=== PATIENT | male | born 1935 | race Caucasian/White ===

== ENCOUNTER 2017-11-09 15:20 | Emergency (ER) | payer MEDICARE, OTHER, SELFPAY ==
[2017-11-09 15:22] VITALS: BP 160/77; PULSE 69; RESP 14; TEMP 36.6; O2SAT 99; BMI 23.5
--- NOTE | 2017-11-09 15:49 | ED.DCSUM_ITS ---
- ER Visit Summary Date of Service: 11/09/17 Chief Complaint: Nose laceration and nosebleed History of Present Illness: The patient is a 82 M with Plavix and aspirin for coronary disease. He was fixing the floor of a trailer today when he slipped on the driveway struck his nose on part of the trailer causing a nasal laceration and nasal bleed. He denies any other head injury he denies any LOC or headache. He denies any neck pain. Physical Examination: Appearing older male accompanied by his in a hallway bed. Vital signs are stable afebrile. H EENT exam he is an L-shaped laceration on the bridge of his nose. And involves the skin and subcu tissue and will need to be repaired. Dry reactive light. There is no other signs of facial or scalp trauma. Dentition is unremarkable. C-spine nontender normal range of motion. Lungs clear to auscultation bilaterally. Heart regular rate and rhythm. Chest wall nontender. Abdomen soft nontender. Normal bowel sounds no peritoneal signs. Pelvic girdle intact. He is moving all 4 extremities. There is no deformity. Are nontender. They have normal range of motion. Back exam is nontender. Spine is nontender. Neurologically is awake and alert without any focal motor or sensory deficits. NIH is 0. GCS of 15. Test Results: None Emergency Department Course and Treatment: Patient is going to need his nasal bridge laceration repaired. Let will be applied. Then will be locally anesthetized with plain lidocaine. Then will determine also if he is a nasal passageway bleed also. He has a 5 cm L-shaped laceration on the bridge of his nose. Involves the skin and subcu tissue. Let was applied to the wound. Was locally anesthetized with plain lidocaine. Cleaned with Shur-Clens and washed and explored and irrigated. Closed using 5 simple interrupted 4-0 Ethilon sutures. Proper hemostasis wound closure obtained patient tolerated procedure well. Nurses will apply dressing. Afrin-soaked cotton balls were placed in both sides of his nose he had bilateral anterior nosebleeds from the trauma. After the first set a cotton balls the right side was completely stopped the left and small amount of blood remaining. There is no blood in the posterior pharynx. He will bilateral nasal tampons placed prior to discharge. Treatment Plan: Sutures removed in 7 days. Ice to his face. Nasal packs in for 2 days. Amoxicillin while the packs are in. Disposition: Discharge Impression: Acute fall with nasal bridge laceration Nasal bridge laceration with ER repair of 5 cm Nasal fracture Bilateral anterior nosebleeds with bilateral anterior nasal tampons placed Anticoagulated on Plavix and aspirin This note was generated with [employer] dictation software. It may contain incorrect words, spelling, and punctuation that were not noted in review of the chart prior to signing ED Disposition - Plan for ED Patient: Chief Complaint: Nosebleed Referrals: David Molina DO [Primary Care Provider] -
[2017-11-09] MEDS: Oxymetazoline 0.05% 1 SPRAY SPRAY.BTL 2 SPRAY NASAL (16:13)
[2017-11-09] MEDS: Lidocaine/Epi/Tetracaine 50 ML 1 APPLIC TOPICAL (16:14)
--- NOTE | 2017-11-09 16:48 | ED.DEP ---
ED Disposition - Plan for ED Patient: Disposition: Home or Assisted Living Chief Complaint: Nosebleed Instructions: Nosebleed, ED Laceration Facial Sutr Tape Prescriptions: Amoxicillin 250 mg PO TID #9 cap Referrals: David Molina DO [Primary Care Provider] - Additional Instructions: See her nose today and tomorrow. Hold your Plavix and aspirin tonight. Stitches out in 5 days. Clean wound daily with soap and water or peroxide and water and apply a small amount antibiotic ointment. Remove both nasal packs in 2 days. Take the amoxicillin 1 pill 3 times a day for the next 3 days. This will prevent you from getting a sinus infection from the nasal packs. Return if you develop a severe headache, vomiting or bleeding that will not stop.
[2017-11-09] MEDS: Diphth,Pertuss(Acell),Tet Vac 0.5 ML Vial IM (17:15)
[2017-11-09 17:16] VITALS: BP 153/75; PULSE 59; RESP 14; O2SAT 97
== END 2017-11-09 17:20 | disposition home or self-care (01) ==
PROVIDERS: Emergency Provider Emergency Medicine; Family Provider Family Medicine; PCP Family Medicine
DX: S02.2XXA Fracture of nasal bones, initial encounter for closed fracture (principal); S01.21XA Laceration without foreign body of nose, initial encounter; W01.0XXA Fall on same level from slipping, tripping and stumbling without subsequent striking against object, initial encounter; Y93.89 Activity, other specified; Y92.008 Other place in unspecified non-institutional (private) residence as the place of occurrence of the external cause; R04.0 Epistaxis; I25.10 Atherosclerotic heart disease of native coronary artery without angina pectoris; I25.2 Old myocardial infarction; E78.00 Pure hypercholesterolemia, unspecified; Z79.01 Long term (current) use of anticoagulants; Z79.82 Long term (current) use of aspirin; Z79.899 Other long term (current) drug therapy
CPT/HCPCS: 12013; 30903; 90471; 90715; 99283

== ENCOUNTER 2018-05-04 10:53 | Observation (INO) | payer MEDICARE, OTHER, SELFPAY ==
[2018-05-04] VITALS (12 sets, daily range): BP systolic 98–117; BP diastolic 57–64; PULSE 54–68; RESP 16–18; TEMP 36.6–36.7; O2SAT 93–99; BMI 22.6; BMI 21.9
[2018-05-04 11:09] LABS: Absolute Lymphocyte Count 1.15 X10^3/ul (0.83-4.51); Absolute Neutrophil Count 2.6 X10^3/uL (2.0-7.7); Eosinophil# 0.03 X10^3/uL; Eosinophils% 0.7 % (0-5); Hematocrit 35.3 % (40-54); Hemoglobin 11.8 g/dl (13.0-16.5); Lymphocyte # 1.15 X10^3/ul (4.0); Lymphocyte % 27.2 % (19-41); Mean Corp Hgb Conc 33.4 g/gl (32-36); Mean Corpuscular Hgb 33.3 pg (27.0-32.0); Mean Corpuscular Volume 99.7 fL (80-94); Mean Platelet Vol. 11.1 fl (6.2-12.0); Monocyte# 0.43 X10^3/uL; Monocyte% 10.2 % (0-10); Neutrophil # 2.62 X10^3/uL (2.7-7.7); Neutrophil % 61.9 % (47-70); POSITIVE COUNT NO; POSITIVE DIFFERENTIAL NO; POSITIVE MORPHOLOGY NO; Platelet Count 124 K/mm3 (150-450); RBC Distribution Width CV 13.9 % (11.6-14.6); RBC Distribution Width SD 50.2 fl (35.1-43.9); Red Blood Count 3.54 M/mm3 (4.6-6.2); White Blood Count 4.2 K/mm3 (4.4-11.0)
--- NOTE | 2018-05-04 11:11 | ED.DCSUM_ITS ---
- ER Visit Summary Date of Service: 05/04/18 Chief Complaint: Midsternal chest pain History of Present Illness: The patient is a 82 M history of CAD with approximately 3 prior cardiac stents. He had a quadruple bypass done in 2005. He has had stent since that time wasting some most recent one is 2011. He is currently on Plavix and aspirin. This morning around 7 AM he has had sternal chest pain which was more severe and currently is a 3 out of 10. No radiation of the pain to his back, neck, extremities or jaw. Associated mild dyspnea. No nausea or diaphoresis. He denies any hemoptysis. No history of DVT or PE. No leg pain or swelling. No recent admissions. She did take 3 sublingual nitro at home he thinks her old and gave him no relief. Physical Examination: Older male no acute distress. Vital signs are stable and afebrile. H EENT exam is unremarkable. Neck is nontender. Lungs clear to auscultation bilaterally. Heart regular rate and rhythm. No murmur. Rate is about 60. Chest wall is nontender. Abdomen soft and nontender. He is moving all 4 extremities. Calves are nontender without edema or cords. 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 Dorsi and plantar flexion intact. Neurologically he is awake and alert without focal motor deficits. Test Results: CBC unremarkable chronic anemia. BMP unremarkable. Troponin normal. Chest x-ray showed no acute abnormality read both by myself the radiologist will film. EKG was a sinus rhythm without signs of ischemia. Emergency Department Course and Treatment: Older male with known coronary disease prior CABG and stents. With aching midsternal chest pain. He will undergo a cardiac workup. Treatment Plan: Patient was improved and pain-free after the topical nitro. I spoke to the patient and his went over all test results. I spoke to the hospitalist about admission and further evaluation. Disposition: Admission Impression: Acute midsternal chest pain History of CAD with prior cardiac stents and prior quadruple bypass Anticoagulated on Plavix and aspirin This note was generated with [employer] dictation software. It may contain incorrect words, spelling, and punctuation that were not noted in review of the chart prior to signing ED Disposition - Plan for ED Patient: Chief Complaint: Chest Pain Referrals: David Molina DO [COURTESY STAFF PHYSICIAN] -
[2018-05-04] MEDS: Aspirin 81 MG TAB.CHEW 324 MG PO (11:14)
[2018-05-04] MEDS: Nitroglycerin Oint 1 INCH PACKET TRANSDERM. (11:20)
[2018-05-04 11:25] LABS: Anion Gap 10 (5-15); BUN 18 mg/dL (7-18); BUN/Creat Ratio 15.7 RATIO (10-20); Calcium,Total 8.5 mg/dL (8.5-10.1); Chloride 100 mmol/L (98-107); Creatinine, Serum 1.15 mg/dL (0.70-1.30); EST Glomerular Filtration Rate 65 mL/min (>60); Est Glom Filt Rate - Afr Amer 78 mL/min (>60); Estimated Creatinine Clearance 48.82 ml/min; Glucose 104 mg/dL (74-106); Potassium 4.2 mmol/L (3.5-5.1); Sodium Level 132 mmol/L (136-145)
--- NOTE | 2018-05-04 11:35 | NURSING ---
CALLED [facility] ABOUT ADMIT. LEFT A MESSAGE ON BED COORDINATOR PHONE.
--- NOTE | 2018-05-04 11:44 | PCM.HP.STD ---
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 11/2005 (3) S/P CABG x 3 Status: Chronic Comment: LARSON to LAD, reverse SVG to 1 diagonal, obtuse marginal, and PDA. 11/2005 (4) Atherosclerotic heart disease of [place] coronary artery without angina pectoris Status: Chronic Qualifiers: [place] vs. transplanted heart: [place] heart Qualified Code(s): I25.10 - Atherosclerotic heart disease of [place] coronary artery without angina pectoris (5) Paroxysmal atrial fibrillation Status: Chronic History of Present Illness Date of Admission: 05/04/18 Chief Complaint: Chest pain Patient is 82-year-old male with significant past medical history including CAD with previous CABG presenting with chest pain patient symptoms started on the morning of his presentation was out gardening. The discomfort was described as pressure located in the retrosternal region. He also did report increasing exertional with minimal activity. Patient presented to the emergency department initial set of cardiac enzymes came back negative in view of his significant risk factors decision was made to admit patient for subsequent workup in the hospital. On further questioning patient denied any nausea no vomiting did complain of occasional lightheadedness but no passing out episodes. Past Medical History Past Medical History (Chronic Problems): Chronic Problems (Last Reviewed 05/04/18 @ 12:48 by Nghia Fernando MD) S/P CABG (coronary artery bypass graft) (Chronic ~11/2005) LARSON to LAD, reverse SVG to 1 diagonal, obtuse marginal, and PDA. 11/2005 S/P CABG x 3 (Chronic) LARSON to LAD, reverse SVG to 1 diagonal, obtuse marginal, and PDA. 11/2005 Atherosclerotic heart disease of [place] coronary artery without angina pectoris (Chronic) Paroxysmal atrial fibrillation (Chronic) Medical History: Medical History (Last Reviewed 05/04/18 @ 12:48 by Nghia Fernando MD) Atherosclerotic heart disease of [place] coronary artery without angina pectoris (Chronic) I25.10 Paroxysmal atrial fibrillation (Chronic) I48.0 Colitis K52.9 Diverticulitis K57.92 Excision of the left atrial appendage 11/2005 Hiatal hernia K44.9 Kidney stones Upper gastrointestinal bleed K92.2 Allergies ciprofloxacin [From Cipro] Allergy (Unknown, Verified 11/09/17 15:22) unknown EZEQUIEL Inhibitors Allergy (Verified 11/09/17 15:22) cough orgaferin Allergy (Unknown, Uncoded 11/09/17 15:22) unknown Home Medications: Ambulatory Orders Medication Instructions Recorded clopidogrel 75 mg tablet 75 mg PO QDAY 08/10/17 nitroglycerin 0.4 mg sublingual 0.4 mg SUBLINGUAL Q5-15M PRN 08/10/17 tablet ranolazine ER 500 mg 500 mg PO Q12H 08/10/17 tablet,extended release,12 hr aspirin 325 mg tablet 325 mg PO QDAY 08/12/17 isosorbide mononitrate ER 60 mg 60 mg PO QDAY #90 tab 03/29/18 tablet,extended release 24 hr metoprolol tartrate 25 mg tablet 12.5 mg PO BID #90 tab 04/06/18 simvastatin 20 mg tablet 20 mg PO QPM #90 tab 04/06/18 Tamsulosin HCl [Flomax] 0.8 mg PO QHS 05/04/18 Surgical History: Surgical History (Last Reviewed 05/04/18 @ 12:48 by Nghia Fernando MD) S/P CABG (coronary artery bypass graft) (Chronic) Onset Date: ~11/2005 Z95.1 LARSON to LAD, reverse SVG to 1 diagonal, obtuse marginal, and PDA. 11/2005 H/O maze procedure Z98.890 History of hernia repair Z98.890, Z87.19 Hx of appendectomy Z90.49 Smoking Status: Never smoker - *Family History Maternal Family History: Family History (Last Updated 08/10/17 @ 15:38 by Tobias Sheth NP-C) Father Prostate cancer Mother CVA (cerebral vascular accident) Brother Cancer History Items: No pertinent history Review of Systems Constitutional: Denies: Anorexia, Chills, Fever, Night Sweats, Weight Change HEENT: Denies: Head Aches, Sinus Congestion, Sinus Drainage Cardiovascular: Reports: Chest Pain, Light Headedness. Denies: Orthopnea, Palpitations, Paroxysmal Noc. Dyspnea Respiratory: Reports: Shortness of breath upon exertion. Denies: Cough, Shortness of breath at rest, Sputum production Gastrointestinal: Denies: Abdominal Pain, Hematemesis, Hematochezia, Nausea, Melena, Vomiting Genitourinary: Denies: Dysuria, Frequency, Hematuria, Urgency Musculoskeletal: Denies: Joint Pain, Joint Tenderness Skin: Denies: Rash Neurological: Denies: Focal weakness, Numbness, Tingling Psychiatric: Denies: Homicidal Ideations, Suicidal Ideations Hematologic/ Lymphatic: Denies: Easy Bruising, Easy Bleeding VTE Information - Inpt Only VTE Present on Admission: No VTE Mechan Device Prophylaxis: Knee High GREGORIO Hose VTE Pharm Prophylaxis ordered?: Yes Patient Problems: Active and Suspected Problems (Last Reviewed 05/04/18 @ 12:48 by Nghia Fernando MD) Acute chest pain (Acute) Objective: GENERAL: cooperative and in no apparent distress. HEENT: Clear conjunctiva, moist oral mucosa NECK; supple, normal thyroid, no distended JVD. CHEST: Clear to auscultation bilaterally, HEART: Regular S1 S2, no audible murmurs ABDOMEN: soft, non-tender, normoactive bowel sounds, RECTAL: deferred EXTREMITIES: No edema, no clubbing, no cyanosis. CAT SWAMPER: Awake; no lateralizing signs. SKIN: No Rash - Physical Exam Vital Signs Temp Pulse Resp BP Pulse Ox 97.8 F 60 17 105/62 99 05/04/18 10:54 05/04/18 11:20 05/04/18 10:54 05/04/18 11:20 05/04/18 10:54 Oxygen Flow Rate (L/min) 2 Oxygen Delivery Method Nasal Cannula Weight: 69.7 kg Body Mass Index (BMI) 22.6 Laboratory Tests Past 24 Hrs 05/04/18 05/04/18 10:59 10:59 WBC 4.2 L RBC 3.54 L Hgb 11.8 L Hct 35.3 L MCV 99.7 H MCH 33.3 H MCHC 33.4 RDW 13.9 RDW Differential 50.2 H Plt Count 124 L MPV 11.1 Immature Gran % (Auto) 0.000 Neut % (Auto) 61.9 Lymph % (Auto) 27.2 [place] % (Auto) 10.2 H Eos % (Auto) 0.7 Baso % (Auto) 0.0 Absolute Neuts (auto) 2.6 Absolute Lymphs (auto) 1.15 Total Counted Not Reportable Sodium 132 L Potassium 4.2 Chloride 100 Carbon Dioxide 22.0 Anion Gap 10 BUN 18 Creatinine 1.15 Estim Creat Clear Calc 48.82 Est GFR (MDRD) Af Amer 78 Est GFR (MDRD) Non-Af 65 BUN/Creatinine Ratio 15.7 Glucose 104 Calcium 8.5 Troponin I < 0.015 Assessment/Plan All Active Problems (Last Reviewed 05/04/18 @ 12:48 by Nghia Fernando MD) Acute chest pain (Acute) Patient is 82-year-old male with significant past medical history including CAD with previous CABG presenting with chest pain 1. Chest Pain: Placed on a monitored bed; plan is to out for Myocardial infarction with serial cardiac enzymes and EKGs. If negative, rule out Myocardial Ischemia with nuclear medicine stress test. 2. Coronary artery disease status post bypass surgery with LARSON to LAD, SVG to the first diagonal, obtuse and PDA, stenting to his first diagonal and PDA in 2009 and stenting to SVG to the diagonal in 2011. 3. History of atrial fibrillation status post modified maze procedure 4. Dyslipidemia-patient is on statin therapy, continued at home dose 5. BPH patient is on Flomax 6. DVT prophylaxis SC Lovenox Active Medications Aspirin (Aspirin) 325 mg PO DAILYCM CHRIS Atorvastatin Calcium (Lipitor) 10 mg PO QHS CHRIS Bisacodyl (Dulcolax) 5 mg PO DAILY PRN PRN PRN Reason: Constipation Clopidogrel Bisulfate (Plavix) 75 mg PO DAILY CHRIS Enoxaparin Sodium (Lovenox) 40 mg SC DAILY@1000 CHRIS Isosorbide Mononitrate (Imdur) 60 mg PO DAILY CHRIS Magnesium Hydroxide (Milk Of Magnesia) 30 ml PO DAILY PRN PRN Reason: Constipation Metoprolol Tartrate (Lopressor (Beta Mynor)) 12.5 mg PO BID CHRIS Nitroglycerin (Nitrostat) 0.4 mg SUBLINGUAL Q5M PRN PRN Reason: CHEST PAIN Ranolazine (Ranexa) 500 mg PO Q12H CHRIS Tamsulosin HCl (Flomax) 0.4 mg PO QHS CHRIS Clinical Impression(s) from Imaging Studies Chest X-Ray 05/04/18 10:59 IMPRESSION: No acute abnormality is seen. Electronically Signed: Gómez Gaytan MD at 11:27 EDT Tel [phone], Service support , Code Visit OBSV E&M: 07003 Initial observation care L3
--- NOTE | 2018-05-04 11:46 | NURSING ---
DR SABRINA LILLY
--- NOTE | 2018-05-04 11:57 | NURSING ---
116 OBS CP, SABRINA
--- NOTE | 2018-05-04 16:23 | NURSING ---
[facility] CALLED AND ASKED IF PATIENT WAS ADMITTED. THEY WILL FOLLOW UP
[2018-05-04] MEDS: HYDROcodone Bitartrate/Apap 5/325 Tablet PO (20:42)
[2018-05-04] MEDS: Tamsulosin HCl 0.4 MG Capsule 0.8 MG PO (21:14)
[2018-05-04] MEDS: Atorvastatin Calcium 10 MG Tablet PO (21:14)
[2018-05-04] MEDS: Ranolazine 500 MG Tablet PO (21:14)
[2018-05-04] MEDS: Metoprolol Tartrate 25 MG Tablet 12.5 MG PO (21:15)
[2018-05-05 00:05] VITALS: BP 102/57; PULSE 63; RESP 18; TEMP 36.5; O2SAT 98
[2018-05-05 03:00] VITALS: PULSE 60
[2018-05-05 03:41] LABS: Hematocrit 32.8 % (40-54); Hemoglobin 11.3 g/dl (13.0-16.5); Mean Corp Hgb Conc 34.5 g/gl (32-36); Mean Corpuscular Hgb 34.2 pg (27.0-32.0); Mean Corpuscular Volume 99.4 fL (80-94); Platelet Count 149 K/mm3 (150-450); RBC Distribution Width SD 50.5 fl (35.1-43.9); White Blood Count 3.2 K/mm3 (4.4-11.0)
[2018-05-05 03:42] LABS: Scan Indicated on CBC? Y/N NO
[2018-05-05 03:47] LABS: International Normalized Ratio 1.1; Prothrombin Time (Protime)PT. 14.4 SECONDS (11.7-14.9)
[2018-05-05 03:59] LABS: Anion Gap 10 (5-15); BUN 18 mg/dL (7-18); BUN/Creat Ratio 19.4 RATIO (10-20); Calcium,Total 8.2 mg/dL (8.5-10.1); Chloride 102 mmol/L (98-107); Creatinine, Serum 0.93 mg/dL (0.70-1.30); EST Glomerular Filtration Rate 83 mL/min (>60); Est Glom Filt Rate - Afr Amer 100 mL/min (>60); Estimated Creatinine Clearance 58.29 ml/min; Glucose 91 mg/dL (74-106); Potassium 4.2 mmol/L (3.5-5.1); Sodium Level 135 mmol/L (136-145)
[2018-05-05 05:38] VITALS: BP 97/57; PULSE 66; RESP 18; TEMP 36.4; O2SAT 99
[2018-05-05] MEDS: Aspirin 325 MG Tablet PO (05:40)
[2018-05-05] MEDS: Clopidogrel Bisulfate 75 MG Tablet PO (05:40)
[2018-05-05 06:30] VITALS: PULSE 58
[2018-05-05 09:10] VITALS: BP 117/54; PULSE 60; RESP 16; TEMP 36.5; O2SAT 97
[2018-05-05 09:12] VITALS: BP 117/54; PULSE 60
[2018-05-05] MEDS: Isosorbide Mononitrate 60 MG Tablet PO (09:12)
[2018-05-05] MEDS: Metoprolol Tartrate 25 MG Tablet 12.5 MG PO (09:12)
[2018-05-05] MEDS: Ranolazine 500 MG Tablet PO (09:12)
--- NOTE | 2018-05-05 09:21 | STRESSREP ---
Stress Test Report Exercise myocardial perfusion stress test. 82-year-old male with a history of coronary artery disease and chest pain. Medications: Aspirin, Lipitor, Plavix, isosorbide, metoprolol, Ranexa. Stress protocol: Resting EKG demonstrates sinus bradycardia cardia with a rate of 57 bpm normal intervals and noted resting blood pressures 138/58 mmHg. The patient exercised according to the regular Waldo protocol for a total duration of 8 minutes. Patient completed 2 minutes into stage III of the Waldo protocol the maximum heart rate attained was 127 bpm which was 92% of maximum predicted heart rate the maximum workload was 10.1 metabolic equivalents. At rest were no ST or T-wave changes noted suggest ischemia peak exercise upsloping ST changes only were noted with no meet the criteria for ischemia. No clinical angina was noted the test was terminated due to leg fatigue. Resting blood pressure 738/58 final blood pressure was 112/68. Myocardial perfusion protocol. 11.5 mCi of technetium 99m sestamibi was injected at rest. The patient exercised a consult regular Waldo protocol for total duration of 8 minutes attaining 92% of maximum predicted heart rate. At peak exercise 33.2 mCi of technetium 99m sestamibi was injected stress images were obtained stress and rest images were reconstructed and compared in the short axis vertical long and horizontal long axis. Gated images were also obtained next Perfusion SPECT analysis: Review of the stress images demonstrate normal uptake of tracer noted in the septum anterior wall, apex and inferior apical wall. The basal inferolateral wall has a small to medium-sized defect which is present on the stress and resting images. The above is suggestive of an area of previous infarct in this region. No obvious reversibility is noted suggest ischemia. Gated SPECT analysis: The gated ejection fraction is 45%. Conclusion: Exercise myocardial perfusion stress test with no evidence of ischemia at a high workload. Previous basal inferolateral infarct noted. Low normal ejection fraction.
--- NOTE | 2018-05-05 09:39 | PCM.DC ---
- Discharge Diagnoses Current Active Problems: Current Active and Chronic Problems (Last Reviewed 05/04/18 @ 12:48 by Nghia Fernando MD) Acute chest pain (Acute) You will use the following diet at home:: Cardiac Instructions: ED Chest Pain NonCardiac Allergies/Adverse Reactions: Allergies ciprofloxacin [From Cipro] Allergy (Unknown, Verified 11/09/17 15:22) unknown EZEQUIEL Inhibitors Allergy (Verified 11/09/17 15:22) cough orgaferin Allergy (Unknown, Uncoded 11/09/17 15:22) unknown Medications to take at Discharge clopidogrel 75 mg tablet 75 mg PO QDAY 08/10/17 nitroglycerin 0.4 mg sublingual tablet 0.4 mg SUBLINGUAL Q5-15M PRN 08/10/17 ranolazine ER 500 mg tablet,extended release,12 hr 500 mg PO Q12H 08/10/17 aspirin 325 mg tablet 325 mg PO QDAY 08/12/17 isosorbide mononitrate ER 60 mg tablet,extended release 24 hr 60 mg PO QDAY #90 tab 03/29/18 metoprolol tartrate 25 mg tablet 12.5 mg PO BID #90 tab 04/06/18 simvastatin 20 mg tablet 20 mg PO QPM #90 tab 04/06/18 Tamsulosin HCl [Flomax] 0.8 mg PO QHS 05/04/18 Primary Care Physician: David Molina DO [COURTESY STAFF PHYSICIAN] - Please follow up with your Primary Care Physician in: in 5-7 days Test Results: Test results from this visit will be discussed in further detail at your follow-up appointment, if applicable. Please Follow Up With: Vinicius Mckeon MD When: on 05/12/2018 Proposed Discharge Date: 05/05/18
--- NOTE | 2018-05-05 09:42 | PCM.DC.SUM ---
Discharge Date and Diagnosis - Problem List Patient Problems: Active and Suspected Problems (Last Reviewed 05/04/18 @ 12:48 by Nghia Fernando MD) Acute chest pain (Acute) Date of Admission: 05/04/18 Date of Discharge: 05/05/18 - Primary Discharge Diagnosis Active and Suspected Problems (Last Reviewed 05/04/18 @ 12:48 by Nghia Fernando MD) Acute chest pain (Acute) - Secondary Discharge Diagnosis Chronic Problems (Last Reviewed 05/04/18 @ 12:48 by Nghia Fernando MD) S/P CABG (coronary artery bypass graft) (Chronic ~11/2005) LARSON to LAD, reverse SVG to 1 diagonal, obtuse marginal, and PDA. 11/2005 S/P CABG x 3 (Chronic) LARSON to LAD, reverse SVG to 1 diagonal, obtuse marginal, and PDA. 11/2005 Atherosclerotic heart disease of [place] coronary artery without angina pectoris (Chronic) Paroxysmal atrial fibrillation (Chronic) Hospital Course and Treatment Imaging Results: 05/05/18 05:55 Nuclear Stress Test - Treadmil [NM] AM (NON MEDS) Summary of Care Provided: Patient is 82-year-old male with significant past medical history including CAD with previous CABG presenting with chest pain 1. Chest Pain: Placed on a monitored bed; did rule to out for Myocardial infarction with serial cardiac enzymes and EKGs. Patient subsequently underwent a nuclear stress test which is negative for stress-induced ischemia discharge home instructed to follow-up with his primary care physician within 5-7 days. Of note patient has an appointment with Dr. 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 Coronary artery disease status post bypass surgery with LARSON to LAD, SVG to the first diagonal, obtuse and PDA, stenting to his first diagonal and PDA in 2009 and stenting to SVG to the diagonal in 2011. 3. History of atrial fibrillation status post modified maze procedure 4. Dyslipidemia-patient is on statin therapy, continued at home dose 5. BPH patient is on Flomax 6. DVT prophylaxis SC Lovenox Discharge Diet: Low fat/ Low Cholesterol Home Medications: Medications to take at Discharge clopidogrel 75 mg tablet 75 mg PO QDAY 08/10/17 nitroglycerin 0.4 mg sublingual tablet 0.4 mg SUBLINGUAL Q5-15M PRN 08/10/17 ranolazine ER 500 mg tablet,extended release,12 hr 500 mg PO Q12H 08/10/17 aspirin 325 mg tablet 325 mg PO QDAY 08/12/17 isosorbide mononitrate ER 60 mg tablet,extended release 24 hr 60 mg PO QDAY #90 tab 03/29/18 metoprolol tartrate 25 mg tablet 12.5 mg PO BID #90 tab 04/06/18 simvastatin 20 mg tablet 20 mg PO QPM #90 tab 04/06/18 Tamsulosin HCl [Flomax] 0.8 mg PO QHS 05/04/18 Primary Care Physician: David Molina DO [COURTESY STAFF PHYSICIAN] - Please follow up with your Primary Care Physician in: in 5-7 days Please Follow Up With: Vinicius Mckeon MD When: on 05/12/2018 Patient Instructions: ED Chest Pain NonCardiac Disposition: Home Minutes spent on discharge:: 35 Patient Condition:: Stable Medical Necessity - Tobacco Use Smoking Status: Never smoker Meaningful Use Info Meaningful Use Diagnoses (Choose all that apply): None applicable Code Visit OBSV E&M: 57630 Observation care discharge
== END 2018-05-05 09:39 | disposition home or self-care (01) ==
LOC: ED 11:33 → PCU 12:02
PROVIDERS: Admitting Provider Internal Medicine; Emergency Provider Emergency Medicine; Visit Provider Internal Medicine
DX: R07.89 Other chest pain (principal); I25.10 Atherosclerotic heart disease of native coronary artery without angina pectoris; I48.0 Paroxysmal atrial fibrillation; E78.5 Hyperlipidemia, unspecified; R06.00 Dyspnea, unspecified; D64.9 Anemia, unspecified; N40.0 Benign prostatic hyperplasia without lower urinary tract symptoms; Z95.1 Presence of aortocoronary bypass graft; Z79.899 Other long term (current) drug therapy; Z79.02 Long term (current) use of antithrombotics/antiplatelets; Z79.82 Long term (current) use of aspirin
CPT/HCPCS: 36415; 71045; 78452; 80048; 84484; 85025; 85027; 85610; 85730; 93005; 93017; 93306; 99218; 99285; A9500; A4216; G0378

== ENCOUNTER 2018-11-15 06:53 | Day surgery (SDC) | payer MEDICARE, OTHER, SELFPAY ==
--- NOTE | 2018-11-09 08:39 | EKG12_ITS ---
Test Reason : PRE OP Blood Pressure : / mmHG Vent. Rate : 063 BPM Atrial Rate : 063 BPM P-R Int : 152 ms QRS Dur : 112 ms QT Int : 416 ms P-R-T Axes : 066 012 069 degrees QTc Int : 425 ms Normal sinus rhythm Incomplete right bundle branch block Borderline ECG Confirmed by DONALD THOMPSON ([id number]), greeting card editor OSBALDO KO ([id number]) on 11/12/2018 1:32:35 PM Referred By: Maximus Way Confirmed By:DONALD THOMPSON
[2018-11-09 08:54] LABS: Hematocrit 36.1 % (40-54); Hemoglobin 11.8 g/dl (13.0-16.5); Mean Corp Hgb Conc 32.7 g/gl (32-36); Mean Corpuscular Hgb 33.4 pg (27.0-32.0); Mean Corpuscular Volume 102.3 fL (80-94); Mean Platelet Vol. 10.1 fl (6.2-12.0); Platelet Count 153 K/mm3 (150-450); RBC Distribution Width CV 14.6 % (11.6-14.6); RBC Distribution Width SD 53.9 fl (35.1-43.9); Red Blood Count 3.53 M/mm3 (4.6-6.2); White Blood Count 2.9 K/mm3 (4.4-11.0)
[2018-11-09 08:57] LABS: Scan Indicated on CBC? Y/N NO
[2018-11-09 09:02] LABS: International Normalized Ratio 1.2
[2018-11-09 09:03] LABS: Partial Thromboplast Time 36.5 Seconds (24.1-36.2)
[2018-11-09 09:22] LABS: Anion Gap 9 (5-15); BUN 15 mg/dL (7-18); BUN/Creat Ratio 13.9 RATIO (10-20); Calcium,Total 8.3 mg/dL (8.5-10.1); Chloride 101 mmol/L (98-107); Creatinine, Serum 1.08 mg/dL (0.70-1.30); EST Glomerular Filtration Rate 69 mL/min (>60); Est Glom Filt Rate - Afr Amer 84 mL/min (>60); Glucose 125 mg/dL (74-106); Potassium 3.6 mmol/L (3.5-5.1); Sodium Level 138 mmol/L (136-145)
--- NOTE | 2018-11-12 14:30 | PCM.HP.BLA ---
History and Physical Date of Admission: 11/15/18 HISTORY AND PHYSICAL ? Ted Bhardwaj 1935 ? ? REFERRING PHYSICIAN: ??Self ? CHIEF COMPLAINT: ??Consult (Consullt inguinal hernia ) ? HPI: Ted is a 83 year old male with a complaint of?a bulge ?and discomfort ?in his right inguinal region.??He has noticed this hernia for approximately 10 years.??The patient notes discomfort in this area with lifting and coughing. ?The symptoms have increased, over the past?1?years. ? The patient notes no symptoms of bowel obstruction and denies nausea or vomiting. The patient was seen by?his?primary care physician ?who felt the patient has a hernia. ?Ted was referred for evaluation and treatment. ? PAST?MEDICAL?HISTORY No past medical history on file. ? ? PAST?SURGICAL?HISTORY PAST SURGICAL HISTORY Procedure Laterality Date ? APPENDECTOMY HX ? 1961 ? CABG (4) VEIN GRAFTS & ARTERIAL GRAFT(S) ? 2005 ? HEART CATHETERIZATION ? 2011 ? with stents x2 ? INGUINAL HERNIA REPAIR HX Left 1989 ? PAST SURGICAL HISTORY OF ? 1981 ? zygomatic arch repiar ? REMOVAL OF KIDNEY STONE Right 1988 ? ? CURRENT?MEDICATIONS ? Current Outpatient Prescriptions: Lkhdwmbtmtcb-YEZ-Nmfwjtx 200-325-16 mg tab Take by mouth. isosorbide mononitrate ER (IMDUR) 60 mg 24 hr tablet Take 60 mg by mouth once daily. metoprolol tartrate, short acting, (LOPRESSOR) 25 mg tablet Take 12.5 mg by mouth twice daily. clopidogrel (PLAVIX) 75 mg tablet Take 75 mg by mouth once daily. ranolazine ER (RANEXA) 500 mg 12 hr tablet Take 500 mg by mouth twice daily. simvastatin (ZOCOR ORAL) Take by mouth. Cholecalciferol, Vitamin D3, (VITAMIN D) 1,000 unit cap Take 1,000 Units by mouth once daily. Cyanocobalamin (VITAMIN B-12) 2,500 mcg subl Dissolve under the tongue. tamsulosin ER (FLOMAX) 0.4 mg cap Take 0.4 mg by mouth. ? No current facility-administered medications for this visit.? ? ALLERGIES:?Ciprofloxacin ? PERSONAL HISTORY:? SOCIAL?HISTORY Social History ??Marital status: ?Spouse name: ?Years of education: ?Number of children: ? Social History Main Topics ??Drug use: Unknown ? FAMILY HISTORY:? FAMILY?HISTORY No family history on file. ? REVIEW OF SYMPTOMS: ??The review of systems data was entered by the nurse and reviewed by me ? Nursing Notes: Iker Schilling LPN ?10/22/2018 ?2:29 PM ?Signed REVIEW OF SYSTEMS: ?General:???The patient denies fatigue, denies weight loss, denies weight gain, denies feeling hot, and denies feelings of cold. ?Eyes: ?The patient denies glaucoma, denies eye injury/surgery, wears glasses or contacts. ?Ear/Nose/Throat: ?The patient denies allergies, denies hayfever, denies ear infections, and denies bloody noses. ?Cardiovascular: ?The patient NOTES chest pain, NOTES heart disease, denies high blood pressure,notes cardiac stent, denies prior heart attack, NOTES irregular heart beat, denies high cholesterol, ?denies poor circulation, denies heart failure, other cardiac issues, denies claudication, denies cold feet, denies peripheral arterial stent. ?Respiratory: ?The patient denies tuberculosis, denies pneumonia, denies frequent cough, denies pulmonary embolism, denies shortness of breath, and denies coughing up blood. ?Gastrointestinal: ?The patient denies difficulty swallowing, denies acid reflux, denies ulcers, denies vomiting, denies jaundice/hepatitis, denies gallbladder problems, denies black or tarry stools, denies hemorrhoids, denies bleeding from rectum, denies diverticulitis, denies constipation, NOTES diarrhea, denies loss of stool control, and NOTES hernias. ?Kidney/Bladder: ?The patient NOTES kidney stones, denies urine infections, and denies bloody urine. ?Skin: ?The patient denies a history of skin cancer, denies bleeding/changing moles, and denies a history of skin rash. ?Neurologic: ?The patient denies a history of epilepsy/convulsions, denies headaches, denies head/spinal injuries, and denies stroke/TIA. ?Psychiatric: ?The patient denies psychiatric medications, denies depression, and denies voices, denies substance abuse. ?Endocrine: ?The patient denies thyroid disorders, denies diabetes, and denies hormonal problems. ?Hematologic: ?The patient denies a history of bruising, denies bleeding, and denies anemia, denies blood clots. ?Infections: ?The patient NOTES a history of measles and mumps, denies rheumatic fever, and denies sexually transmitted diseases. ?Musculoskeletal: ?The patient NOTES back pain/injury, denies back problems, denies sciatica, denies knee/foot trouble, denies arthritis, or denies gout. ? ? When was patient's last Mammogram screening? N/A ? ?Last Colonoscopy: ?unknown ? Iker Schilling LPN ? PHYSICAL EXAMINATION: ? General: ?The patient is 83 year old male, well nourished, well hydrated in no acute distress. ?The patient is oriented to time, place, and person. ? VITALS:?Blood pressure 138/68, pulse 66, temperature 36.3 ?C (97.4 ?F), temperature source Temporal Artery, height 175.3 cm (5' 9), weight 70.3 kg (155 lb), SpO2 100 %.?Body mass index is 22.89 kg/m?.? ? HEENT: ?Normal cephalic, ataumatic, pupils are equally round, sclera are anicteric, mucous membranes are moist, oropharynx is clear. ?Neck has no masses, asymmetry or lymphadenopathy. ?Thyroid is unremarkable. ? Respiratory: ?Clear to auscultation and percussion. ?Normal respiratory excursion and pattern. ? Cardiac: ?Examination is regular rate and rhythm. ? Abdominal exam: ?Soft, nontender, ?with no palpable masses. ?No hepatosplenomegaly. ?A?small, reducible right inguinal hernia, no left inguinal or umbilical hernias are noted ? Rectal exam:??exam deferred ? Extremities: ?no clubbing, cyanosis or edema. ?No adenopathy. ? Other: ? ? LABORATORY VALUES: As Noted ? RADIOLOGIC STUDIES: ?As Noted ? Assessment ? IMPRESSION:?right inguinal hernia ? PLAN: ??My plan is to perform a open right inguinal hernia repair with mesh. ?The planned surgical procedure was discussed extensively with the patient. ?The risks, benefits, anticipated outcomes and possible complications were mentioned. ?Versil undersands that all hernia repair surgery has a chance of recurrence and/or chronic post operative pain. ?My staff has also explained the procedure in understandable terms and the patient was given the option to take printed material concerning the planned procedure. ?The patient had the opportunity to ask questions concerning the planned procedure. ?The patient freely consents to the planned procedure. ? ? We will contact Dr. Jacobs by the office to assure that he is an acceptable candidate for surgical intervention and that we can hold his Plavix for 5 days while continuing his aspirin. ? ? Diagnoses:?(K40.90) Right inguinal hernia ?(primary encounter diagnosis) ? Anticipated CPT Code:?open right inguinal hernia repair with mesh - [id number] ? Anticipated Anesthetic:?MAC with local ? Patient weight:??Blood pressure 138/68, pulse 66, temperature 36.3 ?C (97.4 ?F), temperature source Temporal Artery, height 175.3 cm (5' 9), weight 70.3 kg (155 lb), SpO2 100 %.?BMI: ?Body mass index is 22.89 kg/m?. ? Planned antibiotic:?Ancef 2gm IVPB environmental quality analyst to OR ? SCDs needed -?Yes ? Return to Clinic: The patient is instructed to follow-up with me?1 week post operatively. ? Maximus Way MD
[2018-11-15 07:18] VITALS: BP 124/62; PULSE 55; RESP 16; TEMP 36.6; O2SAT 99; BMI 22.8
[2018-11-15] MEDS: Cefazolin 2 GM in 0.9% Normal Saline 100 ML IV (09:02)
[2018-11-15] MEDS: Bupivacaine Mpf 0.5% 30 ML VIAL (10:06)
--- NOTE | 2018-11-15 10:11 | OP.PCM_ITS ---
Report of Operation Date of Procedure: 11/15/18 Pre-Operative Diagnosis: Right inguinal hernia Post-Operative Diagnosis: Right direct inguinal hernia Surgery/Procedure Performed:: Right inguinal hernia repair with onlay Mesh - no plug - Type of Anesthesia:: Local MAC Anesthesiologist: Usman Hooks - ASA3 Estimated Blood Loss (mL): 5 Fluids Replaced: 600 Description of Procedure: The patient was brought to the operating suite. Sign in was performed verifying patient, site, procedure, position, and DVT prophylaxis with SCDs. Patient r eceived 2 g Ancef antibiotic prophylaxis. Following induction of IV sedation, the patient?s right inguinal region was prepped and draped in the usual fashion. Timeout was performed verifying patient, site, position. Local anesthetic was injected at the site of the anterior superior iliac spine for a regional block. The 50-50 mixture of lidocaine and Marcaine was then injected along the planned course of the skin incision. A linear incision was made and dissection carried down to the external oblique aponeurosis. Traversing veins ligated with 3-0 Vicryl ties and divided. Local anesthetic was then injected into the inguinal canal. A clean scalpel blade was used to open the lower canal in the direction of the fibers and a Metzenbaum scissor was used to further dissect and open the canal. Care was taken to avoid injury to the ilioinguinal nerve. Following this, the spermatic cord was surrounded at the level of the pubic tubercle and brought up in the operative field with a Annabelle drain. Dissection was continued up to the internal ring clearing the cremasteric fibers. The patient was noted to have a direct inguinal hernia. Dissection of the cord was undertaken which demonstrated no additional indirect inguinal hernia. Onlay mesh was secured using a Bard keyhole shaped mesh secured at the level of the pubic tubercle and run from Tremayne?s ligament transitioning to the ilioinguinal ligament inferiorly using an 0 Prolene suture. Next an 0 Prolene suture was used to secure the mesh to the transversus arch. The tails of the mesh were placed around the spermatic cord to create a new internal ring and the tails closed with a running 0 Prolene suture. The spermatic cord and the ilioinguinal nerve returned to its anatomic position. The external oblique was closed with a running 3-0 Vicryl suture. Subcutaneous fat was closed with interrupted 3-0 Vicryl suture. Skin was closed with a running 4-0 Monocryl subcuticular sutures. Steri-Strips and bandages were applied. The patient was brought to recovery room in stable condition. Grafts/Implants Used: Bard perfix - Ref [id number], Lot [id number] Exp 08/04/2022
--- NOTE | 2018-11-15 10:12 | PCM.DC.HER ---
Discharge Diet: Light diet - advance as tolerated Discharge Activity: Return to Normal Activity, May Drive - when you are no longer taking narcotic pain medications., May Shower - with the bandage in place 1-2 days after surgery. Lifting Restrictions: 20 pounds for 8 weeks. Additional Activity Instructions:: Climbing stairs is fine, walking is encouraged. Sitting in bed may be uncomfortable. Sitting up using your lateral muscles (sitting up sideways) is usually more comfortable. Do not drive, work heavy equipment of sign legal documents for 24 hours. If your hernia repair was an ingunial repair, you may have scrotal swelling, an ice pack and/or athletic support can provide more comfort. Pain medications may cause nausea, you should typically eat light foods as you take your pain medications. Pain medications may also cause constipation. If you have difficulty with this, discuss with your doctor. Call your doctor if your incision/area has: Continuous Slow Oozing, Sudden Increased Bleeding, Increased Pain/ Swelling, Increased Redness, Foul Smelling Discharge Call your doctor if you observe: Fever of 101 or Higher Suture Line Care: Avoid Pulling/Pushing, Avoid Pinching/Bending Additional Dressing/Incision Instructions:: Leave the operative bandage on for 2-3 days. When you remove the bandage, leave the steri-strips on place until your follow up appointment or they fall off. Allergies/Adverse Reactions: Allergies ciprofloxacin [From Cipro] Allergy (Unknown, Verified 11/08/18 14:05) Rash EZEQUIEL Inhibitors Allergy (Verified 11/08/18 14:07) cough ipodate [From Oragrafin] Allergy (Verified 11/08/18 14:07) Rash Medications to take at Discharge clopidogrel 75 mg tablet 75 mg PO QDAY 08/10/17 ranolazine ER 500 mg tablet,extended release,12 hr 500 mg PO Q12H 08/10/17 aspirin 325 mg tablet 325 mg PO QDAY 08/12/17 simvastatin 20 mg tablet 20 mg PO QPM #90 tab 04/06/18 RX: Tamsulosin HCl [Flomax] 0.8 mg PO QHS 05/04/18 nitroglycerin 0.4 mg sublingual tablet 0.4 mg SUBLINGUAL Q5-15M PRN #90 tab 05/12/18 RX: Isosorbide Mononitrate [Isosorbide Mononitrate ER] 60 mg PO QDAY 11/08/18 RX: Metoprolol Tartrate 12.5 mg PO BID 11/08/18 Orders to be completed after discharge: 12 Lead EKG [[facility]] Time Frame: 11/08/18, Facility: [facility], Location: Cardiovascular Services Partial Thromboplast Time Time Frame: 11/08/18, Location: Laboratory Basic Metabolic Profile (BMP) Time Frame: 11/08/18, Location: Laboratory CBC-Complete Blood Cnt No Diff Time Frame: 11/08/18, Location: Laboratory Prothrombin Time w/INR Time Frame: 11/08/18, Location: Laboratory Primary Care Physician: [facility],[place] [Primary Care Provider] - Test Results: Test results from this visit will be discussed in further detail at your follow-up appointment, if applicable. Please Follow Up With: Maximus Way MD - [phone] When: Plan to have a follow up appointment in 7 days. Call to schedule.
[2018-11-15 10:15] VITALS: BP 124/62; BP 95/60; PULSE 49; RESP 16; TEMP 36.6; O2SAT 94
[2018-11-15 10:20] VITALS: BP 124/62; BP 90/54; PULSE 49; RESP 16; O2SAT 96
[2018-11-15 10:25] VITALS: BP 124/62; BP 92/54; PULSE 48; RESP 16; O2SAT 95
[2018-11-15 10:30] VITALS: BP 124/62; BP 93/50; PULSE 49; RESP 16; TEMP 36.3; O2SAT 94
[2018-11-15 11:05] VITALS: BP 124/62
== END 2018-11-15 11:17 | disposition home or self-care (01) ==
LOC: SDC 06:53 → AC 06:54
PROVIDERS: Referring Provider Surgery; Visit Provider Surgery
PROC: (CPT 49505; principal; 2018-11-15 08:30)
DX: K40.90 Unilateral inguinal hernia, without obstruction or gangrene, not specified as recurrent (principal); E78.00 Pure hypercholesterolemia, unspecified; I48.0 Paroxysmal atrial fibrillation; I25.10 Atherosclerotic heart disease of native coronary artery without angina pectoris; I25.2 Old myocardial infarction; Z95.1 Presence of aortocoronary bypass graft; Z95.5 Presence of coronary angioplasty implant and graft; Z79.82 Long term (current) use of aspirin; Z79.899 Other long term (current) drug therapy
CPT/HCPCS: 49505; 36415; 80048; 85027; 85610; 85730; 93005; J7120; C1781; J2405

== ENCOUNTER 2019-05-24 16:32 | Inpatient (IN) | payer MEDICARE, OTHER, SELFPAY ==
[2018-12-10 09:17] VITALS: BMI 22.8
[2019-05-24] VITALS (7 sets, daily range): BP systolic 102–131; BP diastolic 51–68; PULSE 64–88; RESP 16–18; TEMP 36.1–36.6; O2SAT 98–100; BMI 21.5; BMI 21.3
--- NOTE | 2019-05-24 16:41 | RAD_ITS ---
STUDY: X-RAY CHEST REASON FOR EXAM: Male, 84 years old. Dizziness. Short of breath. TECHNIQUE: Single AP portable view of the chest. COMPARISON: 05/04/2018. FINDINGS: The lungs are clear and expanded. There is no demonstrated pleural abnormality. Normal size heart. Previous median sternotomy. Normal mediastinum and izabel. Normal visualized pulmonary arteries. Normal visualized aortic arch and descending thoracic aorta. Normal visualized thoracic spine. Normal visualized ribs, clavicles, and shoulders. There is no demonstrated abnormality of the visualized soft tissue structures of the upper abdomen. RAD/Chest 1 View (Portable) IMPRESSION: No acute chest disease. Electronically Signed: Rufino Tya MD at 17:02 EDT , Service support ,
--- NOTE | 2019-05-24 16:43 | ED.VIS.GEN ---
History of Present Illness Chief Complaint: Dizziness Informant: Patient Onset: Days Context: Gradual Onset Timing: Intermittent Current Severity: Moderate Maximum Severity: Moderate Narrative: The patient presents to the emergency department with lightheadedness. He states that the most when he changes positions. He states for the past 3 days, if he stands up quickly, he will get lightheaded and feel near syncopal. He denies any chest pain or shortness of breath. The patient does have history of prior coronary artery bypass grafting in 2005. He is on Plavix and full aspirin. He denies any dyspnea, orthopnea, or weight gain. He states that he has had some darker stools over the past few days. He denies any history of GI bleed in the past. He is otherwise been in his normal state of health. Prior similar symptoms: No Recent Illness/Hospitalization: No Past Medical History - Allergies and Home Meds Allergies/Adverse Reactions: Allergies ciprofloxacin [From Cipro] Allergy (Unknown, Verified 12/10/18 09:11) Rash EZEQUIEL Inhibitors Allergy (Verified 12/10/18 09:11) cough ipodate [From Oragrafin] Allergy (Verified 12/10/18 09:11) Rash Primary Care Physician: [place] [Primary Care Provider] - Prior records reviewed: Yes Past Medical History: - Surgical History: coronary bypass surgery Smoking Status: Never smoker - Family History Maternal Family History: Family History (Last Reviewed 12/10/18 @ 09:12 by Yamilet Traore) Father Prostate cancer Mother CVA (cerebral vascular accident) Brother Cancer Family History: Reports: No pertinent history Review of Systems General: Denies: Chills, Fever, Sweats Eyes: Denies: Visual changes - bilaterally, Diplopia ENT: Denies: Rhinorrhea, Sore throat Cardiovascular: Denies: Chest pain, Palpitations Respiratory: Denies: Dyspnea, Cough, Dyspnea on exertion Gastrointestinal: Denies: Abdominal pain, Nausea, Vomiting, Diarrhea, Melena, Hematochezia Genitourinary: Denies: Dysuria, Hematuria, Frequency Musculoskeletal: Denies: Back pain, Extremity Pain Skin: Denies: Rash, Wounds Neurological: Denies: Headache, Weakness, Numbness Physical Exam Vital Signs/Narrative: Vital Signs Temp Pulse Resp BP Pulse Ox 05/24/19 16:33 97 F L 88 16 102/53 L 98 Inital Vital Signs reviewed: Yes General: Well nourished, Well developed, No Acute Distress Head: Normocephalic, Atraumatic Eyes: Perrl, EOMI ENT: Moist mucous membranes, No rhinorrhea Neck: Supple, Nontender Cardiovascular: Regular rate, Regular rhythm, No murmurs Respiratory: No distress, CTA bilaterally, Chest nontender Abdomen: Soft, Nontender, Nondistended, Normal bowel sounds Back: Nontender, Normal Inspection Extremities: Nontender, No edema Skin: Normal color, No rash Neurological: Alert, Oriented x3, Cranial nerves II-XII grossly intact, Normal Strength, Normal Sensation Psychological: Normal affect, Normal Mood Diagnostic/Tx/Re-eval Chest X-Ray - ED: 1 View, Read by ED Physician, Read by Radiologist, Normal, Heart, Lungs, Mediastinum Clinical Impression(s) from Imaging Studies Chest X-Ray 05/24/19 16:41 IMPRESSION: No acute chest disease. Electronically Signed: Rufino Tay MD at 17:02 EDT , Service support , Abnormal Lab Results 05/24/19 05/24/19 05/24/19 17:05 17:05 17:05 WBC 3.5 L RBC 2.56 L Hgb 8.7 L Hct 26.7 L MCV 104.3 H MCH 34.0 H MCHC 32.6 RDW Std Deviation 57.1 H RDW Coeff of Zachariah 15.1 H Plt Count 156 MPV 10.7 Immature Gran % (Auto) 0.300 Neut % (Auto) 60.9 Lymph % (Auto) 27.6 [place] % (Auto) 10.3 H Eos % (Auto) 0.6 Baso % (Auto) 0.3 Absolute Neuts (auto) 2.1 Absolute Lymphs (auto) 0.96 Nucleated RBC % 0 Sodium 135 L Potassium 4.1 Chloride 104 Carbon Dioxide 26.0 Anion Gap 5 BUN 31 H Creatinine 1.02 Estim Creat Clear Calc 50.40 Est GFR (MDRD) Af Amer 90 Est GFR (MDRD) Non-Af 74 BUN/Creatinine Ratio 30.4 H Glucose 98 Calcium 8.4 L Total Bilirubin 0.40 AST 10 L ALT 17 Alkaline Phosphatase 65 Troponin I < 0.015 Total Protein 6.7 Albumin 3.7 Globulin 3.0 Albumin/Globulin Ratio 1.2 Urine Color Urine Clarity Urine pH Ur Specific [place] Urine Protein Urine Glucose (UA) Urine Ketones Urine Occult Blood Urine Nitrite Urine Bilirubin Urine Urobilinogen Ur Leukocyte Esterase Urine RBC Urine WBC Ur Squamous Epith Cells Urine Bacteria Urine Mucus Blood Type O NEGATIVE Antibody Screen NEGATIVE 05/24/19 17:19 WBC RBC Hgb Hct MCV MCH MCHC RDW Std Deviation RDW Coeff of Zachariah Plt Count MPV Immature Gran % (Auto) Neut % (Auto) Lymph % (Auto) [place] % (Auto) Eos % (Auto) Baso % (Auto) Absolute Neuts (auto) Absolute Lymphs (auto) Nucleated RBC % Sodium Potassium Chloride Carbon Dioxide Anion Gap BUN Creatinine Estim Creat Clear Calc Est GFR (MDRD) Af Amer Est GFR (MDRD) Non-Af BUN/Creatinine Ratio Glucose Calcium Total Bilirubin AST ALT Alkaline Phosphatase Troponin I Total Protein Albumin Globulin Albumin/Globulin Ratio Urine Color Yellow Urine Clarity Clear Urine pH 7.0 Ur Specific [place] 1.010 Urine Protein Negative Urine Glucose (UA) Normal Urine Ketones Negative Urine Occult Blood Negative Urine Nitrite Negative Urine Bilirubin Negative Urine Urobilinogen 1 H Ur Leukocyte Esterase 25 H Urine RBC 0 SEEN Urine WBC 0-5 SEEN Ur Squamous Epith Cells 0-5 SEEN Urine Bacteria 0 SEEN Urine Mucus 0 SEEN Blood Type Antibody Screen - Medical Decision Making Clinically, the patient symptoms are concerning for GI bleed. He is on Plavix and aspirin. Rectal exam showed no gross blood. Fecal occult was negative. However, the patient has had a 3 g drop in his hemoglobin and his BUN is also elevated. As he is on anticoagulants, I do feel that observation to monitor his blood counts and endoscopy would be appropriate. The patient was discussed with Dr. Lima who is agreeable. The patient was discussed with the hospitalist and will be admitted. Impression 1. Upper GI bleed ED Disposition - Plan for ED Patient: [facility]errals: [facility] [Primary Care Provider] -
[2019-05-24] MEDS: 0.9% Normal Saline 1,000 ML 1000 ML IV (17:09)
[2019-05-24 17:18] LABS: Absolute Lymphocyte Count 0.96 X10^3/uL (0.83-4.51); Absolute Neutrophil Count 2.1 X10^3/uL (2.0-7.7); Basophil# 0.01 X10^3/uL; Basophil% 0.3 % (0-1); Eosinophil# 0.02 X10^3/uL; Eosinophils% 0.6 % (0-5); Hematocrit 26.7 % (40-54); Hemoglobin 8.7 g/dL (13.0-16.5); Lymphocyte # 0.96 X10^3/ul (4.0); Lymphocyte % 27.6 % (19-41); Mean Corp Hgb Conc 32.6 g/dL (32-36); Mean Corpuscular Volume 104.3 fL (80-94); Mean Platelet Vol. 10.7 fl (6.2-12.0); Monocyte# 0.36 X10^3/uL; Monocyte% 10.3 % (0-10); NRBC Flagged by Analyzer 0 % (0-5); Neutrophil # 2.12 X10^3/uL (2.7-7.7); Neutrophil % 60.9 % (47-70); Platelet Count 156 K/mm3 (150-450); RBC Distribution Width CV 15.1 % (11.6-14.6); RBC Distribution Width SD 57.1 fl (35.1-43.9); Red Blood Count 2.56 M/mm3 (4.6-6.2); White Blood Count 3.5 K/mm3 (4.4-11.0)
[2019-05-24 17:34] LABS: Bacteria 0 SEEN /hpf (None Seen); Mucous, Urine 0 SEEN /hpf (<or=2+); Red Blood Cells-Urine 0 SEEN /hpf (0-5)
[2019-05-24 17:41] LABS: ALB/GLOB Ratio 1.2 RATIO (0.9-2.4); AST(SGOT) 10 U/L (15-37); Alanine Aminotransfer ALT/SGPT 17 U/L (16-61); Albumin, Serum 3.7 g/dL (3.2-5.0); Alkaline Phosphatase 65 U/L (45-117); Anion Gap 5 (5-15); BUN 31 mg/dL (7-18); BUN/Creat Ratio 30.4 RATIO (10-20); Calcium,Total 8.4 mg/dL (8.5-10.1); Chloride 104 mmol/L (98-107); Creatinine, Serum 1.02 mg/dL (0.70-1.30); EST Glomerular Filtration Rate 74 mL/min (>60); Est Glom Filt Rate - Afr Amer 90 mL/min (>60); Glucose 98 mg/dL (74-106); Potassium 4.1 mmol/L (3.5-5.1); Protein, Total 6.7 g/dL (6.4-8.2); Sodium Level 135 mmol/L (136-145)
[2019-05-24 17:41] LABS: Color, Urine Yellow (Yellow); Glucose, Dipstick Normal (Normal); Ketone-Dipstick Negative (Negative); Leukocyte Esterase-Dipstick 25 /ul (Negative); Nitrite-Dipstick Negative (Negative); Occult Blood-Urine Negative /ul (Negative); Protein-Dipstick Negative (Negative); Urine Bilirubin Dipstick Negative (Negative); Urine Clarity Clear (Clear); Urine Urobilinogen 1 mg/dl (Normal)
[2019-05-24 18:10] LABS: Squamous Epithelial Cells - UA 0-5 SEEN /hpf (0-5)
[2019-05-24 18:11] LABS: White Blood Cells 0-5 SEEN /hpf (0-5)
--- NOTE | 2019-05-24 18:19 | NURSING ---
CALLED [facility], TALKED TO LAKISHA. GAVE HER ALL THE INFO. TOMORROW SOMEONE WILL FOLLOWUP. WE CAN ADMIT THE PATIENT.
--- NOTE | 2019-05-24 18:26 | NURSING ---
DR RIDER FOR DR KEY
--- NOTE | 2019-05-24 18:40 | PCM.HP.STD ---
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 11/2005 (6) Atherosclerotic heart disease of [place] coronary artery without angina pectoris Status: Chronic Qualifiers: [place] vs. transplanted heart: [place] heart Qualified Code(s): I25.10 - Atherosclerotic heart disease of [place] coronary artery without angina pectoris (7) Paroxysmal atrial fibrillation Status: Chronic History of Present Illness Date of Admission: 05/24/19 Chief Complaint: Lightheadedness, presyncope. The patient is a 84 year old M who presents the emergency room due to lightheadedness and episodes of presyncope. Patient reports for the past 3 days he has had intermittent episodes of lightheadedness, worse upon standing. at bedside reports patient has had episodes where he lost his color and appeared as if he was going to pass out. Patient reports stools that are darker in color than normal although he does not feel his stool is black and tarry. Denies nausea, vomiting, abdominal pain. Denies chest pain, shortness of breath. He reports a history of duodenal ulcer in the late 60s. He is on aspirin and Plavix for history of CABG/PCI with most recent intervention in 2005. He has a past medical history of CAD status post CABG and PCI, hypertension, hyperlipidemia, paroxysmal atrial fibrillation, BPH. 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 11/2005 Atherosclerotic heart disease of [place] coronary artery without angina pectoris (Chronic) Paroxysmal atrial fibrillation (Chronic) Medical History: Medical History (Last Reviewed 12/10/18 @ 09:12 by Yamilet Traoer) Old myocardial infarction (Acute) I25.2 Premature ventricular contraction (Acute) I49.3 Sinus bradycardia (Acute) R00.1 Hyperlipidemia (Chronic) E78.5 Atherosclerotic heart disease of [place] coronary artery without angina pectoris (Chronic) I25.10 Paroxysmal atrial fibrillation (Chronic) I48.0 Colitis K52.9 Diverticulitis K57.92 Excision of the left atrial appendage 11/2005 Hiatal hernia K44.9 Kidney stones Upper gastrointestinal bleed K92.2 Allergies ciprofloxacin [From Cipro] Allergy (Unknown, Verified 12/10/18 09:11) Rash EZEQUIEL Inhibitors Allergy (Verified 12/10/18 09:11) cough ipodate [From Oragrafin] Allergy (Verified 12/10/18 09:11) Rash Home Medications: Ambulatory Orders Medication Instructions Recorded ranolazine ER 500 mg 500 mg PO Q12H 08/10/17 tablet,extended release,12 hr aspirin 325 mg tablet 325 mg PO DAILY 08/12/17 Tamsulosin HCl [Flomax] 0.8 mg PO QHS 05/04/18 nitroglycerin 0.4 mg sublingual 0.4 mg SUBLINGUAL Q5-15M PRN #90 05/12/18 tablet tab metoprolol tartrate 25 mg tablet 12.5 mg PO BID #90 tab 05/06/19 Acetaminophen [Tylenol Extra 500 mg PO DAILY PRN PRN 05/24/19 Strength] Clopidogrel Bisulfate [Clopidogrel] 75 mg PO DAILY 05/24/19 Isosorbide Mononitrate [Isosorbide 60 mg PO DAILY 05/24/19 Mononitrate ER] Simvastatin 20 mg PO DAILY 05/24/19 Surgical History: Surgical History (Last Reviewed 05/24/19 @ 18:44 by EMERALD Kirby) Presence of stent in coronary artery (Chronic) Onset Date: ~11/14/11 Z95.5 PTCA/Stent to Diag 1 and PDA, unsuccessful angioplasty to CFX 12/29/09; PTCA/Stent of SVG to Diag artery 11/14/11 S/P CABG (coronary artery bypass graft) (Chronic) Onset Date: ~11/2005 Z95.1 LARSON to LAD, reverse SVG to 1 diagonal, obtuse marginal, and PDA. 11/2005 H/O maze procedure Z98.890 History of hernia repair Z98.890, Z87.19 Hx of appendectomy Z90.49 Postsurgical percutaneous transluminal coronary angioplasty (PTCA) status Z98.61 PTCA/Stent to Diag 1 and PDA, unsuccessful angioplasty to CFX 12/29/09; PTCA/Stent of SVG to Diag artery 11/14/11 S/P right inguinal hernia repair Z98.890, Z87.19 Surgical History: coronary bypass surgery Psychiatric History: No pertinent psych hx Lives: Spouse/ Significant Other Smoking Status: Never smoker Alcohol: None Drugs: None - *Family History Maternal Family History: Family History (Last Reviewed 05/24/19 @ 18:45 by EMERALD Kirby) Father Prostate cancer Mother CVA (cerebral vascular accident) Brother Cancer Paternal Family History: Family History (Last Reviewed 05/24/19 @ 18:45 by EMERALD Kirby) Father Prostate cancer Mother CVA (cerebral vascular accident) Brother Cancer Review of Systems Constitutional: Denies: Chills, Fever, Weight Change HEENT: Denies: Head Aches, Sinus Congestion, Sinus Drainage Cardiovascular: Reports: Light Headedness, - - Presyncope. Denies: Chest Pain, Edema, Palpitations Respiratory: Denies: Cough, Shortness of breath at rest, Sputum production Gastrointestinal: Denies: Abdominal Pain, Nausea, Vomiting Genitourinary: Denies: Dysuria Musculoskeletal: Denies: Joint Pain, Joint Tenderness Skin: Denies: Rash, Wounds Neurological: Denies: Numbness, Tingling, Focal weakness Psychiatric: Denies: Anxiety, Depression, Homicidal Ideations, Suicidal Ideations Hematologic/ Lymphatic: Denies: Easy Bruising, Easy Bleeding VTE Information - Inpt Only VTE Present on Admission: No VTE Mechan Device Prophylaxis: SCD's VTE Pharm Prophylaxis ordered?: No Reason prophylaxis not ordered:: Medical Contraindication - Physical Exam General: Alert, Oriented x3, Cooperative HEENT: Atraumatic, PERRLA, EOMI, Normocephalic Neck: Supple, No JVD, Negative Carotid Bruits Lungs: Clear to auscultation, Normal air movement Cardiovascular: Regular rate, Regular Rhythm, Normal S1, Normal S2, No murmurs Abdomen: Bowel Sounds Present, Soft, Non Tender, Non-Distended Extremities: No clubbing, No cyanosis, No edema, Capillary Refill Less than 3 Seconds Skin: No rashes, No breakdown Musculoskeletal: No Tenderness to Palpation of Joints or Extremities Neurological: Cranial nerves II-XII grossly intact, Neuro grossly intact Psych/Mental Status: Normal Affect, Appropriate Vital Signs Temp Pulse Resp BP Pulse Ox 97 F L 71 16 127/62 H 98 05/24/19 16:33 05/24/19 17:22 05/24/19 16:33 05/24/19 17:22 05/24/19 16:33 Weight: 145 lb 11.609 oz Body Mass Index (BMI) 21.5 Intake and Output for Last 24 Hours 05/22/19 05/23/19 05/24/19 23:59 23:59 23:59 Intake Total 1000 / 1000 Balance 1000 / 1000 Microbiology Past 72 Hours 05/24/19 17:00 Stool Occult Blood (MING) - Final Stool Laboratory Tests Past 24 Hrs 05/24/19 05/24/19 05/24/19 17:05 17:05 17:05 WBC 3.5 L RBC 2.56 L Hgb 8.7 L Hct 26.7 L MCV 104.3 H MCH 34.0 H MCHC 32.6 RDW Std Deviation 57.1 H RDW Coeff of Zachariah 15.1 H Plt Count 156 MPV 10.7 Immature Gran % (Auto) 0.300 Neut % (Auto) 60.9 Lymph % (Auto) 27.6 [place] % (Auto) 10.3 H Eos % (Auto) 0.6 Baso % (Auto) 0.3 Absolute Neuts (auto) 2.1 Absolute Lymphs (auto) 0.96 Nucleated RBC % 0 Sodium 135 L Potassium 4.1 Chloride 104 Carbon Dioxide 26.0 Anion Gap 5 BUN 31 H Creatinine 1.02 Estim Creat Clear Calc 50.40 Est GFR (MDRD) Af Amer 90 Est GFR (MDRD) Non-Af 74 BUN/Creatinine Ratio 30.4 H Glucose 98 Calcium 8.4 L Total Bilirubin 0.40 AST 10 L ALT 17 Alkaline Phosphatase 65 Troponin I < 0.015 Total Protein 6.7 Albumin 3.7 Globulin 3.0 Albumin/Globulin Ratio 1.2 Urine Color Urine Clarity Urine pH Ur Specific Candor Urine Protein Urine Glucose (UA) Urine Ketones Urine Occult Blood Urine Nitrite Urine Bilirubin Urine Urobilinogen Ur Leukocyte Esterase Urine RBC Urine WBC Ur Squamous Epith Cells Urine Bacteria Urine Mucus Blood Type O NEGATIVE Antibody Screen NEGATIVE 05/24/19 17:19 WBC RBC Hgb Hct MCV MCH MCHC RDW Std Deviation RDW Coeff of Zachariah Plt Count MPV Immature Gran % (Auto) Neut % (Auto) Lymph % (Auto) [place] % (Auto) Eos % (Auto) Baso % (Auto) Absolute Neuts (auto) Absolute Lymphs (auto) Nucleated RBC % Sodium Potassium Chloride Carbon Dioxide Anion Gap BUN Creatinine Estim Creat Clear Calc Est GFR (MDRD) Af Amer Est GFR (MDRD) Non-Af BUN/Creatinine Ratio Glucose Calcium Total Bilirubin AST ALT Alkaline Phosphatase Troponin I Total Protein Albumin Globulin Albumin/Globulin Ratio Urine Color Yellow Urine Clarity Clear Urine pH 7.0 Ur Specific Candor 1.010 Urine Protein Negative Urine Glucose (UA) Normal Urine Ketones Negative Urine Occult Blood Negative Urine Nitrite Negative Urine Bilirubin Negative Urine Urobilinogen 1 H Ur Leukocyte Esterase 25 H Urine RBC 0 SEEN Urine WBC 0-5 SEEN Ur Squamous Epith Cells 0-5 SEEN Urine Bacteria 0 SEEN Urine Mucus 0 SEEN Blood Type Antibody Screen Assessment/Plan 1. Acute blood loss anemia secondary to suspected upper GI bleed-hold aspirin, Plavix. Trend H&H. IV PPI. Dr. Way on consult with plans for upper endoscopy tomorrow. Clear liquid diet, n.p.o. after midnight. IV fluids. 2. CAD status post CABG and PCI-hold aspirin, Plavix secondary to #1. On metoprolol, isosorbide, Ranexa, statin. 3. Hypertension-hold BP regimen secondary to #1, BP mildly low on admission. 4. Hyperlipidemia-continue statin regimen. 5. Paroxysmal atrial fibrillation-not on anticoagulation. 6. BPH-continue Flomax regimen. DVT prophylaxis-SCDs This patient was seen by EMERALD Kirby under the supervision of Dr. Lovell. <Ernesto Lovell - Last Filed: 05/24/19 18:57> History of Present Illness The patient is a 84 year old M [] Past Medical History Medical History: Medical History (Last Reviewed 12/10/18 @ 09:12 by Yamilet Traore) Old myocardial infarction (Acute) I25.2 Premature ventricular contraction (Acute) I49.3 Sinus bradycardia (Acute) R00.1 Hyperlipidemia (Chronic) E78.5 Atherosclerotic heart disease of [place] coronary artery without angina pectoris (Chronic) I25.10 Paroxysmal atrial fibrillation (Chronic) I48.0 Colitis K52.9 Diverticulitis K57.92 Excision of the left atrial appendage 11/2005 Hiatal hernia K44.9 Kidney stones Upper gastrointestinal bleed K92.2 Allergies ciprofloxacin [From Cipro] Allergy (Unknown, Verified 12/10/18 09:11) Rash EZEQUIEL Inhibitors Allergy (Verified 12/10/18 09:11) cough ipodate [From Oragrafin] Allergy (Verified 12/10/18 09:11) Rash Surgical History: Surgical History (Last Reviewed 05/24/19 @ 18:44 by EMERALD Kirby) Presence of stent in coronary artery (Chronic) Onset Date: ~11/14/11 Z95.5 PTCA/Stent to Diag 1 and PDA, unsuccessful angioplasty to CFX 12/29/09; PTCA/Stent of SVG to Diag artery 11/14/11 S/P CABG (coronary artery bypass graft) (Chronic) Onset Date: ~11/2005 Z95.1 LARSON to LAD, reverse SVG to 1 diagonal, obtuse marginal, and PDA. 11/2005 H/O maze procedure Z98.890 History of hernia repair Z98.890, Z87.19 Hx of appendectomy Z90.49 Postsurgical percutaneous transluminal coronary angioplasty (PTCA) status Z98.61 PTCA/Stent to Diag 1 and PDA, unsuccessful angioplasty to CFX 12/29/09; PTCA/Stent of SVG to Diag artery 11/14/11 S/P right inguinal hernia repair Z98.890, Z87.19 - *Family History Maternal Family History: Family History (Last Reviewed 05/24/19 @ 18:45 by EMERALD Kirby) Father Prostate cancer Mother CVA (cerebral vascular accident) Brother Cancer Paternal Family History: Family History (Last Reviewed 05/24/19 @ 18:45 by EMERALD Kirby) Father Prostate cancer Mother CVA (cerebral vascular accident) Brother Cancer - Physical Exam Vital Signs Temp Pulse Resp BP Pulse Ox 97 F L 69 17 121/61 H 100 05/24/19 16:33 05/24/19 18:45 05/24/19 18:45 05/24/19 18:45 05/24/19 18:45 Weight: 145 lb 11.609 oz Body Mass Index (BMI) 21.5 Intake and Output for Last 24 Hours 05/22/19 05/23/19 05/24/19 23:59 23:59 23:59 Intake Total 1110 / 1110 Balance 1110 / 1110 Microbiology Past 72 Hours 05/24/19 17:00 Stool Occult Blood (MING) - Final Stool Laboratory Tests Past 24 Hrs 05/24/19 05/24/19 05/24/19 17:05 17:05 17:05 WBC 3.5 L RBC 2.56 L Hgb 8.7 L Hct 26.7 L MCV 104.3 H MCH 34.0 H MCHC 32.6 RDW Std Deviation 57.1 H RDW Coeff of Zachariah 15.1 H Plt Count 156 MPV 10.7 Immature Gran % (Auto) 0.300 Neut % (Auto) 60.9 Lymph % (Auto) 27.6 [place] % (Auto) 10.3 H Eos % (Auto) 0.6 Baso % (Auto) 0.3 Absolute Neuts (auto) 2.1 Absolute Lymphs (auto) 0.96 Nucleated RBC % 0 Sodium 135 L Potassium 4.1 Chloride 104 Carbon Dioxide 26.0 Anion Gap 5 BUN 31 H Creatinine 1.02 Estim Creat Clear Calc 50.40 Est GFR (MDRD) Af Amer 90 Est GFR (MDRD) Non-Af 74 BUN/Creatinine Ratio 30.4 H Glucose 98 Calcium 8.4 L Total Bilirubin 0.40 AST 10 L ALT 17 Alkaline Phosphatase 65 Troponin I < 0.015 Total Protein 6.7 Albumin 3.7 Globulin 3.0 Albumin/Globulin Ratio 1.2 Urine Color Urine Clarity Urine pH Ur Specific Candor Urine Protein Urine Glucose (UA) Urine Ketones Urine Occult Blood Urine Nitrite Urine Bilirubin Urine Urobilinogen Ur Leukocyte Esterase Urine RBC Urine WBC Ur Squamous Epith Cells Urine Bacteria Urine Mucus Blood Type O NEGATIVE Antibody Screen NEGATIVE 05/24/19 17:19 WBC RBC Hgb Hct MCV MCH MCHC RDW Std Deviation RDW Coeff of Zachariah Plt Count MPV Immature Gran % (Auto) Neut % (Auto) Lymph % (Auto) [place] % (Auto) Eos % (Auto) Baso % (Auto) Absolute Neuts (auto) Absolute Lymphs (auto) Nucleated RBC % Sodium Potassium Chloride Carbon Dioxide Anion Gap BUN Creatinine Estim Creat Clear Calc Est GFR (MDRD) Af Amer Est GFR (MDRD) Non-Af BUN/Creatinine Ratio Glucose Calcium Total Bilirubin AST ALT Alkaline Phosphatase Troponin I Total Protein Albumin Globulin Albumin/Globulin Ratio Urine Color Yellow Urine Clarity Clear Urine pH 7.0 Ur Specific Candor 1.010 Urine Protein Negative Urine Glucose (UA) Normal Urine Ketones Negative Urine Occult Blood Negative Urine Nitrite Negative Urine Bilirubin Negative Urine Urobilinogen 1 H Ur Leukocyte Esterase 25 H Urine RBC 0 SEEN Urine WBC 0-5 SEEN Ur Squamous Epith Cells 0-5 SEEN Urine Bacteria 0 SEEN Urine Mucus 0 SEEN Blood Type Antibody Screen Code Visit Addendum: Dr. Lovell I personally examined the patient and reviewed the chart. I agree with the above. 84-year-old male with his last GI bleed in the 1960s from a duodenal ulcer, presents with lightheadedness and dizziness for the last several days. He states that he is also had dark stools though he thinks that this could be secondary to a blackberry cobbler that he ate a few days ago. In the ER he was found to have a hemoglobin of 8.7 which is significant given that his last hemoglobin in November was 11.7. We will repeat hemoglobin tonight at midnight and then CBC in the morning. Of note he has a history of stents with his last cardiac stenting placed in 2011, and he is on both aspirin and Plavix. These will be held and he will be started on IV Protonix twice daily. He is also started on clears. He will be seen by Dr. Way in the morning for an EGD. Inpatient E&M: 70729 Init Hosp L3
[2019-05-24] MEDS: 0.9% Normal Saline 1,000 ML 100 ML IV (19:29)
[2019-05-24] MEDS: Tamsulosin HCl 0.4 MG Capsule 0.8 MG PO (22:43)
[2019-05-24] MEDS: Ranolazine 500 MG Tablet PO (22:43)
[2019-05-24] MEDS: Atorvastatin Calcium 10 MG Tablet PO (22:43)
[2019-05-25] VITALS (19 sets, daily range): BP systolic 104–144; BP diastolic 56–73; PULSE 62–76; RESP 16–18; TEMP 36.4–37.3; O2SAT 97–100; BMI 21.3
--- NOTE | 2019-05-25 | IMM_PTH ---
PATIENT: BRI BOSS LOC: MS3 U#:[id number] AGE/SX: 84/M ROOM: [facility] – [place] RE05/24/[address]: Dr. Concepcion Elizondo MD : [id number] BED: 1 DIS: 05/26/2019 SPEC #: [id number] RECD: 05/26/19 11:46 STATUS: SOUJonna REQ #: [id number] GOMEZ: 05/25/19 00:[address]: [address]imus [address] DEPT: IMMUNOHISTOCHEMISTRY RECD BY: Amber Alvarez ENTERED: 05/26/19 11:46 SP TYPE: IMMUNO OTHR DR: MD Dr. Ernesto Jackson MD [facility] Tissues: A - Stomach, NOS Procedures: H Pylori (initial) PHYSICIAN & INSTITUTION [place] [address] SPECIMEN INFORMATION: Tissue Source: A - Antral biopsy Clinical Info: History of previous duodenal ulcer Specimen Number: [id number] CPT code: 45373 METHODOLOGY: Deparaffinized sections of prefer/formalin-fixed tissue or PAP/DQ stained slides are incubated with monoclonal/polyclonal antibodies/oligonucleotide probes. Localization is made via biotin free immunoperoxidase method. Appropriate controls are performed and reacted as expected. Results on target cell population are indicated in the following table: RESULTS: ANTIBODY / CLONE RESULT Block A H Pylori (polyclonal) negative These tests were developed and their performance characteristics determined by [facility]. They may not have been cleared or approved by the U.[place]. Food and Drug Administration. The FDA has determined that such clearance or approval is not necessary. INTERPRETATION: A. Antral biopsy: Negative for Helicobacter pylori organisms. SJ:landry 05/27/19
[2019-05-25 00:40] LABS: Hematocrit 22.7 % (40-54); Hemoglobin 7.3 g/dL (13.0-16.5); POSITIVE COUNT YES
[2019-05-25] MEDS: 0.9% Normal Saline 1,000 ML 100 ML IV ×2 (04:30→13:33)
[2019-05-25 06:17] LABS: Absolute Lymphocyte Count 0.77 X10^3/uL (0.83-4.51); Absolute Neutrophil Count 2.1 X10^3/uL (2.0-7.7); Basophil# 0.01 X10^3/uL; Basophil% 0.3 % (0-1); Eosinophil# 0.02 X10^3/uL; Eosinophils% 0.6 % (0-5); Hematocrit 23.3 % (40-54); Hemoglobin 7.5 g/dL (13.0-16.5); Lymphocyte # 0.77 X10^3/ul (4.0); Lymphocyte % 23.6 % (19-41); Mean Corp Hgb Conc 32.2 g/dL (32-36); Mean Corpuscular Hgb 33.3 pg (27.0-32.0); Mean Corpuscular Volume 103.6 fL (80-94); Mean Platelet Vol. 10.5 fl (6.2-12.0); Monocyte# 0.31 X10^3/uL; Monocyte% 9.5 % (0-10); NRBC Flagged by Analyzer 0 % (0-5); Neutrophil # 2.14 X10^3/uL (2.7-7.7); Neutrophil % 65.7 % (47-70); Platelet Count 131 K/mm3 (150-450); RBC Distribution Width CV 15.1 % (11.6-14.6); Red Blood Count 2.25 M/mm3 (4.6-6.2); White Blood Count 3.3 K/mm3 (4.4-11.0)
[2019-05-25 06:37] LABS: BUN 21 mg/dL (7-18); Creatinine, Serum 0.79 mg/dL (0.70-1.30); EST Glomerular Filtration Rate 99 mL/min (>60); Estimated Creatinine Clearance 50.94 ml/min; Glucose 90 mg/dL (74-106)
[2019-05-25 06:38] LABS: Anion Gap 6 (5-15); BUN/Creat Ratio 26.4 RATIO (10-20); Calcium,Total 7.7 mg/dL (8.5-10.1); Chloride 109 mmol/L (98-107); Est Glom Filt Rate - Afr Amer 120 mL/min (>60); Potassium 3.9 mmol/L (3.5-5.1); Sodium Level 139 mmol/L (136-145)
--- NOTE | 2019-05-25 07:01 | CON.PCM_ITS ---
Reason for Consult Date of Consultation: 05/25/19 Reason for Consultation: fatigue near-syncope History of Present Illness: The patient is a 84 year old M who presents to emergency room with complaint of lightheadedness overall fatigue and presyncopal feelings. He is noted the symptoms for the past 3 days. His notes that he seems to have lost his collar. He denies actual syncope. He denies abdominal pain. He notes no obvious change in his bowel habits. He denies blood in his stools. He denies melena. He notes no nausea or vomiting. He denies shortness of breath or chest pain. There is a noted history of a duodenal ulcer when he was 60.. Has history of coronary artery disease status post coronary bypass grafting and percutaneous coronary angioplasty and stent placement. He takes aspirin and Plavix. He denies any other bleeding episodes. the patient states he had a colonoscopy in the far distant past. At presentation was [address] [place] [address], he was noted to have overall pancytopenia with a 30 cc count of 3.3. Hemoglobin is 7.5. Hematocrit of 23.3. His indices are macrocytic with an MCV of 103 and MCH of 33. His platelet count is 131. his stool is Hemoccult negative. 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 11/2005 Atherosclerotic heart disease of [place] coronary artery without angina pectoris (Chronic) Paroxysmal atrial fibrillation (Chronic) Medical History: Medical History (Last Reviewed 12/10/18 @ 09:12 by Yamilet Traore) Old myocardial infarction (Chronic) I25.2 Premature ventricular contraction (Chronic) I49.3 Hyperlipidemia (Chronic) E78.5 Atherosclerotic heart disease of [place] coronary artery without angina pectoris (Chronic) I25.10 Paroxysmal atrial fibrillation (Chronic) I48.0 Colitis K52.9 Diverticulitis K57.92 Excision of the left atrial appendage 11/2005 Hiatal hernia K44.9 Kidney stones Upper gastrointestinal bleed K92.2 Allergies ciprofloxacin [From Cipro] Allergy (Unknown, Verified 12/10/18 09:11) Rash EZEQUIEL Inhibitors Allergy (Verified 12/10/18 09:11) cough ipodate [From Oragrafin] Allergy (Verified 12/10/18 09:11) Rash Home Medications: Ambulatory Orders Medication Instructions Recorded ranolazine ER 500 mg 500 mg PO Q12H 08/10/17 tablet,extended release,12 hr aspirin 325 mg tablet 325 mg PO DAILY 08/12/17 Tamsulosin HCl [Flomax] 0.8 mg PO QHS 05/04/18 nitroglycerin 0.4 mg sublingual 0.4 mg SUBLINGUAL Q5-15M PRN #90 05/12/18 tablet tab metoprolol tartrate 25 mg tablet 12.5 mg PO BID #90 tab 05/06/19 Acetaminophen [Tylenol Extra 500 mg PO DAILY PRN PRN 05/24/19 Strength] Clopidogrel Bisulfate [Clopidogrel] 75 mg PO DAILY 05/24/19 Isosorbide Mononitrate [Isosorbide 60 mg PO DAILY 05/24/19 Mononitrate ER] Simvastatin 20 mg PO DAILY 05/24/19 Surgical History: Surgical History (Last Reviewed 05/24/19 @ 18:44 by Maya Mcguire NP-[facility]) Presence of stent in coronary artery (Chronic) Onset Date: ~11/14/11 Z95.5 PTCA/Stent to Diag 1 and PDA, unsuccessful angioplasty to CFX 12/29/09; PTCA/Stent of SVG to Diag artery 11/14/11 S/P CABG (coronary artery bypass graft) (Chronic) Onset Date: ~11/2005 Z95.1 LARSON to LAD, reverse SVG to 1 diagonal, obtuse marginal, and PDA. 11/2005 H/O maze procedure Z98.890 History of hernia repair Z98.890, Z87.19 Hx of appendectomy Z90.49 Postsurgical percutaneous transluminal coronary angioplasty (PTCA) status Z98.61 PTCA/Stent to Diag 1 and PDA, unsuccessful angioplasty to CFX 12/29/09; PTCA/Stent of SVG to Diag artery 11/14/11 S/P right inguinal hernia repair Z98.890, Z87.19 Surgical History: coronary bypass surgery Psychiatric History: No pertinent psych hx Lives: Spouse/ Significant Other Smoking Status: Never smoker Alcohol: None Drugs: None - *Family History Maternal Family History: Family History (Last Reviewed 05/24/19 @ 18:45 by EMERALD Kirby) Father Prostate cancer Mother CVA (cerebral vascular accident) Brother Cancer History Items: No pertinent history Paternal Family History: Family History (Last Reviewed 05/24/19 @ 18:45 by EMERALD Kirby) Father Prostate cancer Mother CVA (cerebral vascular accident) Brother Cancer Review of Systems Constitutional: Reports: Malaise, Weakness, Fatigue. Denies: Chills, Fever, Weight Change HEENT: Denies: Head Aches, Sinus Congestion, Sinus Drainage Cardiovascular: Denies: Chest Pain, Palpitations Respiratory: Denies: Cough, Shortness of breath at rest, Sputum production Gastrointestinal: Denies: Abdominal Pain, Nausea, Vomiting Genitourinary: Denies: Dysuria Musculoskeletal: Denies: Joint Pain, Joint Tenderness Skin: Denies: Rash, Wounds Neurological: Denies: Numbness, Tingling, Focal weakness Psychiatric: Denies: Anxiety, Depression, Homicidal Ideations, Suicidal Ideations Hematologic/ Lymphatic: Denies: Easy Bruising, Easy Bleeding - Physical Exam General: Alert, Oriented x3, Cooperative Lungs: Clear to auscultation, Normal air movement Cardiovascular: Regular rate, No murmurs Abdomen: Bowel Sounds Present, Soft, Non Tender Vital Signs Temp Pulse Resp BP Pulse Ox 98.3 F 76 18 125/56 H 98 05/25/19 04:27 05/25/19 04:27 05/25/19 04:27 05/25/19 04:27 05/25/19 04:27 Oxygen Delivery Method Room Air Weight: 65.5 kg Body Mass Index (BMI) 21.3 Intake and Output for Last 24 Hours 05/23/19 05/24/19 05/25/19 23:59 23:59 23:59 Intake Total 1110 / 1360 1151.67 / 1151.67 Output Total 1105 / 1105 Balance 1110 / 865 46.67 / 46.67 Microbiology Past 72 Hours 09/17/19 17:00 Stool Occult Blood ([facility]) - Final Stool Laboratory Tests Past 24 Hrs 05/24/19 05/24/19 05/24/19 17:05 17:05 17:05 WBC 3.5 L RBC 2.56 L Hgb 8.7 L Hct 26.7 L MCV 104.3 H MCH 34.0 H MCHC 32.6 RDW Std Deviation 57.1 H RDW Coeff of Zachariah 15.1 H Plt Count 156 MPV 10.7 Immature Gran % (Auto) 0.300 Neut % (Auto) 60.9 Lymph % (Auto) 27.6 [place] % (Auto) 10.3 H Eos % (Auto) 0.6 Baso % (Auto) 0.3 Absolute Neuts (auto) 2.1 Absolute Lymphs (auto) 0.96 Nucleated RBC % 0 Sodium 135 L Potassium 4.1 Chloride 104 Carbon Dioxide 26.0 Anion Gap 5 BUN 31 H Creatinine 1.02 Estim Creat Clear Calc 50.40 Est GFR (MDRD) Af Amer 90 Est GFR (MDRD) Non-Af 74 BUN/Creatinine Ratio 30.4 H Glucose 98 Calcium 8.4 L Total Bilirubin 0.40 AST 10 L ALT 17 Alkaline Phosphatase 65 Troponin I < 0.015 Total Protein 6.7 Albumin 3.7 Globulin 3.0 Albumin/Globulin Ratio 1.2 Urine Color Urine Clarity Urine pH Ur Specific [place] Urine Protein Urine Glucose (UA) Urine Ketones Urine Occult Blood Urine Nitrite Urine Bilirubin Urine Urobilinogen Ur Leukocyte Esterase Urine RBC Urine WBC Ur Squamous Epith Cells Urine Bacteria Urine Mucus Blood Type O NEGATIVE Antibody Screen NEGATIVE 05/24/19 05/25/19 05/25/19 17:19 00:25 06:06 WBC 3.3 L RBC 2.25 L Hgb 7.3 L 7.5 L Hct 22.7 L 23.3 L MCV 103.6 H MCH 33.3 H MCHC 32.2 RDW Std Deviation 56.0 H RDW Coeff of Zacharia[place] 15.1 H Plt Count 131 L MPV 10.5 Immature Gran % (Auto) 0.300 Neut % (Auto) 65.7 Lymph % (Auto) 23.6 [place] % (Auto) 9.5 Eos % (Auto) 0.6 Baso % (Auto) 0.3 Absolute Neuts (auto) 2.1 Absolute Lymphs (auto) 0.77 L Nucleated RBC % 0 Sodium Potassium Chloride Carbon Dioxide Anion Gap BUN Creatinine Estim Creat Clear Calc Est GFR (MDRD) Af Amer Est GFR (MDRD) Non-Af BUN/Creatinine Ratio Glucose Calcium Total Bilirubin AST ALT Alkaline Phosphatase Troponin I Total Protein Albumin Globulin Albumin/Globulin Ratio Urine Color Yellow Urine Clarity Clear Urine pH 7.0 Ur Specific [place] 1.010 Urine Protein Negative Urine Glucose (UA) Normal Urine Ketones Negative Urine Occult Blood Negative Urine Nitrite Negative Urine Bilirubin Negative Urine Urobilinogen 1 H Ur Leukocyte Esterase 25 H Urine RBC 0 SEEN Urine WBC 0-5 SEEN Ur Squamous Epith Cells 0-5 SEEN Urine Bacteria 0 SEEN Urine Mucus 0 SEEN Blood Type Antibody Screen 05/25/19 06:06 WBC RBC Hgb Hct MCV MCH MCHC RDW Std Deviation RDW Coeff of Zacharia[place] Plt Count MPV Immature Gran % (Auto) Neut % (Auto) Lymph % (Auto) [place] % (Auto) Eos % (Auto) Baso % (Auto) Absolute Neuts (auto) Absolute Lymphs (auto) Nucleated RBC % Sodium 139 Potassium 3.9 Chloride 109 H Carbon Dioxide 24.0 Anion Gap 6 BUN 21 H Creatinine 0.79 Estim Creat Clear Calc 50.94 Est GFR (MDRD) Af Amer 120 Est GFR (MDRD) Non-Af 99 BUN/Creatinine Ratio 26.4 H Glucose 90 Calcium 7.7 L Total Bilirubin AST ALT Alkaline Phosphatase Troponin I Total Protein Albumin Globulin Albumin/Globulin Ratio Urine Color Urine Clarity Urine pH Ur Specific [place] Urine Protein Urine Glucose (UA) Urine Ketones Urine Occult Blood Urine Nitrite Urine Bilirubin Urine Urobilinogen Ur Leukocyte Esterase Urine RBC Urine WBC Ur Squamous Epith Cells Urine Bacteria Urine Mucus Blood Type Antibody Screen Assessment/Plan fatigue and near syncope-pancytopenia, macrocytic indices, history of previous duodenal ulcer given the patient's history of peptic ulcer I will plan for upper endoscopy. I discussed with the patient the risks, benefits, complications and possible alternatives and patient agrees to upper endoscopy. I would also send additional occult blood today to assure that is always Hemoccult negative and then obtain an outpatient Hemoccult in one to two weeks. assuming this will be unremarkable, I would plan for elective outpatient colonoscopy in the near future. Also his upper endoscopy is unremarkable I w ould resume his anticoagulation. Given his macrocytic indices and Hemoccult-negative stools, I ordered folate and vitamin B-12 levels.
--- NOTE | 2019-05-25 07:28 | PN_ITS ---
Vitals/I&O's: Vital Signs Temp Pulse Resp BP Pulse Ox 98.3 F 76 18 125/56 H 98 05/25/19 04:27 05/25/19 04:27 05/25/19 04:27 05/25/19 04:27 05/25/19 04:27 Oxygen Delivery Method Room Air Weight: 65.5 kg Body Mass Index (BMI) 21.3 Intake and Output for Last 24 Hours 05/23/19 05/24/19 05/25/19 23:59 23:59 23:59 Intake Total 1110 / 1360 1151.67 / 1151.67 Output Total 1105 / 1105 Balance 1110 / 865 46.67 / 46.67 Microbiology Past 72 Hours 05/24/19 17:00 Stool Stool Occult Blood ([facility]) - Final Laboratory Results 05/24/19 17:05: WBC 3.5 L, RBC 2.56 L, Hgb 8.7 L, Hct 26.7 L, MCV 104.3 H, MCH 34.0 H, MCHC 32.6, RDW Std Deviation 57.1 H, RDW Coeff of Zacharia[place] 15.1 H, Plt Count 156, MPV 10.7, Immature Gran % (Auto) 0.300, Neut % (Auto) 60.9, Lymph % (Auto) 27.6, [place] % (Auto) 10.3 H, Eos % (Auto) 0.6, Baso % (Auto) 0.3, Absolute Neuts (auto) 2.1, Absolute Lymphs (auto) 0.96, Nucleated RBC % 0 05/24/19 17:05: Sodium 135 L, Potassium 4.1, Chloride 104, Carbon Dioxide 26.0, Anion Gap 5, BUN 31 H, Creatinine 1.02, Estim Creat Clear Calc 50.40, Est GFR (MDRD) Af Amer 90, Est GFR (MDRD) Non-Af 74, BUN/Creatinine Ratio 30.4 H, Glucose 98, Calcium 8.4 L, Total Bilirubin 0.40, AST 10 L, ALT 17, Alkaline Phosphatase 65, Troponin I < 0.015, Total Protein 6.7, Albumin 3.7, Globulin 3.0, Albumin/Globulin Ratio 1.2 05/24/19 17:05: Blood Type O NEGATIVE, Antibody Screen NEGATIVE 05/24/19 17:19: Urine Color Yellow, Urine Clarity Clear, Urine pH 7.0, Ur Specific [place] 1.010, Urine Protein Negative, Urine Glucose (UA) Normal, Urine Ketones Negative, Urine Occult Blood Negative, Urine Nitrite Negative, Urine Bilirubin Negative, Urine Urobilinogen 1 H, Ur Leukocyte Esterase 25 H, Urine RBC 0 SEEN, Urine WBC 0-5 SEEN, Ur Squamous Epith Cells 0-5 SEEN, Urine Bacteria 0 SEEN, Urine Mucus 0 SEEN 05/25/19 00:25: Hgb 7.3 L, Hct 22.7 L 05/25/19 06:06: WBC 3.3 L, RBC 2.25 L, Hgb 7.5 L, Hct 23.3 L, MCV 103.6 H, MCH 33.3 H, MCHC 32.2, RDW Std Deviation 56.0 H, RDW Coeff of Zachariah 15.1 H, Plt Count 131 L, MPV 10.5, Immature Gran % (Auto) 0.300, Neut % (Auto) 65.7, Lymph % (Auto) 23.6, [place] % (Auto) 9.5, Eos % (Auto) 0.6, Baso % (Auto) 0.3, Absolute Neuts (auto) 2.1, Absolute Lymphs (auto) 0.77 L, Nucleated RBC % 0 05/25/19 06:06: Sodium 139, Potassium 3.9, Chloride 109 H, Carbon Dioxide 24.0, Anion Gap 6, BUN 21 H, Creatinine 0.79, Estim Creat Clear Calc 50.94, Est GFR (MDRD) Af Amer 120, Est GFR (MDRD) Non-Af 99, BUN/Creatinine Ratio 26.4 H, Glucose 90, Calcium 7.7 L 05/25/19 06:06: Vitamin B12 Pending 05/25/19 06:06: Folate Pending Current Medications Acetaminophen (Tylenol) 500 mg PO DAILY PRN PRN PRN Reason: BACK PAIN Atorvastatin Calcium (Lipitor) 10 mg PO QHS [facility] Last Admin: 05/24/19 22:43 Dose: 10 mg Documented by: Sodium Chloride () 1,000 mls @ 100 mls/hr IV .Q10H [facility] Last Admin: 05/25/19 04:30 Dose: 100 mls/hr Documented by: Pantoprazole Sodium 40 mg/ (Sodium Chloride) 110 mls @ 330 mls/hr IV Q12 [facility] Ondansetron HCl (Zofran) 4 mg IV Q8H PRN PRN PRN Reason: NAUSEA/VOMITING Ranolazine (Ranexa) 500 mg PO Q12H [facility] Last Admin: 05/24/19 22:43 Dose: 500 mg Documented by: Sodium Chloride () 10 - 40 ml IV UD PRN PRN Reason: SALINE FLUSH Tamsulosin HCl (Flomax) 0.8 mg PO QHS [facility] Last Admin: 05/24/19 22:43 Dose: 0.8 mg Documented by: Medical Necessity - Tobacco Use Smoking Status: Never smoker
[2019-05-25] MEDS: Ranolazine 500 MG Tablet PO ×2 (09:29→22:10)
[2019-05-25 09:31] LABS: Vitamin B12 216 pg/mL (211-911)
--- NOTE | 2019-05-25 09:55 | CASEMGMT ---
LW/POA document(it's both documents in one) completed at the [place] scanned into the summary tab of the echart. Pt's Guerda Bhardwaj is listed as patient's POA. [place] Jeong
--- NOTE | 2019-05-25 12:01 | PCM.PROGNOTE ---
<Maya Mcguire - Last Filed: 05/25/19 12:05> Subjective: Patient seen and examined. Denies further dizziness, lightheadedness. No further stool during admission. Denies nausea, vomiting. To undergo upper scope this afternoon. - Physical Exam General: Alert, Oriented x3, Cooperative HEENT: Atraumatic, PERRLA, EOMI, Normocephalic Neck: Supple, No JVD, Negative Carotid Bruits Lungs: Clear to auscultation, Normal air movement Cardiovascular: Regular rate, Regular Rhythm, Normal S1, Normal S2, No murmurs Abdomen: Bowel Sounds Present, Soft, Non Tender, Non-Distended Extremities: No clubbing, No cyanosis, No edema, Capillary Refill Less than 3 Seconds Skin: No rashes, No breakdown Musculoskeletal: No Tenderness to Palpation of Joints or Extremities Neurological: Cranial nerves II-XII grossly intact, Neuro grossly intact Psych/Mental Status: Normal Affect, Appropriate Vital Signs Temp Pulse Resp BP Pulse Ox 99.2 F H 68 16 122/62 H 98 05/25/19 09:23 05/25/19 09:23 05/25/19 09:23 05/25/19 09:23 05/25/19 09:23 Oxygen Delivery Method Room Air Weight: 144 lb 6.444 oz Body Mass Index (BMI) 21.3 Intake and Output for Last 24 Hours 05/23/19 05/24/19 05/25/19 23:59 23:59 23:59 Intake Total 1110 / 1360 1795.00 / 1795.00 Output Total 5 / 2054 Balance 1110 / 865 -260.00 / -260.00 Microbiology Past 72 Hours 05/24/19 17:00 Stool Occult Blood (MING) - Final Stool Laboratory Tests Past 24 Hrs 05/24/19 05/24/19 05/24/19 17:05 17:05 17:05 WBC 3.5 L RBC 2.56 L Hgb 8.7 L Hct 26.7 L MCV 104.3 H MCH 34.0 H MCHC 32.6 RDW Std Deviation 57.1 H RDW Coeff of Zachariah 15.1 H Plt Count 156 MPV 10.7 Immature Gran % (Auto) 0.300 Neut % (Auto) 60.9 Lymph % (Auto) 27.6 [place] % (Auto) 10.3 H Eos % (Auto) 0.6 Baso % (Auto) 0.3 Absolute Neuts (auto) 2.1 Absolute Lymphs (auto) 0.96 Nucleated RBC % 0 Sodium 135 L Potassium 4.1 Chloride 104 Carbon Dioxide 26.0 Anion Gap 5 BUN 31 H Creatinine 1.02 Estim Creat Clear Calc 50.40 Est GFR (MDRD) Af Amer 90 Est GFR (MDRD) Non-Af 74 BUN/Creatinine Ratio 30.4 H Glucose 98 Calcium 8.4 L Total Bilirubin 0.40 AST 10 L ALT 17 Alkaline Phosphatase 65 Troponin I < 0.015 Total Protein 6.7 Albumin 3.7 Globulin 3.0 Albumin/Globulin Ratio 1.2 Vitamin B12 Folate Urine Color Urine Clarity Urine pH Ur Specific [place] Urine Protein Urine Glucose (UA) Urine Ketones Urine Occult Blood Urine Nitrite Urine Bilirubin Urine Urobilinogen Ur Leukocyte Esterase Urine RBC Urine WBC Ur Squamous Epith Cells Urine Bacteria Urine Mucus Blood Type O NEGATIVE Antibody Screen NEGATIVE 05/24/19 05/25/19 05/25/19 17:19 00:25 06:06 WBC 3.3 L RBC 2.25 L Hgb 7.3 L 7.5 L Hct 22.7 L 23.3 L MCV 103.6 H MCH 33.3 H MCHC 32.2 RDW Std Deviation 56.0 H RDW Coeff of Zachariah 15.1 H Plt Count 131 L MPV 10.5 Immature Gran % (Auto) 0.300 Neut % (Auto) 65.7 Lymph % (Auto) 23.6 [place] % (Auto) 9.5 Eos % (Auto) 0.6 Baso % (Auto) 0.3 Absolute Neuts (auto) 2.1 Absolute Lymphs (auto) 0.77 L Nucleated RBC % 0 Sodium Potassium Chloride Carbon Dioxide Anion Gap BUN Creatinine Estim Creat Clear Calc Est GFR (MDRD) Af Amer Est GFR (MDRD) Non-Af BUN/Creatinine Ratio Glucose Calcium Total Bilirubin AST ALT Alkaline Phosphatase Troponin I Total Protein Albumin Globulin Albumin/Globulin Ratio Vitamin B12 Folate Urine Color Yellow Urine Clarity Clear Urine pH 7.0 Ur Specific [place] 1.010 Urine Protein Negative Urine Glucose (UA) Normal Urine Ketones Negative Urine Occult Blood Negative Urine Nitrite Negative Urine Bilirubin Negative Urine Urobilinogen 1 H Ur Leukocyte Esterase 25 H Urine RBC 0 SEEN Urine WBC 0-5 SEEN Ur Squamous Epith Cells 0-5 SEEN Urine Bacteria 0 SEEN Urine Mucus 0 SEEN Blood Type Antibody Screen 05/25/19 05/25/19 05/25/19 06:06 06:06 06:06 WBC RBC Hgb Hct MCV MCH MCHC RDW Std Deviation RDW Coeff of Zachariah Plt Count MPV Immature Gran % (Auto) Neut % (Auto) Lymph % (Auto) [place] % (Auto) Eos % (Auto) Baso % (Auto) Absolute Neuts (auto) Absolute Lymphs (auto) Nucleated RBC % Sodium 139 Potassium 3.9 Chloride 109 H Carbon Dioxide 24.0 Anion Gap 6 BUN 21 H Creatinine 0.79 Estim Creat Clear Calc 50.94 Est GFR (MDRD) Af Amer 120 Est GFR (MDRD) Non-Af 99 BUN/Creatinine Ratio 26.4 H Glucose 90 Calcium 7.7 L Total Bilirubin AST ALT Alkaline Phosphatase Troponin I Total Protein Albumin Globulin Albumin/Globulin Ratio Vitamin B12 216 Folate 5.50 Urine Color Urine Clarity Urine pH Ur Specific [place] Urine Protein Urine Glucose (UA) Urine Ketones Urine Occult Blood Urine Nitrite Urine Bilirubin Urine Urobilinogen Ur Leukocyte Esterase Urine RBC Urine WBC Ur Squamous Epith Cells Urine Bacteria Urine Mucus Blood Type Antibody Screen Medical Necessity - Tobacco Use Smoking Status: Never smoker Assessment/Plan 1. Acute blood loss anemia secondary to suspected upper GI bleed-hold aspirin, Plavix. Trend H&H. IV PPI. Dr. Way on consult, upper endoscopy this afternoon. Further disposition pending EGD results. 2. CAD status post CABG and PCI-hold aspirin, Plavix secondary to #1. On metoprolol, isosorbide, Ranexa, statin. 3. Hypertension-stable, continue current medications. 4. Hyperlipidemia-continue statin regimen. 5. Paroxysmal atrial fibrillation-not on anticoagulation. 6. BPH-continue Flomax regimen. DVT prophylaxis-SCDs This patient was seen by EMERALD Kirby under the supervision of Dr. Elizondo. <Concepcion Elizondo - Last Filed: 05/25/19 15:46> - Physical Exam Vital Signs Temp Pulse Resp BP Pulse Ox 97.6 F L 63 16 134/57 H 99 05/25/19 14:26 05/25/19 14:26 05/25/19 14:26 05/25/19 14:26 05/25/19 14:26 Oxygen Delivery Method Room Air Weight: 65.5 kg Body Mass Index (BMI) 21.3 Intake and Output for Last 24 Hours 05/23/19 05/24/19 05/25/19 23:59 23:59 23:59 Intake Total 1110 / 1360 2291.67 / 2291.67 Output Total 2054 / 2054 Balance 1110 / 865 236.67 / 236.67 Microbiology Past 72 Hours 05/24/19 17:00 Stool Occult Blood (MING) - Final Stool Laboratory Tests Past 24 Hrs 05/24/19 05/24/19 05/24/19 17:05 17:05 17:05 WBC 3.5 L RBC 2.56 L Hgb 8.7 L Hct 26.7 L MCV 104.3 H MCH 34.0 H MCHC 32.6 RDW Std Deviation 57.1 H RDW Coeff of Zachariah 15.1 H Plt Count 156 MPV 10.7 Immature Gran % (Auto) 0.300 Neut % (Auto) 60.9 Lymph % (Auto) 27.6 [place] % (Auto) 10.3 H Eos % (Auto) 0.6 Baso % (Auto) 0.3 Absolute Neuts (auto) 2.1 Absolute Lymphs (auto) 0.96 Nucleated RBC % 0 Sodium 135 L Potassium 4.1 Chloride 104 Carbon Dioxide 26.0 Anion Gap 5 BUN 31 H Creatinine 1.02 Estim Creat Clear Calc 50.40 Est GFR (MDRD) Af Amer 90 Est GFR (MDRD) Non-Af 74 BUN/Creatinine Ratio 30.4 H Glucose 98 Calcium 8.4 L Iron TIBC Iron Saturation Ferritin Total Bilirubin 0.40 AST 10 L ALT 17 Alkaline Phosphatase 65 Troponin I < 0.015 Total Protein 6.7 Albumin 3.7 Globulin 3.0 Albumin/Globulin Ratio 1.2 Vitamin B12 Folate Urine Color Urine Clarity Urine pH Ur Specific [place] Urine Protein Urine Glucose (UA) Urine Ketones Urine Occult Blood Urine Nitrite Urine Bilirubin Urine Urobilinogen Ur Leukocyte Esterase Urine RBC Urine WBC Ur Squamous Epith Cells Urine Bacteria Urine Mucus Blood Type O NEGATIVE Antibody Screen NEGATIVE Crossmatch 05/24/19 05/24/19 05/25/19 17:05 17:19 00:25 WBC RBC Hgb 7.3 L Hct 22.7 L MCV MCH MCHC RDW Std Deviation RDW Coeff of Zachariah Plt Count MPV Immature Gran % (Auto) Neut % (Auto) Lymph % (Auto) [place] % (Auto) Eos % (Auto) Baso % (Auto) Absolute Neuts (auto) Absolute Lymphs (auto) Nucleated RBC % Sodium Potassium Chloride Carbon Dioxide Anion Gap BUN Creatinine Estim Creat Clear Calc Est GFR (MDRD) Af Amer Est GFR (MDRD) Non-Af BUN/Creatinine Ratio Glucose Calcium Iron TIBC Iron Saturation Ferritin Total Bilirubin AST ALT Alkaline Phosphatase Troponin I Total Protein Albumin Globulin Albumin/Globulin Ratio Vitamin B12 Folate Urine Color Yellow Urine Clarity Clear Urine pH 7.0 Ur Specific [place] 1.010 Urine Protein Negative Urine Glucose (UA) Normal Urine Ketones Negative Urine Occult Blood Negative Urine Nitrite Negative Urine Bilirubin Negative Urine Urobilinogen 1 H Ur Leukocyte Esterase 25 H Urine RBC 0 SEEN Urine WBC 0-5 SEEN Ur Squamous Epith Cells 0-5 SEEN Urine Bacteria 0 SEEN Urine Mucus 0 SEEN Blood Type Antibody Screen Crossmatch See Detail 05/25/19 05/25/19 05/25/19 06:06 06:06 06:06 WBC 3.3 L RBC 2.25 L Hgb 7.5 L Hct 23.3 L MCV 103.6 H MCH 33.3 H MCHC 32.2 RDW Std Deviation 56.0 H RDW Coeff of Zachariah 15.1 H Plt Count 131 L MPV 10.5 Immature Gran % (Auto) 0.300 Neut % (Auto) 65.7 Lymph % (Auto) 23.6 [place] % (Auto) 9.5 Eos % (Auto) 0.6 Baso % (Auto) 0.3 Absolute Neuts (auto) 2.1 Absolute Lymphs (auto) 0.77 L Nucleated RBC % 0 Sodium 139 Potassium 3.9 Chloride 109 H Carbon Dioxide 24.0 Anion Gap 6 BUN 21 H Creatinine 0.79 Estim Creat Clear Calc 50.94 Est GFR (MDRD) Af Amer 120 Est GFR (MDRD) Non-Af 99 BUN/Creatinine Ratio 26.4 H Glucose 90 Calcium 7.7 L Iron TIBC Iron Saturation Ferritin Total Bilirubin AST ALT Alkaline Phosphatase Troponin I Total Protein Albumin Globulin Albumin/Globulin Ratio Vitamin B12 216 Folate Urine Color Urine Clarity Urine pH Ur Specific [place] Urine Protein Urine Glucose (UA) Urine Ketones Urine Occult Blood Urine Nitrite Urine Bilirubin Urine Urobilinogen Ur Leukocyte Esterase Urine RBC Urine WBC Ur Squamous Epith Cells Urine Bacteria Urine Mucus Blood Type Antibody Screen Crossmatch 05/25/19 05/25/19 05/25/19 06:06 06:06 14:10 WBC RBC Hgb 7.3 L Hct 22.7 L MCV MCH MCHC RDW Std Deviation RDW Coeff of Zachariah Plt Count MPV Immature Gran % (Auto) Neut % (Auto) Lymph % (Auto) [place] % (Auto) Eos % (Auto) Baso % (Auto) Absolute Neuts (auto) Absolute Lymphs (auto) Nucleated RBC % Sodium Potassium Chloride Carbon Dioxide Anion Gap BUN Creatinine Estim Creat Clear Calc Est GFR (MDRD) Af Amer Est GFR (MDRD) Non-Af BUN/Creatinine Ratio Glucose Calcium Iron 87 TIBC 252 Iron Saturation 34.5 Ferritin 77 Total Bilirubin AST ALT Alkaline Phosphatase Troponin I Total Protein Albumin Globulin Albumin/Globulin Ratio Vitamin B12 Folate 5.50 Urine Color Urine Clarity Urine pH Ur Specific [place] Urine Protein Urine Glucose (UA) Urine Ketones Urine Occult Blood Urine Nitrite Urine Bilirubin Urine Urobilinogen Ur Leukocyte Esterase Urine RBC Urine WBC Ur Squamous Epith Cells Urine Bacteria Urine Mucus Blood Type Antibody Screen Crossmatch Assessment/Plan This patient was seen in conjunction with Maya Mcguire NP. I have independently interviewed and examined the patient and reviewed pertinent historical, laboratory, and other data. Please refer to her note for patient's presentation, findings, and recommendations. Patient was seen and examined. He denies any new complaints. He underwent EGD today that showed multiple ulcers. Vitals were reviewed -stable Physical Exam: Gen: Comfortable, not pale, not jaundiced, alert oriented x3 CVS:HS I +II, regular, no murmurs RESP: CTA GI: BS present and normal, nontender, no palpable organs EXT:No edema ASSESSMENT: 1. Acute blood loss anemia 2. Acute GI bleed secondary to peptic ulcer disease 3. CAD status post CABG 4. Hyperlipidemia 5. Hypertension 6. Paroxysmal atrial fibrillation 7. BPH Meds reviewed Plan: Continue with serial H&H Continue with IV PPI Transfuse 2 units pRBC Lasix 40mg IV usp between transfusions Code Visit Inpatient E&M: 84351 Subs Hosp L2
--- NOTE | 2019-05-25 12:55 | CASEMGMT ---
RN CM NOTE: Updated clinical information faxed to [facility] at this time. Ludwig NAYAK RN CM
--- NOTE | 2019-05-25 13:07 | CHAPLAIN ---
Type of Pastoral Visit _x__ Initial Visit ___ Follow-up Visit ___ On-call Visit ___ General Patient Visit ___ Spiritual Assessment ___ Family Conference ___ Bereavement ___ Rapid Response ___ Code Blue ___ Other (describe below) Pastoral Care Referral From _x__ Patient ___ Family ___ Nurse ___ Physician ___ Kiln Stacker ___ Silica Filter Operator ___ Other (describe below) Sacrament/Intervention _x__ Active listening ___ Anointing ___ Adventist ___ Bereavement ___ Communion ___ Staci exploration ___ _x__ Life review _x__ Prayer ___ Reconciliation ___ Sacrament of Sick _x__ Supportive presence ___ Wedding ___ Other (describe below) Pastoral Comments
--- NOTE | 2019-05-25 13:15 | EGD_PTH ---
PATIENT: BRI BOSS LOC: MS3 U#:[id number] AGE/SX: 84/M ROOM: UT324 RE05/24/[address]: Dr. Concepcion Elizondo MD : [id number] BED: 1 DIS: 05/26/2019 SPEC #: [id number] RECD: 05/25/19 13:40 STATUS: JUSTYNA REQ #: [id number] GOMEZ: 05/25/19 13:[address]: Maximus Way DEPT: SURGICAL PATHOLOGY RECD BY: Arslan Rosas ENTERED: 05/25/19 14:26 SP TYPE: EGD BIOPSY OTHR DR: MD Dr. Ernesto Jackson MD Dr. Richard Guttman, MD [facility] Tissues: A - Gastric mucous membrane B - Gastric mucous membrane Procedures: Special Stain Group II Surgery Specimen Level IV Alcian Blue/PAS (control) Comments: @ Ordering doctor for SUIV edited from to @ rob MIDDLETON at 05/25/19 1422 @ Submitting doctor edited from to @ rob MIDDLETON at 05/25/19 1427 HEADER OPERATION: EGD ([facility] [place]) PRE-OP DIAGNOSIS: History of previous duodenal ulcer, fatigue, near-syncope pancytopenia TISSUE SUBMITTED: A. Antral biopsy, B. Biopsy GE junction MICROSCOPIC DIAGNOSIS A. Antral biopsy: Mild gastritis. See microscopic description and comment. B. 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 Mild chronic inflammation. See comment. SJ:rg 05/26/19 COMMENT A. The results of immunohistochemistry for Helicobacter pylori will be reported separately ([id number]). B. Alcian blue/PAS stain with matched control is used in the evaluation of the specimen. Case has been reviewed in consultation with Dr. Francis who concurs with the above diagnosis. IDC:AM MICROSCOPIC DESCRIPTION Slides are reviewed. A. The specimen shows fragments of gastric mucosa with chronic inflammatory cell infiltrates in the lamina propria consisting of lymphocytes and plasma cells, consistent with mild chronic gastritis. GROSS DESCRIPTION A - Received in fixative is one container labeled with the patient's name and designated antral biopsy. The specimen consists of one irregular fragment of light lopez soft tissue that measures 0.5 x 0.3 x 0.1 cm. The specimen is totally submitted in one cassette. B - Received in fixative is one container labeled with the patient's name and designated GE junction biopsy. The specimen consists of one irregular fragment of light lopez soft tissue that measures 0.3 x 0.3 x 0.1 cm. The specimen is totally submitted in one cassette. / AM:landry 05/25/19 TC:3 CPT: 59038 x2, 24542
--- NOTE | 2019-05-25 13:31 | OP.ENDO_ITS ---
05/25/2019 [facility] Re : Upper GI endoscopy procedure for [facility] This procedure was performed on Saturday, May 25, 2019. My impressions and recommendations are as follows: Impressions : - Normal examined jejunum. - Normal. - Non-bleeding gastric ulcers with no stigmata of bleeding. Biopsied. - Normal esophagus. Recommendations : - Resume previous diet. - Continue present medications. - Await pathology results. - Return to my office in 1 week. My findings are described in the full procedure note, which is enclosed. If I can be of further assistance, please feel free to contact me at Doctor phone number(s): , Work: . Sincerely, Maximus Way MD 05/25/2019 1:31:10 PM This report has been signed electronically.
[2019-05-25 13:51] LABS: Ferritin 77 ng/mL (26-388); Iron 87 ug/dL (65-175); Iron Binding Capacity,Total 252 ug/dL (250-450); PERCENT IRON SATURATION 34.5 % (15.0-55.0)
[2019-05-25 14:21] LABS: Hematocrit 22.7 % (40-54); Hemoglobin 7.3 g/dL (13.0-16.5)
--- NOTE | 2019-05-25 15:10 | CASEMGMT ---
RN JOY RUBBER STAMP DIES INSPECTOR CM to room to meet with patient for initial transition planning/care coordination assessment. MARI HAMILTON introduced self and role at [facility]. Pt voices understanding and consents to assessment at this time. Pt resting in bed in no distress at this time. Pt is A/O at this time and answers all questions appropriately. Care providers, pharmacy, and demographics verified/updated at this time. PCP: [facility] OFFICIAL GREETER Nani Fountain. Has next appt with her June 22. RN is Vasyl Liu. Specialists: Real Estate Agency Principal and bushwalking guide @ [facility] Preferred Pharmacy: [facility]. [facility] pharmacy for 3 long-term meds: Ranexa, Plavix, and one other medication he cannot remember name of. Insurance: [employer] Prescription Benefit: Yes Living Will/HPOA: Has both LW and HCPOA, who is his , Guerda ERAZOOK: . 3 adult children: 2 sons and a daughter Living Arrangements: Lives in one-story home w/3 or 4 steps to enter. Denies difficulty. States is very independent. does most meals and household tasks. Pt does yardwork, works in the garden and in the elian. states he was painting elian this past week. Transportation: Pt states drives self and states no transportation concerns at this time. also drives. DME: Denies using any DME and denies needs. HHC/SNF: No history of either, denies needs and no needs identified. Pt wishes to return home and states has no concerns with going home at time of discharge. CM to follow for any discharge planning/needs. Pt voices no further concerns/needs at this time. Advised pt to ask for CM if any further questions/concerns/needs arise. Voices understanding. Call placed to [facility] and message left on VM for MARI Liu informing him of pt's admission to [facility]. MARI HAMILTON to fax discharge instructions to [facility] @ discharge: [phone]. Reviewed [facility] Transfer Declination Form. Pt does not wish to be transferred. Form signed by pt, copy made and placed on chart and original given to pt. Form faxed to [facility]. PLAN: Home with spousal support and discharge plans in place. Ludwig NAYAK RN, CM
[2019-05-25] MEDS: Furosemide 40 MG/4 ML Vial IV (19:02)
[2019-05-25] MEDS: 0.9% NaCl Peripheral Flush Adult/Peds IV (19:02)
[2019-05-25] MEDS: Tamsulosin HCl 0.4 MG Capsule 0.8 MG PO (22:10)
[2019-05-25] MEDS: Atorvastatin Calcium 10 MG Tablet PO (22:10)
[2019-05-25] MEDS: Sucralfate 1 GM Tablet PO (22:10)
[2019-05-26 05:00] VITALS: BP 123/65; PULSE 63; RESP 16; TEMP 37
[2019-05-26 06:17] LABS: Hematocrit 30.4 % (40-54); Mean Corp Hgb Conc 32.9 g/dL (32-36); Mean Corpuscular Hgb 31.8 pg (27.0-32.0); Mean Corpuscular Volume 96.8 fL (80-94); Mean Platelet Vol. 10.4 fl (6.2-12.0); POSITIVE MORPHOLOGY YES; Platelet Count 143 K/mm3 (150-450); RBC Distribution Width CV 18.8 % (11.6-14.6); RBC Distribution Width SD 66.5 fl (35.1-43.9); Red Blood Count 3.14 M/mm3 (4.6-6.2); White Blood Count 4.7 K/mm3 (4.4-11.0)
[2019-05-26] MEDS: Sucralfate 1 GM Tablet PO ×2 (06:25→11:02)
[2019-05-26 06:35] LABS: Anion Gap 7 (5-15); BUN 16 mg/dL (7-18); BUN/Creat Ratio 17.5 RATIO (10-20); Calcium,Total 8.1 mg/dL (8.5-10.1); Chloride 106 mmol/L (98-107); Creatinine, Serum 0.91 mg/dL (0.70-1.30); EST Glomerular Filtration Rate 84 mL/min (>60); Est Glom Filt Rate - Afr Amer 102 mL/min (>60); Estimated Creatinine Clearance 55.98 ml/min; Glucose 86 mg/dL (74-106); Potassium 3.5 mmol/L (3.5-5.1); Sodium Level 139 mmol/L (136-145)
[2019-05-26 07:05] LABS: Scan Indicated on CBC? Y/N YES- FLAGS NOTED
[2019-05-26 07:06] LABS: Differential Comment SCANNED
[2019-05-26 08:12] VITALS: BP 108/69; PULSE 66; RESP 16; TEMP 36.8; O2SAT 100
[2019-05-26 08:40] VITALS: PULSE 64
[2019-05-26] MEDS: 0.9% NaCl Peripheral Flush Adult/Peds IV (09:40)
[2019-05-26] MEDS: Ranolazine 500 MG Tablet PO (09:40)
--- NOTE | 2019-05-26 11:22 | DCINST_ITS ---
- Discharge Diagnoses Reason(s) for Visit for Discharge Instructions: Lightheadness, presyncope You will use the following diet at home:: Cardiac Your food should be the consistency of: Regular Your liquids should be the consistency of: Regular/Thin Discharge Activity: Return to Normal Activity Additional Instructions: Continue to take all your medicines as prescribed. You will be discharged only on aspirin but not Plavix. We will up with your primary care doctor within 1 to 2 weeks for repeat blood work. Follow-up with Dr. Way within a week. Follow-up with Dr. Mckeon within 1 to 2 weeks. Continue to remain active. Monitor your stools color. Take note of changes to your medications Allergies/Adverse Reactions: Allergies ciprofloxacin [From Cipro] Allergy (Unknown, Verified 12/10/18 09:11) Rash EZEQUIEL Inhibitors Allergy (Verified 12/10/18 09:11) cough ipodate [From Oragrafin] Allergy (Verified 12/10/18 09:11) Rash Medications to take at Discharge ranolazine ER 500 mg tablet,extended release,12 hr 500 mg PO Q12H 08/10/17 Tamsulosin HCl [Flomax] 0.8 mg PO QHS 05/04/18 nitroglycerin 0.4 mg sublingual tablet 0.4 mg SUBLINGUAL Q5-15M PRN #90 tab 05/12/18 metoprolol tartrate 25 mg tablet 12.5 mg PO BID #90 tab 05/06/19 Acetaminophen [Tylenol Extra Strength] 500 mg PO DAILY PRN PRN 05/24/19 Isosorbide Mononitrate [Isosorbide Mononitrate ER] 60 mg PO DAILY 05/24/19 Simvastatin 20 mg PO DAILY 05/24/19 Aspirin [Aspir 81] 81 mg PO DAILY 30 Days #30 tablet. 05/26/19 Pantoprazole Sodium 40 mg PO BID 30 Days #60 tablet. 05/26/19 The following prescriptions were given: Aspirin [Aspir 81] 81 mg PO DAILY 30 Days #30 tablet. Pantoprazole Sodium 40 mg PO BID 30 Days #60 tablet. Transmission Status: Pending to [id number] Primary Care Physician: [facility] [Primary Care Provider] - Please follow up with your Primary Care Physician in: within 1-2 weeks Test Results: Test results from this visit will be discussed in further detail at your follow- up appointment, if applicable. Please Follow Up With: Vinicius Mckeon MD When: within 2 weeks Please Follow Up With: Maximus Way MD When: in 1 week as scheduled Proposed Discharge Date: 05/26/19
--- NOTE | 2019-05-26 11:29 | PCM.DC.SUM ---
Discharge Date and Diagnosis Date of Admission: 05/24/19 Date of Discharge: 05/26/19 - Secondary Discharge Diagnosis Chronic Problems (Last Reviewed 12/10/18 @ 09:12 by Yamilet Traore) Old myocardial infarction (Chronic) Premature ventricular contraction (Chronic) Presence of stent in coronary artery (Chronic ~11/14/11) PTCA/Stent to Diag 1 and PDA, unsuccessful angioplasty to CFX 12/29/09; PTCA/Stent of SVG to Diag artery 11/14/11 Hyperlipidemia (Chronic) S/P CABG (coronary artery bypass graft) (Chronic ~11/2005) LARSON to LAD, reverse SVG to 1 diagonal, obtuse marginal, and PDA. 11/2005 Atherosclerotic heart disease of [place] coronary artery without angina pectoris (Chronic) Paroxysmal atrial fibrillation (Chronic) Hospital Course and Treatment Imaging Results: Clinical Impression(s) from Imaging Studies Chest X-Ray 05/24/19 16:41 IMPRESSION: No acute chest disease. Electronically Signed: Rufino Tay MD at 17:02 EDT , Service support , General surgery - Dr. 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 Patient comes in with a 3-day history of intermittent lightheadedness with upon standing. His reports that patient had episodes where he loses color and appears like is going to pass out. Patient also reports that his stools were darker. He felt that his stools were dark because he ate a blackberry cobbler pie. Patient had a drop in his hemoglobin. FOBT was negative. General surgery was consulted, patient underwent EGD. Findings included nonbleeding gastric ulcer with no stigmata of bleeding which were biopsied. She had received 2 units of packed RBCs and his hemoglobin dropped to 7.3. Hemoglobin 6 months earlier was 11.8. His discharge hemoglobin was 10.0 Patient was started on aspirin in consultation with general surgery and cardiology. Will see cardiology in the outpatient within 2 weeks. He was see general surgery in 1 week for planned colonoscopy. He was discharged on PPI twice daily Subjective: On the day of discharge, patient was seen and examined. Denied any new complaints. No stools. No abdominal pain or nausea or vomiting. Objective: Physical Exam: Gen: Comfortable, not pale, not jaundiced, alert oriented x3 CVS:HS I +II, regular, no murmurs RESP: CTA GI: BS present and normal, nontender, no palpable organs EXT:No edema - Physical Exam Vital Signs Temp Pulse Resp BP Pulse Ox 98.3 F 64 16 108/69 100 05/26/19 08:12 05/26/19 08:40 05/26/19 08:12 05/26/19 08:12 05/26/19 08:12 Oxygen Delivery Method Room Air Weight: 65.5 kg Body Mass Index (BMI) 21.3 Intake and Output for Last 24 Hours 05/24/19 05/25/19 05/26/19 23:59 23:59 23:59 Intake Total 1110 / 1360 4371.67 / 4481.67 520 / 520 Output Total 5460 / 5460 400 / 400 Balance 1110 / 865 -1088.33 / -978.33 120 / 120 Microbiology Past 72 Hours 05/24/19 17:00 Stool Occult Blood (MING) - Final Stool Laboratory Tests Past 24 Hrs 05/24/19 05/25/19 05/25/19 17:05 06:06 14:10 WBC RBC Hgb 7.3 L Hct 22.7 L MCV MCH MCHC RDW Std Deviation RDW Coeff of Zachariah Plt Count MPV Differential Comment Sodium Potassium Chloride Carbon Dioxide Anion Gap BUN Creatinine Estim Creat Clear Calc Est GFR (MDRD) Af Amer Est GFR (MDRD) Non-Af BUN/Creatinine Ratio Glucose Calcium Iron 87 TIBC 252 Iron Saturation 34.5 Ferritin 77 Crossmatch See Detail 05/26/19 05/26/19 06:00 06:00 WBC 4.7 RBC 3.14 L Hgb 10.0 L Hct 30.4 L MCV 96.8 H D MCH 31.8 MCHC 32.9 RDW Std Deviation 66.5 H RDW Coeff of Zachariah 18.8 H Plt Count 143 L MPV 10.4 Differential Comment SCANNED Sodium 139 Potassium 3.5 Chloride 106 Carbon Dioxide 26.0 Anion Gap 7 BUN 16 Creatinine 0.91 Estim Creat Clear Calc 55.98 Est GFR (MDRD) Af Amer 102 Est GFR (MDRD) Non-Af 84 BUN/Creatinine Ratio 17.5 Glucose 86 Calcium 8.1 L Iron TIBC Iron Saturation Ferritin Crossmatch Discharge Diet: Low fat/ Low Cholesterol, 2000 mg Sodium Diet Discharge Activity: Return to Normal Activity Home Medications: Medications to take at Discharge ranolazine ER 500 mg tablet,extended release,12 hr 500 mg PO Q12H 08/10/17 Tamsulosin HCl [Flomax] 0.8 mg PO QHS 05/04/18 nitroglycerin 0.4 mg sublingual tablet 0.4 mg SUBLINGUAL Q5-15M PRN #90 tab 05/12/18 metoprolol tartrate 25 mg tablet 12.5 mg PO BID #90 tab 05/06/19 Acetaminophen [Tylenol Extra Strength] 500 mg PO DAILY PRN PRN 05/24/19 Isosorbide Mononitrate [Isosorbide Mononitrate ER] 60 mg PO DAILY 05/24/19 Simvastatin 20 mg PO DAILY 05/24/19 Aspirin [Aspir 81] 81 mg PO DAILY 30 Days #30 tablet. 05/26/19 Pantoprazole Sodium 40 mg PO BID 30 Days #60 tablet. 05/26/19 Following Prescrptions Were Given to Patient: Aspirin [Aspir 81] 81 mg PO DAILY 30 Days #30 tablet. Pantoprazole Sodium 40 mg PO BID 30 Days #60 tablet. Transmission Status: Received by [id number] Primary Care Physician: [facility] [Primary Care Provider] - Please follow up with your Primary Care Physician in: within 1-2 weeks Please Follow Up With: Vinicius Mckeon MD When: within 2 weeks Please Follow Up With: Maximus Way MD When: in 1 week as scheduled Disposition: Home Minutes spent on discharge:: 50 Patient Condition:: Stable Medical Necessity - Tobacco Use Smoking Status: Never smoker Tobacco Use: Non-smoker Meaningful Use Info Meaningful Use Diagnoses (Choose all that apply): None applicable Code Visit Inpatient E&M: 23674 Disch Hosp
[2019-05-26 12:43] VITALS: BP 107/49; PULSE 68; RESP 16; TEMP 37.1; O2SAT 99
--- NOTE | 2019-05-26 13:07 | PCM.PN.SRG ---
Subjective: feeling much stronger after the transfusion - Physical Exam General: Alert, Oriented x3, Cooperative Lungs: Clear to auscultation, Normal air movement Cardiovascular: Regular rate, No murmurs Vital Signs Temp Pulse Resp BP Pulse Ox 98.7 F 68 16 107/49 L 99 05/26/19 12:43 05/26/19 12:43 05/26/19 12:43 05/26/19 12:43 05/26/19 12:43 Oxygen Delivery Method Room Air Weight: 65.5 kg Body Mass Index (BMI) 21.3 Intake and Output for Last 24 Hours 05/24/19 05/25/19 05/26/19 23:59 23:59 23:59 Intake Total 1110 / 1360 4371.67 / 4481.67 520 / 520 Output Total 5460 / 5460 400 / 400 Balance 1110 / 865 -1088.33 / -978.33 120 / 120 Microbiology Past 72 Hours 05/24/19 17:00 Stool Occult Blood (MING) - Final Stool Laboratory Tests Past 24 Hrs 05/24/19 05/25/19 05/25/19 17:05 06:06 14:10 WBC RBC Hgb 7.3 L Hct 22.7 L MCV MCH MCHC RDW Std Deviation RDW Coeff of Zachariah Plt Count MPV Differential Comment Sodium Potassium Chloride Carbon Dioxide Anion Gap BUN Creatinine Estim Creat Clear Calc Est GFR (MDRD) Af Amer Est GFR (MDRD) Non-Af BUN/Creatinine Ratio Glucose Calcium Iron 87 TIBC 252 Iron Saturation 34.5 Ferritin 77 Crossmatch See Detail 05/26/19 05/26/19 06:00 06:00 WBC 4.7 RBC 3.14 L Hgb 10.0 L Hct 30.4 L MCV 96.8 H D MCH 31.8 MCHC 32.9 RDW Std Deviation 66.5 H RDW Coeff of Zachariah 18.8 H Plt Count 143 L MPV 10.4 Differential Comment SCANNED Sodium 139 Potassium 3.5 Chloride 106 Carbon Dioxide 26.0 Anion Gap 7 BUN 16 Creatinine 0.91 Estim Creat Clear Calc 55.98 Est GFR (MDRD) Af Amer 102 Est GFR (MDRD) Non-Af 84 BUN/Creatinine Ratio 17.5 Glucose 86 Calcium 8.1 L Iron TIBC Iron Saturation Ferritin Crossmatch Medical Necessity - Tobacco Use Smoking Status: Never smoker Assessment/Plan fatigue and near syncope-pancytopenia, macrocytic indices, history of previous duodenal ulcer upper endoscopy did demonstrate small ulcerations but there were no signs of bleeding. I would plan to have multiple my office in one week for results of the pathology and to consider colonoscopy as an outpatient. macrocytic indices and Hemoccult-negative stools,folate and vitamin B-12 levels within normal limits. We will consider hematology consultation for possible myelodysplastic syndrome.
--- NOTE | 2019-06-01 09:32 | CASEMGMT ---
RN CM NOTE: Discharge summary and instructions faxed to [facility] and to [facility]. Ludwig GIMENEZN RN CM
== END 2019-05-26 13:05 | disposition home or self-care (01) | DRG 378 ==
LOC: ED 16:51 → MS3 18:39
PROVIDERS: Nurse Practitioner Family; Surgery; Admitting Provider Family Medicine; Emergency Provider Emergency Medicine; Referring Provider Family Medicine; Visit Provider Internal Medicine
PROC: 0DJ08ZZ Inspection of Upper Intestinal Tract, Via Natural or Artificial Opening Endoscopic (ICD-10-PCS; CPT 43235; principal; 2019-05-25 13:10)
DX: K27.4 Chronic or unspecified peptic ulcer, site unspecified, with hemorrhage (principal); D62 Acute posthemorrhagic anemia; D61.818 Other pancytopenia; I25.2 Old myocardial infarction; I49.3 Ventricular premature depolarization; E78.5 Hyperlipidemia, unspecified; I25.10 Atherosclerotic heart disease of native coronary artery without angina pectoris; I48.0 Paroxysmal atrial fibrillation; D51.0 Vitamin B12 deficiency anemia due to intrinsic factor deficiency; I10 Essential (primary) hypertension; N40.0 Benign prostatic hyperplasia without lower urinary tract symptoms; Z95.1 Presence of aortocoronary bypass graft; Z95.5 Presence of coronary angioplasty implant and graft; Z79.82 Long term (current) use of aspirin; Z79.02 Long term (current) use of antithrombotics/antiplatelets; Z79.899 Other long term (current) drug therapy
CPT/HCPCS: 36415; 71045; 80048; 80053; 81001; 82274; 82607; 82728; 82746; 83540; 83550; 84484; 85014; 85018; 85025; 85027; 86850; 86900; 86901; 86920; 88305; 88313; 88342; 99285; J7030; J7040; J7050; P9016; A4216; J1940

== ENCOUNTER → 2019-09-19 10:47 | Outpatient (CLI) | payer MEDICARE, SELFPAY ==
[2019-09-19 08:46] VITALS: BMI 23.1
[2019-09-19 11:15] LABS: Hematocrit 33.5 % (40-54); Hemoglobin 11.1 g/dL (13.0-16.5)
== END ==
PROVIDERS: Referring Provider Physician Assistant Medical; Visit Provider Physician Assistant Medical
DX: D64.9 Anemia, unspecified (principal)
CPT/HCPCS: 36415; 85014; 85018

== ENCOUNTER 2020-07-16 12:30 | Emergency (ER) | payer MEDICARE, SELFPAY ==
[2020-05-02 12:38] VITALS: BMI 23.1
[2020-07-16 12:31] VITALS: BP 112/56; PULSE 63; RESP 20; TEMP 36.4; O2SAT 99; BMI 23.1
--- NOTE | 2020-07-16 13:19 | RAD_ITS ---
STUDY: X-RAY - UNILATERAL RIBS ( LEFT ) WITH CHEST REASON FOR EXAM: Male, 85 years old. Fall, landing on left lateral ribs. Pain. TECHNIQUE - RIBS: 4 view(s) of the ribs. TECHNIQUE - CHEST: Single frontal view of the chest. COMPARISON: Chest x-ray dated 05/24/2019. FINDINGS - RIBS: Generalized osteopenia of the osseous structures. No rib fracture identified. FINDINGS - CHEST: Stable mild hyperexpansion with diffuse interstitial pattern. There is no demonstrated pleural abnormality. Borderline cardiomegaly with sternotomy wires unchanged. Normal mediastinum and izabel. Normal visualized pulmonary arteries. Normal visualized aortic arch and descending thoracic aorta. Normal visualized thoracic spine. Normal visualized ribs, clavicles, and shoulders. There is no demonstrated abnormality of the visualized soft tissue structures of the upper abdomen. RAD/Ribs Uni Min 3V w/PA Chest IMPRESSION: RIBS: Osteopenia with no rib fracture. CHEST: Stable cardiomegaly and mild hyperexpansion with diffuse interstitial pattern. No acute finding. Electronically Signed: Louis Glass MD at 14:01 EST , Service support ,
--- NOTE | 2020-07-16 14:09 | ED.VIS.FALL ---
History of Present Illness Chief Complaint: Fall Informant: Patient, Significant Other Occurred: Today Fall from Height (ft): 1-2, on stepstool Location: left lower lateral ribcage Quality of Pain: Aching Current Severity: Mild Maximum Severity: Moderate Worsened by: deep inspiration, movement Relieved by: remaining still, tylenol Associated Symptoms: Negative for: Parasthesias, Weakness, Loss of function, Inability to ambulate, Loss of consciousness Narrative: 85-year-old male was on a stepstool at his house over top of his washer and dryer trying to put a new shelf in, but the stepstool slid backward causing him to fall against the washing machine, versus his left lower rib cage where he has pain. No other injuries. He is on aspirin/Plavix, no anticoagulants. - Past Medical History (1) Atherosclerotic heart disease of [place] coronary artery without angina pectoris Status: Chronic (2) Hyperlipidemia Status: Chronic (3) Paroxysmal atrial fibrillation Status: Chronic (4) Premature ventricular contraction Status: Chronic (5) Presence of stent in coronary artery Status: Chronic Comment: PTCA/Stent to Diag 1 and PDA, unsuccessful angioplasty to CFX 12/29/09; PTCA/Stent of SVG to Diag artery 11/14/11 Past Medical History - Allergies and Home Meds Allergies/Adverse Reactions: Allergies ciprofloxacin [From Cipro] Allergy (Unknown, Verified 09/19/19 10:07) Rash EZEQUIEL Inhibitors Allergy (Verified 09/19/19 10:07) cough ipodate [From Oragrafin] Allergy (Verified 09/19/19 10:07) Rash Primary Care Physician: [facility],[place] [Primary Care Provider] - Surgical History: coronary bypass surgery Smoking Status: Never smoker - Family History Maternal Family History: Family History (Last Reviewed 06/24/19 @ 15:42 by Yamilet ROA, [place]) Father Prostate cancer Mother CVA (cerebral vascular accident) Brother Cancer Family History: Reports: No pertinent history Review of Systems General: Denies: Chills, Fever, Sweats Cardiovascular: Reports: - - left lower lateral rib pain. Denies: Chest pain Gastrointestinal: Denies: Abdominal pain, Nausea, Vomiting, Diarrhea, Melena, Hematochezia Musculoskeletal: Denies: Neck pain, Back pain, Extremity Pain Physical Exam Vital Signs/Narrative: Vital Signs Temp Pulse Resp BP Pulse Ox 07/16/20 12:31 97.5 F L 63 20 H 112/56 L 99 Inital Vital Signs reviewed: Yes General: Well nourished, Well developed, - - Well-appearing no distress GCS 15 Head: Normocephalic, Atraumatic Eyes: Perrl, EOMI ENT: TM's clear, No hemotympanum or drainage, No trauma Neck: Nontender, Full ROM Cardiovascular: Regular rate, Regular rhythm, No murmurs Respiratory: No distress, CTA bilaterally, - - Chest nontender, but patient is tender in left lateral lower rib cage, along the 11th and 10th ribs, may be a little on the ninth anterolaterally along the anterior axillary line. No subcostal abdominal tenderness. No crepitance or subcutaneous emphysema. Minor contusions present. Abdomen: Soft, Nontender, Nondistended, Normal bowel sounds Back: Nontender Extremeties: Atraumatic full range of motion throughout all 4 Skin: Normal color, No rash Neurological: Alert, Oriented x3, Cranial nerves II-XII grossly intact, Normal Strength, Normal Sensation, Normal Gait Psychological: Normal affect, Normal Mood Diagnostic/Tx/Re-eval Clinical Impression(s) from Imaging Studies Ribs w/Chest X-Ray 07/16/20 13:19 IMPRESSION: RIBS: Osteopenia with no rib fracture. CHEST: Stable cardiomegaly and mild hyperexpansion with diffuse interstitial pattern. No acute finding. Electronically Signed: Louis Glass MD at 14:01 EST , Service support , - Medical Decision Making Patient declined ice pack or any other analgesics. X-rays show no acute fractures. I do not have concern for any acute organ injury at this time. We discussed reasons to return and supportive care. ED Disposition - Plan for ED Patient: Disposition: Home or Assisted Living Diagnosis: Contusion of rib on left side Instructions: ED Contusion Vs Minor Fx Rib Referrals: [facility] [Primary Care Provider] - As Needed
== END 2020-07-16 14:20 | disposition home or self-care (01) ==
PROVIDERS: Emergency Provider Emergency Medicine
DX: S20.212A Contusion of left front wall of thorax, initial encounter (principal); I25.10 Atherosclerotic heart disease of native coronary artery without angina pectoris; Z79.82 Long term (current) use of aspirin; Z79.02 Long term (current) use of antithrombotics/antiplatelets; Z95.5 Presence of coronary angioplasty implant and graft; W17.89XA Other fall from one level to another, initial encounter
CPT/HCPCS: 71101; 99282

== ENCOUNTER 2021-10-07 09:19 | Emergency (ER) | payer OTHER, SELFPAY ==
[2021-10-07 09:19] VITALS: BP 123/73; PULSE 89; RESP 16; TEMP 36.7; O2SAT 100; BMI 21.2
--- NOTE | 2021-10-07 09:34 | EDS_ITS ---
HPI History of Present Illness Chief Complaint: Back Informant: patient and spouse/S.O. Onset/Context/Timing Onset: Days (4) Context: Sudden Onset Injury: fall Timing: Continuous Quality: Aching Location: Lumbar Current Severity: Mild Maximum Severity: Moderate Worsened by: improves with Movement and Ambulation Relieved by: Remaining Still Associated Symptoms Associated Symptoms: Negative for Numbness, Tingling, Radiation to Right Leg, Radiation to Left Leg, Abdominal Pain, Unable to Ambulate, Unable to Transfer, Urinary Retention, Urinary Incontinence and Fecal Incontinence Narrative Narrative: Patient states he chronically is unsteady on his feet, he was getting up out of a recliner in his legs got tangled he thinks, and he fell to his buttocks inside his home 4 days ago. He has been having lower back pain ever since then, and he presents to have it evaluated. He denies any neurologic s ymptoms or radiation to the lower extremities, no bowel or bladder dysfunction or saddle anesthesia. He has been using a cane to get around due to the pain, he does not usually use 1 but he is able to walk with that now. He and his say he has arthritis in his back, but this pain is above and beyond, but it is manageable. Also, states he has had URI symptoms for a month. He went to urgent care at [facility] and was given an antibiotic for this respiratory infection on September 08, for the next week he seemed to be improved, and then he started to get the symptoms back again. Basically, congestion, runny nose, minor nonproductive cough. No dyspnea, fevers, significant malaise, or GI symptoms. He has had Covid vaccination and boosting. was also ill, this was around [place] or just after and she did a rapid Covid test that was negative, although this was during omicron surge where rapid antigen testing is commonly falsely negative. [facility] Medical History (Updated 10/07/21 @ 11:[address] Juan Payne MD) Atherosclerotic heart disease of [place] coronary artery without angina pectoris Colitis Diverticulitis Excision of the left atrial appendage Hiatal hernia Hyperlipidemia Kidney stones Old myocardial infarction Paroxysmal atrial fibrillation Premature ventricular contraction Upper gastrointestinal bleed Home Medications ranolazine 500 mg tablet,extended release,12 hr 500 mg PO Q12H 08/10/17 [History Last Taken 05/24/19] tamsulosin 0.8 mg PO QHS 05/04/18 [History Last Taken 05/23/19] nitroglycerin 0.4 mg sublingual tablet 0.4 mg SUBLINGUAL Q5-15M PRN #90 tab 05/12/18 [Rx Last Taken Unknown] acetaminophen 500 mg PO DAILY PRN PRN 05/24/19 [History Last Taken 05/23/19] aspirin 81 mg tablet,delayed release 81 mg PO DAILY 09/19/19 [History Last Taken Unknown] clopidogrel 75 mg tablet 75 mg PO DAILY #90 tab 11/06/20 [Rx Last Taken Unknown] metoprolol tartrate 25 mg tablet 12.5 mg PO BID #90 tab 04/17/21 [Rx Last Taken Unknown] simvastatin 20 mg tablet 20 mg PO DAILY #90 tab 05/06/21 [Rx Last Taken Unknown] benzonatate 100 mg capsule 100 mg PO TID 10 Days #30 cap 10/02/21 [Rx Last Taken Unknown] cyanocobalamin (vitamin B-12) 1,000 mcg tablet 1,000 mcg PO DAILY PRN 10/02/21 [History Last Taken Unknown] isosorbide mononitrate 30 mg tablet,extended release 24 hr 30 mg PO DAILY #90 tab 10/02/21 [Rx Last Taken Unknown] pantoprazole 40 mg tablet,delayed release 40 mg PO BID tab 10/02/21 [History Last Taken Unknown] tramadol 50 mg PO Q4H PRN PRN 2 Days #12 tab 10/07/21 [Rx Last Taken Unknown] Allergy/AdvReac Type Severity Reaction Status Date / Time ciprofloxacin [From Cipro] Allergy Unknown Rash Verified 10/07/21 09:21 EZEQUIEL Inhibitors Allergy cough Verified 10/07/21 09:21 ipodate [From Oragrafin] Allergy Rash Verified 10/07/21 09:21 Family History Father Prostate cancer Mother CVA (cerebral vascular accident) Brother Cancer Surgical History H/O maze procedure History of hernia repair Hx of appendectomy Postsurgical percutaneous transluminal coronary angioplasty (PTCA) status Presence of stent in coronary artery (~11/14/11) S/P CABG (coronary artery bypass graft) (~11/2005) S/P right inguinal hernia repair Social History Smoking Status: Never smoker alcohol intake: never substance use type: does not use caffeine: Yes Type: coffee Number of servings: 2 ROS ROS ED Constitutional Constitutional ED: Denies chills or fever(s) ENT ENT ED: Reports nasal congestion and rhinorrhea; Denies headache(s) or sinus pain Cardiovascular Cardiovascular: Denies chest pain or dyspnea Respiratory/Chest Respiratory/Chest: Reports dry cough; Denies dyspnea or hemoptysis Gastrointestinal Gastrointestinal: Denies abdominal pain, constipation, fecal incontinence, nausea or vomiting Genitourinary Genitourinary ED: Reports other Details: no urinary retention ; Denies abdominal discomfort or urinary incontinence Musculoskeletal Musculoskeletal: Reports as per HPI and back pain; Denies neck pain Integumentary Denies rash or wounds Neurologic Neurologic: Denies headache(s), paresthesias or weakness EXAM Physical Exam Const Vital Signs: 10/07/21 09:19 Temperature 98.1 F Temperature Source Temporal Pulse Rate 89 Respiratory Rate 16 Blood Pressure 123/73 H Blood Pressure Mean 89 Pulse Ox 100 Oxygen Delivery Method Room Air Positive well nourished and well developed General Appearance ED: well developed and NAD HEENT Negative for trauma or tenderness Eyes PERRL and EOMs intact bilaterally Neck full ROM and supple Resp normal respiratory effort and clear to auscultation bilaterally Cardio regular rate and regular rhythm GI normal to inspection, nondistended, normoactive bowel sounds, soft to palpation and non-tender Back/Spine normal to inspection Lumbar Spine / Lower Back: normal to inspection, pain with ROM, lumbar spinal tenderness L1 and straight leg raise negative bilaterally Extremity normal to inspection, full ROM and no pedal edema Neuro oriented x3 and no sensory deficits noted Sensorium / Orientation: alert Motor Exam: strength 5/5 throughout and clonus absent Deep Tendon Reflexes: Rt Patellar (L4): 2+, Lt Patellar (L4): 2+, Rt Ankle (S1): 2+ and Lt Ankle (S1): 2+ Deep Tendon Reflexes Back: Rt Patellar (L4): 2+, Lt Patellar (L4): 2+, Rt Ankle (S1): 2+ and Lt Ankle (S1): 2+ Plantar Reflex: Downgoing: bilateral Psych mental status grossly normal and thought process normal Skin no rashes or lesions noted and no wounds MDM MDM MDM Narrative Medical decision making narrative: X-rays show mild compression fracture at superior endplate of L1 which is right where the patient is hurting. He is neurologically intact. Unlikely to be operative, unknown if kyphoplasty would be helpful here, will refer him to spine as an outpatient and he is wanting something other than [id number] medications for pain. We will place him on a short course of tramadol since he is on anticoagulation. They understand this can cause confusion and constipation and to lay off of it if it does start to do that. With regards to his respiratory illness, I do not think there is any utility in running a rapid Covid, I sent a PCR and gave him appropriate instructions regarding that it will come back in several days. Radiography Diagnostic Testing: Clinical Impression(s) from Imaging Studies Lumbar Spine X-Ray 10/07/21 09:50 IMPRESSION: Degenerative changes of the spine, as detailed above. 20% loss of height of the superior endplate of the L1 vertebrae. Minimal anterior listhesis of L4 on L5 most likely secondary to facet joint osteoarthritis. Electronically Signed: Gómez Gaytan MD at 10:07 EST , Discharge Plan Triage Chief Complaint: Back ED Provider: Juan Payne Dx/Rx/DC Orders Clinical Impression: Compression fracture of L1 vertebra, Fall from other slipping, tripping, or stumbling, Viral URI with cough Instructions: ED Fracture, Vertebral Compression Prescriptions: New tramadol 50 MG tablet 50 mg PO Q4H PRN PRN (Reason: Pain) 2 Days Qty: 12 RF: 0 No Action ranolazine [Ranexa] 500 mg tablet extended release 12 hr 500 mg PO Q12H RF: 0 nitroglycerin 0.4 mg tablet, sublingual 0.4 mg SUBLINGUAL Q5-15M PRN (Reason: CHEST PAIN) Qty: 90 RF: 6 aspirin [Adult Low Dose Aspirin] 81 mg tablet,delayed release (DR/EC) 81 mg PO DAILY RF: 0 pantoprazole 40 mg tablet,delayed release (DR/EC) 40 mg PO BID RF: 0 cyanocobalamin (vitamin B-12) 1,000 mcg tablet 1,000 mcg PO DAILY PRNRF: 0 isosorbide mononitrate 30 mg tablet extended release 24 hr 30 mg PO DAILY Qty: 90 RF: 3 benzonatate 100 mg capsule 100 mg PO TID 10 Days Qty: 30 RF: 0 tamsulosin 0.4 MG capsule 0.8 mg PO QHS RF: 0 acetaminophen 500 MG tablet 500 mg PO DAILY PRN PRN (Reason: BACK PAIN) RF: 0 clopidogrel [Plavix] 75 mg tablet 75 mg PO DAILY Qty: 90 RF: 3 metoprolol tartrate 25 mg tablet 12.5 mg PO BID Qty: 90 RF: 3 simvastatin 20 mg tablet 20 mg PO DAILY Qty: 90 RF: 3 [facility] Care Provider: [facility] Referrals: Gil Osborne DO [STAFF PHYSICIAN] - (call for appt for evaluation of back fracture) [facility] [Primary Care Provider] - Disposition Disposition: Home, Self Care
--- NOTE | 2021-10-07 09:50 | RAD_ITS ---
STUDY: X-RAY - LUMBAR SPINE REASON FOR EXAM: Male, 86 years old. Injury pain TECHNIQUE: 3 view(s) of the lumbar spine were obtained. COMPARISON: None FINDINGS: Normal lumbar lordosis. There is a dextroscoliosis of the lumbar spine. Minimal anterior listhesis of L4 on L5 most likely secondary to the facet joint osteoarthritis. 20% loss of height of the superior endplate of the L1 vertebrae. There is multilevel endplate spondylosis of the lumbar vertebrae. There is multi-level degenerative disc disease with multi-level disc space narrowing. There is atherosclerotic calcification of the abdominal aorta without a demonstrated aneurysm. RAD/Lumbar Spine 2 or 3 Views IMPRESSION: Degenerative changes of the spine, as detailed above. 20% loss of height of the superior endplate of the L1 vertebrae. Minimal anterior listhesis of L4 on L5 most likely secondary to facet joint osteoarthritis. Electronically Signed: Gómez Gaytan MD at 10:07 EST ,
[2021-10-07] MEDS: traMADol 50 MG Tablet PO (11:34)
== END 2021-10-07 11:47 | disposition home or self-care (01) ==
PROVIDERS: Emergency Provider Emergency Medicine; Visit Provider Emergency Medicine
DX: S32.010A Wedge compression fracture of first lumbar vertebra, initial encounter for closed fracture (principal); J06.9 Acute upper respiratory infection, unspecified; I25.10 Atherosclerotic heart disease of native coronary artery without angina pectoris; I25.2 Old myocardial infarction; Z95.5 Presence of coronary angioplasty implant and graft; W19.XXXA Unspecified fall, initial encounter
CPT/HCPCS: 72100; 87635; 99283; U0003; U0005

== ENCOUNTER 2021-11-04 06:50 | Outpatient (CLI) | payer MEDICARE, SELFPAY ==
--- NOTE | 2021-11-04 06:52 | MRI_ITS ---
STUDY: MRI LUMBAR SPINE WITHOUT CONTRAST REASON FOR EXAM: Male, 86 years old. injury TECHNIQUE: Standardized fat and water weighted pulse sequences were obtained in the sagittal and axial planes. COMPARISON: X-ray 10/23/2021 FINDINGS: T12-L1: Normal endplates. Normal disc height, hydration and morphology. Normal bilateral facet joints. Normal central canal and bilateral lateral recesses. Normal bilateral intervertebral neural foramina. Normal lumbar lordosis. Mild dextroscoliosis centered at L3/L4. Normal conus medullaris that terminates at the L1/L2. Acute moderate compression fracture of the L1 vertebral body with 2 mm of retropulsion of the superior endplate into the spinal canal producing mild spinal stenosis. L1-2: Disc desiccation but no disc protrusion, spinal stenosis, or neural foraminal stenosis. L2-3: Mild bilateral facet hypertrophy and ligament flavum hypertrophy. Disc desiccation but no disc protrusion, spinal stenosis, or neural foraminal stenosis. L3-4: Moderate bilateral facet hypertrophy and ligament flavum hypertrophy. Moderate bilobed disc protrusion produces moderate spinal stenosis with mild bilateral lateral recess stenosis and moderate bilateral neural foraminal stenosis. L4-5: Moderate amount of facet hypertrophy and ligament flavum hypertrophy. Moderate broad disc protrusion asymmetric to the right produces moderate spinal stenosis with severe right lateral recess stenosis with effacement of the right L5 nerve root, moderate left lateral recess stenosis with abutment of the left L5 nerve root, mild right neural foraminal stenosis and severe left neural foraminal stenosis with effacement of the left L4 nerve root laterally. L5-S1: Mild bilateral facet hypertrophy and moderate ligament flavum hypertrophy. Mild broad disc protrusion produces mild spinal stenosis, severe right neural foraminal stenosis with effacement of the right L5 nerve root and mild left neural foraminal stenosis. Rudimentary disc at S1/S2. Normal visualized paraspinous soft tissue structures. MRI/Spine Lumbar (Routine) IMPRESSION: 1. Acute moderate compression fracture of L1 with 2 mm retropulsion in the spinal canal producing mild spinal stenosis. 2. Mild dextroscoliosis with diffuse degenerative disc disease as described above. Electronically Signed: Maximus Franklin MD at 10:31 EST ,
== END 2021-11-04 23:59 | disposition home or self-care (01) ==
PROVIDERS: Referring Provider Orthopaedic Surgery; Visit Provider Orthopaedic Surgery
DX: S32.010A Wedge compression fracture of first lumbar vertebra, initial encounter for closed fracture (principal)
CPT/HCPCS: 72148

== ENCOUNTER 2023-05-29 09:45 | Inpatient (IN) | payer MEDICARE, OTHER, SELFPAY ==
[2023-05-29] VITALS (7 sets, daily range): BP systolic 106–152; BP diastolic 60–74; PULSE 61–72; RESP 14–18; TEMP 36.2–36.4; O2SAT 94–100; BMI 20.3; BMI 20.1
--- NOTE | 2023-05-29 10:04 | EKG12_ITS ---
Test Reason : Blood Pressure : / mmHG Vent. Rate : 060 BPM Atrial Rate : 060 BPM P-R Int : 196 ms QRS Dur : 120 ms QT Int : 438 ms P-R-T Axes : 083 -35 076 degrees QTc Int : 438 ms Normal sinus rhythm Left axis deviation Pulmonary disease pattern Non-specific intra-ventricular conduction delay Abnormal ECG Confirmed by VALERIE JUDD, DRAKE ([id number]), field map editor HEATHER BURDEN ([id number]) on 06/02/2023 10:25:04 AM Referred By: Confirmed By:BRIAN PADILLA MD
--- NOTE | 2023-05-29 10:04 | EX.ED.DYSGE1 ---
HPI History of Present Illness Chief Complaint: Abn Labs Informant: patient Onset/Context/Timing Onset: Month(s) Context: Gradual Onset Timing: Intermittent Current Severity: Mild Maximum Severity: Moderate Narrative Narrative: Male with a past medical history of CAD, OR, A-fib, prior CABG. He is on Plavix and aspirin. Had labs drawn at the [facility] yesterday. Was called today's that his hemoglobin was low at 8.6 and he wanted him evaluated. Patient states has had shortness of breath for 2 months primarily with exertion. Denies chest pain. Denies any melena. Has needed transfusions in the past. Prior similar symptoms: Yes Recent Illness/Hospitalization: No PFSH [facility] Medical History Atherosclerotic heart disease of [place] coronary artery without angina pectoris Colitis COVID-19 Diverticulitis Excision of the left atrial appendage Hiatal hernia Hyperlipidemia Kidney stones Old myocardial infarction Paroxysmal atrial fibrillation Premature ventricular contraction Upper gastrointestinal bleed Home Medications acetaminophen 500 mg tablet 500 mg PO DAILY PRN PRN BACK PAIN 05/24/19 [History Last Taken 05/23/19] aspirin 81 mg tablet,delayed release (Adult Low Dose Aspirin) 81 mg PO DAILY 09/19/19 [History Last Taken Unknown] cyanocobalamin (vitamin B-12) 1,000 mcg tablet 1,000 mcg PO DAILY 10/02/21 [History Last Taken Unknown] cholecalciferol (vitamin D3) 25 mcg (1,000 unit) tablet 25 mcg PO DAILY 02/26/22 [History Last Taken Unknown] ferrous sulfate 325 mg (65 mg iron) tablet (FeroSul) 325 mg PO DAILY 02/26/22 [History Last Taken Unknown] Handicap Placard #1 ea 08/22/22 [Rx Last Taken Unknown] isosorbide mononitrate 30 mg tablet,extended release 24 hr 30 mg PO DAILY HEART #90 tabs 09/09/22 [Rx Last Taken Unknown] clopidogrel 75 mg tablet (Plavix) 75 mg PO DAILY #90 tabs 10/20/22 [Rx Last Taken Unknown] nitroglycerin 0.4 mg sublingual tablet 0.4 mg sublingual Q5-15M PRN CHEST PAIN #25 tabs 11/12/22 [Rx Last Taken Unknown] metoprolol tartrate 25 mg tablet 12.5 mg (1/2 x 25 mg) PO BID BP #90 tabs 02/16/23 [Rx Last Taken Unknown] lisinopril 2.5 mg tablet (Zestril) 2.5 mg PO DAILY 05/29/23 [History Last Taken Unknown] simvastatin 20 mg tablet 40 mg PO DAILY CHOLESTEROL 05/29/23 [History Last Taken Unknown] Allergy/AdvReac Type Severity Reaction Status Date / Time ciprofloxacin [From Cipro] Allergy Unknown Rash Verified 05/29/23 09:47 EZEQUIEL Inhibitors Allergy cough Verified 05/29/23 09:47 benzonatate Allergy rash Verified 05/29/23 09:47 [From Tessalon Perles] ipodate [From Oragrafin] Allergy Rash Verified 05/29/23 09:47 Family History Father Prostate cancer Mother CVA (cerebral vascular accident) Brother Cancer Surgical History H/O maze procedure History of bilateral cataract extraction History of hernia repair Hx of appendectomy Postsurgical percutaneous transluminal coronary angioplasty (PTCA) status Presence of stent in coronary artery (~11/14/11) S/P CABG (coronary artery bypass graft) (~11/2005) S/P right inguinal hernia repair Social History Smoking Status: Never smoker alcohol intake: never substance use type: does not use caffeine: Yes Type: coffee Number of servings: 2 ROS ROS ED ROS Narrative Denies recent illness. Exertional dyspnea. Review of Systems ROS Unobtainable: Denies due to encephalopathy Constitutional Constitutional ED: Denies chills or fever(s) Eyes Eyes: Denies blurry vision ENT ENT ED: Denies ear pain Cardiovascular Cardiovascular: Denies chest pain Respiratory/Chest Respiratory/Chest: Denies cough Gastrointestinal Gastrointestinal: Denies abdominal pain Genitourinary Genitourinary ED: Denies dysuria or hematuria Musculoskeletal Musculoskeletal: Denies arthralgias Integumentary Denies abscess Neurologic Neurologic: Denies headache(s) Psychiatric Psychiatric: Denies anxiety Endocrine Endocrinology: Denies cold intolerance Hematologic/Lymphatic Hematologic/Lymphatic: Reports none Allergic/Immunologic Allergic/Immunologic ED: Denies mouth swelling, tongue swelling or urticaria EXAM Physical Exam Narrative Exam Narrative: 88-year-old male no acute distress vital signs stable afebrile. Pulse ox 100% on room air no hypoxia. HEENT exam unremarkable. Neck nontender. Lungs clear equal symmetrical bilaterally. Heart regular rhythm rate about 65 no murmur. Chest wall nontender. Abdomen soft nontender. Moving all 4 extremities. Calves are nontender without edema or cords. Neurologically is awake and alert with no focal motor deficits. Very benign exam. Const Vital Signs: 05/29/23 09:46 05/29/23 10:17 Temperature 97.3 F L Temperature Source Temporal Pulse Rate 66 Respiratory Rate 14 Respiratory Effort Normal Respiratory Pattern Normal Blood Pressure 115/60 Blood Pressure Mean 78 Pulse Ox 100 Oxygen Delivery Method Room Air Positive well nourished and well developed; Negative for obese, cachectic, contractures or unkempt General Appearance ED: well developed, NAD and pallor; Negative for unkempt, cachectic, contractures, cyanotic or diaphoretic Nutritional Appearance: Negative for cachectic or obese HEENT Reports moist mucous membranes; Denies TM's clear Negative for trauma or tenderness Tympanic Membrane ED: Negative for TM's clear Eyes PERRL and EOMs intact bilaterally General Eye ED: Negative for pale conjunctiva or scleral icterus Neck no lymphadenopathy, supple and no JVD General: Negative for tenderness Lymph Lymphatic: Negative for other Chest Wall inspection of chest normal and palpation of chest normal Chest: Negative for other Resp normal respiratory effort and clear to auscultation bilaterally Effort and Inspection: Negative for retractions Auscultation: Negative for rales, rhonchi or wheezes Cardio regular rhythm, S1 normal heart sound, S2 normal heart sound and no murmurs GI normal to inspection, nondistended, normoactive bowel sounds, non-tender, non-distended and no masses Inspection: Negative for abdominal distention Auscultation: normoactive bowel sounds Palpation: soft; Negative for tender or guarding Bladder / Kidney Exam: No other Back/Spine no CVA tenderness General Back: Negative for CVA tenderness Cervical Spine: Negative for cervical spine tenderness Thoracic Spine / Upper Back: Negative for thoracic spinal tenderness Lumbar Spine / Lower Back: Negative for lumbar spinal tenderness Extremity normal to inspection General Extremety ED: Negative for edema or tenderness General Extremity: Negative for edema Neuro oriented x3 and CN's II-XII intact bilaterally Sensorium / Orientation: alert Motor Exam: strength 5/5 throughout Psych mental status grossly normal Appearance: Negative for unkempt Attitude: No agitated Mood & Affect: Negative for depressed, anxious or tearful Skin no rashes or lesions noted, no wounds and skin turgor normal General Skin Exam: elasticity normal and pallor; Negative for jaundice Lesions: No lesion noted Rashes: No rashes noted Trauma: Negative for abrasion Wounds: Negative for wounds noted MDM MDM MDM Narrative Medical decision making narrative: 88-year-old patient sent in due to abnormal labs drawn at the [facility] yesterday hemoglobin 8.6 with 2-month history of exertional dyspnea. Exam benign. Repeat labs to be obtained. The decision will need to be made if he needs transfused or not. Versus other etiologies. Patient's labs showed acute on chronic anemia with hemoglobin 8.2. We do not have any recent labs on the patient. I am attempting get a hold of the [facility] to compare our labs of theirs. I have spoken to our hospitalist. He will be admitted for anemia and possible GI bleed. He did not want me to transfuse the patient at this time due to him being stable and his hemoglobin being 8.2. I did type and cross him for a unit to have on hold. Discussed this with the patient and his they are comfortable with the plan. History & Record Review Discussion w/independent historian: Patient and Family Additional record(s) reviewed:: Prior inpatient record, Prior outpatient record, Prior ED visit and Prior labs Lab Data Attestation: I reviewed the patient's lab results. Lab results narrative: CBC shows a white count of 2. H&H of 8.2 and 25.7. Platelets 180. Lites show a sodium 128. Gap of 6. BUN of 20 creatinine 0.8. Glucose 118. Blood type O-. Labs: Laboratory Results - last 24 hr 05/29/23 10:10 WBC 2.0 L RBC 2.49 L Hgb 8.2 L Hct 25.7 L MCV 103.2 H MCH 32.9 H MCHC 31.9 L RDW Std Deviation 67.1 H RDW Coeff of Zachariah 17.9 H Plt Count 180 MPV 11.5 Immature Gran % (Auto) 0.500 Neut % (Auto) 23.1 L Lymph % (Auto) 39.4 Wagoner % (Auto) 36.5 H Eos % (Auto) 0.5 Baso % (Auto) 0.0 Absolute Neuts (auto) 0.5 L Absolute Lymphs (auto) 0.80 L Nucleated RBC % 0 Differential Comment SCANNED Polychromasia RARE Anisocytosis 2+ Macrocytosis 1+ Ovalocytes RARE Sodium 128 L Potassium 3.7 Chloride 98 Carbon Dioxide 24.0 Anion Gap 6 BUN 20 H Creatinine 0.82 Estim Creat Clear Calc 53.53 Est GFR (MDRD) Af Amer 114 Est GFR (MDRD) Non-Af 94 BUN/Creatinine Ratio 24.4 H Glucose 118 H Calcium 8.4 L Blood Type O NEGATIVE Antibody Screen NEGATIVE Rhythm Strip Rhythm Strip: Sinus Rhythm Rate: 60 Ectopy: None EKG Initial EKG: Attestation: I personally reviewed and interpreted this EKG as follows: Interpretation: Sinus Rhythm and No Acute Injury Pattern Comments: Normal sinus rhythm rate of 60 no acute signs of OR or ischemia. Discharge Plan Triage Chief Complaint: Abn Labs ED Provider: Charlie Medel Dx/Rx/DC Orders Clinical Impression: Acute on chronic anemia, History of atrial fibrillation, History of coronary artery disease, Acute GI bleeding Prescriptions: No Action aspirin [Adult Low Dose Aspirin] 81 mg tablet,delayed release (DR/EC) 81 mg PO DAILY cyanocobalamin (vitamin B-12) 1,000 mcg tablet 1,000 mcg PO DAILY cholecalciferol (vitamin D3) 25 mcg (1,000 unit) tablet 25 mcg PO DAILY ferrous sulfate [FeroSul] 325 mg (65 mg iron) tablet 325 mg PO DAILY (DME) Handicap Placard See Rx Instructions .Route .MEDSUPPLY Qty: 1 0RF Rx Instructions: Good from 08/22/2022-08/22/2027 acetaminophen 500 MG tablet 500 mg PO DAILY PRN PRN (Reason: BACK PAIN) lisinopril [Zestril] 2.5 mg tablet 2.5 mg PO DAILY simvastatin 20 mg tablet 40 mg PO DAILY isosorbide mononitrate 30 mg tablet extended release 24 hr 30 mg PO DAILY Qty: 90 3RF Rx Instructions: TAKE 1 TABLET BY MOUTH ONCE DAILY clopidogrel [Plavix] 75 mg tablet 75 mg PO DAILY Qty: 90 3RF nitroglycerin 0.4 mg tablet, sublingual 0.4 mg SUBLINGUAL Q5-15M PRN (Reason: CHEST PAIN) Qty: 25 6RF metoprolol tartrate 25 mg tablet 12.5 mg PO BID Qty: 90 3RF [facility] [Primary Care Provider] - Disposition Disposition: Acute Care Hospital [facility]
[2023-05-29 10:26] LABS: Absolute Neutrophil Count 0.5 X10^3/uL (2.0-7.7); Eosinophil# 0.01 X10^3/uL; Eosinophils% 0.5 % (0-5); Hematocrit 25.7 % (40-54); Hemoglobin 8.2 g/dL (13.0-16.5); Lymphocyte % 39.4 % (19-41); Mean Corp Hgb Conc 31.9 g/dL (32-36); Mean Corpuscular Hgb 32.9 pg (27.0-32.0); Mean Corpuscular Volume 103.2 fL (80-94); Mean Platelet Vol. 11.5 fl (6.2-12.0); Monocyte# 0.74 X10^3/uL; Monocyte% 36.5 % (0-10); NRBC Flagged by Analyzer 0 % (0-5); Neutrophil # 0.47 X10^3/uL (2.7-7.7); Neutrophil % 23.1 % (47-70); POSITIVE DIFFERENTIAL YES; POSITIVE MORPHOLOGY YES; Platelet Count 180 K/mm3 (150-450); RBC Distribution Width CV 17.9 % (11.6-14.6); RBC Distribution Width SD 67.1 fl (35.1-43.9); Red Blood Count 2.49 M/mm3 (4.6-6.2)
[2023-05-29 10:30] LABS: Differential Indicated SCAN CRITERIA MET
[2023-05-29 10:46] LABS: Anisocytosis 2+; Differential Comment SCANNED; Macrocytosis 1+; Ovalocyte RARE; Polychromasia RARE
[2023-05-29 10:49] LABS: Anion Gap 6 (5-15); BUN 20 mg/dL (7-18); BUN/Creat Ratio 24.4 RATIO (10-20); Calcium,Total 8.4 mg/dL (8.5-10.1); Chloride 98 mmol/L (98-107); Creatinine, Serum 0.82 mg/dL (0.70-1.30); EST Glomerular Filtration Rate 94 mL/min (>60); Est Glom Filt Rate - Afr Amer 114 mL/min (>60); Estimated Creatinine Clearance 53.53 ml/min; Glucose 118 mg/dL (74-106); Potassium 3.7 mmol/L (3.5-5.1); Sodium Level 128 mmol/L (136-145)
--- NOTE | 2023-05-29 12:09 | HP.PCM.HOS_ITS ---
HPI - General General Date of Admission: 05/29/23 Date of Service: 05/29/23 Chief Complaint: Dyspnea on mild exertion for about 2 month, fatigue. Severe anemia HPI Narrative BRI BOSS, is a 88 M With multiple cardiac conditions on aspirin and Plavix, prior CABG was sent to ED for abnormal lab. His labs were drawn at [facility] and found to have low hemoglobin 8.6. He further said he gets easily short of breath on walking from 1 to another room or going to bathroom within the home. Dyspnea on climbing to 3 steps with support. he denies chest pain pressure or tightness. He denies abdominal pain nausea vomiting, hematemesis melena or hematochezia or blood in his stool. Patient has history of coronary artery status post CABG in 2005, PTCA/stenting last in 2011, paroxysmal A-fib status post maze procedure. He follows in our cardiology clinic with Tobias to last visit in February 2023. He used to see Dr. Mckeon before. Labs done in the ED reviewed. Twelve-lead EKG shows sinus rhythm with LAD, nonspecific intraventricular delay, QRS 120 ms, QTc 438 ms. [facility] Medical History Atherosclerotic heart disease of [place] coronary artery without angina pectoris Colitis COVID-19 Diverticulitis Excision of the left atrial appendage Hiatal hernia Hyperlipidemia Kidney stones Old myocardial infarction Paroxysmal atrial fibrillation Premature ventricular contraction Upper gastrointestinal bleed Home Medications acetaminophen 500 mg tablet 500 mg PO DAILY PRN PRN BACK PAIN 05/24/19 [History Last Taken 05/23/19] aspirin 81 mg tablet,delayed release (Adult Low Dose Aspirin) 81 mg PO DAILY 09/19/19 [History Last Taken Unknown] cyanocobalamin (vitamin B-12) 1,000 mcg tablet 1,000 mcg PO DAILY 10/02/21 [History Last Taken Unknown] cholecalciferol (vitamin D3) 25 mcg (1,000 unit) tablet 25 mcg PO DAILY 02/26/22 [History Last Taken Unknown] ferrous sulfate 325 mg (65 mg iron) tablet (FeroSul) 325 mg PO DAILY 02/26/22 [History Last Taken Unknown] Handicap Placard #1 ea 08/22/22 [Rx Last Taken Unknown] isosorbide mononitrate 30 mg tablet,extended release 24 hr 30 mg PO DAILY HEART #90 tabs 09/09/22 [Rx Last Taken Unknown] clopidogrel 75 mg tablet (Plavix) 75 mg PO DAILY #90 tabs 10/20/22 [Rx Last Taken Unknown] nitroglycerin 0.4 mg sublingual tablet 0.4 mg sublingual Q5-15M PRN CHEST PAIN #25 tabs 11/12/22 [Rx Last Taken Unknown] metoprolol tartrate 25 mg tablet 12.5 mg (1/2 x 25 mg) PO BID BP #90 tabs 02/16/23 [Rx Last Taken Unknown] lisinopril 2.5 mg tablet (Zestril) 2.5 mg PO DAILY 05/29/23 [History Last Taken Unknown] simvastatin 20 mg tablet 40 mg PO DAILY CHOLESTEROL 05/29/23 [History Last Taken Unknown] Allergy/AdvReac Type Severity Reaction Status Date / Time ciprofloxacin [From Cipro] Allergy Unknown Rash Verified 05/29/23 09:47 EZEUQIEL Inhibitors Allergy cough Verified 05/29/23 09:47 benzonatate Allergy rash Verified 05/29/23 09:47 [From Tessalon Perles] ipodate [From Oragrafin] Allergy Rash Verified 05/29/23 09:47 Family History Father Prostate cancer Mother CVA (cerebral vascular accident) Brother Cancer Surgical History H/O maze procedure History of bilateral cataract extraction History of hernia repair Hx of appendectomy Postsurgical percutaneous transluminal coronary angioplasty (PTCA) status Presence of stent in coronary artery (~11/14/11) S/P CABG (coronary artery bypass graft) (~11/2005) S/P right inguinal hernia repair Social History Smoking Status: Never smoker alcohol intake: never substance use type: does not use caffeine: Yes Type: coffee Number of servings: 2 ROS ROS Narrative Constitutional: Reports fatigue and weakness. No fever. HEENT: Reports systems reviewed and no addt'l complaints, except as documented Respiratory/Chest: Dyspnea on exertion as described in HPI. CVS: No chest pain or pressure. Gastrointestinal: Denies coffee ground emesis, hematemesis or vomiting Genitourinary: Denies burning urination or new urinary tract symptoms Musculoskeletal: Denies acute joint pain or limited range of motion. No acute injury Back: Wears a lumbar support belt. History of compression fracture and lumbar vertebra Neurologic: Denies seizure-like symptoms. No acute strokelike symptoms skin: No ulcer. No rash Endocrinology: Reports systems reviewed and no addt'l complaints, except as documented Hematologic/Lymphatic: Reports systems reviewed and no addt'l complaints, except as documented Rest 14 ROS are negative except as mentioned in HPI Vital Signs Vital Signs Vital Signs: 05/29/23 09:46 05/29/23 10:17 Temperature 97.3 F L Temperature Source Temporal Pulse Rate 66 Respiratory Rate 14 Respiratory Effort Normal Respiratory Pattern Normal Blood Pressure 115/60 Blood Pressure Mean 78 Pulse Ox 100 Oxygen Delivery Method Room Air Weight Weight: 134 lb Body Mass Index (BMI) 20.3 Physical Exam Narrative General: Alert, Oriented x3, Cooperative HEENT: Bilateral hearing impairment, uses hearing aid. Atraumatic, PERRLA, EOMI, Normocephalic Oral: No Gingival or Mucosal Lesions/ Ulcerations Neck: Supple, No JVD, Negative Carotid Bruits Lungs: Air entry diminished in bilateral lung bases. No crepitation/rhonchi Cardiovascular: Regular rate, Regular Rhythm, Normal S1, Normal S2, No murmurs Abdomen: Bowel Sounds Present, Soft, Non Tender, Non-Distended : No renal angle tenderness. No suprapubic tenderness. Extremities: No edema, Capillary Refill Less than 3 Seconds Skin: No rashes, No breakdown Musculoskeletal: No Tenderness to Palpation of Joints or Extremities Neurological: Cranial nerves II-XII grossly intact, DTR 2+/4. No acute focal neurological deficit. Psych/Mental Status: Normal Affect, Appropriate. Results Lab / Micro Data 05/29/23 10:10 05/29/23 10:10 Labs: Laboratory Results - last 24 hr 05/29/23 10:10: WBC 2.0 L, RBC 2.49 L, Hgb 8.2 L, Hct 25.7 L, MCV 103.2 H, MCH 32.9 H, MCHC 31.9 L, RDW Std Deviation 67.1 H, RDW Coeff of Zachariah 17.9 H, Plt Count 180, MPV 11.5, Immature Gran % (Auto) 0.500, Neut % (Auto) 23.1 L, Lymph % (Auto) 39.4, Jasper % (Auto) 36.5 H, Eos % (Auto) 0.5, Baso % (Auto) 0.0, Absolute Neuts (auto) 0.5 L, Absolute Lymphs (auto) 0.80 L, Nucleated RBC % 0, Diff erential Comment SCANNED, Polychromasia RARE, Anisocytosis 2+, Macrocytosis 1+, Ovalocytes RARE, Sodium 128 L, Potassium 3.7, Chloride 98, Carbon Dioxide 24.0, Anion Gap 6, BUN 20 H, Creatinine 0.82, Estim Creat Clear Calc 53.53, Est GFR (MDRD) Af Amer 114, Est GFR (MDRD) Non-Af 94, BUN/Creatinine Ratio 24.4 H, Glucose 118 H, Calcium 8.4 L, Blood Type O NEGATIVE, Antibody Screen NEGATIVE Assessment & Plan Assessment/Plan (1) Acute GI bleeding: (2) History of atrial fibrillation: PLAN: Plan 88-year-old gentleman being admitted for severe anemia on aspirin and Plavix. 1. Acute severe on chronic macrocytic anemia suspected from upper GI bleed: H&H 8.2/25.7, MCV MCH elevated. Anemia work-up ordered including iron work-up, LDH, reticulocyte panel, B12 and folic acid. Hold aspirin and Plavix. GI consult. Pantoprazole 40 mg IV every 12 hourly. Stool for occult blood. Blood not meet criteria for PRBC transfusion but type and crossmatch. The patient was last admitted for acute blood loss anemia in 2018 and had EGD which showed nonbleeding gastric ulcer with no stigmata of bleeding with normal esophagus and jejunum. It was negative for H. pylori but antral biopsy showed mild gastritis. 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 CAD status post CABG and PCI-hold aspirin, Plavix. Continue metoprolol, isosorbide, statin. Last echo in April 2018 reported EF 60%, LA mildly enlarged 1-2+ MR mild TR RVSP 29 mmHg 3. Hypertension-BP normal range continue current medications. 4. Hyperlipidemia-continue statin regimen. 5. Paroxysmal atrial fibrillation, had modified maze procedure with excision of left atrial appendage in November 2005. Not on anticoagulation. 6. BPH: Currently patient not on Flomax but was on Flomax during previous ho spitalization. Denies any acute symptoms of urinary obstruction or retention DVT prophylaxis-SCDs. Pharmacological prophylaxis contraindicated. Living will/advanced directive/end of life care: Patient does not have living will or advanced directive. 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 After discussion of benefits/risks procedures involved with full code, DNR CC arrest and DNR CC, the patient and his opted for DNRCC arrest with no intubation Patient and his do not want artificial life support including intubation, tube feed, ventilator and/chest compression, central venous catheter, vasopressor and DC shock if needed Total time spent in [id number] encounter in discussion of advanced directive 17 minutes. Laboratory Results 05/29/23 10:10: WBC 2.0 L, RBC 2.49 L, Hgb 8.2 L, Hct 25.7 L , MCV 103.2 H, MCH 32.9 H, MCHC 31.9 L, RDW Std Deviation 67.1 H, RDW Coeff of Zachariah 17.9 H, Plt Count 180, MPV 11.5, Immature Gran % (Auto) 0.500, Neut % (Auto) 23.1 L, Lymph % (Auto) 39.4, [place]asper % (Auto) 36.5 H, Eos % (Auto) 0.5, Baso % (Auto) 0.0, Absolute Neuts (auto) 0.5 L, Absolute Lymphs (auto) 0.80 L, Nucleated RBC % 0, Differential Comment SCANNED, Polychromasia RARE, Anisocytosis 2+, Macrocytosis 1+, Ovalocytes RARE, Sodium 128 L, Potassium 3.7, Chloride 98, Carbon Dioxide 24.0, Anion Gap 6, BUN 20 H, Creatinine 0.82, Estim Creat Clear Calc 53.53, Est GFR (MDRD) Af Amer 114, Est GFR (MDRD) Non-Af 94, BUN/Creatinine Ratio 24.4 H, Glucose 118 H, Calcium 8.4 L, Blood Type O NEGATIVE, Antibody Screen NEGATIVE EGD 05/25/2019 Impressions : - Normal examined jejunum. - Normal. - Non-bleeding gastric ulcers with no stigmata of bleeding. Biopsied. - Normal esophagus. Charges/Coding Visit Charges Inpatient E&M: 53431 Init Hosp L3 Procedures Hospitalists Procedures: 88741 Advncd Care Plan 30 Min
[2023-05-29 12:48] LABS: Platelet Count 178 K/mm3 (150-450); RET-HE 33.6 pg (30-35); Reticulocyte Count 5.92 % (0.5-1.5)
[2023-05-29 13:20] LABS: Ferritin 286 ng/mL (26-388); Iron 162 ug/dL (65-175); Iron Binding Capacity,Total 284 ug/dL (250-450); LDH 162 U/L (87-241)
[2023-05-29] MEDS: Lactated Ringers 1,000 ML 75 ML IV (13:46)
[2023-05-29 13:58] LABS: Magnesium 2.1 mg/dL (1.6-2.6)
[2023-05-29 14:21] LABS: Hematocrit 24.5 % (40-54); Hemoglobin 7.9 g/dL (13.0-16.5)
[2023-05-29 14:32] LABS: Vitamin B12 > 2000 pg/mL (211-911)
[2023-05-29 14:37] LABS: International Normalized Ratio 1.2; Prothrombin Time (Protime)PT. 15.2 SECONDS (11.7-14.9)
[2023-05-29] MEDS: Pantoprazole Sodium 40 MG in 0.9% Normal Saline (100mL MB+) 100 ML 330 MG IV ×2 (14:59→21:24)
--- NOTE | 2023-05-29 17:55 | CON.PCM.GI_ITS ---
HPI Consult Data Date of Consult: 05/29/23 HPI Narrative Reason for Consultation: Anemia HPI Narrative: BRI BOSS, is a 88 M who presents from home after being told that he was anemic and he needed to come into the hospital. He has a a past medical history of CAD, MS, A-fib, prior CABG. He is on Plavix and aspirin. He had labs drawn at the [facility] yesterday. He was called today's that his hemoglobin was low at 8.6 and he wanted him evaluated. Patient states has had shortness of breath for 2 months primarily with exertion. Denies chest pain. Denies any melena. Has needed transfusions in the past. His current hemoglobin is 8.4. He had a similar presentation back in 2019 and was seen by Dr. Maximus Way and he underwent an upper endoscopy but it was normal. Patient said he followed up with Dr. Way and he had a colonoscopy and that was also normal. After reviewing the endoscopy report it did mention 2 small superficial gastric ulcers that was H. pylori negative. I cannot find a colonoscopy report. [facility] Medical History Atherosclerotic heart disease of [place] coronary artery without angina pectoris Colitis COVID-19 Diverticulitis Excision of the left atrial appendage Hiatal hernia Hyperlipidemia Kidney stones Old myocardial infarction Paroxysmal atrial fibrillation Premature ventricular contraction Upper gastrointestinal bleed Home Medications acetaminophen 500 mg tablet 500 mg PO DAILY PRN PRN BACK PAIN 05/24/19 [History Last Taken 05/23/19] aspirin 81 mg tablet,delayed release (Adult Low Dose Aspirin) 81 mg PO DAILY 09/19/19 [History Last Taken Unknown] cyanocobalamin (vitamin B-12) 1,000 mcg tablet 1,000 mcg PO DAILY 10/02/21 [History Last Taken Unknown] cholecalciferol (vitamin D3) 25 mcg (1,000 unit) tablet 25 mcg PO DAILY 02/26/22 [History Last Taken Unknown] ferrous sulfate 325 mg (65 mg iron) tablet (FeroSul) 325 mg PO DAILY 02/26/22 [History Last Taken Unknown] Handicap Placard #1 ea 08/22/22 [Rx Last Taken Unknown] isosorbide mononitrate 30 mg tablet,extended release 24 hr 30 mg PO DAILY HEART #90 tabs 01/03/23 [Rx Last Taken Unknown] clopidogrel 75 mg tablet (Plavix) 75 mg PO DAILY #90 tabs 10/20/22 [Rx Last Taken Unknown] nitroglycerin 0.4 mg sublingual tablet 0.4 mg sublingual Q5-15M PRN CHEST PAIN #25 tabs 11/12/22 [Rx Last Taken Unknown] metoprolol tartrate 25 mg tablet 12.5 mg (1/2 x 25 mg) PO BID BP #90 tabs 02/16/23 [Rx Last Taken Unknown] lisinopril 2.5 mg tablet (Zestril) 2.5 mg PO DAILY 05/29/23 [History Last Taken Unknown] simvastatin 20 mg tablet 40 mg PO DAILY CHOLESTEROL 05/29/23 [History Last Taken Unknown] Allergy/AdvReac Type Severity Reaction Status Date / Time ciprofloxacin [From Cipro] Allergy Unknown Rash Verified 05/29/23 09:47 EZEQUIEL Inhibitors Allergy cough Verified 05/29/23 09:47 benzonatate Allergy rash Verified 05/29/23 09:47 [From Tessalon Perles] ipodate [From Oragrafin] Allergy Rash Verified 05/29/23 09:47 Family History Father Prostate cancer Mother CVA (cerebral vascular accident) Brother Cancer Surgical History H/O maze procedure History of bilateral cataract extraction History of hernia repair Hx of appendectomy Postsurgical percutaneous transluminal coronary angioplasty (PTCA) status Presence of stent in coronary artery (~11/14/11) S/P CABG (coronary artery bypass graft) (~11/2005) S/P right inguinal hernia repair Social History Smoking Status: Never smoker alcohol intake: never substance use type: does not use caffeine: Yes Type: coffee Number of servings: 2 ROS ROS Narrative Constitutional: Reports fatigue and weakness. No fever. HEENT: Reports systems reviewed and no addt'l complaints, except as documented Respiratory/Chest: Dyspnea on exertion as described in HPI. CVS: No chest pain or pressure. Gastrointestinal: Denies coffee ground emesis, hematemesis or vomiting Genitourinary: Denies burning urination or new urinary tract symptoms Musculoskeletal: Denies acute joint pain or limited range of motion. No acute injury Back: Wears a lumbar support belt. History of compression fracture and lumbar vertebra Neurologic: Denies seizure-like symptoms. No acute strokelike symptoms skin: No ulcer. No rash Endocrinology: Reports systems reviewed and no addt'l complaints, except as documented Hematologic/Lymphatic: Reports systems reviewed and no addt'l complaints, except as documented Rest 14 ROS are negative except as mentioned in HPI Physical Exam Narrative General: Alert, Oriented x3, Cooperative HEENT: Bilateral hearing impairment, uses hearing aid. Atraumatic, PERRLA, EOMI, Normocephalic Oral: No Gingival or Mucosal Lesions/ Ulcerations Neck: Supple, No JVD, Negative Carotid Bruits Lungs: Air entry diminished in bilateral lung bases. No crepitation/rhonchi Cardiovascular: Regular rate, Regular Rhythm, Normal S1, Normal S2, No murmurs Abdomen: Bowel Sounds Present, Soft, Non Tender, Non-Distended : No renal angle tenderness. No suprapubic tenderness. Extremities: No edema, Capillary Refill Less than 3 Seconds Skin: No rashes, No breakdown Musculoskeletal: No Tenderness to Palpation of Joints or Extremities Neurological: Cranial nerves II-XII grossly intact, DTR 2+/4. No acute focal neurological deficit. Psych/Mental Status: Normal Affect, Appropriate. Lab / Micro Data 05/29/23 14:05 05/29/23 10:10 Labs: Laboratory Results - last 24 hr 05/29/23 10:10: WBC 2.0 L, RBC 2.49 L, Hgb 8.2 L, Hct 25.7 L, MCV 103.2 H, MCH 32.9 H, MCHC 31.9 L, RDW Std Deviation 67.1 H, RDW Coeff of Zachariah 17.9 H, Plt Count 180, MPV 11.5, Immature Gran % (Auto) 0.500, Neut % (Auto) 23.1 L, Lymph % (Auto) 39.4, [place] % (Auto) 36.5 H, Eos % (Auto) 0.5, Baso % (Auto) 0.0, Absolute Neuts (auto) 0.5 L, Absolute Lymphs (auto) 0.80 L, Nucleated RBC % 0, Differential Comment SCANNED, Polychromasia RARE, Anisocytosis 2+, Macrocytosis 1+, Ovalocytes RARE, Retic Count 5.92 H, Immature Retic Fraction 24.20 H, Retic Hgb Equivalent 33.6, Sodium 128 L, Potassium 3.7, Chloride 98, Carbon Dioxide 24.0, Anion Gap 6, BUN 20 H, Creatinine 0.82, Estim Creat Clear Calc 53.53, Est GFR (MDRD) Af Amer 114, Est GFR (MDRD) Non-Af 94, BUN/Creatinine Ratio 24.4 H, Glucose 118 H, Calcium 8.4 L, Magnesium 2.1, Iron 162, TIBC 284, Iron Saturation 57.0 H, Ferritin 286, Lactate Dehydrogenase 162, Folate 8.60, Blood Type O NEGATIVE, Antibody Screen NEGATIVE, Crossmatch See Detail 05/29/23 14:05: Hgb 7.9 L, Hct 24.5 L, PT 15.2 H, INR 1.2, Vitamin B12 > 2000 H Rhythm Strip Rhythm Strip: Sinus Rhythm Rate: 60 Ectopy: None Assessment & Plan Assessment/Plan (1) Acute GI bleeding: (2) History of atrial fibrillation: PLAN: Plan 88-year-old with past med history of CAD status post CABG on aspirin and Plavix, atrial fibrillation, chronic anemia who presents with shortness of breath and fatigue and determined to have hemoglobin 8.4. Acute severe on chronic macrocytic anemia suspected from upper GI bleed: I offered patient an upper endoscopy or an upper endoscopy and colonoscopy plus minus capsule endoscopy. Patient says that he does not want to undergo any procedures at this time. He can get a capsule endoscopy as an outpatient if he wishes. Recommend work-up for macrocytic anemia in the setting of acute GI blood loss. I would transfuse for hemoglobin greater than 7. Charges/Coding Visit Charges Inpatient E&M: 07332 Init Hosp L2
--- NOTE | 2023-05-29 18:26 | NURSING ---
report called to Ayla in PCU pt going to room 108.
[2023-05-29] MEDS: Metoprolol Tartrate 25 MG Tablet 12.5 MG PO (21:21)
[2023-05-29] MEDS: Atorvastatin Calcium 20 MG Tablet PO (21:22)
[2023-05-30] VITALS (7 sets, daily range): BP systolic 109–139; BP diastolic 53–90; PULSE 59–72; RESP 16–18; TEMP 36.3–36.7; O2SAT 94–100; BMI 20.2
[2023-05-30 00:45] LABS: Hematocrit 24.9 % (40-54)
[2023-05-30] MEDS: Acetaminophen 325 MG Tablet 650 MG PO ×2 (03:23→20:00)
[2023-05-30] MEDS: 0.9% Saline Lock 10 ML Syringe IV ×2 (03:27→12:12)
[2023-05-30 05:00] LABS: Absolute Lymphocyte Count 0.89 X10^3/uL (0.83-4.51); Hematocrit 25.6 % (40-54); Hemoglobin 8.2 g/dL (13.0-16.5); Lymphocyte # 0.89 X10^3/ul (0.83-4.51); Lymphocyte % 29.3 % (19-41); Mean Corpuscular Hgb 32.4 pg (27.0-32.0); Mean Corpuscular Volume 101.2 fL (80-94); Mean Platelet Vol. 11.1 fl (6.2-12.0); Monocyte# 1.14 X10^3/uL; Monocyte% 37.5 % (0-10); NRBC Flagged by Analyzer 0.7 % (0-5); Neutrophil # 0.99 X10^3/uL (2.7-7.7); Neutrophil % 32.5 % (47-70); POSITIVE DIFFERENTIAL YES; POSITIVE MORPHOLOGY YES; Platelet Count 177 K/mm3 (150-450); RBC Distribution Width CV 17.8 % (11.6-14.6); RBC Distribution Width SD 65.4 fl (35.1-43.9); Red Blood Count 2.53 M/mm3 (4.6-6.2)
[2023-05-30 05:10] LABS: Differential Indicated SCAN CRITERIA MET
[2023-05-30 05:33] LABS: Anion Gap 5 (5-15); BUN 11 mg/dL (7-18); BUN/Creat Ratio 16.7 RATIO (10-20); Calcium,Total 8.2 mg/dL (8.5-10.1); Chloride 98 mmol/L (98-107); Creatinine, Serum 0.66 mg/dL (0.70-1.30); EST Glomerular Filtration Rate 122 mL/min (>60); Est Glom Filt Rate - Afr Amer 147 mL/min (>60); Estimated Creatinine Clearance 43.69 ml/min; Glucose 86 mg/dL (74-106); Sodium Level 129 mmol/L (136-145)
[2023-05-30 06:38] LABS: Differential Comment SCANNED; Hypochromasia 1+
[2023-05-30 06:39] LABS: Ovalocyte 2+
--- NOTE | 2023-05-30 09:20 | CASEMGMT ---
RN JOY Face to Face with patient for initial transition planning/care coordination assessment. RN CM introduced self and role at [facility]. Patient sitting at edge of bed, alert and oriented, at bedside. Patient willing to participate in assessment and is able to answer all questions appropriately. Care providers, pharmacy, and demographics verified. Patient wishes to discharge home, denies need for home health at this time. Patient states he has no further needs or concerns at this time. CM to follow for discharge planning needs that may arise. PCP: Dr Vinicius Calles [place] Specialists: [facility] Preferred Pharmacy:[facility] Insurance: [employer] Prescription Benefit: yes Living Will/HPOA: yes, Guerda Bhardwaj LNOK: Living Arrangements: Patient lives with in a single story home with 1-4 steps to enter. Patient was independent at home. Transportation: self, DME/HHC: Patient has raised toilet, cane, walker, and wheelchair at home. No previous HHC or SNF Disposition Plan: Patient to discharge home with family support and follow up plans in place. Eliana NAYAK, RN, CM
[2023-05-30] MEDS: Pantoprazole Sodium 40 MG in 0.9% Normal Saline (100mL MB+) 100 ML 330 MG IV ×2 (10:18→22:26)
[2023-05-30] MEDS: Cholecalciferol (VIT D3) 25 MCG TABLET (1,000 UNITS) PO (10:24)
[2023-05-30] MEDS: Metoprolol Tartrate 25 MG Tablet 12.5 MG PO ×2 (10:24→22:26)
[2023-05-30] MEDS: Cyanocobalamin 500 MCG Tablet 1000 MCG PO (10:24)
[2023-05-30] MEDS: Isosorbide Mononitrate 30 MG Tablet PO (10:24)
--- NOTE | 2023-05-30 13:25 | PN.HOSP_ITS ---
Reason for Visit Reason for Visit: Diagnoses Gastrointestinal hemorrhage, unspecified (05/29/23) Personal history of other diseases of the circulatory system (05/29/23) Objective Data Objective Data Vital Signs: Vital Signs Temp Pulse Resp BP Pulse Ox O2 Del Method 97.6 F L 72 17 114/90 H 99 Room Air 05/30/23 10:17 05/30/23 10:24 05/30/23 10:17 05/30/23 10:17 05/30/23 10:17 05/30/23 10:17 Oxygen Delivery Method Room Air Weight: 133 lb 6.075 oz Body Mass Index (BMI) 20.2 Intake & Output: Intake and Output for Last 24 Hours 05/28/23 05/29/23 05/30/23 23:59 23:59 23:59 Intake Total 1372.5 / 1372.5 537.5 / 537.5 Output Total 900 / 900 900 / 900 Balance 472.5 / 472.5 -362.5 / -362.5 Lab / Micro Data 05/30/23 04:45 05/30/23 04:45 Labs: Laboratory Results - last 24 hr 05/29/23 10:10: Magnesium 2.1, Folate 8.60 05/29/23 14:05: Hgb 7.9 L, Hct 24.5 L, PT 15.2 H, INR 1.2, Vitamin B12 > 2000 H 05/29/23 23:55: Hgb 8.0 L, Hct 24.9 L 05/30/23 04:45: WBC 3.0 L, RBC 2.53 L, Hgb 8.2 L, Hct 25.6 L, MCV 101.2 H, MCH 32.4 H, MCHC 32.0, RDW Std Deviation 65.4 H, RDW Coeff of Zachariah 17.8 H, Plt Count 177, MPV 11.1, Immature Gran % (Auto) 0.700, Neut % (Auto) 32.5 L, Lymph % (Auto) 29.3, [place] % (Auto) 37.5 H, Eos % (Auto) 0.0, Baso % (Auto) 0.0, Absolute Neuts (auto) 1.0 L, Absolute Lymphs (auto) 0.89, Nucleated RBC % 0.7, Differential Comment SCANNED, Hypochromasia 1+, Ovalocytes 2+, Sodium 129 L, Potassium 4.0, Chloride 98, Carbon Dioxide 26.0, Anion Gap 5, BUN 11, Creatinine 0.66 L, Estim Creat Clear Calc 43.69, Est GFR (MDRD) Af Amer 147, Est GFR (MDRD) Non-Af 122, BUN/Creatinine Ratio 16.7, Glucose 86, Calcium 8.2 L Micro: Microbiology 05/30/23 05:10 Stool Stool Occult Blood (MING) - Final Rhythm Strip Rhythm Strip: Sinus Rhythm Rate: 60 Ectopy: None Physical Exam Narrative Seen and examined. Patient is in he wants EGD but not colonoscopy. General: Alert, Oriented x3, Cooperative HEENT: Bilateral hearing impairment, uses hearing aid. Atraumatic, PERRLA, EOMI, Normocephalic Oral: No Gingival or Mucosal Lesions/ Ulcerations Neck: Supple, No JVD, Negative Carotid Bruits Lungs: Air entry diminished in bilateral lung bases. No crepitation/rhonchi Cardiovascular: Regular rate, Regular Rhythm, Normal S1, Normal S2, No murmurs Abdomen: Bowel Sounds Present, Soft, Non Tender, Non-Distended : No renal angle tenderness. No suprapubic tenderness. Extremities: No edema, Capillary Refill Less than 3 Seconds Skin: No rashes, No breakdown Musculoskeletal: No Tenderness to Palpation of Joints or Extremities. Wears lumbar belt for old L1 compression fracture Neurological: Cranial nerves II-XII grossly intact, DTR 2+/4. No acute focal neurological deficit. Psych/Mental Status: Normal Affect, Appropriate. Assessment & Plan Assessment/Plan (1) Acute GI bleeding: (2) History of atrial fibrillation: PLAN: Plan 88-year-old gentleman being admitted for severe anemia on aspirin and Plavix. 1. Acute severe on chronic macrocytic anemia suspected from upper GI bleed: H&H 8.2/25.7, MCV MCH elevated. Anemia work-up ordered including iron work-up, LDH, reticulocyte panel, B12 and folic acid. Hold aspirin and Plavix. GI consult. Pantoprazole 40 mg IV every 12 hourly. Stool for occult blood. Blood not meet criteria for PRBC transfusion but type and crossmatch. The patient was last admitted for acute blood loss anemia in 2019 and had EGD which showed nonbleeding gastric ulcer with no stigmata of bleeding with normal esophagus and jejunum. It was negative for H. pylori but antral biopsy showed mild gastritis. 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 It is unclear whether patient misunderstood OR changed his mind and he wants a EGD. Earlier as per GI he did not want any procedures including EGD. Work-up for macrocytic anemia shows B12 more than 2000 and folic acid normal. Reticulocyte count elevated with immature reticulocyte fraction of 24.2%. Peripheral blood smear shows ovalocytes 2+ macrocytosis 1+, anisocytosis and hypochromasia with neutropenia. Serum iron, TIBC normal. Iron saturation high 57% with ferritin normal. Stool for occult blood negative. TSH ordered as hypothyroidism is another cause for macrocytic anemia 2. CAD status post CABG and PCI-hold aspirin, Plavix. Continue metoprolol, isosorbide, statin. Last echo in April 2018 reported EF 60%, LA mildly enlarged 1-2+ MR mild TR RVSP 29 mmHg 3. Hypertension-BP normal range continue current medications. 4. Hyperlipidemia-continue statin regimen. 5. Paroxysmal atrial fibrillation, had modified maze procedure with excision of left atrial appendage in November 2005. Not on anticoagulation. 6. BPH: Currently patient not on Flomax but was on Flomax during previous hospitalization. Denies any acute symptoms of urinary obstruction or retention DVT prophylaxis-SCDs. Pharmacological prophylaxis contraindicated. Living will/advanced directive/end of life care: Patient does not have living will or advanced directive. Patient's is power of commercial litigation attorney for health. After discussion of benefits/risks procedures involved with full code, DNR CC arrest and DNR CC, the patient and his opted for DNRCC arrest with no intubation Patient and his do not want artificial life support including intubation, tube feed, ventilator and/chest compression, central venous catheter, vasopressor and DC shock if needed Total time spent in [id number] encounter in discussion of advanced directiv e 17 minutes. EGD 05/25/2019 Impressions : - Normal examined jejunum. - Normal. - Non-bleeding gastric ulcers with no stigmata of bleeding. Biopsied. - Normal esophagus. Charges/Coding Visit Charges Inpatient E&M: 48213 Subs Hosp L2
[2023-05-30] MEDS: Sodium Ferric Gluconat/Sucrose 250 MG in 0.9% Normal Saline (250mL Bag) 250 ML 135 MG IV (18:34)
[2023-05-30] MEDS: Atorvastatin Calcium 20 MG Tablet PO (22:26)
[2023-05-31] VITALS (8 sets, daily range): BP systolic 114–140; BP diastolic 57–66; PULSE 62–65; RESP 16–18; TEMP 36.4–36.6; O2SAT 93–100; BMI 20.1
[2023-05-31 04:35] LABS: Absolute Lymphocyte Count 0.78 X10^3/uL (0.83-4.51); Absolute Neutrophil Count 0.6 X10^3/uL (2.0-7.7); Eosinophil# 0.01 X10^3/uL; Eosinophils% 0.4 % (0-5); Hematocrit 24.2 % (40-54); Lymphocyte # 0.78 X10^3/ul (0.83-4.51); Lymphocyte % 33.5 % (19-41); Mean Corp Hgb Conc 33.1 g/dL (32-36); Mean Corpuscular Hgb 33.6 pg (27.0-32.0); Mean Corpuscular Volume 101.7 fL (80-94); Mean Platelet Vol. 11.1 fl (6.2-12.0); Monocyte# 0.91 X10^3/uL; Monocyte% 39.1 % (0-10); NRBC Flagged by Analyzer 0 % (0-5); Neutrophil # 0.62 X10^3/uL (2.7-7.7); Neutrophil % 26.6 % (47-70); POSITIVE DIFFERENTIAL YES; POSITIVE MORPHOLOGY YES; Platelet Count 164 K/mm3 (150-450); RBC Distribution Width SD 66.4 fl (35.1-43.9); Red Blood Count 2.38 M/mm3 (4.6-6.2); White Blood Count 2.3 K/mm3 (4.4-11.0)
[2023-05-31 04:54] LABS: Differential Indicated SCAN CRITERIA MET
[2023-05-31 06:02] LABS: Anion Gap 6 (5-15); BUN 10 mg/dL (7-18); BUN/Creat Ratio 15.2 RATIO (10-20); Calcium,Total 8.2 mg/dL (8.5-10.1); Chloride 97 mmol/L (98-107); Creatinine, Serum 0.66 mg/dL (0.70-1.30); EST Glomerular Filtration Rate 121 mL/min (>60); Est Glom Filt Rate - Afr Amer 147 mL/min (>60); Estimated Creatinine Clearance 43.41 ml/min; Glucose 94 mg/dL (74-106); Potassium 3.7 mmol/L (3.5-5.1); Sodium Level 127 mmol/L (136-145); Thyroid Stim Hormone (TSH) 1.16 uIU/mL (0.358-3.74)
[2023-05-31 07:09] LABS: Anisocytosis 1+; Differential Comment SCANNED; Macrocytosis 1+
[2023-05-31] MEDS: Cyanocobalamin 500 MCG Tablet 1000 MCG PO (09:49)
[2023-05-31] MEDS: Cholecalciferol (VIT D3) 25 MCG TABLET (1,000 UNITS) PO ×2 (09:49)
[2023-05-31] MEDS: Metoprolol Tartrate 25 MG Tablet 12.5 MG PO ×2 (09:49→21:04)
[2023-05-31] MEDS: Isosorbide Mononitrate 30 MG Tablet PO (09:49)
[2023-05-31] MEDS: Pantoprazole Sodium 40 MG in 0.9% Normal Saline (100mL MB+) 100 ML 330 MG IV ×2 (09:50→21:08)
[2023-05-31] MEDS: 0.9% Normal Saline (250mL Bag) 250 ML 15 ML IV (10:15)
[2023-05-31] MEDS: 0.9% Saline Lock 10 ML Syringe IV ×3 (11:00→21:05)
--- NOTE | 2023-05-31 14:45 | PN.HOSP_ITS ---
Reason for Visit Reason for Visit: Diagnoses Gastrointestinal hemorrhage, unspecified (05/29/23) Personal history of other diseases of the circulatory system (05/29/23) Objective Data Objective Data Vital Signs: Vital Signs Temp Pulse Resp BP Pulse Ox O2 Del Method 97.6 F L 64 17 133/66 H 99 Room Air 05/31/23 09:40 05/31/23 09:49 05/31/23 09:40 05/31/23 09:40 05/31/23 09:40 05/31/23 09:40 Oxygen Delivery Method Room Air Weight: 132 lb 7.965 oz Body Mass Index (BMI) 20.1 Intake & Output: Intake and Output for Last 24 Hours 05/29/23 05/30/23 05/31/23 23:59 23:59 23:59 Intake Total 1372.5 / 1372.5 1837.5 / 1837.5 121.25 / 121.25 Output Total 900 / 900 1150 / 1150 300 / 300 Balance 472.5 / 472.5 687.5 / 687.5 -178.75 / -178.75 Lab / Micro Data 05/31/23 04:19 05/31/23 04:19 Labs: Laboratory Results - last 24 hr 05/31/23 04:19: WBC 2.3 L, RBC 2.38 L, Hgb 8.0 L, Hct 24.2 L, MCV 101.7 H, MCH 33.6 H, MCHC 33.1, RDW Std Deviation 66.4 H, RDW Coeff of Zachariah 18.0 H, Plt Count 164, MPV 11.1, Immature Gran % (Auto) 0.400, Neut % (Auto) 26.6 L, Lymph % (Auto) 33.5, [place] % (Auto) 39.1 H, Eos % (Auto) 0.4, Baso % (Auto) 0.0, Absolute Neuts (auto) 0.6 L, Absolute Lymphs (auto) 0.78 L, Nucleated RBC % 0, Differential Comment SCANNED, Anisocytosis 1+, Macrocytosis 1+, Sodium 127 L, Potassium 3.7, Chloride 97 L, Carbon Dioxide 24.0, Anion Gap 6, BUN 10, Creatinine 0.66 L, Estim Creat Clear Calc 43.41, Est GFR (MDRD) Af Amer 147, Est GFR (MDRD) Non-Af 121, BUN/Creatinine Ratio 15.2, Glucose 94, Calcium 8.2 L, TSH 1.16 Micro: Microbiology 05/30/23 05:10 Stool Stool Occult Blood (MING) - Final Rhythm Strip Rhythm Strip: Sinus Rhythm Rate: 60 Ectopy: None Physical Exam Narrative Seen and examined. Probable EGD will be done on Thursday. is concerned of dropping hemoglobin today 8.0. No acute symptoms shortness of breath or chest pain. Physical exam General: Alert, Oriented x3, Cooperative HEENT: Bilateral hearing impairment, uses hearing aid. Atraumatic, PERRLA, EOMI, Normocephalic Oral: No Gingival or Mucosal Lesions/ Ulcerations Neck: Supple, No JVD, Negative Carotid Bruits Lungs: Air entry diminished in bilateral lung bases. No crepitation/rhonchi Cardiovascular: Regular rate, Regular Rhythm, Normal S1, Normal S2, No murmurs Abdomen: Bowel Sounds Present, Soft, Non Tender, Non-Distended : No renal angle tenderness. No suprapubic tenderness. Extremities: No edema, Capillary Refill Less than 3 Seconds Skin: No rashes, No breakdown Musculoskeletal: No Tenderness to Palpation of Joints or Extremities. Wears lum bar belt for old L1 compression fracture Neurological: Cranial nerves II-XII grossly intact, DTR 2+/4. No acute focal neurological deficit. Psych/Mental Status: Normal Affect, Appropriate. Assessment & Plan Assessment/Plan (1) Acute GI bleeding: (2) History of atrial fibrillation: PLAN: Plan 88-year-old gentleman being admitted for severe anemia on aspirin and Plavix. 1. Acute severe on chronic macrocytic anemia suspected from upper GI bleed: H&H 8.2/25.7, MCV MCH elevated. Anemia work-up ordered including iron work-up, LDH, reticulocyte panel, B12 and folic acid. Hold aspirin and Plavix. GI consult. Pantoprazole 40 mg IV every 12 hourly. Stool for occult blood. Blood not meet criteria for PRBC transfusion but type and crossmatch. The patient was last admitted for acute blood loss anemia in 2019 and had EGD which showed nonbleeding gastric ulcer with no stigmata of bleeding with normal esophagus and jejunum. It was negative for H. pylori but antral biopsy showed mild gastritis. 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 It is unclear whether patient misunderstood OR changed his mind and he wants a EGD. Earlier as per GI he did not want any procedures including EGD. Work-up for macrocytic anemia shows B12 more than 2000 and folic acid normal. Reticulocyte count elevated with immature reticulocyte fraction of 24.2%. Peripheral blood smear shows ovalocytes 2+ macrocytosis 1+, anisocytosis and hypochromasia with neutropenia. Serum iron, TIBC normal. Iron saturation high 57% with ferritin normal. Stool for occult blood negative. TSH ordered as hypothyroidism is another cause for macrocytic anemia 05/31: Continue IV PPI every 12 hourly. Iron infusion 1 more dose ordered. Continue holding antiplatelet agents. 2. CAD status post CABG and PCI-hold aspirin, Plavix. Continue metoprolol, isosorbide, statin. Last echo in April 2018 reported EF 60%, LA mildly enlarged 1-2+ MR mild TR RVSP 29 mmHg 3. Hypertension-BP normal range continue current medications. 4. Hyperlipidemia-continue statin regimen. 5. Paroxysmal atrial fibrillation, had modified maze procedure with excision of left atrial appendage in November 2005. Not on anticoagulation. 6. BPH: Currently patient not on Flomax but was on Flomax during previous hospitalization. Denies any acute symptoms of urinary obstruction or retention DVT prophylaxis-SCDs. Pharmacological prophylaxis contraindicated. Living will/advanced directive/end of life care: Patient does not have living will or advanced directive. Patient's is power of estate planning attorney for health. After discussion of benefits/risks procedures involved with full code, DNR CC arrest and DNR CC, the patient and his opted for DNRCC arrest with no intubation Patient and his do not want artificial life support including intubation, tube feed, ventilator and/chest compression, central venous catheter, vasopressor and DC shock if needed Total time spent in akrg-jf-vxtz encounter in discussion of advanced directive 17 minutes. EGD 05/25/2019 Impressions : - Normal examined jejunum. - Normal. - Non-bleeding gastric ulcers with no stigmata of bleeding. Biopsied. - Normal esophagus. Charges/Coding Visit Charges Inpatient E&M: 92168 Subs Hosp L2
[2023-05-31] MEDS: Sodium Ferric Gluconat/Sucrose 250 MG in 0.9% Normal Saline (250mL Bag) 250 ML 135 MG IV (15:33)
[2023-05-31] MEDS: Atorvastatin Calcium 20 MG Tablet PO (21:04)
[2023-06-01] VITALS (11 sets, daily range): BP systolic 101–137; BP diastolic 45–62; PULSE 73–81; RESP 16–18; TEMP 36.4–37; O2SAT 95–100
--- NOTE | 2023-06-01 | ESO_PTH ---
PATIENT: BRI BOSS LOC: [facility] U#:[id number] AGE/SX: 88/M ROOM: [facility] RE05/29/[address]: Dr. Devendra Acosta MD : [id number] BED: 1 DIS: 06/01/2023 SPEC #: [id number] RECD: 06/01/23 10:40 STATUS: JUSTYNA REQ #: [id number] GOMEZ: 06/01/23 00:[address]: Shaun Ng DEPT: SURGICAL PATHOLOGY RECD BY: Malcolm Baugh ENTERED: 06/01/23 10:40 SP TYPE: ESOPH BX OTHR DR: Dr. Devendra Acosta MD [facility] Tissues: Esophagus, NOS Procedures: Special Stain Group II Surgery Specimen Level IV Alcian Blue/PAS (control) Comments: @ Ordering doctor for SUIV edited from to @ by RGOSRIDHAR at 06/01/23 1502 @ Submitting doctor edited from to @ by RGOOD at 06/01/23 1502 HEADER OPERATION: EGD with biopsy PRE-OP DIAGNOSIS: Acute GI bleeding, history of atrial fibrillation TISSUE SUBMITTED: Distal esophagus MICROSCOPIC DIAGNOSIS Distal esophagus, biopsy: Fragments of gastroesophageal mucosa with chronic inflammation. Intestinal metaplasia (goblet cell metaplasia) not identified. See comment. JASMYNE:landry 06/02/2023 COMMENT Alcian blue/PAS stain with matched control is used in the evaluation of the specimen. MICROSCOPIC DESCRIPTION Slides are reviewed. GROSS DESCRIPTION Received in fixative is one container labeled with the patient's name and designated distal esophagus. The specimen consists of two irregular fragments of light lopez soft tissue that in aggregate measure 0.6 x 0.3 x 0.1 cm. The specimen is totally submitted in one cassette. / JASMYNE:landry 06/01/2023 TC:3 CPT: 27971, 19308
[2023-06-01] MEDS: 0.9% Saline Lock 10 ML Syringe IV ×2 (06:48→11:35)
[2023-06-01] MEDS: HYDROmorphone 0.5 MG/0.5 ML SYRINGE IV (06:48)
[2023-06-01 06:54] LABS: Absolute Lymphocyte Count 0.87 X10^3/uL (0.83-4.51); Absolute Neutrophil Count 2.8 X10^3/uL (2.0-7.7); Hematocrit 25.9 % (40-54); Hemoglobin 8.5 g/dL (13.0-16.5); Lymphocyte # 0.87 X10^3/ul (0.83-4.51); Lymphocyte % 13.9 % (19-41); Mean Corp Hgb Conc 32.8 g/dL (32-36); Mean Corpuscular Hgb 33.2 pg (27.0-32.0); Mean Corpuscular Volume 101.2 fL (80-94); Mean Platelet Vol. 11.9 fl (6.2-12.0); Monocyte# 2.54 X10^3/uL; Monocyte% 40.6 % (0-10); NRBC Flagged by Analyzer 0 % (0-5); Neutrophil # 2.83 X10^3/uL (2.7-7.7); Neutrophil % 45.2 % (47-70); POSITIVE DIFFERENTIAL YES; POSITIVE MORPHOLOGY YES; Platelet Count 177 K/mm3 (150-450); RBC Distribution Width CV 17.9 % (11.6-14.6); RBC Distribution Width SD 65.8 fl (35.1-43.9); Red Blood Count 2.56 M/mm3 (4.6-6.2); White Blood Count 6.3 K/mm3 (4.4-11.0)
[2023-06-01 06:58] LABS: Differential Indicated SCAN CRITERIA MET
[2023-06-01] MEDS: Lactated Ringers 1,000 ML 15 ML IV (07:06)
[2023-06-01 07:07] LABS: International Normalized Ratio 1.2; Prothrombin Time (Protime)PT. 15.5 SECONDS (11.7-14.9)
[2023-06-01 07:08] LABS: Partial Thromboplast Time 50.7 Seconds (24.1-36.2)
[2023-06-01 07:18] LABS: Anisocytosis 1+; Differential Comment SCANNED
[2023-06-01 07:20] LABS: Anion Gap 9 (5-15); BUN 9 mg/dL (7-18); BUN/Creat Ratio 13.2 RATIO (10-20); Calcium,Total 8.4 mg/dL (8.5-10.1); Chloride 97 mmol/L (98-107); Creatinine, Serum 0.68 mg/dL (0.70-1.30); EST Glomerular Filtration Rate 116 mL/min (>60); Est Glom Filt Rate - Afr Amer 141 mL/min (>60); Estimated Creatinine Clearance 43.41 ml/min; Glucose 108 mg/dL (74-106); Potassium 3.8 mmol/L (3.5-5.1); Sodium Level 128 mmol/L (136-145)
--- NOTE | 2023-06-01 08:21 | PCM.DC ---
Discharge Instructions Diet Discharge Diet: No restrictions Activity Discharge Activity: Return to Normal Activity Weight Bearing Status: Weight bearing as tolerated Dressing / Incision Call your doctor if you observe: Fever of 101 or Higher, Coldness, Increased Pain, Numbness or Tingling, Change in Color, Inability to urinate, Inability to have a bowel movement, Shortness of breath, Dizziness, Fainting spells, Swelling in the ankles, Chest pain, Prolonged hiccupping, Increased palpitations (irregular heartbeat) and Calf discomfort Follow Up Care When: IN 2 WEEKS Test Results: Test results from this visit will be discussed in further detail at your follow-up appointment, if applicable. Discharge Plan Admission Admit Date/Time: 05/29/23 12:05 Primary Reason for Your Visit: SEVERE ANEMIA Attending Provider: Devendra Acosta Primary Care Provider: [facility] Discharge Orders/Prescriptions Prescriptions: New sennosides-docusate sodium [Stool Softener-Stimulant Laxat] 8.6-50 mg Tablet 2 tab PO BID PRN PRN (Reason: Constipation) Qty: 0 0RF pantoprazole [Protonix] 40 mg tablet,delayed release (DR/EC) 40 mg PO BID Qty: 60 2RF Rx Instructions: advised TWICE DAILY FOR 2 months and then once daily. ascorbic acid (vitamin C) 500 mg tablet 500 mg PO BID Qty: 60 2RF folic acid 1 mg tablet 1 mg PO DAILY Qty: 30 2RF Continued cholecalciferol (vitamin D3) 25 mcg (1,000 unit) tablet 25 mcg PO DAILY (DME) Handicap Placard See Rx Instructions .Route .MEDSUPPLY Qty: 1 0RF Rx Instructions: Good from 08/22/2022-08/22/2027 acetaminophen 500 MG tablet 500 mg PO DAILY PRN PRN (Reason: BACK PAIN) lisinopril [Zestril] 2.5 mg tablet 2.5 mg PO DAILY simvastatin 20 mg tablet 40 mg PO DAILY ferrous sulfate [FeroSul] 325 mg (65 mg iron) tablet 325 mg PO DAILY 30 Days Qty: 30 2RF isosorbide mononitrate 30 mg tablet extended release 24 hr 30 mg PO DAILY Qty: 90 3RF Rx Instructions: TAKE 1 TABLET BY MOUTH ONCE DAILY nitroglycerin 0.4 mg tablet, sublingual 0.4 mg SUBLINGUAL Q5-15M PRN (Reason: CHEST PAIN) Qty: 25 6RF metoprolol tartrate 25 mg tablet 12.5 mg PO BID Qty: 90 3RF Held aspirin [Adult Low Dose Aspirin] 81 mg tablet,delayed release (DR/EC) 81 mg PO DAILY Hold Instructions: Hold for 7 days. cyanocobalamin (vitamin B-12) 1,000 mcg tablet 1,000 mcg PO DAILY Hold Instructions: Hold it as vitamin B12 level is more than 2000. clopidogrel [Plavix] 75 mg tablet 75 mg PO DAILY Qty: 90 3RF Hold Instructions: I think patient can go off Plavix as his last stent was in 2011. Prefer one antiplatelet agent. Referrals / [facility] - FriendShaun DO [Med Staff - Active Staff] - Within 1 Month Disposition Disposition (needs filled in before D/C Order can be placed): Home, Self Care
--- NOTE | 2023-06-01 08:42 | OP.CCLET_ITS ---
06/01/2023 [facility] Re : [facility] This procedure was performed on Thursday, June 01, 2023. 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 Biopsied. - No gross lesions in the second portion of the duodenum. Recommendations : - Return [facility]. - Advance diet as tolerated. - Continue present medications. - Await pathology results. My findings are described in the full procedure note, which is enclosed. If I can be of further assistance, please feel free to contact me at . Sincerely, Shaun Ng, 06/01/2023 8:41:11 AM This report has been signed electronically.
--- NOTE | 2023-06-01 08:42 | OP.EGD_ITS ---
Patient Name: Ted Bhardwaj Procedure Date: 06/01/2023 7:27 AM Date of : 1935 Age: 88 Procedure: Upper GI endoscopy Indications: Iron deficiency anemia, Melena Providers: Shaun Ng DO Medicines: Monitored Anesthesia Care Patient Profile: This is an 88 year old male. Refer to note in patient chart for documentation of history and physical. Patient has symptoms of acute epigastric abdominal pain, chronic dyspepsia and chronic nausea. His most recent EGD for ulcer treatment was within the past five years. Complications: No immediate complications. Procedure: Pre-Anesthesia Assessment: - Prior to the procedure, a History and Physical was performed, and patient medications and allergies were reviewed. The patient is competent. The risks and benefits of the procedure and the sedation options and risks were discussed with the patient. All questions were answered and informed consent was obtained. Patient identification and proposed procedure were verified by the physician in the pre-procedure area. Mental Status Examination: alert and oriented. Airway Examination: normal oropharyngeal airway and neck mobility. Respiratory Examination: clear to auscultation. Prophylactic Antibiotics: The patient does not require prophylactic antibiotics. Prior Anticoagulants: The patient has taken no anticoagulant or antiplatelet agents. After reviewing the risks and benefits, the patient was deemed in satisfactory condition to undergo the procedure. The anesthesia plan was to use monitored anesthesia care (MAC). Immediately prior to administration of medications, the patient was re-assessed for adequacy to receive sedatives. The heart rate, respiratory rate, oxygen saturations, blood pressure, adequacy of pulmonary ventilation, and response to care were monitored throughout the procedure. The physical status of the patient was re-assessed after the procedure. After obtaining informed consent, the endoscope was passed under direct vision. Throughout the procedure, the patient's blood pressure, pulse, and oxygen saturations were monitored continuously. The gastroscope was introduced through the mouth, and advanced to the second part of duodenum. The upper GI endoscopy was accomplished without difficulty. The patient tolerated the procedure well. Scope In: 8:28:19 AM Scope Out: 8:32:26 AM Total Procedure Duration Time 0 hours 4 minutes 7 seconds Findings: There were esophageal mucosal changes suspicious for Davila's esophagus present in the lower third of the esophagus. The maximum longitudinal extent of these mucosal changes was 1 cm in length. Mucosa was biopsied with a cold forceps for histology in a targeted manner at intervals of 1 cm in the lower third of the esophagus. One specimen bottle was sent to pathology. Verification of patient identification for the specimen was done. Estimated blood loss was minimal. The exam of the stomach was otherwise normal. No gross lesions were noted in the second portion of the duodenum. 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 Biopsied. - No gross lesions in the second portion of the duodenum. Recommendation: - Return [facility] to [facility] care. - Advance diet as tolerated. - Continue present medications. - Await pathology results. Procedure Code(s): --- Professional --- 14809, Esophagogastroduodenoscopy, flexible, transoral; with biopsy, single or multiple CPT copyright 2021 [employer]. All rights reserved. The codes documented in this report are preliminary and upon flight test supervisor review may be revised to meet current compliance requirements. Shaun Ng DO 06/01/2023 8:41:11 AM This report has been signed electronically. Number of Addenda: 0 Note Initiated On: 06/01/2023 7:27 AM
[2023-06-01] MEDS: Cyanocobalamin 500 MCG Tablet 1000 MCG PO (10:36)
[2023-06-01] MEDS: Metoprolol Tartrate 25 MG Tablet 12.5 MG PO (10:36)
[2023-06-01] MEDS: Isosorbide Mononitrate 30 MG Tablet PO (10:36)
[2023-06-01] MEDS: Pantoprazole Sodium 40 MG in 0.9% Normal Saline (100mL MB+) 100 ML 330 MG IV (11:35)
--- NOTE | 2023-06-01 12:46 | PCM.DC.SUM ---
Providers Date of Admission: 05/29/23 Date of Discharge: 06/01/23 Primary Care Physician: [facility] Consultations 05/29/23 13:35 Consult: Gastroenterology Routine Consulting Provider: [facility] Reason for Consult: GI bleed? severe anemia EMERGENT Consult: No MD Notified: Yes Date Notified: 05/29/23 Time Notified: 12:34 Method of Notification: Text Reason For Visit: ANEMIA Diagnosis Discharge Diagnosis (1) Acute GI bleeding: Status: Acute Code(s): K92.2 - Gastrointestinal hemorrhage, unspecified (2) History of atrial fibrillation: Status: Acute Code(s): Z86.79 - Personal history of other diseases of the circulatory system Plan 88-year-old gentleman being admitted for severe anemia on aspirin and Plavix. 1. Acute severe on chronic macrocytic anemia suspected from upper GI bleed: H&H 8.11/01.7, MCV MCH elevated. Anemia work-up ordered including iron work-up, LDH, reticulocyte panel, B12 and folic acid. Hold aspirin and Plavix. GI consult. Pantoprazole 40 mg IV every 12 hourly. Stool for occult blood. Blood not meet criteria for PRBC transfusion but type and crossmatch. The patient was last admitted for acute blood loss anemia in 2018 and had EGD which showed nonbleeding gastric ulcer with no stigmata of bleeding with normal esophagus and jejunum. It was negative for H. pylori but antral biopsy showed mild gastritis. 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 It is unclear whether patient misunderstood OR changed his mind and he wants a EGD. Earlier as per GI he did not want any procedures including EGD. Work-up for macrocytic anemia shows B12 more than 2000 and folic acid normal. Reticulocyte count elevated with immature reticulocyte fraction of 24.2%. Peripheral blood smear shows ovalocytes 2+ macrocytosis 1+, anisocytosis and hypochromasia with neutropenia. Serum iron, TIBC normal. Iron saturation high 57% with ferritin normal. Stool for occult blood negative. TSH ordered as hypothyroidism is another cause for macrocytic anemia 05/31: Continue IV PPI every 12 hourly. Iron infusion 1 more dose ordered. Continue holding antiplatelet agents. 06/01: Patient had EGD which shows Davila's esophagus biopsied. No gross lesion in the second portion of duodenum. Patient is discharged on pantoprazole 40 mg twice daily and follow-up in GI clinic in in 2 to 4 weeks for capsule endoscopy. Patient is discharged on ferrous sulfate, folic acid and vitamin C. 2. CAD status post CABG and PCI-hold aspirin, Plavix. Continue metoprolol, isosorbide, statin. Last echo in April 2018 reported EF 60%, LA mildly enlarged 1-2+ MR mild TR RVSP 29 mmHg 06/01: Patient had last stent in 2011. But his director medical safety said to continue Plavix therefore I think he can go off aspirin. Hold aspirin and Plavix for 1 week. Follow-up PCP to discontinue baby aspirin. 3. Hypertension-BP normal range continue current medications. 4. Hyperlipidemia-continue statin regimen. 5. Paroxysmal atrial fibrillation, had modified maze procedure with excision of left atrial appendage in November 2005. Not on anticoagulation. 6. BPH: Currently patient not on Flomax but was on Flomax during previous hospitalization. Denies any acute symptoms of urinary obstruction or retention DVT prophylaxis-SCDs. Pharmacological prophylaxis contraindicated. Discharge medication reconciliation done. Discharge follow-up instructions completed. Discharge process discussed with the patient and all questions were answered to patient's satisfaction. Total time spent, exact 35 minutes on discharge meds reconciliation, examination, coordination of care with nurses and ancillary staff, review of imaging and blood test and discussion with the patient on follow-up instructions. Living will/advanced directive/end of life care: Patient does not have living will or advanced directive. Patient's is power of patent prosecution attorney for health. After discussion of benefits/risks procedures involved with full code, DNR CC arrest and DNR CC, the patient and his opted for DNRCC arrest with no intubation Patient and his do not want artificial life support including intubation, tube feed, ventilator and/chest compression, central venous catheter, vasopressor and DC shock if needed Total time spent in [id number] encounter in discussion of advanced directive 17 minutes. EGD 05/25/2019 Impressions : - Normal examined jejunum. - Normal. - Non-bleeding gastric ulcers with no stigmata of bleeding. Biopsied. - Normal esophagus. Medications at Discharge Home Medications acetaminophen 500 mg tablet 500 mg PO DAILY PRN PRN BACK PAIN 05/24/19 aspirin 81 mg tablet,delayed release (Adult Low Dose Aspirin) 81 mg PO DAILY heart health 09/19/19 cyanocobalamin (vitamin B-12) 1,000 mcg tablet 1,000 mcg PO DAILY vitamin 10/02/21 cholecalciferol (vitamin D3) 25 mcg (1,000 unit) tablet 25 mcg PO DAILY vitamin 02/26/22 Handicap Placard #1 ea 08/22/22 isosorbide mononitrate 30 mg tablet,extended release 24 hr 30 mg PO DAILY HEART #90 tabs 09/09/22 clopidogrel 75 mg tablet (Plavix) 75 mg PO DAILY anti platelet #90 tabs 10/20/22 nitroglycerin 0.4 mg sublingual tablet 0.4 mg sublingual Q5-15M PRN CHEST PAIN #25 tabs 11/12/22 metoprolol tartrate 25 mg tablet 12.5 mg (1/2 x 25 mg) PO BID BP #90 tabs 02/16/23 lisinopril 2.5 mg tablet (Zestril) 2.5 mg PO DAILY blood pressure 05/29/23 simvastatin 20 mg tablet 40 mg PO DAILY CHOLESTEROL 05/29/23 ascorbic acid (vitamin C) 500 mg tablet 500 mg PO BID #60 tabs 06/01/23 ferrous sulfate 325 mg (65 mg iron) tablet (FeroSul) 325 mg PO DAILY 30 days #30 tabs 06/01/23 folic acid 1 mg tablet 1 mg PO DAILY #30 tabs 06/01/23 pantoprazole 40 mg tablet,delayed release (Protonix) 40 mg PO BID #60 tabs 06/01/23 sennosides 8.6 mg-docusate sodium 50 mg tablet (Stool Softener-Stimulant Laxative) 2 tab PO BID PRN PRN Constipation #0 tabs 06/01/23 Physical Exam Narrative Patient hemoglobin increased to 8.5. No acute symptoms of shortness of breath or chest pain. N.p.o. for EGD today Physical exam General: Alert, Oriented x3, Cooperative HEENT: Bilateral hearing impairment, uses hearing aid. Atraumatic, PERRLA, EOMI, Normocephalic Oral: No Gingival or Mucosal Lesions/ Ulcerations Neck: Supple, No JVD, Negative Carotid Bruits Lungs: Air entry diminished in bilateral lung bases. No crepitation/rhonchi Cardiovascular: Regular rate, Regular Rhythm, Normal S1, Normal S2, No murmurs Abdomen: Bowel Sounds Present, Soft, Non Tender, Non-Distended : No renal angle tenderness. No suprapubic tenderness. Extremities: No edema, Capillary Refill Less than 3 Seconds Skin: No rashes, No breakdown Musculoskeletal: No Tenderness to Palpation of Joints or Extremities. Wears lumbar belt for old L1 compression fracture Neurological: Cranial nerves II-XII grossly intact, DTR 2+/4. No acute focal neurological deficit. Psych/Mental Status: Normal Affect, Appropriate. Medical Records Data Medical Nutrition Assessment Dietitian: Malnutrition Criteria Met Start: 05/31/23 15:47 Freq: Status: Active Protocol: Document 05/31/23 15:47 RMA (Rec: 05/31/23 15:48 RMA [id number]) Nutrition Malnutrition Evidence of Malnutrition Exists Yes Malnutrition (severe): Chronic Evidenced By Suboptimal Energy Intake ( Moderate),Weight Loss (Severe) ,Physical Changes (Moderate) Intake Problem Inadequate Oral Intake Etiology related to altered GI function /bleed Signs/Symptoms as evidenced by clear liquid diet Status Active Problem Clinical Problem Chronic Disease or Condition Related Malnutrition Etiology Severe protein-calorie malnutrition in the context of chronic disease and debility related to inadequate oral/ energy intake and altered GI function Signs/Symptoms as evidenced by BMI 20.1, ~9% recent weight loss x past 3 months, fair PO meeting ~50-75 % estimated nutrition needs x 3-6 months, extended clear liquid diet this admission and moderate muscle/fat wasting in the clavicle, orbital region and arms and legs Status Active Problem Recommendation Dietitian Recommendations/Changes Recommend diet as tolerated to Regular with ensure plus high protein as tolerated. Will add 240 ml ensure clear TID w/ clear liquid meals as currently ordered. Adjust ONS as diet advanced to optimize oral intake and prevent further weight loss. Weight / BMI Weight Weight: 132 lb 7.965 oz Body Mass Index (BMI) 20.1 ABG / Lab / Microbiology Data 06/01/23 05:38 06/01/23 05:38 Laboratory: Laboratory Results - last 24 hr 06/01/23 05:38: WBC 6.3, RBC 2.56 L, Hgb 8.5 L, Hct 25.9 L, MCV 101.2 H, MCH 33.2 H, MCHC 32.8, RDW Std Deviation 65.8 H, RDW Coeff of Zachariah 17.9 H, Plt Count 177, MPV 11.9, Immature Gran % (Auto) 0.300, Neut % (Auto) 45.2 L, Lymph % (Auto) 13.9 L, Sherman % (Auto) 40.6 H, Eos % (Auto) 0.0, Baso % (Auto) 0.0, Absolute Neuts (auto) 2.8, Absolute Lymphs (auto) 0.87, Nucleated RBC % 0, Differential Comment SCANNED, Anisocytosis 1+, PT 15.5 H, INR 1.2, APTT 50.7 H, Sodium 128 L, Potassium 3.8, Chloride 97 L, Carbon Dioxide 22.0, Anion Gap 9, BUN 9, Creatinine 0.68 L, Estim Creat Clear Calc 43.41, Est GFR (MDRD) Af Amer 141, Est GFR (MDRD) Non-Af 116, BUN/Creatinine Ratio 13.2, Glucose 108 H, Calcium 8.4 L Microbiology: Microbiology 05/30/23 05:10 Stool Stool Occult Blood (MING) - Final D/C Instructions Discharge Diet: No restrictions Weight Bearing Status: Weight bearing as tolerated Call your doctor if you observe: Fever of 101 or Higher, Coldness, Increased Pain, Numbness or Tingling, Change in Color, Inability to urinate, Inability to have a bowel movement, Shortness of breath, Dizziness, Fainting spells, Swelling in the ankles, Chest pain, Prolonged hiccupping, Increased palpitations (irregular heartbeat) and Calf discomfort When: IN 2 WEEKS Meaningful Use Info Meaningful Use Diagnoses (Choose all that apply): None applicable Discharge Plan Admission Admit Date/Time: 05/29/23 12:05 Primary Reason for Your Visit: SEVERE ANEMIA Attending Provider: Devendra Acosta [facility] Provider[facility] Discharge Orders/Prescriptions Prescriptions: New sennosides-docusate sodium [Stool Softener-Stimulant Laxat] 8.6-50 mg Tablet 2 tab PO BID PRN PRN (Reason: Constipation) Qty: 0 0RF pantoprazole [Protonix] 40 mg tablet,delayed release (DR/EC) 40 mg PO BID Qty: 60 2RF Rx Instructions: advised TWICE DAILY FOR 2 months and then once daily. ascorbic acid (vitamin C) 500 mg tablet 500 mg PO BID Qty: 60 2RF folic acid 1 mg tablet 1 mg PO DAILY Qty: 30 2RF Continued cholecalciferol (vitamin D3) 25 mcg (1,000 unit) tablet 25 mcg PO DAILY (DME) Handicap Placard See Rx Instructions .Route .MEDSUPPLY Qty: 1 0RF Rx Instructions: Good from 08/22/2022-08/22/2027 acetaminophen 500 MG tablet 500 mg PO DAILY PRN PRN (Reason: BACK PAIN) lisinopril [Zestril] 2.5 mg tablet 2.5 mg PO DAILY simvastatin 20 mg tablet 40 mg PO DAILY ferrous sulfate [FeroSul] 325 mg (65 mg iron) tablet 325 mg PO DAILY 30 Days Qty: 30 2RF isosorbide mononitrate 30 mg tablet extended release 24 hr 30 mg PO DAILY Qty: 90 3RF Rx Instructions: TAKE 1 TABLET BY MOUTH ONCE DAILY nitroglycerin 0.4 mg tablet, sublingual 0.4 mg SUBLINGUAL Q5-15M PRN (Reason: CHEST PAIN) Qty: 25 6RF metoprolol tartrate 25 mg tablet 12.5 mg PO BID Qty: 90 3RF Held aspirin [Adult Low Dose Aspirin] 81 mg tablet,delayed release (DR/EC) 81 mg PO DAILY Hold Instructions: Hold for 7 days. cyanocobalamin (vitamin B-12) 1,000 mcg tablet 1,000 mcg PO DAILY Hold Instructions: Hold it as vitamin B12 level is more than 2000. clopidogrel [Plavix] 75 mg tablet 75 mg PO DAILY Qty: 90 3RF Hold Instructions: I think patient can go off Plavix as his last stent was in 2011. Prefer one antiplatelet agent. Referrals / Follow Up: FriendShaun DO [Med Staff - Active Staff] - Within 1 Month [facility] - Disposition Disposition (needs filled in before D/C Order can be placed): Home, Self Care Charges/Coding Visit Charges Inpatient E&M: 15491 Disch Hosp >30min
[2023-06-01] MEDS: Acetaminophen 325 MG Tablet 650 MG PO (14:07)
--- NOTE | 2023-06-01 14:18 | PHA.DC_ITS ---
Pharmacy [facility] has performed discharge medication reconciliation and counseling for this patient. The patient's discharge medication list was reviewed for discrepancies and discrepancies were resolved. The patient was counseled on the following discharge medications and changes in medications for homegoing were reviewed. The Reason for Use, instructions for use, and potential side effects were reviewed for all new medications. The patient's questions regarding all of their medications were answered. 1. Senna/docusate 2 tabs PO BID PRN constipation 2. Folic acid 1 mg PO daily 3. ascorbic acid 500 mg PO BID 4. Pantoprazole 40 mg PO BID x 2 months then 40 mg PO daily The patient and patients were able to verbally demonstrate an understanding of their discharge medications. Medications at Discharge Home Medications acetaminophen 500 mg tablet 500 mg PO DAILY PRN PRN BACK PAIN 05/24/19 aspirin 81 mg tablet,delayed release (Adult Low Dose Aspirin) 81 mg PO DAILY heart health 09/19/19 cyanocobalamin (vitamin B-12) 1,000 mcg tablet 1,000 mcg PO DAILY vitamin 10/02/21 cholecalciferol (vitamin D3) 25 mcg (1,000 unit) tablet 25 mcg PO DAILY vitamin 02/26/22 Handicap Placard #1 ea 08/22/22 isosorbide mononitrate 30 mg tablet,extended release 24 hr 30 mg PO DAILY HEART #90 tabs 09/09/22 clopidogrel 75 mg tablet (Plavix) 75 mg PO DAILY anti platelet #90 tabs 10/20/22 nitroglycerin 0.4 mg sublingual tablet 0.4 mg sublingual Q5-15M PRN CHEST PAIN #25 tabs 11/12/22 metoprolol tartrate 25 mg tablet 12.5 mg (1/2 x 25 mg) PO BID BP #90 tabs 02/16/23 lisinopril 2.5 mg tablet (Zestril) 2.5 mg PO DAILY blood pressure 05/29/23 simvastatin 20 mg tablet 40 mg PO DAILY CHOLESTEROL 05/29/23 ascorbic acid (vitamin C) 500 mg tablet 500 mg PO BID #60 tabs 06/01/23 ferrous sulfate 325 mg (65 mg iron) tablet (FeroSul) 325 mg PO DAILY 30 days #30 tabs 06/01/23 folic acid 1 mg tablet 1 mg PO DAILY #30 tabs 06/01/23 pantoprazole 40 mg tablet,delayed release (Protonix) 40 mg PO BID #60 tabs 06/01/23 sennosides 8.6 mg-docusate sodium 50 mg tablet (Stool Softener-Stimulant Laxative) 2 tab PO BID PRN PRN Constipation #0 tabs 06/01/23
--- NOTE | 2023-06-01 14:29 | CASEMGMT ---
Patient has order for discharge. RN CM in to discuss discharge needs. Patient and deny needs at discharge. Patient had no further questions or concerns.
== END 2023-06-01 15:43 | disposition home or self-care (01) | DRG 377 ==
LOC: ED 12:13 → ICU 12:20 → PCU 18:57
PROVIDERS: Anesthesiology; Internal Medicine Gastroenterology; Admitting Provider Internal Medicine; Emergency Provider Emergency Medicine; Visit Provider Internal Medicine
PROC: 0DJ08ZZ Inspection of Upper Intestinal Tract, Via Natural or Artificial Opening Endoscopic (ICD-10-PCS; CPT 43235; principal; 2023-06-01 07:10)
DX: K92.2 Gastrointestinal hemorrhage, unspecified (principal); E43 Unspecified severe protein-calorie malnutrition; D62 Acute posthemorrhagic anemia; E87.1 Hypo-osmolality and hyponatremia; I48.0 Paroxysmal atrial fibrillation; K22.70 Barrett's esophagus without dysplasia; E78.5 Hyperlipidemia, unspecified; I25.10 Atherosclerotic heart disease of native coronary artery without angina pectoris; I25.2 Old myocardial infarction; N40.0 Benign prostatic hyperplasia without lower urinary tract symptoms; Z66 Do not resuscitate; Z95.1 Presence of aortocoronary bypass graft; Z95.5 Presence of coronary angioplasty implant and graft; Z68.20 Body mass index [BMI] 20.0-20.9, adult; Z79.02 Long term (current) use of antithrombotics/antiplatelets; Z79.82 Long term (current) use of aspirin; Z79.899 Other long term (current) drug therapy; Z86.16 Personal history of COVID-19
CPT/HCPCS: 36415; 80048; 82274; 82607; 82728; 82746; 83540; 83550; 83615; 83735; 84443; 85014; 85018; 85025; 85045; 85610; 85730; 86850; 86900; 86901; 86920; 88305; 88313; 93005; 94668; 99284; J7050; J7120; A4216; J2916

== ENCOUNTER 2023-06-03 16:16 | Inpatient (IN) | payer MEDICARE, OTHER, SELFPAY ==
[2023-06-03 16:20] VITALS: BP 115/76; PULSE 89; RESP 16; TEMP 36.4; O2SAT 95
--- NOTE | 2023-06-03 16:48 | EX.ED.DYSGE1 ---
HPI History of Present Illness Chief Complaint: Weakness Informant: patient and spouse/S.O. Narrative Narrative: This with generalized weakness. Patient was just admitted here for anemia. He states he never did have GI bleeding. They did not do a transfusion because his blood counts were over 8. They did give him iron. He was walking the halls on Thursday and felt fine. Thursday he had an upper endoscopy. He states ever since he woke up from that he feels exhausted. His states that he walked maybe 5 to 8 feet today and had to sit back down because he had too much generalized weakness. This was not localized or lateralizing weakness. Patient does state that when they gave him the anesthesia for the procedure, the IV infiltrated. They then had to start a second IV and gave him more meds. He is wondering if he just got too much meds. I did review the anesthesia note and the EGD note. He had Davila's esophagus. He got 2 doses of propofol as the primary medicine for the procedure. I doubt that this is still effective and causing him to be weak. The states his appetite is also down but he is not nauseated. He is not having chest pain. He does not feel short of breath but when he walks he just gets exhausted. No fever. No abdominal pain. He is having a little problem starting his urinary stream but this is not completely new. But it does not burn. [facility] Medical History Atherosclerotic heart disease of [place] coronary artery without angina pectoris Colitis COVID-19 Diverticulitis Excision of the left atrial appendage Hiatal hernia Hyperlipidemia Kidney stones Old myocardial infarction Paroxysmal atrial fibrillation Premature ventricular contraction Upper gastrointestinal bleed Home Medications acetaminophen 500 mg tablet 500 mg PO DAILY PRN PRN BACK PAIN 05/24/19 [History Last Taken 05/23/19] aspirin 81 mg tablet,delayed release (Adult Low Dose Aspirin) 81 mg PO DAILY heart health 09/19/19 [History Last Taken Unknown] cyanocobalamin (vitamin B-12) 1,000 mcg tablet 1,000 mcg PO DAILY vitamin 10/02/21 [History Last Taken Unknown] cholecalciferol (vitamin D3) 25 mcg (1,000 unit) tablet 25 mcg PO DAILY vitamin 02/26/22 [History Last Taken Unknown] Handicap Placard #1 ea 08/22/22 [Rx Last Taken Unknown] isosorbide mononitrate 30 mg tablet,extended release 24 hr 30 mg PO DAILY HEART #90 tabs 09/09/22 [Rx Last Taken Unknown] clopidogrel 75 mg tablet (Plavix) 75 mg PO DAILY anti platelet #90 tabs 10/20/22 [Rx Last Taken Unknown] nitroglycerin 0.4 mg sublingual tablet 0.4 mg sublingual Q5-15M PRN CHEST PAIN #25 tabs 11/12/22 [Rx Last Taken Unknown] metoprolol tartrate 25 mg tablet 12.5 mg (1/2 x 25 mg) PO BID BP #90 tabs 02/16/23 [Rx Last Taken Unknown] lisinopril 2.5 mg tablet (Zestril) 2.5 mg PO DAILY blood pressure 05/29/23 [History Last Taken Unknown] simvastatin 20 mg tablet 40 mg PO DAILY CHOLESTEROL 05/29/23 [History Last Taken Unknown] ascorbic acid (vitamin C) 500 mg tablet 500 mg PO BID #60 tabs 06/01/23 [Rx Last Taken Unknown] ferrous sulfate 325 mg (65 mg iron) tablet (FeroSul) 325 mg PO DAILY 30 days #30 tabs 06/01/23 [Rx Last Taken Unknown] folic acid 1 mg tablet 1 mg PO DAILY #30 tabs 06/01/23 [Rx Last Taken Unknown] pantoprazole 40 mg tablet,delayed release (Protonix) 40 mg PO BID #60 tabs 06/01/23 [Rx Last Taken Unknown] sennosides 8.6 mg-docusate sodium 50 mg tablet (Stool Softener-Stimulant Laxative) 2 tab PO BID PRN PRN Constipation #0 tabs 06/01/23 [Rx Last Taken Unknown] Allergy/AdvReac Type Severity Reaction Status Date / Time ciprofloxacin [From Cipro] Allergy Unknown Rash Verified 06/03/23 16:22 EZEQUIEL Inhibitors Allergy cough Verified 06/03/23 16:22 benzonatate Allergy rash Verified 06/03/23 16:22 [From Tessalon Perles] ipodate [From Oragrafin] Allergy Rash Verified 06/03/23 16:22 Family History Father Prostate cancer Mother CVA (cerebral vascular accident) Brother Cancer Surgical History H/O maze procedure History of bilateral cataract extraction History of hernia repair Hx of appendectomy Postsurgical percutaneous transluminal coronary angioplasty (PTCA) status Presence of stent in coronary artery (~11/14/11) S/P CABG (coronary artery bypass graft) (~11/2005) S/P right inguinal hernia repair Social History Smoking Status: Never smoker alcohol intake: never substance use type: does not use caffeine: Yes Type: coffee Number of servings: 2 ROS ROS ED ROS Narrative A complete review of systems was performed and is negative except as documented in the history of present illness. Some specific details below. Constitutional: No recent fevers or chills. No rigors. Patient has not generally felt ill. Has felt weak though. EYE: No discharge, visual complaints, or pain. ENT: No difficulty swallowing. No swelling. No sinus pressure or pain. No nasal discharge. No change in hearing. No ear pain. GERD. CV: No chest pain, pressure or aching. No palpitations or irregular beats. Patient has not been presyncopal or syncopal. Weak walking but does not feel like he is going to pass out. Respiratory: No trouble breathing. No cough. No wheezing. No sputum production. No pain with breathing. Think his weakness is due to difficulty breathing with ambulation. GI: No abdominal pain. No nausea vomiting diarrhea. No blood in stool. Is able to eat and drink. : No frequency dysuria or hematuria. He does have a little bit of difficulty starting his stream but feels like he empties. Musculoskeletal: No recent trauma. No pains. No swelling. Skin: No rash. Nondiaphoretic. Neuro: No focal weakness or numbness. No difficulty with speaking. No difficulty understanding speech. No visual loss. Please see history of present illness also. Endocrine: No polyuria or polydipsia. EXAM Physical Exam Narrative Exam Narrative: CONSTITUTIONAL: Patient is nontoxic in appearance. The patient looks comfortable. Work of breathing looks normal. HEENT: No notable trauma. Mucous membranes moist. No sinus tenderness. EYES: No conjunctival injection. No proptosis. No pain with range of motion. Mild pallor NECK: No meningismus. No JVD. CARDIOVASCULAR: Regular rate. Regular rhythm. RESPIRATORY: No respiratory distress. Breathing is unlabored. No wheezes. No rhonchi. No rales. No pain with a deep breath. Durations are normal at 95% on room air showing no hypoxia. GASTROINTESTINAL: Not distended. Bowel sounds are normal. No tenderness. No guarding. No rebound. No palpable mass. No bruit. GENITOURINARY: No tenderness over the bladder. No CVA tenderness. MUSCULOSKELETAL: Atraumatic. No peripheral edema. No cord. No tenderness along the deep venous system. No asymmetry. NEUROLOGICAL: Patient is alert and oriented. No focal deficit noted. NIH stroke scale is 0. SKIN: No noted rashes. No diaphoresis. No vesicles noted. No difficult pallor. PSYCHIATRIC: Patient is calm. Mood is appropriate. Const Vital Signs: 06/03/23 16:20 06/03/23 17:01 06/03/23 19:07 Temperature 97.6 F L Temperature Source Temporal Pulse Rate 89 85 Respiratory Rate 16 18 Respiratory Pattern Normal Blood Pressure 115/76 Blood Pressure Mean 89 Pulse Ox 95 98 Oxygen Delivery Method Room Air Room Air MDM MDM MDM Narrative Medical decision making narrative: Patient CBC shows normal white count. But his hemoglobin is lower now almost a 1 g drop at 7.4 from just a few days ago. Platelets are minimally low. Patient's electrolytes show just a slight rise in his BUN and creatinine. Increased BUN to creatinine ratio consistent with him not eating and drinking as much at home as his states. But also, his sodium is getting progressively lower. It has been lowering now for over a month. This may be contributing to some of his weakness. Patient's liver function test showed no marked abnormalities. Troponin was normal at 15. Plan interpretation of patient's single view chest x-ray shows prior sternal wires. Mild elevation of the right hemidiaphragm. Final reading also does note some atelectasis at the right base. Patient walked here with nurses. But with 2 nurses he did reasonably well. But he still feels weak. His states she has not been able to get him to walk more than 5 or 10 feet at home before she has to almost carry him back to the couch. She does not feel safe with him at home. She states on Thursday he was walking in the halls without any difficulty and now he has trouble just walking a short distance into the bathroom. I think this is likely due to a combination of his anemia and hyponatremia. I see no indication of stroke. Patient's overall weakness, worsening sodium and hemoglobin levels along with some dehydration I think being in the hospital is appropriate. Lab Data Attestation: I reviewed the patient's lab results. Labs: Laboratory Results - last 24 hr 06/03/23 16:53 WBC 7.5 RBC 2.25 L Hgb 7.4 L Hct 22.6 L MCV 100.4 H MCH 32.9 H MCHC 32.7 RDW Std Deviation 65.5 H RDW Coeff of Zachariah 18.1 H Plt Count 139 L MPV 12.3 H Immature Gran % (Auto) 0.400 Neut % (Auto) 51.4 Lymph % (Auto) 12.1 L [place] % (Auto) 36.1 H Eos % (Auto) 0.0 Baso % (Auto) 0.0 Absolute Neuts (auto) 3.9 Absolute Lymphs (auto) 0.91 Nucleated RBC % 0 Differential Comment Sodium 124 L Potassium 4.0 Chloride 94 L Carbon Dioxide 22.0 Anion Gap 8 BUN 20 H Creatinine 0.74 Est GFR (MDRD) Af Amer 128 Est GFR (MDRD) Non-Af 106 BUN/Creatinine Ratio 26.9 H Glucose 122 H Calcium 8.1 L Total Bilirubin 1.10 H AST 9 L ALT 14 L Alkaline Phosphatase 52 Troponin I High Sens 15 Total Protein 6.3 L Albumin 2.9 L Globulin 3.4 Albumin/Globulin Ratio 0.9 Radiography Diagnostic Testing: Clinical Impression(s) from Imaging Studies Chest X-Ray 06/03/23 17:00 IMPRESSION: Elevated right hemidiaphragm and mild subsegmental atelectasis of the right lower lobe Electronically Signed: Ezequiel Serrano MD at 17:17 EDT , Management Discussion w/another healthcare provider: Hospitalist Discharge Plan Triage Chief Complaint: Weakness ED Provider: Zaire Jiménez Dx/Rx/DC Orders Clinical Impression: Anemia, Generalized weakness, Acute hyponatremia, Dehydration Prescriptions: No Action aspirin [Adult Low Dose Aspirin] 81 mg tablet,delayed release (DR/EC) 81 mg PO DAILY Hold Instructions: Hold for 7 days. cyanocobalamin (vitamin B-12) 1,000 mcg tablet 1,000 mcg PO DAILY Hold Instructions: Hold it as vitamin B12 level is more than 2000. cholecalciferol (vitamin D3) 25 mcg (1,000 unit) tablet 25 mcg PO DAILY (DME) Handicap Placard See Rx Instructions .Route .MEDSUPPLY Qty: 1 0RF Rx Instructions: Good from 08/22/2022-08/22/2027 acetaminophen 500 MG tablet 500 mg PO DAILY PRN PRN (Reason: BACK PAIN) lisinopril [Zestril] 2.5 mg tablet 2.5 mg PO DAILY simvastatin 20 mg tablet 40 mg PO DAILY sennosides-docusate sodium [Stool Softener-Stimulant Laxat] 8.6-50 mg Tablet 2 tab PO BID PRN PRN (Reason: Constipation) Qty: 0 0RF pantoprazole [Protonix] 40 mg tablet,delayed release (DR/EC) 40 mg PO BID Qty: 60 2RF Rx Instructions: advised TWICE DAILY FOR 2 months and then once daily. ferrous sulfate [FeroSul] 325 mg (65 mg iron) tablet 325 mg PO DAILY 30 Days Qty: 30 2RF ascorbic acid (vitamin C) 500 mg tablet 500 mg PO BID Qty: 60 2RF folic acid 1 mg tablet 1 mg PO DAILY Qty: 30 2RF isosorbide mononitrate 30 mg tablet extended release 24 hr 30 mg PO DAILY Qty: 90 3RF Rx Instructions: TAKE 1 TABLET BY MOUTH ONCE DAILY clopidogrel [Plavix] 75 mg tablet 75 mg PO DAILY Qty: 90 3RF Hold Instructions: I think patient can go off Plavix as his last stent was in 2011. Prefer one antiplatelet agent. nitroglycerin 0.4 mg tablet, sublingual 0.4 mg SUBLINGUAL Q5-15M PRN (Reason: CHEST PAIN) Qty: 25 6RF metoprolol tartrate 25 mg tablet 12.5 mg PO BID Qty: 90 3RF [facility] [Primary Care Provider] - Disposition Disposition: Acute Care Hospital [facility]
--- NOTE | 2023-06-03 17:00 | RAD_ITS ---
STUDY: X-RAY CHEST REASON FOR EXAM: Male, 88 years old. cough TECHNIQUE: AP portable COMPARISON: May 24, 2019 FINDINGS: Elevated right hemidiaphragm and minor subsegmental atelectasis. There is no demonstrated pleural abnormality. Postop changes status post median sternotomy Normal size heart. Normal mediastinum and izabel. Normal visualized pulmonary arteries. Normal visualized aortic arch and descending thoracic aorta. Dorsal spine and shoulders demonstrate mild degenerative change. Normal visualized ribs, and clavicles. There is no demonstrated abnormality of the visualized soft tissue structures of the upper abdomen. RAD/Chest 1 View (Portable) IMPRESSION: Elevated right hemidiaphragm and mild subsegmental atelectasis of the right lower lobe Electronically Signed: Ezequiel Serrano MD at 17:17 EDT ,
[2023-06-03 17:31] LABS: Absolute Lymphocyte Count 0.91 X10^3/uL (0.83-4.51); Absolute Neutrophil Count 3.9 X10^3/uL (2.0-7.7); Hematocrit 22.6 % (40-54); Hemoglobin 7.4 g/dL (13.0-16.5); Lymphocyte # 0.91 X10^3/ul (0.83-4.51); Lymphocyte % 12.1 % (19-41); Mean Corp Hgb Conc 32.7 g/dL (32-36); Mean Corpuscular Hgb 32.9 pg (27.0-32.0); Mean Corpuscular Volume 100.4 fL (80-94); Mean Platelet Vol. 12.3 fl (6.2-12.0); Monocyte# 2.71 X10^3/uL; Monocyte% 36.1 % (0-10); NRBC Flagged by Analyzer 0 % (0-5); Neutrophil # 3.86 X10^3/uL (2.7-7.7); Neutrophil % 51.4 % (47-70); POSITIVE DIFFERENTIAL YES; POSITIVE MORPHOLOGY YES; Platelet Count 139 K/mm3 (150-450); RBC Distribution Width CV 18.1 % (11.6-14.6); RBC Distribution Width SD 65.5 fl (35.1-43.9); Red Blood Count 2.25 M/mm3 (4.6-6.2); White Blood Count 7.5 K/mm3 (4.4-11.0)
[2023-06-03 17:41] LABS: Differential Indicated SCAN CRITERIA MET
[2023-06-03 17:49] LABS: ALB/GLOB Ratio 0.9 RATIO (0.9-2.4); AST(SGOT) 9 U/L (15-37); Alanine Aminotransfer ALT/SGPT 14 U/L (16-61); Albumin, Serum 2.9 g/dL (3.2-5.0); Alkaline Phosphatase 52 U/L (45-117); Anion Gap 8 (5-15); BUN 20 mg/dL (7-18); BUN/Creat Ratio 26.9 RATIO (10-20); Calcium,Total 8.1 mg/dL (8.5-10.1); Chloride 94 mmol/L (98-107); Creatinine, Serum 0.74 mg/dL (0.70-1.30); EST Glomerular Filtration Rate 106 mL/min (>60); Est Glom Filt Rate - Afr Amer 128 mL/min (>60); Globulin 3.4 g/dL (2.2-4.2); Glucose 122 mg/dL (74-106); Protein, Total 6.3 g/dL (6.4-8.2); Sodium Level 124 mmol/L (136-145); Troponin-I HS 15 pg/mL (3.0-78.0)
[2023-06-03 18:19] VITALS: O2SAT 100
[2023-06-03 19:07] VITALS: PULSE 85; RESP 18; O2SAT 98
--- NOTE | 2023-06-03 20:40 | HP.PCM.HOS_ITS ---
HPI - General General Date of Admission: 06/03/23 Date of Service: 06/03/23 Chief Complaint: weakness HPI Narrative BRI BOSS, is a 88 M with a significant history of CAD status post CABG in 2005 and stents in 2009 and also in 2012: Paroxysmal A-fib status post maze procedure who presents to the emergency department with weakness. Of note patient was admitted to the hospital on 05/29/2023 and discharged on 06/01/2023 for possible GI bleed but had a negative scope. Reportedly on his admission on 05/29/2023 patient's was made to send patient to the ED because of low hemoglobin. Of note the patient has been weak for some time now but with recent discharge from the hospital patient has been progressively weak and on the day of presentation patient was excessively weak to the point that his knees crumpled but his broke an impending fall of patient. Associated with his symptoms is confusion. Of note patient's daughter who was at the bedside stated the patient did not initially recognize her. Reportedly patient thought that his daughter was one of the hospital nurses. Also reported patient had poor appetite but on the day of presentation his appetite was better. His reported that currently patient does not drink enough fluids. In regard to his GI bleed reportedly Dr. Ng operating engineer apprentice is waiting for approval from the [place] to do a capsule endoscopy. On presentation his hemoglobin was found to be even lower than his post recent admission although his BUN has increased. [facility] Medical History Atherosclerotic heart disease of [place] coronary artery without angina pectoris Chest pain Chronic pain Colitis COVID-19 Diverticulitis Excision of the left atrial appendage Hiatal hernia Hyperlipidemia Kidney stones Old myocardial infarction Paroxysmal atrial fibrillation Premature ventricular contraction Upper gastrointestinal bleed Home Medications acetaminophen 500 mg tablet 500 mg PO DAILY PRN PRN BACK PAIN 05/24/19 [History Last Taken 05/23/19] cholecalciferol (vitamin D3) 25 mcg (1,000 unit) tablet 25 mcg PO DAILY vitamin 02/26/22 [History Last Taken Unknown] Handicap Placard #1 ea 08/22/22 [Rx Last Taken Unknown] isosorbide mononitrate 30 mg tablet,extended release 24 hr 30 mg PO DAILY HEART #90 tabs 09/09/22 [Rx Last Taken Unknown] nitroglycerin 0.4 mg sublingual tablet 0.4 mg sublingual Q5-15M PRN CHEST PAIN #25 tabs 11/12/22 [Rx Last Taken Unknown] metoprolol tartrate 25 mg tablet 12.5 mg (1/2 x 25 mg) PO BID BP #90 tabs 02/16/23 [Rx Last Taken Unknown] simvastatin 20 mg tablet 40 mg PO DAILY CHOLESTEROL 05/29/23 [History Last Taken Unknown] ascorbic acid (vitamin C) 500 mg tablet 500 mg PO BID #60 tabs 06/01/23 [Rx Last Taken Unknown] ferrous sulfate 325 mg (65 mg iron) tablet (FeroSul) 325 mg PO DAILY 30 days #30 tabs 06/01/23 [Rx Last Taken Unknown] folic acid 1 mg tablet 1 mg PO DAILY #30 tabs 06/01/23 [Rx Last Taken Unknown] pantoprazole 40 mg tablet,delayed release (Protonix) 40 mg PO BID #60 tabs [Rx Last Taken Unknown] sennosides 8.6 mg-docusate sodium 50 mg tablet (Stool Softener-Stimulant Laxative) 2 tab PO BID PRN PRN Constipation #0 tabs 06/01/23 [Rx Last Taken Unknown] Allergy/AdvReac Type Severity Reaction Status Date / Time ciprofloxacin [From Cipro] Allergy Unknown Rash Verified 06/03/23 16:22 EZEQUIEL Inhibitors Allergy cough Verified 06/03/23 16:22 benzonatate Allergy rash Verified 06/03/23 16:22 [From Tessalon Perles] ipodate [From Oragrafin] Allergy Rash Verified 06/03/23 16:22 Family History Father Prostate cancer Mother CVA (cerebral vascular accident) Brother Cancer Surgical History H/O maze procedure History of bilateral cataract extraction History of hernia repair Hx of appendectomy Postsurgical percutaneous transluminal coronary angioplasty (PTCA) status Presence of stent in coronary artery (~11/14/11) S/P CABG (coronary artery bypass graft) (~11/2005) S/P right inguinal hernia repair Social History Smoking Status: Never smoker alcohol intake: never substance use type: does not use caffeine: Yes Type: coffee Number of servings: 2 ROS ROS Narrative Pertinent positives and pertinent negatives as noted in HPI. All other systems were reviewed and are negative Vital Signs Vital Signs Vital Signs: 06/03/23 16:20 06/03/23 17:01 06/03/23 19:07 Temperature 97.6 F L Temperature Source Temporal Pulse Rate 89 85 Respiratory Rate 16 18 Respiratory Pattern Normal Blood Pressure 115/76 Blood Pressure Mean 89 Pulse Ox 95 98 Oxygen Delivery Method Room Air Room Air Physical Exam Narrative Physical exam: General: Well-nourished, well-developed. Head: Normocephalic, atraumatic, no tenderness Eyes: Vision is grossly intact. EOMI ENT, no trauma, moist mucous membranes, no rhinorrhea Neck: Nontender, No thyromegaly. CVS: Regular rate and rhythm. S1-S2 present. No murmur, gallop or rub. Respiratory : Diminished, chest wall nontender Abdomen: Soft, nontender, nondistended, normal bowel sounds, no masses : Deferred Back: Nontender, no CVA tenderness, Extremities: Patient is too weak to sit in bed and had to be assisted from a lying position to sitting position in his ED bed. Skin: Normal color, no trauma, abrasions Neuro: Alert, oriented, cranial nerves II through XII grossly intact. Psychiatry: Normal mood. Normal affect. Not depressed. Not anxious. Results Lab / Micro Data 06/03/23 16:53 06/03/23 16:53 Labs: Laboratory Results - last 24 hr 06/03/23 16:53: WBC 7.5, RBC 2.25 L, Hgb 7.4 L, Hct 22.6 L, MCV 100.4 H, MCH 32.9 H, MCHC 32.7, RDW Std Deviation 65.5 H, RDW Coeff of Zachariah 18.1 H, Plt Count 139 L, MPV 12.3 H, Immature Gran % (Auto) 0.400, Neut % (Auto) 51.4, Lymph % (Auto) 12.1 L, [place] % (Auto) 36.1 H, Eos % (Auto) 0.0, Baso % (Auto) 0.0, Absolute Neuts (auto) 3.9, Absolute Lymphs (auto) 0.91, Nucleated RBC % 0, Differential Comment , Sodium 124 L, Potassium 4.0, Chloride 94 L, Carbon Dioxide 22.0, Anion Gap 8, BUN 20 H, Creatinine 0.74, Est GFR (MDRD) Af Amer 128, Est GFR (MDRD) Non-Af 106, BUN/Creatinine Ratio 26.9 H, Glucose 122 H, Calcium 8.1 L, Total Bilirubin 1.10 H, AST 9 L, ALT 14 L, Alkaline Phosphatase 52, Troponin I High Sens 15, Total Protein 6.3 L, Albumin 2.9 L, Globulin 3.4, Albumin/Globulin Ratio 0.9 Micro: Microbiology 06/03/23 19:50 Stool Stool Occult Blood ([facility]) - Final 06/03/23 17:05 Nasal Secretion SARS-CoV-2 Antigen (Rapid) - Final Radiology Impression Chest X-Ray 06/03/23 17:00 IMPRESSION: Elevated right hemidiaphragm and mild subsegmental atelectasis of the right lower lobe Electronically Signed: Ezequiel Serrano MD at 17:17 EDT Reading Location ID and State: [facility]– [place] / [place] Tel , Service support , Assessment & Plan Assessment/Plan (1) Dehydration: (2) Acute hyponatremia: (3) Anemia: QUALIFIERS: Anemia type: unspecified type Qualified Code(s): D64.9 - Anemia, unspecified PLAN: Plan Generalized weakness Likely secondary to anemia, hyponatremia or other Management of anemia and hyponatremia as below. PT and OT consult. Case management consult. Acute on chronic anemia Endoscopy on 06/01/2023 was reviewed. 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 No gross lesions in the second portion of the duodenum. Biopsies were taken; pathology reviewed. Pathology showed fragments of gastroesophageal mucosa with chronic inflammation. Intestinal metaplasia (goblet cell metaplasia) was not identified. Iron studies on 05/29/2023 was reviewed. Iron studies was unremarkable. Vitamin B12 was elevated. Folic acid was low normal. Folic acid continued We will trend CBC and H&H. Reportedly occult stools done at the emergency department was negative. Occult stool done at the emergency department was negative. Home Protonix continued Acute on chronic hyponatremia Sodium presentation was 124. Check uric acid Check urine osmolarity Check urine sodium Check serum osmolality Check cortisol level Received normal saline bolus the emergency department. Gentle IV hydration ordered. Elevated BUN BUN of 20 on presentation. His BUN on 06/01/2023 was 9; on 05/31/2023 was 10; and on 05/30/2023 was 11. His BUN on 05/29/2023 was 20. His creatinine was 0.74 which is actually within baseline. Blood pressure is not very different from baseline. Patient's tongue is not dry. Received normal saline bolus in the emergency department. Will continue normal saline IV hydration. Will trend BMP. CAD s/p CABG and stent No chest pain. Guideline medical therapy of Imdur and metoprolol continued DVT prophylaxis SCDs ordered Time spent in the patient's overall evaluation,decision-making process, review of diagnostic data, adjustment of management, discussion with other providers, nursing nursing and ancillary staff involved in patient's care documentation, 60 minutes minutes. Charges/Coding Visit Charges Inpatient E&M: 11732 Init Hosp L3
[2023-06-03] MEDS: 0.9% Normal Saline (500mL Bag) 500 ML 999 ML IV (20:51)
[2023-06-03 20:54] VITALS: BP 127/56; PULSE 85; RESP 16; TEMP 36.7; O2SAT 97
[2023-06-03 21:18] LABS: Uric Acid 2.1 mg/dL (3.5-7.2)
[2023-06-03 21:34] VITALS: BMI 19.9
[2023-06-03 21:49] VITALS: BMI 19.8
[2023-06-03 21:51] VITALS: BP 112/51; PULSE 82; RESP 18; TEMP 37.1; O2SAT 96
[2023-06-03 22:34] VITALS: PULSE 82
[2023-06-03] MEDS: Acetaminophen 500 MG Tablet PO (22:34)
[2023-06-03] MEDS: Pantoprazole Sodium 40 MG Tablet PO (22:34)
[2023-06-03] MEDS: Metoprolol Tartrate 25 MG Tablet 12.5 MG PO (22:34)
[2023-06-03] MEDS: Ascorbic Acid 500 MG Tablet PO (22:34)
[2023-06-03] MEDS: Atorvastatin Calcium 20 MG Tablet PO (22:35)
[2023-06-03] MEDS: 0.9% Normal Saline (1000mL) 1,000 ML 75 ML IV (22:35)
[2023-06-03 23:48] LABS: Mucous, Urine 0 SEEN /hpf (<or=2+); Red Blood Cells-Urine 0 SEEN /hpf (0-5); Squamous Epithelial Cells - UA 0 SEEN /hpf (0-5); White Blood Cells 0 SEEN /hpf (0-5)
[2023-06-04] VITALS (12 sets, daily range): BP systolic 109–139; BP diastolic 55–79; PULSE 74–90; RESP 16–17; TEMP 36.6–37.4; O2SAT 94–98
[2023-06-04 00:07] LABS: Hematocrit 20.3 % (40-54); Hemoglobin 6.6 g/dL (13.0-16.5); POSITIVE MORPHOLOGY YES
[2023-06-04 00:08] LABS: Color, Urine Yellow (Yellow); Glucose, Dipstick Normal (Normal); Ketone-Dipstick 5 mg/dl (Negative); Leukocyte Esterase-Dipstick 25 /ul (Negative); Nitrite-Dipstick Negative (Negative); Occult Blood-Urine Negative /ul (Negative); Protein-Dipstick 30 mg/dl (Negative); Specific Gravity, Urine 1.015 (1.002-1.030); Urine Clarity Clear (Clear); Urine Urobilinogen 8 mg/dl (Normal); Urine pH 6.5 (5.0 - 8.0)
[2023-06-04 00:10] LABS: Urine Bilirubin Dipstick 1 mg/dL (Negative)
[2023-06-04 00:15] LABS: Anion Gap 6 (5-15); BUN 17 mg/dL (7-18); BUN/Creat Ratio 30.6 RATIO (10-20); Calcium,Total 7.7 mg/dL (8.5-10.1); Chloride 97 mmol/L (98-107); Creatinine, Serum 0.56 mg/dL (0.70-1.30); EST Glomerular Filtration Rate 148 mL/min (>60); Est Glom Filt Rate - Afr Amer 179 mL/min (>60); Estimated Creatinine Clearance 42.97 ml/min; Glucose 106 mg/dL (74-106); Potassium 3.6 mmol/L (3.5-5.1); Sodium Level 126 mmol/L (136-145)
[2023-06-04 00:17] LABS: Bacteria RARE /hpf (None Seen); Calcium Oxalate Crystals Ur 1+ /hpf (<or=2+)
[2023-06-04 00:46] LABS: Osmolality, Urine 657 mOsm/KG
[2023-06-04 02:48] LABS: Osmolality, Serum 256 mOsm/KG (280-301)
[2023-06-04] MEDS: Pantoprazole Sodium 80 MG in 0.9% Normal Saline (50mL Bag) 15 ML 420 MG IV BOLUS (02:50)
[2023-06-04] MEDS: 0.9% Saline Lock 10 ML Syringe IV (05:54)
[2023-06-04 07:07] LABS: Absolute Lymphocyte Count 0.66 X10^3/uL (0.83-4.51); Absolute Neutrophil Count 3.9 X10^3/uL (2.0-7.7); Basophil# 0.01 X10^3/uL; Basophil% 0.1 % (0-1); Hematocrit 26.7 % (40-54); Hemoglobin 8.8 g/dL (13.0-16.5); Lymphocyte # 0.66 X10^3/ul (0.83-4.51); Lymphocyte % 9.4 % (19-41); Mean Corpuscular Hgb 32.5 pg (27.0-32.0); Mean Corpuscular Volume 98.5 fL (80-94); Mean Platelet Vol. 11.9 fl (6.2-12.0); Monocyte# 2.46 X10^3/uL; NRBC Flagged by Analyzer 0 % (0-5); Neutrophil # 3.86 X10^3/uL (2.7-7.7); Neutrophil % 54.9 % (47-70); POSITIVE DIFFERENTIAL YES; POSITIVE MORPHOLOGY YES; Platelet Count 143 K/mm3 (150-450); RBC Distribution Width CV 18.3 % (11.6-14.6); RBC Distribution Width SD 65.3 fl (35.1-43.9); Red Blood Count 2.71 M/mm3 (4.6-6.2)
[2023-06-04 07:27] LABS: Differential Indicated SCAN CRITERIA MET
[2023-06-04 07:39] LABS: Anion Gap 8 (5-15); BUN 13 mg/dL (7-18); BUN/Creat Ratio 20.8 RATIO (10-20); Calcium,Total 8.1 mg/dL (8.5-10.1); Chloride 96 mmol/L (98-107); Creatinine, Serum 0.63 mg/dL (0.70-1.30); EST Glomerular Filtration Rate 129 mL/min (>60); Est Glom Filt Rate - Afr Amer 156 mL/min (>60); Estimated Creatinine Clearance 42.97 ml/min; Glucose 104 mg/dL (74-106); Potassium 3.4 mmol/L (3.5-5.1); Sodium Level 127 mmol/L (136-145); Thyroid Stim Hormone (TSH) 0.56 uIU/mL (0.358-3.74)
--- NOTE | 2023-06-04 07:41 | PN.HOSP_ITS ---
Reason for Visit Reason for Visit: Diagnoses Anemia, unspecified (06/03/23) Dehydration (06/03/23) Hypo-osmolality and hyponatremia (06/03/23) Subjective Subjective Feeling very tired and weak today, talked with patient and family members at bedside, patient has no localizing or specific complaints Objective Data Objective Data Vital Signs: Vital Signs Temp Pulse Resp BP Pulse Ox O2 Del Method 98.8 F 84 16 139/61 H 94 Room Air 06/04/23 05:49 06/04/23 05:49 06/04/23 05:49 06/04/23 05:49 06/04/23 07:09 06/04/23 07:09 Oxygen Delivery Method Room Air Weight: 59.5 kg Body Mass Index (BMI) 19.8 Intake & Output: Intake and Output for Last 24 Hours 06/02/23 06/03/23 06/04/23 23:59 23:59 23:59 Intake Total 500 / 500 837.5 / 837.5 Output Total 300 / 300 Balance 500 / 500 537.5 / 537.5 Lab / Micro Data 06/04/23 06:55 06/04/23 06:55 Labs: Laboratory Results - last 24 hr 06/03/23 16:53: WBC 7.5, RBC 2.25 L, Hgb 7.4 L, Hct 22.6 L, MCV 100.4 H, MCH 32.9 H, MCHC 32.7, RDW Std Deviation 65.5 H, RDW Coeff of Zachariah 18.1 H, Plt Count 139 L, MPV 12.3 H, Immature Gran % (Auto) 0.400, Neut % (Auto) 51.4, Lymph % (Auto) 12.1 L, Yates % (Auto) 36.1 H, Eos % (Auto) 0.0, Baso % (Auto) 0.0, Absolute Neuts (auto) 3.9, Absolute Lymphs (auto) 0.91, Nucleated RBC % 0, Differential Comment , Sodium 124 L, Potassium 4.0, Chloride 94 L, Carbon Dioxide 22.0, Anion Gap 8, BUN 20 H, Creatinine 0.74, Est GFR (MDRD) Af Amer 128, Est GFR (MDRD) Non-Af 106, BUN/Creatinine Ratio 26.9 H, Glucose 122 H, Uric Acid 2.1 L, Calcium 8.1 L, Total Bilirubin 1.10 H, AST 9 L, ALT 14 L, Alkaline Phosphatase 52, Troponin I High Sens 15, Total Protein 6.3 L, Albumin 2.9 L, Globulin 3.4, Albumin/Globulin Ratio 0.9 06/03/23 23:20: Urine Color Yellow, Urine Clarity Clear, Urine pH 6.5, Ur Specific [place] 1.015, Urine Protein 30 H, Urine Glucose (UA) Normal, Urine Ketones 5 H, Urine Occult Blood Negative, Urine Nitrite Negative, Urine Bilirubin 1 H, Urine Urobilinogen 8 H, Ur Leukocyte Esterase 25 H, Urine RBC 0 SEEN, Urine WBC 0 SEEN, Ur Squamous Epith Cells 0 SEEN, Calcium Oxalate Crystal 1+, Urine Bacteria RARE, Urine Mucus 0 SEEN, Urine Osmolality 657 06/03/23 23:45: Hgb 6.6 L, Hct 20.3 L, Sodium 126 L, Potassium 3.6, Chloride 97 L, Carbon Dioxide 23.0, Anion Gap 6, BUN 17, Creatinine 0.56 L, Estim Creat Clear Calc 42.97, Est GFR (MDRD) Af Amer 179, Est GFR (MDRD) Non-Af 148, BUN/Creatinine Ratio 30.6 H, Glucose 106, Calcium 7.7 L 06/04/23 02:10: Serum Osmolality 256 L, Blood Type O NEGATIVE, Antibody Screen NEGATIVE, Crossmatch See Detail 06/04/23 06:55: WBC 7.0, Corrected WBC FINANCIAL ADMINISTRATIVE ASSISTANT, RBC 2.71 L, Hgb 8.8 L, Hct 26.7 L, MCV 98.5 H, MCH 32.5 H, MCHC 33.0, RDW Std Deviation 65.3 H, RDW Coeff of Zachariah 18.3 H, Plt Count 143 L, MPV 11.9, Immature Gran % (Auto) 0.600, Neut % (Auto) 54.9, Lymph % (Auto) 9.4 L, Yates % (Auto) 35.0 H, Eos % (Auto) 0.0, Baso % (Auto) 0.1, Absolute Neuts (auto) 3.9, Absolute Lymphs (auto) 0.66 L, Total Counted FINANCIAL ADMINISTRATIVE ASSISTANT, Neutrophils % (Manual) FINANCIAL ADMINISTRATIVE ASSISTANT, Band Neutrophils % FINANCIAL ADMINISTRATIVE ASSISTANT, Lymphocytes % ( Manual) FINANCIAL ADMINISTRATIVE ASSISTANT, Monocytes % (Manual) FINANCIAL ADMINISTRATIVE ASSISTANT, Eosinophils % (Manual) FINANCIAL ADMINISTRATIVE ASSISTANT, Basophils % (Manual) FINANCIAL ADMINISTRATIVE ASSISTANT, Metamyelocytes % FINANCIAL ADMINISTRATIVE ASSISTANT, Myelocytes % FINANCIAL ADMINISTRATIVE ASSISTANT, Promyelocytes % FINANCIAL ADMINISTRATIVE ASSISTANT, Blast Cells % FINANCIAL ADMINISTRATIVE ASSISTANT, Plasma Cell % (Manual) FINANCIAL ADMINISTRATIVE ASSISTANT, Other Cells % FINANCIAL ADMINISTRATIVE ASSISTANT, Nucleated RBC % 0, Nucleated RBCs/100 WBC FINANCIAL ADMINISTRATIVE ASSISTANT, Differential Comment FINANCIAL ADMINISTRATIVE ASSISTANT, Diff Path Review FINANCIAL ADMINISTRATIVE ASSISTANT, Hypersegmented Neuts FINANCIAL ADMINISTRATIVE ASSISTANT, Atypical Lymphocytes FINANCIAL ADMINISTRATIVE ASSISTANT, Reactive Lymphocytes FINANCIAL ADMINISTRATIVE ASSISTANT, Smudge Cells FINANCIAL ADMINISTRATIVE ASSISTANT, Toxic Granulation FINANCIAL ADMINISTRATIVE ASSISTANT, Toxic Vacuolation FINANCIAL ADMINISTRATIVE ASSISTANT, Dohle Bodies FINANCIAL ADMINISTRATIVE ASSISTANT, Ankush Rods FINANCIAL ADMINISTRATIVE ASSISTANT, Platelet Estimate FINANCIAL ADMINISTRATIVE ASSISTANT, Plt Morphology Comment FINANCIAL ADMINISTRATIVE ASSISTANT, RBC Morphology FINANCIAL ADMINISTRATIVE ASSISTANT 06/04/23 06:55: RBC Morphology FINANCIAL ADMINISTRATIVE ASSISTANT, Polychromasia FINANCIAL ADMINISTRATIVE ASSISTANT, Hypochromasia FINANCIAL ADMINISTRATIVE ASSISTANT, Poikilocytosis FINANCIAL ADMINISTRATIVE ASSISTANT, Basophilic Stippling FINANCIAL ADMINISTRATIVE ASSISTANT, Anisocytosis FINANCIAL ADMINISTRATIVE ASSISTANT, Microcytosis FINANCIAL ADMINISTRATIVE ASSISTANT, Macrocytosis FINANCIAL ADMINISTRATIVE ASSISTANT, Spherocytes FINANCIAL ADMINISTRATIVE ASSISTANT, Sickle Cells FINANCIAL ADMINISTRATIVE ASSISTANT, Target Cells FINANCIAL ADMINISTRATIVE ASSISTANT, Tear Drop Cells FINANCIAL ADMINISTRATIVE ASSISTANT, Ovalocytes FINANCIAL ADMINISTRATIVE ASSISTANT, Stomatocytes FINANCIAL ADMINISTRATIVE ASSISTANT, Sandhu-Ono Bodies FINANCIAL ADMINISTRATIVE ASSISTANT, Suresh Cells FINANCIAL ADMINISTRATIVE ASSISTANT, Bite Cells FINANCIAL ADMINISTRATIVE ASSISTANT, Crenated Cell FINANCIAL ADMINISTRATIVE ASSISTANT, Acanthocytes (Spur) FINANCIAL ADMINISTRATIVE ASSISTANT, Rouleaux FINANCIAL ADMINISTRATIVE ASSISTANT, Schistocytes FINANCIAL ADMINISTRATIVE ASSISTANT, Sodium 127 L, Potassium 3.4 L, Chloride 96 L, Carbon Dioxide 23.0, Anion Gap 8, BUN 13, Creatinine 0.63 L, Estim Creat Clear Calc 42.97, Est GFR (MDRD) Af Amer 156, Est GFR (MDRD) Non-Af 129, BUN/Creatinine Ratio 20.8 H, Glucose 104, Calcium 8.1 L, TSH 0.56 Micro: Microbiology 06/03/23 19:50 Stool Stool Occult Blood ([facility]) - Final 06/03/23 17:05 Nasal Secretion SARS-CoV-2 Antigen (Rapid) - Final Radiography Diagnostic Testing: Radiology Impression Chest X-Ray 06/03/23 17:00 IMPRESSION: Elevated right hemidiaphragm and mild subsegmental atelectasis of the right lower lobe Electronically Signed: Ezequiel Serrano MD at 17:17 EDT , Physical Exam Narrative General: Alert but does appear tired HEENT: Atraumatic, normocephalic Eyes: Anicteric, normal conjunctiva, extraocular movements grossly intact Neck: Supple Respiratory: Clear to auscultation bilaterally, normal respiratory effort Cardiovascular: Regular rate GI: Soft, nontender, nondistended Extremities: No edema Musculoskeletal: Moving all extremities Neuro: No overt focal neurological deficits Skin: No rashes appreciated Psych: Cooperative Assessment & Plan Assessment/Plan (1) Dehydration: (2) Acute hyponatremia: (3) Anemia: QUALIFIERS: Anemia type: unspecified type Qualified Code(s): D64.9 - Anemia, unspecified PLAN: Plan #Generalized weakness, likely multifactorial given his anemia and hyponatremia -Patient received 1 unit packed red blood cells after hemoglobin decreased to 6.6, hemoglobin now up to 8.8, had recent upper endoscopy which did not show any bleeding lesions -PPI switched to IV and GI consulted overnight, patient supposed to have outpatient capsule endoscopy pending insurance approval -Pt receiving IVF w/ NS and Na increased from 124 to 127, BMP to be repeated at noon -Patient appears to have history of intermittent hyponatremia but the lowest previously was 132 until 05/29/2023 when it was 128 however no values before that since 2019 so unclear chronicity -TSH within normal limits, serum osmole's 256 with urine osmoles of 657 -Case management consult, PT/OT -On further review patient has fairly significant monocytosis, cannot rule out underlying hematologic or oncology problem, given patient's continued weakness d espite transfusing packed red blood cells and second hospitalization in 2 weeks we will consult hematology/oncology. Upon further discussion with patient he did see Dr. Holman several years ago for anemia and no underlying cause was found and it has worsened since then, he was post to see him again earlier this year however decided not to go to the appointment. Patient and family agreeable to hematology/oncology input #Acute on chronic anemia -Endoscopy on 06/01/2023 was reviewed. 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 No gross lesions in the second portion of the duodenum. Biopsies were taken; pathology reviewed. Pathology showed fragments of gastroesophageal mucosa with chronic inflammation. Intestinal metaplasia (goblet cell metaplasia) was not identified. -Iron studies on 05/29/2023 was reviewed. Iron studies was unremarkable. Vitamin B12 was elevated. Folic acid was low normal. Folic acid continued -We will trend CBC and H&H. Reportedly occult stools done at the emergency department was negative. Occult stool done at the emergency department was negative. Home Protonix continued -06/04: Patient with variable baseline, hemoglobin drop is possibly secondary to fluids on top of his chronic anemia, transfusion threshold should be 8, had appropriate rise in hemoglobin to 8.8, is presently on ppi. Given FOBT negative and recent negative egd w/ monocytosis and fatigue, query heme/onc underlying problem more so than blood loss anemia, continue iron and will consult oncology/hematology #CAD s/p CABG and stent -No chest pain. Guideline medical therapy of Imdur and metoprolol continued -Holding any blood thinners DVT prophylaxis SCDs ordered Time spent in the patient's overall evaluation,decision-making process, review of diagnostic data, adjustment of management, discussion with other providers, nursing nursing and ancillary staff involved in patient's care documentation, 45 minutes minutes. Charges/Coding Visit Charges Inpatient E&M: 92354 Subs Hosp L2
[2023-06-04] MEDS: Folic Acid 1 MG Tablet PO (09:07)
[2023-06-04] MEDS: Ferrous Sulfate 325 MG Tablet PO (09:07)
[2023-06-04] MEDS: Isosorbide Mononitrate 30 MG Tablet PO (09:07)
[2023-06-04] MEDS: Metoprolol Tartrate 25 MG Tablet 12.5 MG PO ×2 (09:08→21:54)
[2023-06-04] MEDS: Cholecalciferol (VIT D3) 25 MCG TABLET (1,000 UNITS) PO (09:08)
[2023-06-04] MEDS: Ascorbic Acid 500 MG Tablet PO ×2 (09:08→21:55)
[2023-06-04] MEDS: Potassium Chloride Oral Tablet 20 MEQ 40 MEQ PO (09:08)
--- NOTE | 2023-06-04 11:28 | CASEMGMT ---
RN JOY Face to Face with patient for initial transition planning/care coordination assessment. RN CM introduced self and role at [facility]. Patient lying in bed, alert and oriented but wanting to sleep. He asks if can provide information. Assessment completed with . Patient's willing to participate in assessment and is able to answer all questions appropriately. Care providers, pharmacy, and demographics verified. Patient and wish to discharge home, and is open to HHC pending course of hospitalization. Pt states they have a senior care care policy if they should need it for services at home as well. She states pt was indep until approx 36 hours after endoscopy. Patient states she has no further needs or concerns at this time. CM to follow for discharge planning needs that may arise. PCP:Vinicius at [place] Specialists:FELICIA, cardio Preferred [facility]acy:[facility] Insurance:[place] benefit, [employer] Pres[employer] Benefit: yes LNOK:Guerda Bhardwaj, Living Arrangements:Pt lives with in a single story home with 4 steps to enter through the garage. Pt was I until this past Thursday. Pt denies concerns at home. Transportation: Pt drives self and denies concerns with transportation. DME:c[employer], which pt uses; FWW and man w/c available HHC:Denies hx of SNF:Denies hx of Disposition Plan: Home pending therapy evals and course of hospitalization, will follow for any HHC needs.
--- NOTE | 2023-06-04 11:31 | CT_ITS ---
INDICATION: gi bleed EXAMINATION: CTA abdomen and pelvis - TECHNIQUE: Routine abdominal CT angiogram protocol was performed with IV contrast. MIP images provided. A radiation dose optimization technique was used for this scan. IV Contrast dosage and agent: RADIATION DOSAGE (If Supplied By Facility): CTDIvol = ( 27.6 ) mGy, DLP = ( 690.48 ) mGycm COMPARISON: FINDINGS: Lung bases: Bilateral mild pleural effusions, left more than right. Liver: Normal. No bile ductal dilatation. Gallbladder: Normal. Spleen: Normal. Adrenal gland: Normal. Kidneys: Normal. No hydronephrosis or stone formation. 1 cm left renal cyst. Pancreas:Normal. Bowel gas pattern: Nonobstructive. Slightly fluid distended small bowel loops. Colonic fecal retention. Pelvic organs: No mass lesion noted. Mild presacral edema. Bone survey: No aggressive bony lesions. No acute fractures. Diffusely calcified aorta.. CT/CTA Abd/Pelvis W/WO Contrast IMPRESSION: Mild small bowel ileus. No CT evidence of active GI bleed. Left renal cyst. Mild bilateral pleural effusions. Electronically Signed: Edwardo Hughes DO at 19:22 EDT Reading Location ID and State: [facility] / [place] Tel [phone], Service support ,
[2023-06-04 12:38] LABS: Anion Gap 4 (5-15); BUN 14 mg/dL (7-18); BUN/Creat Ratio 27.7 RATIO (10-20); Calcium,Total 7.7 mg/dL (8.5-10.1); Chloride 97 mmol/L (98-107); Creatinine, Serum 0.51 mg/dL (0.70-1.30); EST Glomerular Filtration Rate 165 mL/min (>60); Est Glom Filt Rate - Afr Amer 199 mL/min (>60); Estimated Creatinine Clearance 42.97 ml/min; Glucose 101 mg/dL (74-106); Potassium 3.8 mmol/L (3.5-5.1); Sodium Level 125 mmol/L (136-145)
[2023-06-04] MEDS: Methylprednisolone Sod Succ 40 MG/ML VIAL IV ×2 (13:20→17:05)
[2023-06-04] MEDS: DiphenhydrAMINE 50 MG/ML Syringe IV (17:05)
--- NOTE | 2023-06-04 20:47 | PN_ITS ---
Progress Note Hyponatremia Check uric acid Check urine osmolarity Check urine sodium Check serum osmolality For SIADH urine osmolality is usually above 100 mosmol/kg. The urine sodium concentration is usually about 30 to 40 mEq/L. The serum potassium concentration is normal. There is no acid-base balance in the serum uric acid concentrations frequently low ADA secretion result in a concentrated urine and therefore reduced urine volume. Check summary for SIADH up-to-date. Plasma osmolality is usually less than 270 mOsm/kg
--- NOTE | 2023-06-04 20:47 | PCM.PN.BLA ---
Progress Note Nursing team with few concerns. Of note patient's family is hesitant for patient to have a scope secondary to anesthetic effects so nurses has been able to start patient on bowel prep. Family wants a conversation with health practice manager before any procedure. We will go ahead and start patient on a diet. Nurses are concerned that patient has dark and small urine output; wondering whether IV fluids should be restarted.. 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 We will restart normal saline at 75 minutes/h. We will order free water intake of it and and most the day. We will start patient on salt tablets. Check urine sodium. Check BMP in a.m.
[2023-06-04] MEDS: Atorvastatin Calcium 20 MG Tablet PO (21:54)
[2023-06-04] MEDS: Sodium Chloride 1 GM Tablet PO (21:55)
[2023-06-04] MEDS: 0.9% Normal Saline (1000mL) 1,000 ML 75 ML IV (21:56)
[2023-06-04] MEDS: Senna/Docusate Sodium 1 Tablet 2 TABLET PO (22:03)
[2023-06-05 02:10] VITALS: BP 113/54; PULSE 67; RESP 16; TEMP 37.1; O2SAT 100
[2023-06-05 04:54] LABS: Urine Sodium 48 mmol/L (Not Establ.)
[2023-06-05 05:55] LABS: Absolute Lymphocyte Count 0.58 X10^3/uL (0.83-4.51); Absolute Neutrophil Count 1.5 X10^3/uL (2.0-7.7); Hematocrit 25.6 % (40-54); Hemoglobin 8.1 g/dL (13.0-16.5); Lymphocyte # 0.58 X10^3/ul (0.83-4.51); Lymphocyte % 20.1 % (19-41); Mean Corp Hgb Conc 31.6 g/dL (32-36); Mean Corpuscular Hgb 32.4 pg (27.0-32.0); Mean Corpuscular Volume 102.4 fL (80-94); Mean Platelet Vol. 12.7 fl (6.2-12.0); Monocyte# 0.75 X10^3/uL; NRBC Flagged by Analyzer 0 % (0-5); Neutrophil # 1.53 X10^3/uL (2.7-7.7); Neutrophil % 52.9 % (47-70); POSITIVE DIFFERENTIAL YES; POSITIVE MORPHOLOGY YES; Platelet Count 149 K/mm3 (150-450); RBC Distribution Width CV 18.4 % (11.6-14.6); RBC Distribution Width SD 68.9 fl (35.1-43.9); White Blood Count 2.9 K/mm3 (4.4-11.0)
[2023-06-05 05:56] LABS: Differential Indicated SCAN CRITERIA MET
--- NOTE | 2023-06-05 06:16 | ONC.CONSULT ---
Assessment & Plan Assessment/Plan (1) Pancytopenia: Status: Acute Code(s): D61.818 - Other pancytopenia (2) Prolonged prothrombin time (PT) and partial thromboplastin time (PTT): Status: Acute Code(s): R79.1 - Abnormal coagulation profile Plan: Impression: -Pancytopenia. -History of B12 deficiency. Now B12 replete. -Mildly prolonged PT and aPTT. -Not iron deficient. -Doubt significant GI blood loss. 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 Plan: -Check retic count, serum copper and fibrinogen. -RBC transfusion for Hgb < 7.5 g/dL or higher if symptomatic or bleeding. -Bone marrow biopsy and further work up of coagulation times as outpatient. -Discussed with Dr. Chery. I spent a total of 50 minutes on the date of the service which included preparing to see the patient, [id number] patient care, completing clinical documentation, obtaining and/or reviewing separately obtained history, performing a medically appropriate examination, counseling and educating the patient/family/caregiver, ordering medications, tests, or procedures, communicating with other HCPs (not separately reported), and communicating results to the patient/family/caregiver. HPI Consult Data Date of Service:: 06/05/23 PCP / Referring Provider: [facility] Attending: Dr. Miri Gibson MD Chief Complaint Chief Complaint: Anemia and thrombocytopenia History of Present Illness History of Present Illness: HPI:?The patient is an 88-year-old male who has a past medical history significant for?CAD?([place]; LARSON to LAD, reverse SVG to 1 diagonal, obtuse marginal, and PDA. 11/2005;?PTCA/Stent to Diag 1 and PDA, unsuccessful angioplasty to CFX 12/29/09; PTCA/Stent of SVG to Diag artery 11/14/11),?hyperlipidemia, paroxysmal A. fib?and BPH?who presented to [facility] in May with a complaint of a 3 day history of intermittent episodes of lightheadedness which were worse upon standing. He was described by his is being pale and he noted stools that were darker in color than usual. ? Was on aspirin and Plavix for his history of coronary artery disease and intervention/CABG. ? Per discharge summary, FOBT was negative. General surgery was consulted, patient underwent EGD. ?Findings included nonbleeding gastric ulcer with no stigmata of bleeding which were biopsied. ?She had received 2 units of packed RBCs and his hemoglobin dropped to 7.3. ?Hemoglobin 6 months earlier was 11.8. ?His discharge hemoglobin was 10.0 Patient was started on aspirin in consultation with general surgery and cardiology. ?Will see cardiology in the outpatient within 2 weeks. ?He was see general surgery in 1 week for planned colonoscopy. ?He was discharged on PPI twice daily. ? Inpatient EGD 05/25/2019: Impressions :? - Normal examined jejunum.? - Normal.? - Non-bleeding gastric ulcers with no stigmata of bleeding. ?Biopsied.? - Normal esophagus. ? Pathology: A. ?Antral biopsy: ?Mild gastritis. ?See microscopic description and comment. B. 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 Mild chronic inflammation. ?See comment. ? Patient's hemoglobin on admission was 8.7 g/dL. At the time of discharge was 10.0 g/dL. Total white blood cell count on admission was 3500. Differential was unremarkable. Platelet count under 56,000. At time of discharge total white count is 4700 and the platelet count 143,000. Renal function showed GFR of 84 mL's per minute. Liver chemistries unremarkable. Serum B-12 level was 216. Urine was negative for protein by dipstick analysis. Colonoscopy 06/14/2019: Impression: ?-The entire examined colon is normal on direct and retroflexion views. - Diverticulosis in the sigmoid colon.? -No specimens collected.? ? Recalls begin told several years ago that had low B12 level at the [facility] and was started on B12 injections. Recalls getting them for several months. Doesn't know exactly when last one was but at least 3-4 years prior to evaluation in 2019.. ? He resumed B12 injections at the [facility] in 2019. Was to follow up with me if counts didn't improve. Admitted here for anemia. Had EGD. Potential Davila's. Discharged and returned to ED with increasing weakness, shortness of breath and chest pain. Transfused. Potential c-scope. He denies black and bloody stools. No abd pain or nausea. Chest pain resolved. Advanced Directives Power of Rear Admiral: Yes Living Will: Yes [facility] Medical History Atherosclerotic heart disease of [place] coronary artery without angina pectoris Chest pain Chronic pain Colitis COVID-19 Diverticulitis Excision of the left atrial appendage Hiatal hernia Hyperlipidemia Kidney stones Old myocardial infarction Paroxysmal atrial fibrillation Premature ventricular contraction Upper gastrointestinal bleed Home Medications acetaminophen 500 mg tablet 500 mg PO DAILY PRN PRN BACK PAIN 05/24/19 [History Last Taken 05/23/19] cholecalciferol (vitamin D3) 25 mcg (1,000 unit) tablet 25 mcg PO DAILY vitamin 02/26/22 [History Last Taken Unknown] Handicap Placard #1 ea 08/22/22 [Rx Last Taken Unknown] isosorbide mononitrate 30 mg tablet,extended release 24 hr 30 mg PO DAILY HEART #90 tabs 09/09/22 [Rx Last Taken Unknown] nitroglycerin 0.4 mg sublingual tablet 0.4 mg sublingual Q5-15M PRN CHEST PAIN #25 tabs 11/12/22 [Rx Last Taken Unknown] metoprolol tartrate 25 mg tablet 12.5 mg (1/2 x 25 mg) PO BID BP #90 tabs 02/16/23 [Rx Last Taken Unknown] simvastatin 20 mg tablet 40 mg PO DAILY CHOLESTEROL 05/29/23 [History Last Taken Unknown] ascorbic acid (vitamin C) 500 mg tablet 500 mg PO BID #60 tabs 06/01/23 [Rx Last Taken Unknown] ferrous sulfate 325 mg (65 mg iron) tablet (FeroSul) 325 mg PO DAILY 30 days #30 tabs 06/01/23 [Rx Last Taken Unknown] folic acid 1 mg tablet 1 mg PO DAILY #30 tabs 06/01/23 [Rx Last Taken Unknown] pantoprazole 40 mg tablet,delayed release (Protonix) 40 mg PO BID #60 tabs 06/01/23 [Rx Last Taken Unknown] sennosides 8.6 mg-docusate sodium 50 mg tablet (Stool Softener-Stimulant Laxative) 2 tab PO BID PRN PRN Constipation #0 tabs 06/01/23 [Rx Last Taken Unknown] Allergy/AdvReac Type Severity Reaction Status Date / Time ciprofloxacin [From Cipro] Allergy Unknown Rash Verified 06/03/23 16:22 EZEQUIEL Inhibitors Allergy cough Verified 06/03/23 16:22 benzonatate Allergy rash Verified 06/03/23 16:22 [From Tessalon Perles] ipodate [From Oragrafin] Allergy Rash Verified 06/03/23 16:22 Family History Father Prostate cancer Mother CVA (cerebral vascular accident) Brother Cancer Surgical History H/O maze procedure History of bilateral cataract extraction History of hernia repair Hx of appendectomy Postsurgical percutaneous transluminal coronary angioplasty (PTCA) status Presence of stent in coronary artery (~11/14/11) S/P CABG (coronary artery bypass graft) (~11/2005) S/P right inguinal hernia repair Social History Smoking Status: Never smoker alcohol intake: never substance use type: does not use caffeine: Yes Type: coffee Number of servings: 2 ROS ROS Narrative Pertinent positives and pertinent negatives as noted in HPI. All other systems were reviewed and are negative Physical Exam Const alert and oriented x3 Eyes no scleral icterus Neck no lymphadenopathy Resp normal respiratory effort Cardio regular rhythm GI soft to palpation, non-tender and no masses Extremity no clubbing, cyanosis or edema Skin no jaundice Vital Signs Temperature 98.8 F 06/05/23 02:10 Temperature Source Oral 06/05/23 02:10 Pulse Rate 67 06/05/23 02:10 Pulse Strength Normal (2+) 06/04/23 22:00 Respiratory Rate 16 06/05/23 02:10 Respiratory Effort Normal, Non-Labored 06/04/23 22:09 Respiratory Depth Normal 06/04/23 22:09 Respiratory Pattern Normal 06/04/23 22:09 Blood Pressure 113/54 L 06/05/23 02:10 Blood Pressure Mean 73 06/05/23 02:10 Blood Pressure Source Monitor 06/05/23 02:10 Blood Pressure Position Semi-Fowlers 06/05/23 02:10 Blood Pressure Location Left Arm 06/05/23 02:10 Pulse Ox 100 06/05/23 02:10 Oxygen Delivery Method Room Air 06/05/23 02:10 Laboratory Results - last 24 hr 06/04/23 06:55: WBC 7.0, Corrected WBC MOLDER FLOOR, RBC 2.71 L, Hgb 8.8 L, Hct 26.7 L, MCV 98.5 H, MCH 32.5 H, MCHC 33.0, RDW Std Deviation 65.3 H, RDW Coeff of Zachariah 18.3 H, Plt Count 143 L, MPV 11.9, Immature Gran % (Auto) 0.600, Neut % (Auto) 54.9, Lymph % (Auto) 9.4 L, [place] % (Auto) 35.0 H, Eos % (Auto) 0.0, Baso % (Auto) 0.1, Absolute Neuts (auto) 3.9, Absolute Lymphs (auto) 0.66 L, Total Counted MOLDER FLOOR, Neutrophils % (Manual) MOLDER FLOOR, Band Neutrophils % MOLDER FLOOR, Lymphocytes % (Manual) MOLDER FLOOR, Monocytes % (Manual) MOLDER FLOOR, Eosinophils % (Manual) MOLDER FLOOR, Basophils % (Manual) MOLDER FLOOR, Metamyelocytes % MOLDER FLOOR, Myelocytes % MOLDER FLOOR, Promyelocytes % MOLDER FLOOR, Blast Cells % MOLDER FLOOR, Plasma Cell % (Manual) MOLDER FLOOR, Other Cells % MOLDER FLOOR, Nucleated RBC % 0, Nucleated RBCs/100 WBC MOLDER FLOOR, Differential Comment MOLDER FLOOR, Diff Path Review May foll, Hypersegmented Neuts MOLDER FLOOR, Atypical Lymphocytes MOLDER FLOOR, Reactive Lymphocytes MOLDER FLOOR, Smudge Cells MOLDER FLOOR, Toxic Granulation MOLDER FLOOR, Toxic Vacuolation MOLDER FLOOR, Dohle Bodies MOLDER FLOOR, Ankush Rods MOLDER FLOOR, Platelet Estimate MOLDER FLOOR, Plt Morphology Comment MOLDER FLOOR, RBC Morphology MOLDER FLOOR 06/04/23 06:55: RBC Morphology MOLDER FLOOR, Polychromasia MOLDER FLOOR, Hypochromasia MOLDER FLOOR, Poikilocytosis MOLDER FLOOR, Basophilic Stippling MOLDER FLOOR, Anisocytosis MOLDER FLOOR, Microcytosis MOLDER FLOOR, Macrocytosis MOLDER FLOOR, Spherocytes MOLDER FLOOR, Sickle Cells MOLDER FLOOR, Target Cells MOLDER FLOOR, Tear Drop Cells MOLDER FLOOR, Ovalocytes MOLDER FLOOR, Stomatocytes MOLDER FLOOR, [place] Bodies MOLDER FLOOR, Suresh Cells MOLDER FLOOR, Bite Cells MOLDER FLOOR, Crenated Cell MOLDER FLOOR, Acanthocytes (Spur) MOLDER FLOOR, Rouleaux MOLDER FLOOR, Schistocytes MOLDER FLOOR, Sodium 127 L, Potassium 3.4 L, Chloride 96 L, Carbon Dioxide 23.0, Anion Gap 8, BUN 13, Creatinine 0.63 L, Estim Creat Clear Calc 42.97, Est GFR (MDRD) Af Amer 156, Est GFR (MDRD) Non-Af 129, BUN/Creatinine Ratio 20.8 H, Glucose 104, Calcium 8.1 L, TSH 0.56, Cortisol 37.60 H 06/04/23 11:53: Sodium 125 L, Potassium 3.8, Chloride 97 L, Carbon Dioxide 24.0, Anion Gap 4 L, BUN 14, Creatinine 0.51 L, Estim Creat Clear Calc 42.97, Est GFR (MDRD) Af Amer 199, Est GFR (MDRD) Non-Af 165, BUN/Creatinine Ratio 27.7 H, Glucose 101, Calcium 7.7 L 06/05/23 00:15: Ur Random Sodium 48 06/05/23 05:32: WBC 2.9 L, RBC 2.50 L, Hgb 8.1 L, Hct 25.6 L, MCV 102.4 H, MCH 32.4 H, MCHC 31.6 L, RDW Std Deviation 68.9 H, RDW Coeff of Zachariah 18.4 H, Plt Count 149 L, MPV 12.7 H, Immature Gran % (Auto) 1.000 H, Neut % (Auto) 52.9, Lymph % (Auto) 20.1, [place] % (Auto) 26.0 H, Eos % (Auto) 0.0, Baso % (Auto) 0.0, Absolute Neuts (auto) 1.5 L, Absolute Lymphs (auto) 0.58 L, Nucleated RBC % 0 Diagnostic Data Chest X-Ray 06/03/23 17:00 IMPRESSION: Elevated right hemidiaphragm and mild subsegmental atelectasis of the right lower lobe Electronically Signed: Ezequiel Serrano MD at 17:17 EDT , Abdomen/Pelvis CTA 06/04/23 11:31 IMPRESSION: Mild small bowel ileus. No CT evidence of active GI bleed. Left renal cyst. Mild bilateral pleural effusions. Electronically Signed: Edwardo Hughes DO at 19:22 EDT ,
[2023-06-05 06:19] LABS: Anisocytosis 1+; Differential Comment SCANNED; Macrocytosis 1+
[2023-06-05 06:29] LABS: Anion Gap 7 (5-15); BUN 18 mg/dL (7-18); BUN/Creat Ratio 30.6 RATIO (10-20); Calcium,Total 8.2 mg/dL (8.5-10.1); Chloride 100 mmol/L (98-107); Creatinine, Serum 0.59 mg/dL (0.70-1.30); EST Glomerular Filtration Rate 138 mL/min (>60); Est Glom Filt Rate - Afr Amer 167 mL/min (>60); Estimated Creatinine Clearance 42.97 ml/min; Glucose 135 mg/dL (74-106); Potassium 3.9 mmol/L (3.5-5.1); Sodium Level 128 mmol/L (136-145)
[2023-06-05] MEDS: 0.9% Normal Saline (1000mL) 1,000 ML 75 ML IV (06:31)
[2023-06-05 06:54] LABS: Platelet Count 149 K/mm3 (150-450); RET-HE 33.2 pg (30-35); Reticulocyte Count 5.43 % (0.5-1.5)
--- NOTE | 2023-06-05 07:00 | EX.PCM.PN.GI ---
Subjective Subjective I talked to his and she said that she did not want him to undergo a colonoscopy at this time because she did not feel he is recovered from his upper endoscopy. She feels like he is much more lethargic/secondary to the sedation. His hemoglobin does seem to be stable at this time. Objective Data Objective Data Vital Signs: Vital Signs Temp Pulse Resp BP Pulse Ox O2 Del Method 97.8 F 68 18 99/51 L 96 Room Air 06/05/23 12:15 06/05/23 12:15 06/05/23 12:15 06/05/23 12:15 06/05/23 12:15 06/05/23 12:15 Oxygen Delivery Method Room Air Weight: 131 lb 2.801 oz Body Mass Index (BMI) 19.8 Intake & Output: Intake and Output for Last 24 Hours 06/03/23 06/04/23 06/05/23 23:59 23:59 23:59 Intake Total 500 / 500 1435.0 / 1735.0 943.75 / 943.75 Output Total 900 / 1275 475 / 475 Balance 500 / 500 535.0 / 460.0 468.75 / 468.75 Lab / Micro Data 06/05/23 05:32 06/05/23 05:32 Labs: Laboratory Results - last 24 hr 06/04/23 06:55: Diff Path Review Reviewed 06/05/23 00:15: Ur Random Sodium 48 06/05/23 05:32: WBC 2.9 L, RBC 2.50 L, Hgb 8.1 L, Hct 25.6 L, MCV 102.4 H, MCH 32.4 H, MCHC 31.6 L, RDW Std Deviation 68.9 H, RDW Coeff of Zachariah 18.4 H, Plt Count 149 L, MPV 12.7 H, Immature Gran % (Auto) 1.000 H, Neut % (Auto) 52.9, Lymph % (Auto) 20.1, [place] % (Auto) 26.0 H, Eos % (Auto) 0.0, Baso % (Auto) 0.0, Absolute Neuts (auto) 1.5 L, Absolute Lymphs (auto) 0.58 L, Nucleated RBC % 0, Differential Comment SCANNED, Diff Path Review Reviewed, Anisocytosis 1+, Macrocytosis 1+, Retic Count 5.43 H, Immature Retic Fraction 23.40 H, Retic Hgb Equivalent 33.2, Sodium 128 L, Potassium 3.9, Chloride 100, Carbon Dioxide 21.0, Anion Gap 7, BUN 18, Creatinine 0.59 L, Estim Creat Clear Calc 42.97, Est GFR (MDRD) Af Amer 167, Est GFR (MDRD) Non-Af 138, BUN/Creatinine Ratio 30.6 H, Glucose 135 H, Calcium 8.2 L, Direct Bilirubin 0.53 H, Lactate Dehydrogenase 140 06/05/23 06:30: Fibrinogen 601 H Micro: Microbiology 06/03/23 19:50 Stool Stool Occult Blood ([facility]) - Final 06/03/23 17:05 Nasal Secretion SARS-CoV-2 Antigen (Rapid) - Final Radiography Diagnostic Testing: Radiology Impression Abdomen/Pelvis CTA 06/04/23 11:31 IMPRESSION: Mild small bowel ileus. No CT evidence of active GI bleed. Left renal cyst. Mild bilateral pleural effusions. Electronically Signed: Edwardo Hughes DO at 19:22 EDT Reading Location ID and State: [facility] / [place] Tel [phone], Service support , Physical Exam Narrative General: Alert, no apparent distress HEENT: Atraumatic, normocephalic Eyes: extraocular movements grossly intact Neck: Supple Respiratory: normal respiratory effort Cardiovascular: Regular rate GI: nondistended Extremities: Moving all extremities Neuro: No overt focal neurological deficits Psych: Cooperative Assessment & Plan Assessment/Plan (1) Acute GI bleeding: (2) History of atrial fibrillation: PLAN: Plan 88-year-old with past med history of CAD status post CABG on aspirin and Plavix, atrial fibrillation, chronic anemia who presents with shortness of breath and fatigue and determined to have hemoglobin 8.4. Acute severe on chronic macrocytic anemia suspected from upper GI bleed: I offered patient an upper endoscopy or an upper endoscopy and colonoscopy plus minus capsule endoscopy. Patient says that he does not want to undergo any procedures at this time. He can get a capsule endoscopy as an outpatient if he wishes. Recommend work-up for macrocytic anemia in the setting of acute GI blood loss. I would transfuse for hemoglobin greater than 7. Patient should have a capsule endoscopy if his does not want him to have a colonoscopy to locate the etiology of his acute on chronic anemia. Charges/Coding Visit Charges Inpatient E&M: 77067 Subs Hosp L3
--- NOTE | 2023-06-05 07:03 | PN.HOSP_ITS ---
Reason for Visit Reason for Visit: Diagnoses Anemia, unspecified (06/04/23) Dehydration (06/04/23) Hypo-osmolality and hyponatremia (06/04/23) Objective Data Objective Data Vital Signs: Vital Signs Temp Pulse Resp BP Pulse Ox O2 Del Method 98.8 F 67 16 113/54 L 100 Room Air 06/05/23 02:10 06/05/23 02:10 06/05/23 02:10 06/05/23 02:10 06/05/23 02:10 06/05/23 02:10 Oxygen Delivery Method Room Air Weight: 59.5 kg Body Mass Index (BMI) 19.8 Intake & Output: Intake and Output for Last 24 Hours 06/03/23 06/04/23 06/05/23 23:59 23:59 23:59 Intake Total 500 / 500 1435.0 / 1735.0 943.75 / 943.75 Output Total 900 / 1275 475 / 475 Balance 500 / 500 535.0 / 460.0 468.75 / 468.75 Lab / Micro Data 06/05/23 05:32 06/05/23 05:32 Labs: Laboratory Results - last 24 hr 06/04/23 06:55: WBC 7.0, Corrected WBC [employer], RBC 2.71 L, Hgb 8.8 L, Hct 26.7 L, MCV 98.5 H, MCH 32.5 H, MCHC 33.0, RDW Std Deviation 65.3 H, RDW Coeff of Zachariah 18.3 H, Plt Count 143 L, MPV 11.9, Immature Gran % (Auto) 0.600, Neut % (Auto) 54.9, Lymph % (Auto) 9.4 L, [place] % (Auto) 35.0 H, Eos % (Auto) 0.0, Baso % (Auto) 0.1, Absolute Neuts (auto) 3.9, Absolute Lymphs (auto) 0.66 L, Total Counted [employer], Neutrophils % (Manual) [employer], Band Neutrophils % [employer], Lymphocytes % (Manual) [employer], Monocytes % (Manual) [employer], Eosinophils % (Manual) [employer], Basophils % (Manual) [employer], Metamyelocytes % [employer], Myelocytes % [employer], Promyelocytes % [employer], Blast Cells % [employer], Plasma Cell % (Manual) [employer], Other Cells % [employer], Nucleated RBC % 0, Nucleated RBCs/100 WBC [employer], Differential Comment [employer], Diff Path Review May foll, Hypersegmented Neuts [employer], Atypical Lymphocytes [employer], Reactive Lymphocytes [employer], Smudge Cells [employer], Toxic Granulation [employer], Toxic Vacuolation [employer], Dohle Bodies [employer], Ankush Rods [employer], Platelet Estimate [employer], Plt Morphology Comment [employer], RBC Morphology [employer] 06/04/23 06:55: RBC Morphology [employer], Polychromasia [employer], Hypochromasia [employer], Poikilocytosis [employer], Basophilic Stippling [employer], Anisocytosis [employer], Microcytosis [employer], Macrocytosis [employer], Spherocytes [employer], Sickle Cells [employer], Target Cells [employer], Tear Drop Cells [employer], Ovalocytes [employer], Stomatocytes [employer], Sandhu-Kersey Bodies [employer], [place] Cells [employer], Bite Cells [employer], Crenated Cell [employer], Acanthocytes (Spur) [employer], Rouleaux [employer], Schistocytes [employer], Sodium 127 L, Potassium 3.4 L, Chloride 96 L, Carbon Dioxide 23.0, Anion Gap 8, BUN 13, Creatinine 0.63 L, Estim Creat Clear Calc 42.97, Est GFR (MDRD) Af Amer 156, Est GFR (MDRD) Non-Af 129, BUN/Creatinine Ratio 20.8 H, Glucose 104, Calcium 8.1 L, TSH 0.56, Cortisol 37.60 H 06/04/23 11:53: Sodium 125 L, Potassium 3.8, Chloride 97 L, Carbon Dioxide 24.0, Anion Gap 4 L, BUN 14, Creatinine 0.51 L, Estim Creat Clear Calc 42.97, Est GFR (MDRD) Af Amer 199, Est GFR (MDRD) Non-Af 165, BUN/Creatinine Ratio 27.7 H, Glucose 101, Calcium 7.7 L 06/05/23 00:15: Ur Random Sodium 48 06/05/23 05:32: WBC 2.9 L, RBC 2.50 L, Hgb 8.1 L, Hct 25.6 L, MCV 102.4 H, MCH 32.4 H, MCHC 31.6 L, RDW Std Deviation 68.9 H, RDW Coeff of Zachariah 18.4 H, Plt Count 149 L, MPV 12.7 H, Immature Gran % (Auto) 1.000 H, Neut % (Auto) 52.9, Lymph % (Auto) 20.1, [place] % (Auto) 26.0 H, Eos % (Auto) 0.0, Baso % (Auto) 0.0, Absolute Neuts (auto) 1.5 L, Absolute Lymphs (auto) 0.58 L, Nucleated RBC % 0, Differential Comment SCANNED, Diff Path Review January, Anisocytosis 1+, Macrocytosis 1+, Retic Count 5.43 H, Immature Retic Fraction 23.40 H, Retic Hgb Equivalent 33.2, Sodium 128 L, Potassium 3.9, Chloride 100, Carbon Dioxide 21.0, Anion Gap 7, BUN 18, Creatinine 0.59 L, Estim Creat Clear Calc 42.97, Est GFR (MDRD) Af Amer 167, Est GFR (MDRD) Non-Af 138, BUN/Creatinine Ratio 30.6 H, Glucose 135 H, Calcium 8.2 L Micro: Microbiology 06/03/23 19:50 Stool Stool Occult Blood (MING) - Final 06/03/23 17:05 Nasal Secretion SARS-CoV-2 Antigen (Rapid) - Final Radiography Diagnostic Testing: Radiology Impression Abdomen/Pelvis CTA 06/04/23 11:31 IMPRESSION: Mild small bowel ileus. No CT evidence of active GI bleed. Left renal cyst. Mild bilateral pleural effusions. Electronically Signed: Edwardo Hughes DO at 19:22 EDT Reading Location ID and State: [facility] / [place] Tel [phone], Service support , Assessment & Plan Assessment/Plan (1) Dehydration: (2) Acute hyponatremia: (3) Anemia: QUALIFIERS: Anemia type: unspecified type Qualified Code(s): D64.9 - Anemia, unspecified PLAN: Plan #Generalized weakness, likely multifactorial given his anemia and hyponatremia -Patient received 1 unit packed red blood cells after hemoglobin decreased to 6.6, hemoglobin now up to 8.8, had recent upper endoscopy which did not show any bleeding lesions -PPI switched to IV and GI consulted overnight, patient supposed to have outpatient capsule endoscopy pending insurance approval -Pt receiving IVF w/ NS and Na increased from 124 to 127, BMP to be repeated at noon -Patient appears to have history of intermittent hyponatremia but the lowest previously was 132 until 05/29/2023 when it was 128 however no values before that since 2019 so unclear chronicity -TSH within normal limits, serum osmole's 256 with urine osmoles of 657 -Case management consult, PT/OT -On further review patient has fairly significant monocytosis, cannot rule out underlying hematologic or oncology problem, given patient's continued weakness despite transfusing packed red blood cells and second hospitalization in 2 weeks we will consult hematology/oncology. Upon further discussion with patient he did see Dr. Holman several years ago for anemia and no underlying cause was found and it has worsened since then, he was post to see him again earlier this year however decided not to go to the appointment. 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 No gross lesions in the second portion of the duodenum. Biopsies were taken; pathology reviewed. Pathology showed fragments of gastroesophageal mucosa with chronic inflammation. Intestinal metaplasia (goblet cell metaplasia) was not identified. -Iron studies on 05/29/2023 was reviewed. Iron studies was unremarkable. Vitamin B12 was elevated. Folic acid was low normal. Folic acid continued -We will trend CBC and H&H. Reportedly occult stools done at the emergency department was negative. Occult stool done at the emergency department was negative. Home Protonix continued -06/04: Patient with variable baseline, hemoglobin drop is possibly secondary to fluids on top of his chronic anemia, transfusion threshold should be 8, had appropriate rise in hemoglobin to 8.8, is presently on ppi. Given FOBT negative and recent negative egd w/ monocytosis and fatigue, query heme/onc underlying problem more so than blood loss anemia, continue iron and will consult oncology/hematology -06/05: Patient had bowel prep in place but family yesterday hesitant to proceed with colonoscopy and wanted to discuss with GI first so he was given a diet ov ernight, CTA with mild bilateral pleural effusions and no CT evidence of GI bleed with possible mild small bowel ileus #CAD s/p CABG and stent -No chest pain. Guideline medical therapy of Imdur and metoprolol continued -Holding any blood thinners DVT prophylaxis SCDs ordered Time spent in the patient's overall evaluation,decision-making process, review of diagnostic data, adjustment of management, discussion with other providers, nursing nursing and ancillary staff involved in patient's care documentation, 45 minutes minutes. Charges/Coding Visit Charges Inpatient E&M: 09605 Subs Hosp L2
[2023-06-05 07:08] LABS: Bilirubin, Direct 0.53 mg/dL (0.00-0.30); LDH 140 U/L (87-241)
[2023-06-05 07:19] LABS: Fibrinogen 601 mg/dl (203-444)
[2023-06-05 08:40] VITALS: BP 110/51; PULSE 64; RESP 18; TEMP 36.3; O2SAT 99
[2023-06-05] MEDS: Cholecalciferol (VIT D3) 25 MCG TABLET (1,000 UNITS) PO (08:43)
[2023-06-05] MEDS: Sodium Chloride 1 GM Tablet PO (08:43)
[2023-06-05] MEDS: Ascorbic Acid 500 MG Tablet PO (08:43)
[2023-06-05] MEDS: Ferrous Sulfate 325 MG Tablet PO (08:43)
[2023-06-05] MEDS: Folic Acid 1 MG Tablet PO (08:43)
[2023-06-05 08:47] VITALS: PULSE 64
[2023-06-05] MEDS: Isosorbide Mononitrate 30 MG Tablet PO (08:47)
[2023-06-05] MEDS: Metoprolol Tartrate 25 MG Tablet 12.5 MG PO (08:47)
[2023-06-05 09:09] LABS: Pathologist Review Reviewed
--- NOTE | 2023-06-05 10:50 | CASEMGMT ---
Social Work Pt has a living will and health care POA naming his Guerda Bhardwaj on file. SW printed documents from the [facility] and placed on chart for scanning into the medical record. LE Moreno
--- NOTE | 2023-06-05 11:54 | CASEMGMT ---
Discharge Planning A list of?HH ?providers including quality and resource use data and consistent with the patient's preferred geographic region, medical needs, and insurance network was created in [employer] Guide.? This list was provided to the RN JOY. Mary Brumfield, Discharge Planning Asst.
[2023-06-05 11:56] VITALS: O2SAT 99
[2023-06-05 12:15] VITALS: BP 99/51; PULSE 68; RESP 18; TEMP 36.6; O2SAT 96
[2023-06-05 12:20] LABS: Pathologist Review Reviewed
--- NOTE | 2023-06-05 12:33 | DS.PCM_ITS ---
Providers Date of Admission: 06/04/23 Primary Care Physician: [facility] Consultations 06/04/23 01:44 Consult: Gastroenterology Routine Consulting Provider: Ra Berenicehsaan Reason for Consult: Anemia EMERGENT Consult: No Notified: Yes Date Notified: 06/04/23 Time Notified: 07:07 Method of Notification: Text 06/04/23 07:52 Consult: Oncology/Hematology Routine Consulting Provider: Vinicius Holman Reason for Consult: Dr. Holman on- monocytosis, anemia/thrombocytopenia, no GIB, ?heme/onc malgi EMERGENT Consult: No Notified: Yes Date Notified: 06/04/23 Time Notified: 11:18 Method of Notification: page Reason For Visit: WEAKNESS, HYPONATREMIA Diagnosis Discharge Diagnosis (1) Pancytopenia: Status: Acute Code(s): D61.818 - Other pancytopenia (2) Prolonged prothrombin time (PT) and partial thromboplastin time (PTT): Status: Acute Code(s): R79.1 - Abnormal coagulation profile Plan #Generalized weakness, likely multifactorial given his anemia and hyponatremia -Patient received 1 unit packed red blood cells after hemoglobin decreased to 6.6, hemoglobin now up to 8.8, had recent upper endoscopy which did not show any bleeding lesions -PPI switched to IV and GI consulted overnight, patient supposed to have outpatient capsule endoscopy pending insurance approval -Pt receiving IVF w/ NS and Na increased from 124 to 127, BMP to be repeated at noon -Patient appears to have history of intermittent hyponatremia but the lowest previously was 132 until 05/29/2023 when it was 128 however no values before that since 2018 so unclear chronicity -TSH within normal limits, serum osmole's 256 with urine osmoles of 657 -Case management consult, PT/OT -On further review patient has fairly significant monocytosis, cannot rule out underlying hematologic or oncology problem, given patient's continued weakness despite transfusing packed red blood cells and second hospitalization in 2 weeks we will consult hematology/oncology. Upon further discussion with patient he did see Dr. Holman several years ago for anemia and no underlying cause was found and it has worsened since then, he was post to see him again earlier this year however decided not to go to the appointment. 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 No gross lesions in the second portion of the duodenum. Biopsies were taken; pathology reviewed. Pathology showed fragments of gastroesophageal mucosa with chronic inflammation. Intestinal metaplasia (goblet cell metaplasia) was not identified. -Iron studies on 05/29/2023 was reviewed. Iron studies was unremarkable. Vitamin B12 was elevated. Folic acid was low normal. Folic acid continued -We will trend CBC and H&H. Reportedly occult stools done at the emergency department was negative. Occult stool done at the emergency department was negative. Home Protonix continued -06/04: Patient with variable baseline, hemoglobin drop is possibly secondary to fluids on top of his chronic anemia, transfusion threshold should be 8, had appropriate rise in hemoglobin to 8.8, is presently on ppi. Given FOBT negative and recent negative egd w/ monocytosis and fatigue, query heme/onc underlying problem more so than blood loss anemia, continue iron and will consult oncology/hematology -06/05: Patient had bowel prep in place but family yesterday hesitant to proceed with colonoscopy and wanted to discuss with GI first so he was given a diet overnight, CTA with mild bilateral pleural effusions and no CT evidence of GI bleed with possible mild small bowel ileus #CAD s/p CABG and stent -No chest pain. Guideline medical therapy of Imdur and metoprolol continued -Holding any blood thinners DVT prophylaxis SCDs ordered Time spent in the patient's overall evaluation,decision-making process, review of diagnostic data, adjustment of management, discussion with other providers, nursing nursing and ancillary staff involved in patient's care documentation, 45 minutes minutes. Medications at Discharge Home Medications acetaminophen 500 mg tablet 500 mg PO DAILY PRN PRN BACK PAIN 05/24/19 cholecalciferol (vitamin D3) 25 mcg (1,000 unit) tablet 25 mcg PO DAILY vitamin 02/26/22 Handicap Placard #1 ea 08/22/22 isosorbide mononitrate 30 mg tablet,extended release 24 hr 30 mg PO DAILY HEART #90 tabs 09/09/22 nitroglycerin 0.4 mg sublingual tablet 0.4 mg sublingual Q5-15M PRN CHEST PAIN #25 tabs 11/12/22 metoprolol tartrate 25 mg tablet 12.5 mg (1/2 x 25 mg) PO BID BP #90 tabs 02/16/23 simvastatin 20 mg tablet 40 mg PO DAILY CHOLESTEROL 05/29/23 ascorbic acid (vitamin C) 500 mg tablet 500 mg PO BID #60 tabs 06/01/23 ferrous sulfate 325 mg (65 mg iron) tablet (FeroSul) 325 mg PO DAILY 30 days #30 tabs 06/01/23 folic acid 1 mg tablet 1 mg PO DAILY #30 tabs 06/01/23 pantoprazole 40 mg tablet,delayed release (Protonix) 40 mg PO BID #60 tabs 06/01/23 sennosides 8.6 mg-docusate sodium 50 mg tablet (Stool Softener-Stimulant Laxative) 2 tab PO BID PRN PRN Constipation #0 tabs 06/01/23 Medical Records Data Medical Nutrition Assessment Dietitian: Malnutrition Criteria Met Start: 06/05/23 10:27 Freq: Status: Active Protocol: Document 06/05/23 10:27 [facility] (Rec: 06/05/23 10:27 [facility] Desktop) Nutrition Malnutrition Evidence of Malnutrition Exists Yes Evidenced By Suboptimal Energy Intake ( Moderate),Weight Loss (Severe) ,Physical Changes (Moderate) Clinical Problem Acute Disease or Injury Related Malnutrition Etiology related to inadequate energy intake Signs/Symptoms as evidenced by <50% of est nutritional needs x 5 days, 9. 8% unintended wt loss x 3 mo and fat/muscle loss throughout body Status Active Problem Recommendation Dietitian Recommendations/Changes Will continue liberal regular diet w/ fluid restriction per MD d/t signs and symptoms of malnutrition Will add 120 ml ensure clear w / breakfast and magic cup w/ lunch and dinner for increased nutrition if consumed Rec increase fluid restriction as medically able. Weight / BMI Weight Weight: 59.5 kg Body Mass Index (BMI) 19.8 ABG / Lab / Microbiology Data 06/05/23 05:32 06/05/23 05:32 Laboratory: Laboratory Results - last 24 hr 06/04/23 06:55: Diff Path Review Reviewed 06/04/23 11:53: Sodium 125 L, Potassium 3.8, Chloride 97 L, Carbon Dioxide 24.0, Anion Gap 4 L, BUN 14, Creatinine 0.51 L, Estim Creat Clear Calc 42.97, Est GFR (MDRD) Af Amer 199, Est GFR (MDRD) Non-Af 165, BUN/Creatinine Ratio 27.7 H, Glucose 101, Calcium 7.7 L 06/05/23 00:15: Ur Random Sodium 48 06/05/23 05:32: WBC 2.9 L, RBC 2.50 L, Hgb 8.1 L, Hct 25.6 L, MCV 102.4 H, MCH 32.4 H, MCHC 31.6 L, RDW Std Deviation 68.9 H, RDW Coeff of Zachariah 18.4 H, Plt Count 149 L, MPV 12.7 H, Immature Gran % (Auto) 1.000 H, Neut % (Auto) 52.9, Lymph % (Auto) 20.1, [place] % (Auto) 26.0 H, Eos % (Auto) 0.0, Baso % (Auto) 0.0, Absolute Neuts (auto) 1.5 L, Absolute Lymphs (auto) 0.58 L, Nucleated RBC % 0, Differential Comment SCANNED, Diff Path Review Reviewed, Anisocytosis 1+, Macrocytosis 1+, Retic Count 5.43 H, Immature Retic Fraction 23.40 H, Retic Hgb Equivalent 33.2, Sodium 128 L, Potassium 3.9, Chloride 100, Carbon Dioxide 21.0, Anion Gap 7, BUN 18, Creatinine 0.59 L, Estim Creat Clear Calc 42.97, Est GFR (MDRD) Af Amer 167, Est GFR (MDRD) Non-Af 138, BUN/Creatinine Ratio 30.6 H, Glucose 135 H, Calcium 8.2 L, Direct Bilirubin 0.53 H, Lactate Dehydrogenase 140 06/05/23 06:30: Fibrinogen 601 H Microbiology: Microbiology 06/03/23 19:50 Stool Stool Occult Blood (MING) - Final 06/03/23 17:05 Nasal Secretion SARS-CoV-2 Antigen (Rapid) - Final Radiography Diagnostic Testing: Radiology Impression Abdomen/Pelvis CTA 06/04/23 11:31 IMPRESSION: Mild small bowel ileus. No CT evidence of active GI bleed. Left renal cyst. Mild bilateral pleural effusions. Electronically Signed: Edwardo Saul at 19:22 EDT Reading Location ID and State: [facility] / [place] Tel [phone], Service support , D/C Instructions Discharge Diet: - (1800 ml fluid restriction) Discharge Plan Admission Admit Date/Time: 06/04/23 15:33 Primary Reason for Your Visit: Generalized weakness Attending Provider: Miri Gibson Primary Care Provider: [facility],[place] Consulting Providers: Iker Gavin; Shaun Ng; Vinicius Holman Instructions Patient Instructions: Hyponatremia Dc, ED Fall Prevention Additional Instructions / Restrictions: DISCHARGE INSTRUCTIONS PLEASE READ *Please take this with you to your next doctors appointment* -You will need to follow-up with Dr. Ng with GI in his office upon discharge. Please call his office to schedule your hospital follow-up appointment (ph. [phone]) -Please follow-up with Dr. Holman upon discharge. Please call their office to schedule hospital follow-up appointment upon discharge. -Recommend you adhere to an 1800 mL fluid restriction due to your low sodium -Would recommend lab work ([facility]) to check your sodium in 2 to 3 days through your primary care physician's office. Please call their office upon discharge to obtain order for lab work. -Please call your primary care provider's office upon discharge to schedule a hospital follow up within 1 week. -For any concerning signs or symptoms please call 911 or proceed to the nearest emergency department Discharge Orders/Prescriptions Prescriptions: Continued cholecalciferol (vitamin D3) 25 mcg (1,000 unit) tablet 25 mcg PO DAILY (DME) Handicap Placard See Rx Instructions .Route .MEDSUPPLY Qty: 1 0RF Rx Instructions: Good from 08/22/2022-08/22/2027 acetaminophen 500 MG tablet 500 mg PO DAILY PRN PRN (Reason: BACK PAIN) simvastatin 20 mg tablet 40 mg PO DAILY sennosides-docusate sodium [Stool Softener-Stimulant Laxat] 8.6-50 mg Tablet 2 tab PO BID PRN PRN (Reason: Constipation) Qty: 0 0RF pantoprazole [Protonix] 40 mg tablet,delayed release (DR/EC) 40 mg PO BID Qty: 60 2RF Rx Instructions: advised TWICE DAILY FOR 2 months and then once daily. ferrous sulfate [FeroSul] 325 mg (65 mg iron) tablet 325 mg PO DAILY 30 Days Qty: 30 2RF ascorbic acid (vitamin C) 500 mg tablet 500 mg PO BID Qty: 60 2RF folic acid 1 mg tablet 1 mg PO DAILY Qty: 30 2RF isosorbide mononitrate 30 mg tablet extended release 24 hr 30 mg PO DAILY Qty: 90 3RF Rx Instructions: TAKE 1 TABLET BY MOUTH ONCE DAILY nitroglycerin 0.4 mg tablet, sublingual 0.4 mg SUBLINGUAL Q5-15M PRN (Reason: CHEST PAIN) Qty: 25 6RF metoprolol tartrate 25 mg tablet 12.5 mg PO BID Qty: 90 3RF Referrals / Follow Up: Vinicius Holman DO [Med Staff - Active Staff] - Within 1 Week Shaun Ng DO [Med Staff - Active Staff] - [facility] [Primary Care Provider] - Disposition Disposition (needs filled in before D/C Order can be placed): Home Health Service
--- NOTE | 2023-06-05 12:33 | PCM.DC.SUM ---
Providers Date of Admission: 06/04/23 Date of Discharge: 06/05/23 Primary Care Physician: [place] [facility] Consultations 06/04/23 01:44 Consult: Gastroenterology Routine Consulting Provider: Shaun Ng Reason for Consult: Anemia EMERGENT Consult: No Notified: Yes Date Notified: 06/04/23 Time Notified: 07:07 Method of Notification: Text 06/04/23 07:52 Consult: Oncology/Hematology Routine Consulting Provider: Vinicius Holman Reason for Consult: Dr. Holman on- monocytosis, anemia/thrombocytopenia, no GIB, ?heme/onc malgi EMERGENT Consult: No MD Notified: Yes Date Notified: 06/04/23 Time Notified: 11:18 Method of Notification: page Reason For Visit: WEAKNESS, HYPONATREMIA Diagnosis Discharge Diagnosis (1) Pancytopenia: Status: Acute Code(s): D61.818 - Other pancytopenia (2) Prolonged prothrombin time (PT) and partial thromboplastin time (PTT): Status: Acute Code(s): R79.1 - Abnormal coagulation profile Plan #Generalized weakness, likely multifactorial given his anemia and hyponatremia #Hyponatremia, suspect SIADH #Pancytopenia #Acute on chronic anemia #CAD s/p CABG and stent Medications at Discharge Home Medications acetaminophen 500 mg tablet 500 mg PO DAILY PRN PRN BACK PAIN 05/24/19 cholecalciferol (vitamin D3) 25 mcg (1,000 unit) tablet 25 mcg PO DAILY vitamin 02/26/22 Handicap Placard #1 ea 08/22/22 isosorbide mononitrate 30 mg tablet,extended release 24 hr 30 mg PO DAILY HEART #90 tabs 09/09/22 nitroglycerin 0.4 mg sublingual tablet 0.4 mg sublingual Q5-15M PRN CHEST PAIN #25 tabs 11/12/22 metoprolol tartrate 25 mg tablet 12.5 mg (1/2 x 25 mg) PO BID BP #90 tabs 02/16/23 simvastatin 20 mg tablet 40 mg PO DAILY CHOLESTEROL 05/29/23 ascorbic acid (vitamin C) 500 mg tablet 500 mg PO BID #60 tabs 06/01/23 ferrous sulfate 325 mg (65 mg iron) tablet (FeroSul) 325 mg PO DAILY 30 days #30 tabs 06/01/23 folic acid 1 mg tablet 1 mg PO DAILY #30 tabs 06/01/23 pantoprazole 40 mg tablet,delayed release (Protonix) 40 mg PO BID #60 tabs 06/01/23 sennosides 8.6 mg-docusate sodium 50 mg tablet (Stool Softener-Stimulant Laxative) 2 tab PO BID PRN PRN Constipation #0 tabs 06/01/23 Hospital Course Summary of Care Provided Minutes Spent on Discharge: 48 Hospital Course: BRI BOSS, is a 88 M with a significant history of CAD status post CABG in 2005 and stents in 2009 and also in 2012: Paroxysmal A-fib status post maze procedure who presents to the emergency department with weakness. Of note patient was admitted to the hospital on 05/29/2023 and discharged on 06/01/2023 for possible GI bleed but had a negative scope. Reportedly on his admission on 05/29/2023 patient's was made to send patient to the ED because of low hemoglobin. Of note the patient has been weak for some time now but with recent discharge from the hospital patient has been progressively weaker and on the day of presentation patient was excessively weak to the point that his knees crumpled but his broke an impending fall of patient. Patient noted to have sodium of 124 and a hemoglobin of 7.4 with a drop to 6.6 after fluids and he was fused. GI consulted who recommended lower endoscopy however patient does very poorly with anesthesia, FOBT negative, and it seemed there may be alternative underlying cause so family refused, hematology consulted and agreed that it seems there may be underlying MDS or other abnormality that can be followed on outpatient basis now that patient is stable. 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 Discussed with patient and family at length regarding colonoscopy as well as recommendations from oncology. Ultimately they would like to discharge and follow-up with oncology and would still like to pursue the capsule endoscopy on an outpatient basis but would prefer not to pursue inpatient colonoscopy at this time. On day of discharge patient feeling better and has better energy, did get somewhat confused overnight but no other acute complaints. Discharge instructions as follows: -You will need to follow-up with Dr. Ng with GI in his office upon discharge. Please call his office to schedule your hospital follow-up appointment (ph. [phone]) -Please follow-up with Dr. Holman upon discharge. Please call their office to schedule hospital follow-up appointment upon discharge. -Recommend you adhere to an 1800 mL fluid restriction due to your low sodium -Would recommend lab work (BMP) to check your sodium in 2 to 3 days through your primary care physician's office. Please call their office upon discharge to obtain order for lab work. -Please call your primary care provider's office upon discharge to schedule a hospital follow up within 1 week. -For any concerning signs or symptoms please call 911 or proceed to the nearest emergency department Physical Exam Narrative General: Alert, no apparent distress HEENT: Atraumatic, normocephalic Eyes: extraocular movements grossly intact Neck: Supple Respiratory: normal respiratory effort Cardiovascular: Regular rate GI: nondistended Extremities: Moving all extremities Neuro: No overt focal neurological deficits Psych: Cooperative Medical Records Data Medical Nutrition Assessment Dietitian: Malnutrition Criteria Met Start: 06/05/23 10:27 Freq: Status: Active Protocol: Document 06/05/23 10:27 SLA (Rec: 06/05/23 10:27 SLA Desktop) Nutrition Malnutrition Evidence of Malnutrition Exists Yes Evidenced By Suboptimal Energy Intake ( Moderate),Weight Loss (Severe) ,Physical Changes (Moderate) Clinical Problem Acute Disease or Injury Related Malnutrition Etiology related to inadequate energy intake Signs/Symptoms as evidenced by <50% of est nutritional needs x 5 days, 9. 8% unintended wt loss x 3 mo and fat/muscle loss throughout body Status Active Problem Recommendation Dietitian Recommendations/Changes Will continue liberal regular diet w/ fluid restriction per MD d/t signs and symptoms of malnutrition Will add 120 ml ensure clear w / breakfast and magic cup w/ lunch and dinner for increased nutrition if consumed Rec increase fluid restriction as medically able. Weight / BMI Weight Weight: 59.5 kg Body Mass Index (BMI) 19.8 ABG / Lab / Microbiology Data 06/05/23 05:32 06/05/23 05:32 Laboratory: Laboratory Results - last 24 hr 06/04/23 06:55: Diff Path Review Reviewed 06/04/23 11:53: Sodium 125 L, Potassium 3.8, Chloride 97 L, Carbon Dioxide 24.0, Anion Gap 4 L, BUN 14, Creatinine 0.51 L, Estim Creat Clear Calc 42.97, Est GFR (MDRD) Af Amer 199, Est GFR (MDRD) Non-Af 165, BUN/Creatinine Ratio 27.7 H, Glucose 101, Calcium 7.7 L 06/05/23 00:15: Ur Random Sodium 48 06/05/23 05:32: WBC 2.9 L, RBC 2.50 L, Hgb 8.1 L, Hct 25.6 L, MCV 102.4 H, MCH 32.4 H, MCHC 31.6 L, RDW Std Deviation 68.9 H, RDW Coeff of Zachariah 18.4 H, Plt Count 149 L, MPV 12.7 H, Immature Gran % (Auto) 1.000 H, Neut % (Auto) 52.9, Lymph % (Auto) 20.1, Weld % (Auto) 26.0 H, Eos % (Auto) 0.0, Baso % (Auto) 0.0, Absolute Neuts (auto) 1.5 L, Absolute Lymphs (auto) 0.58 L, Nucleated RBC % 0, Differential Comment SCANNED, Diff Path Review Reviewed, Anisocytosis 1+, Macrocytosis 1+, Retic Count 5.43 H, Immature Retic Fraction 23.40 H, Retic Hgb Equivalent 33.2, Sodium 128 L, Potassium 3.9, Chloride 100, Carbon Dioxide 21.0, Anion Gap 7, BUN 18, Creatinine 0.59 L, Estim Creat Clear Calc 42.97, Est GFR (MDRD) Af Amer 167, Est GFR (MDRD) Non-Af 138, BUN/Creatinine Ratio 30.6 H, Glucose 135 H, Calcium 8.2 L, Direct Bilirubin 0.53 H, Lactate Dehydrogenase 140 06/05/23 06:30: Fibrinogen 601 H Microbiology: Microbiology 06/03/23 19:50 Stool Stool Occult Blood (MING) - Final 06/03/23 17:05 Nasal Secretion SARS-CoV-2 Antigen (Rapid) - Final Radiography Diagnostic Testing: Radiology Impression Abdomen/Pelvis CTA 06/04/23 11:31 IMPRESSION: Mild small bowel ileus. No CT evidence of active GI bleed. Left renal cyst. Mild bilateral pleural effusions. Electronically Signed: Edwardo Hughes DO at 19:22 EDT , D/C Instructions Discharge Diet: - (1800 ml fluid restriction) Meaningful Use Info Meaningful Use Diagnoses (Choose all that apply): None applicable Discharge Plan Admission Admit Date/Time: 06/04/23 15:33 Primary Reason for Your Visit: Generalized weakness Attending Provider: Miri Gibson Primary Care Provider: [facility] Consulting Providers: Iker Gavin; Shaun Ng; Vinicius Holman Instructions Patient Instructions: Hyponatremia Dc, ED Fall Prevention Additional Instructions / Restrictions: DISCHARGE INSTRUCTIONS PLEASE READ *Please take this with you to your next doctors appointment* -You will need to follow-up with Dr. Ng with GI in his office upon discharge. Please call his office to schedule your hospital follow-up appointment (ph. [phone]) -Please follow-up with Dr. Holman upon discharge. Please call their office to schedule hospital follow-up appointment upon discharge. -Recommend you adhere to an 1800 mL fluid restriction due to your low sodium -Would recommend lab work (BMP) to check your sodium in 2 to 3 days through your primary care physician's office. Please call their office upon discharge to obtain order for lab work. -Please call your primary care provider's office upon discharge to schedule a hospital follow up within 1 week. -For any concerning signs or symptoms please call 911 or proceed to the nearest emergency department Discharge Orders/Prescriptions Prescriptions: Continued cholecalciferol (vitamin D3) 25 mcg (1,000 unit) tablet 25 mcg PO DAILY (DME) Handicap Placard See Rx Instructions .Route .MEDSUPPLY Qty: 1 0RF Rx Instructions: Good from 08/22/2022-08/22/2027 acetaminophen 500 MG tablet 500 mg PO DAILY PRN PRN (Reason: BACK PAIN) simvastatin 20 mg tablet 40 mg PO DAILY sennosides-docusate sodium [Stool Softener-Stimulant Laxat] 8.6-50 mg Tablet 2 tab PO BID PRN PRN (Reason: Constipation) Qty: 0 0RF pantoprazole [Protonix] 40 mg tablet,delayed release (DR/EC) 40 mg PO BID Qty: 60 2RF Rx Instructions: advised TWICE DAILY FOR 2 months and then once daily. ferrous sulfate [FeroSul] 325 mg (65 mg iron) tablet 325 mg PO DAILY 30 Days Qty: 30 2RF ascorbic acid (vitamin C) 500 mg tablet 500 mg PO BID Qty: 60 2RF folic acid 1 mg tablet 1 mg PO DAILY Qty: 30 2RF isosorbide mononitrate 30 mg tablet extended release 24 hr 30 mg PO DAILY Qty: 90 3RF Rx Instructions: TAKE 1 TABLET BY MOUTH ONCE DAILY nitroglycerin 0.4 mg tablet, sublingual 0.4 mg SUBLINGUAL Q5-15M PRN (Reason: CHEST PAIN) Qty: 25 6RF metoprolol tartrate 25 mg tablet 12.5 mg PO BID Qty: 90 3RF Referrals / Follow Up: Vinicius Holman DO [Med Staff - Active Staff] - Within 1 Week Shaun Ng DO [Med Staff - Active Staff] - [facility] [Primary Care Provider] - Disposition Disposition (needs filled in before D/C Order can be placed): Home Health Service Charges/Coding Visit Charges Inpatient E&M: 14586 Disch Hosp >30min
--- NOTE | 2023-06-05 12:47 | CASEMGMT ---
Addendum entered by Cathy Wells 06/05/23 15:06: Pt dtr came to desk and states that they would like to go home. Made aware that [facility] has not confirmed acceptance yet. She asked if this RN CM could call them if [facility] does not accept. RN CM will do so. Addendum entered by Cathy Wells 06/05/23 14:59: TC to [facility] Staci to follow up on referral as requested by Luna. Left message to see if a decision to accept has been made. Original Note: RN CM into pt room, pt and dtr present. Discussed HHC with pt and family. Initially pt was adamant he did not want HHC then was agreeable to it. Pt and chose 1. [facility] 2. [facility]. TC to Luna at [facility], referral made, will await decision to accept.
--- NOTE | 2023-06-08 16:27 | CASEMGMT ---
Pt has been accepted by [facility]. TC to pt to make aware, left message with information and call back number.
[2023-06-15 04:07] LABS: Copper, Serum or Plasma 85 ug/dL (69-132)
== END 2023-06-05 15:45 | disposition home health service (06) | DRG 644 ==
LOC: ED 20:46 → MS3 20:52
PROVIDERS: Internal Medicine Hematology & Oncology; Admitting Provider Hospitalist; Emergency Provider Emergency Medicine; Visit Provider Internal Medicine
DX: E22.2 Syndrome of inappropriate secretion of antidiuretic hormone (principal); D61.818 Other pancytopenia; E44.0 Moderate protein-calorie malnutrition; D62 Acute posthemorrhagic anemia; Z68.1 Body mass index [BMI] 19.9 or less, adult; E86.0 Dehydration; I48.0 Paroxysmal atrial fibrillation; E78.5 Hyperlipidemia, unspecified; I25.10 Atherosclerotic heart disease of native coronary artery without angina pectoris; I25.2 Old myocardial infarction; Z95.1 Presence of aortocoronary bypass graft; Z95.5 Presence of coronary angioplasty implant and graft; Z79.899 Other long term (current) drug therapy; Z86.16 Personal history of COVID-19
CPT/HCPCS: 36415; 71045; 74174; 80048; 80053; 81001; 82248; 82274; 82525; 82533; 83615; 83930; 83935; 84300; 84443; 84484; 84550; 85014; 85018; 85025; 85045; 85384; 86850; 86900; 86901; 86920; 86922; 87811; 93005; 97116; 97162; 97166; 97530; 99284; J7030; J7040; P9016; Q9967; A4216; J3490

== ENCOUNTER → 2023-06-08 | Outpatient (CLI) | payer MEDICARE, SELFPAY ==
[2023-06-08 12:27] LABS: Absolute Lymphocyte Count 1.42 X10^3/uL (0.83-4.51); Absolute Neutrophil Count 2.2 X10^3/uL (2.0-7.7); Hematocrit 27.3 % (40-54); Hemoglobin 8.7 g/dL (13.0-16.5); Lymphocyte # 1.42 X10^3/ul (0.83-4.51); Lymphocyte % 25.7 % (19-41); Mean Corp Hgb Conc 31.9 g/dL (32-36); Mean Corpuscular Hgb 32.7 pg (27.0-32.0); Mean Corpuscular Volume 102.6 fL (80-94); Mean Platelet Vol. 11.6 fl (6.2-12.0); Monocyte# 1.81 X10^3/uL; Monocyte% 32.7 % (0-10); NRBC Flagged by Analyzer 0 % (0-5); Neutrophil # 2.22 X10^3/uL (2.7-7.7); Neutrophil % 40.2 % (47-70); POSITIVE DIFFERENTIAL YES; POSITIVE MORPHOLOGY YES; Platelet Count 281 K/mm3 (150-450); RBC Distribution Width CV 17.8 % (11.6-14.6); RBC Distribution Width SD 65.1 fl (35.1-43.9); Red Blood Count 2.66 M/mm3 (4.6-6.2); Reticulocyte Count 3.66 % (0.5-1.5); White Blood Count 5.5 K/mm3 (4.4-11.0)
[2023-06-08 12:31] LABS: Differential Indicated SCAN CRITERIA MET
[2023-06-08 12:57] LABS: Ferritin 1005 ng/mL (26-388); Iron 34 ug/dL (65-175); Iron Binding Capacity,Total 239 ug/dL (250-450); LDH 160 U/L (87-241)
[2023-06-08 13:20] LABS: Anisocytosis 2+; Differential Comment SCANNED; Macrocytosis 1+; Microcytosis 1+
[2023-06-09 16:09] LABS: Endomysial Antibody IgA Negative (Negative); Haptoglobin 271 mg/dL (38-329); Immunoglobulin A 129 mg/dL (61-437); t-Transglutaminase IgA <2 U/mL (0-3)
== END | disposition home or self-care (01) ==
PROVIDERS: Referring Provider Internal Medicine Gastroenterology; Visit Provider Internal Medicine Gastroenterology
DX: D50.0 Iron deficiency anemia secondary to blood loss (chronic) (principal)
CPT/HCPCS: 36415; 82728; 82784; 83010; 83516; 83540; 83550; 83615; 85025; 85045; 86255

== ENCOUNTER 2023-06-19 08:08 | Outpatient (CLI) | payer MEDICARE, SELFPAY ==
[2023-06-19 08:36] VITALS: BP 93/49; PULSE 78; RESP 16; TEMP 36.2; O2SAT 100; BMI 19.0
[2023-06-19] MEDS: 0.9% NaCl Peripheral Flush Adult/Peds IV (08:42)
[2023-06-19] MEDS: 0.9% Normal Saline (500mL Bag) 500 ML 15 ML IV (08:42)
[2023-06-19 08:59] VITALS: BP 102/53; PULSE 73; RESP 16; TEMP 36.1; O2SAT 98
[2023-06-19 10:08] VITALS: BP 97/45; PULSE 71; RESP 16; TEMP 36.4; O2SAT 100
[2023-06-19 10:45] VITALS: BP 105/56; PULSE 69; RESP 16; TEMP 36.2
== END 2023-06-19 08:09 | disposition home or self-care (01) ==
LOC: MEDOUTP 08:08
PROVIDERS: Referring Provider Internal Medicine Hematology & Oncology; Visit Provider Internal Medicine Hematology & Oncology
DX: D46.20 Refractory anemia with excess of blasts, unspecified (principal)
CPT/HCPCS: 36430; 86850; 86900; 86901; 86920; J7040; P9016; A4216

== ENCOUNTER 2023-07-03 12:56 | Observation (INO) | payer MEDICARE, SELFPAY ==
[2023-07-03] VITALS (11 sets, daily range): BP systolic 98–115; BP diastolic 57–65; PULSE 76–93; RESP 16–19; TEMP 35.9–36.7; O2SAT 97–100; BMI 19.8; BMI 19.1
--- NOTE | 2023-07-03 13:03 | RAD_ITS ---
STUDY: X-RAY CHEST REASON FOR EXAM: Male, 88 years old. Substernal chest pain TECHNIQUE: Single AP portable view of the chest. COMPARISON: 06/03/2023 FINDINGS: The lungs are clear and expanded. There is no demonstrated pleural abnormality. Sternal cerclage wires and vascular clips are present from a prior sternotomy and coronary artery bypass graft procedure (CABG). Normal mediastinum and izabel. Normal visualized pulmonary arteries. Normal visualized aortic arch and descending thoracic aorta. Normal visualized thoracic spine. Normal visualized ribs, clavicles, and shoulders. There is no demonstrated abnormality of the visualized soft tissue structures of the upper abdomen. RAD/Chest 1 View (Portable) IMPRESSION: No acute pulmonary process Electronically Signed: Jason Mac MD at 13:48 EDT ,
[2023-07-03 13:19] LABS: Absolute Lymphocyte Count 1.05 X10^3/uL (0.83-4.51); Absolute Neutrophil Count 1.7 X10^3/uL (2.0-7.7); Hematocrit 26.2 % (40-54); Hemoglobin 8.3 g/dL (13.0-16.5); Lymphocyte # 1.05 X10^3/ul (0.83-4.51); Lymphocyte % 23.8 % (19-41); Mean Corp Hgb Conc 31.7 g/dL (32-36); Mean Corpuscular Hgb 31.4 pg (27.0-32.0); Mean Corpuscular Volume 99.2 fL (80-94); Mean Platelet Vol. 11.2 fl (6.2-12.0); Monocyte# 1.62 X10^3/uL; Monocyte% 36.7 % (0-10); NRBC Flagged by Analyzer 0 % (0-5); Neutrophil % 38.6 % (47-70); POSITIVE DIFFERENTIAL YES; POSITIVE MORPHOLOGY YES; Platelet Count 390 K/mm3 (150-450); RBC Distribution Width CV 18.2 % (11.6-14.6); RBC Distribution Width SD 64.4 fl (35.1-43.9); Red Blood Count 2.64 M/mm3 (4.6-6.2); White Blood Count 4.4 K/mm3 (4.4-11.0)
[2023-07-03 13:20] LABS: Differential Indicated SCAN CRITERIA MET
[2023-07-03 13:40] LABS: Anion Gap 3 (5-15); BUN 14 mg/dL (7-18); BUN/Creat Ratio 21.3 RATIO (10-20); Calcium,Total 8.6 mg/dL (8.5-10.1); Chloride 98 mmol/L (98-107); Creatinine, Serum 0.66 mg/dL (0.70-1.30); EST Glomerular Filtration Rate 122 mL/min (>60); Est Glom Filt Rate - Afr Amer 147 mL/min (>60); Glucose 88 mg/dL (74-106); Potassium 3.8 mmol/L (3.5-5.1); Sodium Level 124 mmol/L (136-145); Troponin-I HS (w/2H Reflex) 15 pg/mL (3.0-78.0)
--- NOTE | 2023-07-03 13:47 | ED.VIS.CHEST ---
HPI History of Present Illness Chief Complaint: Chest Pain Informant: patient Onset/Context/Timing Onset: Yesterday Activity at onset: gradual Timing: Continuous Quality: Positive for Dull Location: Substernal Worsened By: Nothing Relieved By: Nothing Associated Symptoms: Positive for Nausea, Dyspnea, Cough and Lightheadedness; Negative for Vomiting, Diaphoresis, Fever, Acid Reflux or Palpitations Narrative Narrative: Patient presents with chest pain that began yesterday. Patient states it came on gradually. Patient states it has been constant since yesterday. Patient describes it as dull. Patient states it is over the upper substernal area. Patient states nothing makes it better nothing makes it worse. Patient admits to some nausea but denies any vomiting. Patient admits to a cough and some shortness of breath. Patient denies any diaphoresis. Patient states he feels lightheaded at times. Patient denies any palpitations. states the patient has a history of hyponatremia. states patient also had recent weight loss and decreased appetite. CVD Risk Factors: Positive for Hypercholesterolemia; Negative for Hypertension, Diabetes, Family History 1' </=55 or Smoking PE Risk Factors: Negative for Recent Travel/Surgery, Recent Immobilization, Prior DVT or PE, Cancer or OCP + Smoking + >/=35 PFSH PFSH Medical History Atherosclerotic heart disease of [place] coronary artery without angina pectoris Chest pain Chronic pain Colitis COVID-19 Diverticulitis Excision of the left atrial appendage Hiatal hernia Hyperlipidemia Kidney stones Old myocardial infarction Paroxysmal atrial fibrillation Premature ventricular contraction Upper gastrointestinal bleed Home Medications acetaminophen 500 mg tablet 500 mg PO DAILY PRN PRN BACK PAIN 05/24/19 [History Last Taken 05/23/19] cholecalciferol (vitamin D3) 25 mcg (1,000 unit) tablet 25 mcg PO DAILY vitamin 02/26/22 [History Last Taken 07/02/23] Handicap Placard #1 ea 08/22/22 [Rx Last Taken Unknown] isosorbide mononitrate 30 mg tablet,extended release 24 hr 30 mg PO DAILY HEART #90 tabs 09/09/22 [Rx Last Taken 07/03/23] nitroglycerin 0.4 mg sublingual tablet 0.4 mg sublingual Q5-15M PRN CHEST PAIN #25 tabs 11/12/22 [Rx Last Taken Unknown] metoprolol tartrate 25 mg tablet 12.5 mg (1/2 x 25 mg) PO BID BP #90 tabs 02/16/23 [Rx Last Taken 07/03/23] simvastatin 20 mg tablet 40 mg PO DAILY CHOLESTEROL 05/29/23 [History Last Taken 07/02/23] ascorbic acid (vitamin C) 500 mg tablet 500 mg PO BID #60 tabs 06/01/23 [Rx Last Taken 07/03/23] ferrous sulfate 325 mg (65 mg iron) tablet (FeroSul) 325 mg PO DAILY 30 days #30 tabs 06/01/23 [Rx Last Taken 07/03/23] folic acid 1 mg tablet 1 mg PO DAILY #30 tabs 06/01/23 [Rx Last Taken 07/02/23] sennosides 8.6 mg-docusate sodium 50 mg tablet (Stool Softener-Stimulant Laxative) 2 tab PO BID PRN PRN Constipation #0 tabs 06/01/23 [Rx Last Taken Unknown] ranolazine 500 mg tablet,extended release,12 hr (Ranexa) 500 mg PO BID 06/19/23 [History Last Taken 07/03/23] Allergy/AdvReac Type Severity Reaction Status Date / Time ciprofloxacin [From Cipro] Allergy Unknown Rash Verified 07/03/23 12:57 EZEQUIEL Inhibitors Allergy cough Verified 07/03/23 12:57 benzonatate Allergy rash Verified 07/03/23 12:57 [From Tessalon Perles] ipodate [From Oragrafin] Allergy Rash Verified 07/03/23 12:57 Family History Father Prostate cancer Mother CVA (cerebral vascular accident) Brother Cancer Surgical History H/O maze procedure History of bilateral cataract extraction History of hernia repair Hx of appendectomy Postsurgical percutaneous transluminal coronary angioplasty (PTCA) status Presence of stent in coronary artery (~11/14/11) S/P CABG (coronary artery bypass graft) (~11/2005) S/P right inguinal hernia repair Social History Smoking Status: Never smoker alcohol intake: never substance use type: does not use caffeine: Yes Type: coffee Number of servings: 2 ROS ROS ED Constitutional Constitutional ED: Denies chills or fever(s) Eyes Eyes: Denies blurry vision or change in vision ENT ENT ED: Denies rhinorrhea or sore throat Cardiovascular Cardiovascular: Reports chest pain; Denies palpitations Respiratory/Chest Respiratory/Chest: Reports dyspnea; Denies cough Gastrointestinal Gastrointestinal: Reports nausea; Denies abdominal pain or vomiting Genitourinary Genitourinary ED: Denies dysuria or hematuria Musculoskeletal Musculoskeletal: Denies back pain or neck pain Integumentary Denies abscess or rash Neurologic Neurologic: Denies headache(s) or weakness Allergic/Immunologic Allergic/Immunologic ED: Denies mouth swelling or urticaria EXAM Physical Exam Const Vital Signs: 07/03/23 12:56 07/03/23 13:54 07/03/23 13:57 Temperature 96.7 F L Temperature Source Temporal Pulse Rate 87 82 Respiratory Rate 18 16 Blood Pressure 102/65 98/57 L Blood Pressure Mean 77 70 Pulse Ox 100 98 98 Oxygen Delivery Method Room Air Room Air Room Air 07/03/23 14:11 07/03/23 14:45 07/03/23 16:08 Temperature 97.8 F Temperature Source Temporal Pulse Rate 86 85 90 Respiratory Rate 18 19 H 18 Blood Pressure 104/62 105/61 109/60 Blood Pressure Mean 76 75 76 Pulse Ox 98 100 99 Oxygen Delivery Method Room Air Room Air Room Air 07/03/23 16:09 Temperature 98.1 F Temperature Source Pulse Rate 93 Respiratory Rate 16 Blood Pressure 109/60 Blood Pressure Mean 76 Pulse Ox 98 Oxygen Delivery Method Positive well nourished and well developed General Appearance ED: well developed and NAD HEENT Reports moist mucous membranes Neck supple and no JVD Chest Wall palpation of chest normal Resp normal respiratory effort and clear to auscultation bilaterally Cardio regular rate and regular rhythm GI soft to palpation, non-tender and non-distended Neuro oriented x3, CN's II-XII intact bilaterally and no sensory deficits noted Sensorium / Orientation: awake and alert Motor Exam: strength 5/5 throughout Psych mental status grossly normal Heart Score History: Moderately Suspicious ECG: Nonspecific Repolarization Age: >/= 65 years Risk Factors: >/= 3 Risk Factors or History of CAD Troponin: </= Normal Limit Score: 6 MDM MDM MDM Narrative Medical decision making narrative: Differential diagnosis includes cardiac dysrhythmia, cardiac ischemia, pneumonia, pneumothorax, anemia, hyponatremia, electrolyte abnormality, dehydration, and anxiety. EKG will be obtained to assess for cardiac dysrhythmia and cardiac ischemia. Chest x-ray will be obtained to assess for pneumonia and pneumothorax. CBC will be obtained to assess for leukocytosis and anemia. Basic metabolic profile will be obtained to assess for electrolyte abnormality and renal function. High-sensitivity troponin will be obtained to assess for cardiac ischemia. 2-hour repeat high-sensitivity troponin will be obtained to assess for ongoing cardiac ischemia. Lab Data Attestation: I reviewed the patient's lab results. Lab results narrative: CBC was reviewed. Hemoglobin was slightly low at 8.3 and hematocrit was 26.2. Platelets were normal. Basic metabolic profile was reviewed. Sodium was 124. The remainder was essentially within normal limits. High-sensitivity troponin was reviewed and was normal at 15. Labs: Laboratory Results - last 24 hr 07/03/23 07/03/23 13:11 15:00 WBC 4.4 RBC 2.64 L Hgb 8.3 L Hct 26.2 L MCV 99.2 H MCH 31.4 MCHC 31.7 L RDW Std Deviation 64.4 H RDW Coeff of Zachariah 18.2 H Plt Count 390 MPV 11.2 Immature Gran % (Auto) 0.900 Neut % (Auto) 38.6 L Lymph % (Auto) 23.8 [place]antley % (Auto) 36.7 H Eos % (Auto) 0.0 Baso % (Auto) 0.0 Absolute Neuts (auto) 1.7 L Absolute Lymphs (auto) 1.05 Nucleated RBC % 0 Sodium 124 L Potassium 3.8 Chloride 98 Carbon Dioxide 23.0 Anion Gap 3 L BUN 14 Creatinine 0.66 L Est GFR (MDRD) Af Amer 147 Est GFR (MDRD) Non-Af 122 BUN/Creatinine Ratio 21.3 H Glucose 88 Calcium 8.6 Troponin I High Sens 15 11 Radiography Chest X-Ray - ED: 1 View, Read by ED Physician, Read by Radiologist and No Acute Disease Diagnostic Testing: Clinical Impression(s) from Imaging Studies Chest X-Ray 07/03/23 13:03 IMPRESSION: No acute pulmonary process Electronically Signed: Jason Mac MD at 13:48 EDT , Portable 1 view chest x-ray was obtained. On my independent interpretation, lung gaitan are clear. There is normal cardiac silhouette. Bony thorax is normal. There is no acute process noted. Radiologist also interpreted the x-ray and agrees. EKG Initial EKG: Attestation: I personally reviewed and interpreted this EKG as follows: Interpretation: Sinus Rhythm (93) and No Acute Injury Pattern Comments: EKG was obtained. On my independent interpretation, it showed a normal sinus rhythm with a rate of 93. UT interval, QRS interval, and QTc intervals were all normal. There is left axis deviation at -35. There are no acute ST or T wave changes. Prior EKG tracings: available for review Prior: Unchanged (06/05/2023) Management Discussion w/another healthcare provider: Hospitalist Treatment and Re-Evaluation :: Patient was given aspirin here. Patient is feeling better on reevaluation. Patient has a HEART score of 6. Patient has not had a stress test since 2018. Because of this, I recommended admission to the hospital for observation. Patient is agreeable with this. Case will be discussed with the hospitalist for admission. Discharge Plan Dx/Rx/DC Orders Clinical Impression: Chest pain, S/P CABG (coronary artery bypass graft), History of coronary artery disease Disposition Disposition: Acute Care [facility]
[2023-07-03] MEDS: Aspirin 81 MG TAB.CHEW 324 MG PO (14:01)
[2023-07-03 15:15] LABS: Reflex Troponin-HS? (from REC) Y
[2023-07-03 16:29] LABS: Troponin-I HS 11 pg/mL (3.0-78.0)
--- NOTE | 2023-07-03 16:39 | HP.PCM.HOS_ITS ---
HPI - General General Date of Admission: 07/03/23 Date of Service: 07/03/23 Chief Complaint: Chest pain HPI Narrative BRI BOSS, is a 88 M who presented to the emergency department at [facility] on 07/03/2023 with a chief complaint of chest pain. Patient reports that his chest pain started yesterday afternoon but he did not tell his till today and that is why he came to the emergency department as she insisted. Pain is located centrally in his chest without radiation. He has no associated shortness of breath, nausea, vomiting. Pain does not radiate anywhere. Patient does have chronic shortness of breath but no changes acutely. He was recently seen in the hospital for an anemia/pancytopenia and EGD was performed. Colonoscopy was deferred by family but no acute bleeding was identified and hemoglobin stabilized. He recently saw Dr. Holman as an outpatient and a bone marrow biopsy was performed. His aspirin and Plavix were discontinued at that time due to his abnormalities on his CBC. Vital signs are temperature 98.1, blood pressure 109/60, heart rate 93, respiratory rate was 16 and oxygen saturation was 98% on room air. his CBC shows a chronic stable anemia but his white count and platelet count have recovered and are normalized. Chemistry panel shows chronic stable hyponatremia but was otherwise unremarkable. Initial troponin was 15 with a repeat of 11. EKG shows normal sinus rhythm with no ST-T wave changes concerning for acute ischemia and normal intervals. Chest x-ray shows no acute findings. He was given full dose aspirin emergency department and request for admission was made as his heart score is 6 at baseline. [facility] Medical History Atherosclerotic heart disease of [place] coronary artery without angina pectoris Chest pain Chronic hyponatremia Chronic pain Colitis COVID-19 Diverticulitis Excision of the left atrial appendage Hiatal hernia Hyperlipidemia Kidney stones Old myocardial infarction Paroxysmal atrial fibrillation Premature ventricular contraction Upper gastrointestinal bleed Home Medications acetaminophen 500 mg tablet 500 mg PO DAILY PRN PRN BACK PAIN 05/24/19 [History Last Taken 05/23/19] cholecalciferol (vitamin D3) 25 mcg (1,000 unit) tablet 25 mcg PO DAILY vitamin 02/26/22 [History Last Taken 07/02/23] Handicap Placard #1 ea 08/22/22 [Rx Last Taken Unknown] isosorbide mononitrate 30 mg tablet,extended release 24 hr 30 mg PO DAILY HEART #90 tabs 09/09/22 [Rx Last Taken 07/03/23] nitroglycerin 0.4 mg sublingual tablet 0.4 mg sublingual Q5-15M PRN CHEST PAIN #25 tabs 11/12/22 [Rx Last Taken Unknown] metoprolol tartrate 25 mg tablet 12.5 mg (1/2 x 25 mg) PO BID BP #90 tabs 02/16/23 [Rx Last Taken 07/03/23] simvastatin 20 mg tablet 40 mg PO DAILY CHOLESTEROL 05/29/23 [History Last Taken 07/02/23] ascorbic acid (vitamin C) 500 mg tablet 500 mg PO BID #60 tabs 06/01/23 [Rx Last Taken 07/03/23] ferrous sulfate 325 mg (65 mg iron) tablet (FeroSul) 325 mg PO DAILY 30 days #30 tabs 06/01/23 [Rx Last Taken 07/03/23] folic acid 1 mg tablet 1 mg PO DAILY #30 tabs 06/01/23 [Rx Last Taken 07/02/23] sennosides 8.6 mg-docusate sodium 50 mg tablet (Stool Softener-Stimulant Laxative) 2 tab PO BID PRN PRN Constipation #0 tabs 06/01/23 [Rx Last Taken Unknown] ranolazine 500 mg tablet,extended release,12 hr (Ranexa) 500 mg PO BID 06/19/23 [History Last Taken 07/03/23] Allergy/AdvReac Type Severity Reaction Status Date / Time ciprofloxacin [From Cipro] Allergy Unknown Rash Verified 07/03/23 12:57 EZEQUIEL Inhibitors Allergy cough Verified 07/03/23 12:57 benzonatate Allergy rash Verified 07/03/23 12:57 [From Tessalon Perles] ipodate [From Oragrafin] Allergy Rash Verified 07/03/23 12:57 Family History Father Prostate cancer Mother CVA (cerebral vascular accident) Brother Cancer Surgical History H/O maze procedure History of bilateral cataract extraction History of hernia repair Hx of appendectomy Postsurgical percutaneous transluminal coronary angioplasty (PTCA) status Presence of stent in coronary artery (~11/14/11) S/P CABG (coronary artery bypass graft) (~11/2005) S/P right inguinal hernia repair Social History Smoking Status: Never smoker alcohol intake: never substance use type: does not use caffeine: Yes Type: coffee Number of servings: 2 ROS Constitutional Constitutional: Reports anorexia, change in weight, fatigue and weakness; Denies chills, fever(s), malaise, night sweats or other Eyes Eyes: Denies blurry vision, change in eye color, change in vision, discharge from eye(s), double vision, erythema, eye pain, loss of vision or other ENT HEENT: Denies abnormal hearing, dysphagia, ear pain, epistaxis, headache(s), hearing loss, nasal congestion, nasal discharge, post nasal drip, sinus pressure, sore throat or other Cardiovascular Cardiovascular: Reports chest pain; Denies claudication, dyspnea on exertion, edema, lightheadedness, orthopnea, palpitations, paroxysmal nocturnal dyspnea, rapid heart rate, syncope or other Respiratory/Chest Respiratory/Chest: Denies cough, dyspnea, excessive phlegm production, hemoptysis, productive cough, shortness of breath at rest, shortness of breath with exertion, wheezing or other Gastrointestinal Gastrointestinal: Denies abdominal pain, coffee ground emesis, constipation, diarrhea, dyspepsia, hematemesis, hematochezia, loose stools, melena, nausea, vomiting or other Genitourinary Genitourinary: Denies burning urination, difficulty urinating, dysuria, hematuria, nocturia, urinary frequency, urinary hesitancy, urinary incontinence, urinary urgency or other Musculoskeletal Musculoskeletal: Reports back pain, joint pain and joint stiffness; Denies arthralgias, joint swelling, myalgias, neck pain or other Neurologic Neurologic: Denies abnormal gait, abnormal speech, confusion, disequilibrium, dizziness, focal weakness, headache(s), numbness, paresthesias, seizure-like activity, seizures, syncope, tingling, tremor(s) or other Psychiatric Psychiatric: Denies anxiety, depression, homicidal ideation, suicidal ideation or other Endocrine Endocrinology: Denies change in body appearance, cold intolerance, excessive sweating, heat intolerance, polydipsia, polyuria or other Hematologic/Lymphatic Hematologic/Lymphatic: Denies anemia, easy bleeding, easy bruising, l ymphadenopathy or other Allergic/Immunologic Allergic/Immunologic: Denies rhinitis, hives, eczemia, asthma or other Vital Signs Vital Signs Vital Signs: 07/03/23 12:56 07/03/23 13:54 07/03/23 13:57 Temperature 96.7 F L Temperature Source Temporal Pulse Rate 87 82 Respiratory Rate 18 16 Blood Pressure 102/65 98/57 L Blood Pressure Mean 77 70 Pulse Ox 100 98 98 Oxygen Delivery Method Room Air Room Air Room Air 07/03/23 14:11 07/03/23 14:45 07/03/23 16:08 Temperature 97.8 F Temperature Source Temporal Pulse Rate 86 85 90 Respiratory Rate 18 19 H 18 Blood Pressure 104/62 105/61 109/60 Blood Pressure Mean 76 75 76 Pulse Ox 98 100 99 Oxygen Delivery Method Room Air Room Air Room Air 07/03/23 16:09 Temperature 98.1 F Temperature Source Pulse Rate 93 Respiratory Rate 16 Blood Pressure 109/60 Blood Pressure Mean 76 Pulse Ox 98 Oxygen Delivery Method Weight Weight: 59.1 kg Body Mass Index (BMI) 19.8 Physical Exam Const alert, oriented x3 and no apparent distress Constitutional Narrative: Thin/frail, elderly, pleasant, white male, sitting up in bed, at bedside, patient appears comfortable nontoxic General Appearance: cooperative HEENT normocephalic and head/scalp atraumatic HEENT Narrative: Moderate hearing loss with hearing aids in place, dentures in place, Mallampati 2, no thrush Eyes PERRL and EOMs intact bilaterally; Negative for conjunctivae normal Eyes Narrative: Conjunctiva are pale bilaterally, no scleral icterus Neck no lymphadenopathy and supple Neck Narrative: Trachea midline, no thyroid enlarged Resp normal respiratory effort, no retractions, no use of accessory muscles and clear to auscultation bilaterally Auscultation: Negative for rales, rhonchi or wheezes Cardio regular rate, regular rhythm, S1 normal heart sound, S2 normal heart sound, no murmurs, no rub, no gallops and no clicks GI normal to inspection, nondistended, normoactive bowel sounds, soft to palpation and non-tender Extremity no clubbing, cyanosis or edema Extremity Narrative: Pulses are 2+ Skin skin turgor normal, no jaundice, no petechiae and no mottling Skin Narrative: Skin is thin and frail, scattered ecchymotic changes Neuro oriented x3, CN's II-XII intact bilaterally, moves all extremities and no focal motor deficits Speech: speech normal Psych affect normal Psych Narrative: Pleasant, eye contact is good, interacts normally Results Lab / Micro Data 07/03/23 13:11 07/03/23 13:11 Labs: Laboratory Results - last 24 hr 07/03/23 13:11: WBC 4.4, RBC 2.64 L, Hgb 8.3 L, Hct 26.2 L, MCV 99.2 H, MCH 31.4, MCHC 31.7 L, RDW Std Deviation 64.4 H, RDW Coeff of Zachariah 18.2 H, Plt Count 390, MPV 11.2, Immature Gran % (Auto) 0.900, Neut % (Auto) 38.6 L, Lymph % (Auto) 23.8, Bacon % (Auto) 36.7 H, Eos % (Auto) 0.0, Baso % (Auto) 0.0, Absolute Neuts (auto) 1.7 L, Absolute Lymphs (auto) 1.05, Nucleated RBC % 0, Sodium 124 L , Potassium 3.8, Chloride 98, Carbon Dioxide 23.0, Anion Gap 3 L, BUN 14, Creatinine 0.66 L, Est GFR (MDRD) Af Amer 147, Est GFR (MDRD) Non-Af 122, BUN/Creatinine Ratio 21.3 H, Glucose 88, Calcium 8.6, Troponin I High Sens 15 07/03/23 15:00: Troponin I High Sens 11 Radiology Impression Chest X-Ray 07/03/23 13:03 IMPRESSION: No acute pulmonary process Electronically Signed: Jason Mac MD at 13:48 EDT , Assessment & Plan Assessment/Plan (1) Chest pain: PLAN: Plan Chest pain -Heart score 6 -EKG without any changes -Initial troponin is unremarkable -We will cycle cardiac enzymes -Does have history of coronary disease with previous CABG and 2 stents with the last one being in 2011 -Was recently taken off aspirin Plavix due to concern for bleeding and acute anemia -We will start aspirin 81 mg daily -Continue home statin -Check lipids -A.m. stress test Anemia -Had upper endoscopy and colonoscopy both of which are unremarkable -CT of the abdomen pelvis was unremarkable as well -Outpatient work-up is pending and patient is following with Dr. Holman -Had outpatient bone marrow biopsy performed recently -Continue home iron supplementation CAD/HTN/HPL -Aspirin and Plavix were recently held due to anemia -Restart aspirin -Continue statin -Check lipids -As needed nitro -Continue metoprolol -Continue isosorbide mononitrate Chronic hyponatremia -Sodium appears to be stable when compared to previous -Continue to monitor History of PAF -Patient is currently in normal sinus rhythm -Continue home beta-bartolo -Monitor on telemetry -No full anticoagulation with anemia work-up pending Generalized weakness/weight loss/poor p.o. intake -Patient is following with oncology and outpatient work-up is pending -Cardiac diet -Add supplements DVT prophylaxis -Subcu Lovenox CODE STATUS -DNR CCA with no intubation as verified on admission Charges/Coding Visit Charges Inpatient E&M: 66294 Init Hosp L2
--- NOTE | 2023-07-03 18:10 | NURSING ---
[facility] CALLED. INFORMATION GIVEN, WILL CALL US BACK.
[2023-07-03] MEDS: Metoprolol Tartrate 25 MG Tablet 12.5 MG PO (21:18)
[2023-07-03] MEDS: Atorvastatin Calcium 40 MG Tablet PO (21:18)
[2023-07-03] MEDS: Ranolazine 500 MG Tablet PO (21:19)
[2023-07-03] MEDS: Ascorbic Acid 500 MG Tablet PO (21:19)
[2023-07-03 21:57] LABS: Troponin-I HS 14 pg/mL (3.0-78.0)
[2023-07-04] VITALS (7 sets, daily range): BP systolic 97–126; BP diastolic 59–79; PULSE 70–80; RESP 16; TEMP 36.3–36.7; O2SAT 99–100
--- NOTE | 2023-07-04 05:55 | EKG12_ITS ---
Test Reason : Blood Pressure : / mmHG Vent. Rate : 069 BPM Atrial Rate : 069 BPM P-R Int : 166 ms QRS Dur : 114 ms QT Int : 410 ms P-R-T Axes : 071 -41 058 degrees QTc Int : 439 ms Normal sinus rhythm Left axis deviation Abnormal ECG When compared with ECG of 03-JUL-2023 13:02, MANUAL COMPARISON REQUIRED, DATA IS UNCONFIRMED Confirmed by JUANCHO JUDD, INES ([id number]), digital editor HEATHER BURDEN ([id number]) on 07/08/2023 6:39:31 AM Referred By: Confirmed By:INES DAWKINS MD
[2023-07-04] MEDS: Aspirin E.C. 81 MG Tablet PO (05:57)
[2023-07-04 07:02] LABS: Hematocrit 24.4 % (40-54); Hemoglobin 7.8 g/dL (13.0-16.5); Mean Corpuscular Hgb 31.8 pg (27.0-32.0); Mean Corpuscular Volume 99.6 fL (80-94); Mean Platelet Vol. 11.2 fl (6.2-12.0); Platelet Count 334 K/mm3 (150-450); RBC Distribution Width CV 17.8 % (11.6-14.6); RBC Distribution Width SD 64.2 fl (35.1-43.9); Red Blood Count 2.45 M/mm3 (4.6-6.2); White Blood Count 3.7 K/mm3 (4.4-11.0)
[2023-07-04 07:39] LABS: ALB/GLOB Ratio 0.6 RATIO (0.9-2.4); AST(SGOT) 5 U/L (15-37); Alanine Aminotransfer ALT/SGPT 25 U/L (16-61); Albumin, Serum 2.3 g/dL (3.2-5.0); Alkaline Phosphatase 84 U/L (45-117); Anion Gap 2 (5-15); BUN 12 mg/dL (7-18); BUN/Creat Ratio 23.3 RATIO (10-20); Calcium,Total 8.2 mg/dL (8.5-10.1); Chloride 97 mmol/L (98-107); Cholesterol 83 mg/dL (200); Creatinine, Serum 0.52 mg/dL (0.70-1.30); EST Glomerular Filtration Rate 161 mL/min (>60); Est Glom Filt Rate - Afr Amer 195 mL/min (>60); Estimated Creatinine Clearance 41.17 ml/min; Globulin 3.7 g/dL (2.2-4.2); Glucose 82 mg/dL (74-106); High Density Lipoprotein 41 mg/dL; Potassium 3.8 mmol/L (3.5-5.1); Sodium Level 126 mmol/L (136-145); Triglycerides 50 mg/dL; Very Low Density Lipoprotein 10 mg/dL (5-40)
[2023-07-04] MEDS: Folic Acid 1 MG Tablet PO (08:23)
[2023-07-04] MEDS: Ferrous Sulfate 325 MG Tablet PO (08:23)
[2023-07-04] MEDS: Metoprolol Tartrate 25 MG Tablet 12.5 MG PO (10:41)
[2023-07-04] MEDS: Ascorbic Acid 500 MG Tablet PO (10:41)
[2023-07-04] MEDS: Cholecalciferol (VIT D3) 25 MCG TABLET (1,000 UNITS) PO (10:42)
[2023-07-04] MEDS: Isosorbide Mononitrate 30 MG Tablet PO (10:42)
[2023-07-04] MEDS: Ranolazine 500 MG Tablet PO (10:42)
--- NOTE | 2023-07-04 12:33 | STRESSREP ---
Stress Test Report Date: 07/04/2023 Procedure: Pharmacologic stress nuclear imaging study Indications: Chest pain Consent: Per the patient Procedure: The patient underwent pharmacologic (Regadenoson 0.4mg ) evaluation with a peak heart rate of 90 beats per minute (68%predicted maximal heart rate) and a peak blood pressure of 128/62 mmHg. The baseline ECG demonstrated sinus rhythm with nonspecific ST changes. The peak pharmacologic ECG demonstrated no diagnostic ischemic changes secondary to baseline abnormalities. Occasional PVCs and PACs noted. There was no complaint of chest discomfort during pharmacologic infusion or recovery. The patient was injected with 12.0 millicuries of technetium 99m Cardiolite and subsequently rest SPECT Cardiolite nuclear imaging was obtained in the horizontal long, vertical long, and short axis views. The patient underwent pharmacologic (Regadenoson) evaluation. The patient was injected with 36.0 millicuries of technetium 99m Cardiolite and subsequently stress SPECT Cardiolite nuclear imaging was obtained in the horizontal long, vertical long, and short axis views. A gated Cardiolite study at peak stress was obtained. The examination was stopped secondary to completion of protocol. Rest and stress SPECT Cardiolite nuclear imaging status post realignment, normalization, and attenuation correction demonstrate large inferior and basal lateral infarct with no significant judy-infarct ischemia. Gated studies reveal an ejection fraction of 47%. Impression: 1. Pharmacologic (Regadenoson) evaluation 2. Peak pharmacologic ECG with no diagnostic ischemic changes. 3. Occasional PVCs and PACs noted. 5. 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 No suggestion of significant reversible ischemia. 6. The gated Cardiolite study reports an LVEF of 47%. This note was generated with [employer] software. It may contain incorrect words, spelling, and punctuation that were not noted in checking the note before signing.
--- NOTE | 2023-07-04 13:43 | DCINST_ITS ---
Discharge Instructions Diet Discharge Diet: - (DASH diet) Activity Discharge Activity: Return to Normal Activity Follow Up Care Test Results: Test results from this visit will be discussed in further detail at your follow- up appointment, if applicable. Discharge Plan Admission Admit Date/Time: 07/03/23 16:32 Primary Reason for Your Visit: Chest pain Attending Provider: Miri Gibson Primary Care Provider: [facility] Consulting Providers: Jazz Wooten Instructions Patient Instructions: ED Fall Prevention Additional Instructions / Restrictions: DISCHARGE INSTRUCTIONS PLEASE READ *Please take this with you to your next doctors appointment* -Please resume Plavix -You will need to follow-up with cardiology upon discharge ) -Please call your primary care provider's office upon discharge to schedule a hospital follow up within 1 week. -For any concerning signs or symptoms please call 911 or proceed to the nearest emergency department Discharge Orders/Prescriptions Prescriptions: New clopidogrel [Plavix] 75 mg tablet 75 mg PO DAILY Qty: 30 0RF Continued cholecalciferol (vitamin D3) 25 mcg (1,000 unit) tablet 25 mcg PO DAILY (DME) Handicap Placard See Rx Instructions .Route .MEDSUPPLY Qty: 1 0RF Rx Instructions: Good from 08/22/2022-08/22/2027 acetaminophen 500 MG tablet 500 mg PO DAILY PRN PRN (Reason: BACK PAIN) simvastatin 20 mg tablet 40 mg PO DAILY sennosides-docusate sodium [Stool Softener-Stimulant Laxat] 8.6-50 mg Tablet 2 tab PO BID PRN PRN (Reason: Constipation) Qty: 0 0RF ferrous sulfate [FeroSul] 325 mg (65 mg iron) tablet 325 mg PO DAILY 30 Days Qty: 30 2RF ascorbic acid (vitamin C) 500 mg tablet 500 mg PO BID Qty: 60 2RF folic acid 1 mg tablet 1 mg PO DAILY Qty: 30 2RF ranolazine [Ranexa] 500 mg tablet extended release 12 hr 500 mg PO BID isosorbide mononitrate 30 mg tablet extended release 24 hr 30 mg PO DAILY Qty: 90 3RF Rx Instructions: TAKE 1 TABLET BY MOUTH ONCE DAILY nitroglycerin 0.4 mg tablet, sublingual 0.4 mg SUBLINGUAL Q5-15M PRN (Reason: CHEST PAIN) Qty: 25 6RF metoprolol tartrate 25 mg tablet 12.5 mg PO BID Qty: 90 3RF Referrals / Follow Up: Andrea Marques MD [Med Staff - Active Staff] - [facility] [Primary Care Provider] - Within 1 Week Disposition Disposition (needs filled in before D/C Order can be placed): Home, Self Care
--- NOTE | 2023-07-04 13:47 | PCM.DC.SUM ---
Providers Date of Admission: 07/03/23 Date of Discharge: 07/04/23 Primary Care Physician: [facility] Reason For Visit: CHEST PAIN Diagnosis Discharge Diagnosis (1) Chest pain: Status: Acute Code(s): R07.9 - Chest pain, unspecified Plan #Suspect non cardiac chest pain #Hx cabg/hx stents/CAD #Hx pancytopenia, presently bicytopenia #hxafib Medications at Discharge Home Medications acetaminophen 500 mg tablet 500 mg PO DAILY PRN PRN BACK PAIN 05/24/19 cholecalciferol (vitamin D3) 25 mcg (1,000 unit) tablet 25 mcg PO DAILY vitamin 02/26/22 Handicap Placard #1 ea 08/22/22 isosorbide mononitrate 30 mg tablet,extended release 24 hr 30 mg PO DAILY HEART #90 tabs 09/09/22 nitroglycerin 0.4 mg sublingual tablet 0.4 mg sublingual Q5-15M PRN CHEST PAIN #25 tabs 11/12/22 metoprolol tartrate 25 mg tablet 12.5 mg (1/2 x 25 mg) PO BID BP #90 tabs 02/16/23 simvastatin 20 mg tablet 40 mg PO DAILY CHOLESTEROL 05/29/23 ascorbic acid (vitamin C) 500 mg tablet 500 mg PO BID #60 tabs 06/01/23 ferrous sulfate 325 mg (65 mg iron) tablet (FeroSul) 325 mg PO DAILY 30 days #30 tabs 06/01/23 folic acid 1 mg tablet 1 mg PO DAILY #30 tabs 06/01/23 sennosides 8.6 mg-docusate sodium 50 mg tablet (Stool Softener-Stimulant Laxative) 2 tab PO BID PRN PRN Constipation #0 tabs 06/01/23 ranolazine 500 mg tablet,extended release,12 hr (Ranexa) 500 mg PO BID 06/19/23 clopidogrel 75 mg tablet (Plavix) 75 mg PO DAILY #30 tabs 07/04/23 Hospital Course Procedures Nuclear stress test Summary of Care Provided Minutes Spent on Discharge: 32 Hospital Course: 88-year-old male history of pancytopenia being worked up for bone marrow problem, chronic hyponatremia, A-fib, coronary artery disease with CABG and stenting in the past presented to [facility] 07/03/2023 for chest pain. Patient very poor historian and chest pain is somewhat centrally located versus upper right chest and does not radiate. Denies any exacerbating or relieving factors and inconsistently reports changes with exertion but on reexam said he does not think there is an association and has no other associated symptoms, has some chronic shortness of breath that is unchanged. In the ED troponin was normal and EKG T wave changes concerning for ischemia and no acute findings on chest x-ray. He was admitted for stress test and the stress test demonstrated an area of previous inferior and basal lateral infarct but no suggestion of significant reversible ischemia. Discussed with garnett machine operator who read stress test and he reports that is the same as his previous stress test, discussed atypical nature of pain and ultimately plan is for patient to resume Plavix and follow-up with cardiology in the office and can consider resuming aspirin in the future. Questions answered for and patient. Discharge instructions as follows: -Please resume Plavix -You will need to follow-up with cardiology upon discharge (ph [phone]) -Please call your primary care provider's office upon discharge to schedule a hospital follow up within 1 week. -For any concerning signs or symptoms please call 911 or proceed to the nearest emergency department Physical Exam Narrative General: Alert, no apparent distress HEENT: Atraumatic, normocephalic Eyes: Anicteric, normal conjunctiva, extraocular movements grossly intact Neck: Supple Respiratory: Clear to auscultation bilaterally, normal respiratory effort Cardiovascular: Regular rate and rhythm GI: Soft, nontender, nondistended Extremities: No edema Musculoskeletal: Moving all extremities Neuro: No overt focal neurological deficits Skin: No rashes appreciated Psych: Cooperative Weight / BMI Weight Weight: 57 kg Body Mass Index (BMI) 19.1 ABG / Lab / Microbiology Data 07/04/23 06:05 07/04/23 06:05 Laboratory: Laboratory Results - last 24 hr 07/03/23 15:00: Troponin I High Sens 11 07/03/23 21:25: Troponin I High Sens 14 07/04/23 06:05: WBC 3.7 L, RBC 2.45 L, Hgb 7.8 L, Hct 24.4 L, MCV 99.6 H, MCH 31.8, MCHC 32.0, RDW Std Deviation 64.2 H, RDW Coeff of Zachariah 17.8 H, Plt Count 334, MPV 11.2, Sodium 126 L, Potassium 3.8, Chloride 97 L, Carbon Dioxide 27.0, Anion Gap 2 L, BUN 12, Creatinine 0.52 L, Estim Creat Clear Calc 41.17, Est GFR (MDRD) Af Amer 195, Est GFR (MDRD) Non-Af 161, BUN/Creatinine Ratio 23.3 H, Glucose 82, Calcium 8.2 L, Total Bilirubin 0.80, AST 5 L, ALT 25, Alkaline Phosphatase 84, Total Protein 6.0 L, Albumin 2.3 L, Globulin 3.7, Albumin/Globulin Ratio 0.6 L, Triglycerides 50, Cholesterol 83, LDL Cholesterol 32, VLDL Cholesterol 10, HDL Cholesterol 41 Radiography Diagnostic Testing: Radiology Impression Chest X-Ray 07/03/23 13:03 IMPRESSION: No acute pulmonary process Electronically Signed: Jason Mac MD at 13:48 EDT Reading Location ID and State: [address] [place] [address] , Service support , D/C Instructions Discharge Diet: - (DASH diet) Meaningful Use Info Meaningful Use Diagnoses (Choose all that apply): None applicable Discharge Plan Admission Admit Date/Time: 07/03/23 16:32 Primary Reason for Your Visit: Chest pain Attending Provider: Miri Gibson Primary Care Provider: [place] Consulting Providers: Jazz Wooten Instructions Patient Instructions: ED Fall Prevention Additional Instructions / Restrictions: DISCHARGE INSTRUCTIONS PLEASE READ *Please take this with you to your next doctors appointment* -Please resume Plavix -You will need to follow-up with cardiology upon discharge ( [phone]) -Please call your primary care provider's office upon discharge to schedule a hospital follow up within 1 week. -For any concerning signs or symptoms please call 911 or proceed to the nearest emergency department Discharge Orders/Prescriptions Prescriptions: New clopidogrel [Plavix] 75 mg tablet 75 mg PO DAILY Qty: 30 0RF Continued cholecalciferol (vitamin D3) 25 mcg (1,000 unit) tablet 25 mcg PO DAILY (DME) Handicap Placard See Rx Instructions .Route .MEDSUPPLY Qty: 1 0RF Rx Instructions: Good from 08/22/2022-08/22/2027 acetaminophen 500 MG tablet 500 mg PO DAILY PRN PRN (Reason: BACK PAIN) simvastatin 20 mg tablet 40 mg PO DAILY sennosides-docusate sodium [Stool Softener-Stimulant Laxat] 8.6-50 mg Tablet 2 tab PO BID PRN PRN (Reason: Constipation) Qty: 0 0RF ferrous sulfate [FeroSul] 325 mg (65 mg iron) tablet 325 mg PO DAILY 30 Days Qty: 30 2RF ascorbic acid (vitamin C) 500 mg tablet 500 mg PO BID Qty: 60 2RF folic acid 1 mg tablet 1 mg PO DAILY Qty: 30 2RF ranolazine [Ranexa] 500 mg tablet extended release 12 hr 500 mg PO BID isosorbide mononitrate 30 mg tablet extended release 24 hr 30 mg PO DAILY Qty: 90 3RF Rx Instructions: TAKE 1 TABLET BY MOUTH ONCE DAILY nitroglycerin 0.4 mg tablet, sublingual 0.4 mg SUBLINGUAL Q5-15M PRN (Reason: CHEST PAIN) Qty: 25 6RF metoprolol tartrate 25 mg tablet 12.5 mg PO BID Qty: 90 3RF Referrals / Follow Up: Andrea Marques MD [Med Staff - Active Staff] - [facility] [Primary Care Provider] - Within 1 Week Disposition Disposition (needs filled in before D/C Order can be placed): Home, Self Care Charges/Coding Visit Charges Inpatient E&M: 81950 Disch Hosp >30min
== END 2023-07-04 13:46 | disposition home or self-care (01) ==
LOC: ED 16:38 → PCU 17:10
PROVIDERS: Admitting Provider Internal Medicine; Emergency Provider Emergency Medicine; Visit Provider Internal Medicine
DX: R07.89 Other chest pain (principal); I48.0 Paroxysmal atrial fibrillation; D64.9 Anemia, unspecified; Z79.02 Long term (current) use of antithrombotics/antiplatelets; E78.00 Pure hypercholesterolemia, unspecified; R06.02 Shortness of breath; E87.1 Hypo-osmolality and hyponatremia; I25.10 Atherosclerotic heart disease of native coronary artery without angina pectoris; Z86.16 Personal history of COVID-19; Z95.1 Presence of aortocoronary bypass graft; I25.2 Old myocardial infarction; Z79.899 Other long term (current) drug therapy; Z66 Do not resuscitate
CPT/HCPCS: 36415; 71045; 78452; 80048; 80053; 80061; 84484; 85025; 85027; 93005; 93017; 94668; 99221; 99285; A9500; A4216; G0378; J2785

== ENCOUNTER 2023-07-07 10:37 | Outpatient (CLI) | payer MEDICARE, SELFPAY ==
[2023-07-07] MEDS: 0.9% NaCl Peripheral Flush Adult/Peds IV (10:48)
[2023-07-07] MEDS: 0.9% Normal Saline (500mL Bag) 500 ML 15 ML IV (10:49)
[2023-07-07 11:06] VITALS: BP 99/44; PULSE 79; RESP 18; TEMP 36.4; O2SAT 96; BMI 19.0
[2023-07-07 11:38] VITALS: BP 92/44; PULSE 72; RESP 16; TEMP 36.6; O2SAT 97
[2023-07-07 12:45] VITALS: BP 95/48; PULSE 73; RESP 16; TEMP 36.4; O2SAT 100
[2023-07-07 13:12] VITALS: BP 113/50; PULSE 72; RESP 16
== END 2023-07-07 10:38 | disposition home or self-care (01) ==
LOC: MEDOUTP 10:37
PROVIDERS: Referring Provider Internal Medicine Hematology & Oncology; Visit Provider Internal Medicine Hematology & Oncology
DX: D46.20 Refractory anemia with excess of blasts, unspecified (principal)
CPT/HCPCS: 36430; 86850; 86900; 86901; 86920; 86922; J7040; P9016; A4216

== ENCOUNTER 2023-08-03 07:56 | Outpatient (CLI) | payer MEDICARE, SELFPAY ==
[2023-08-03 08:06] VITALS: BP 95/56; PULSE 98; RESP 16; TEMP 35.8; BMI 18.2
[2023-08-03 09:02] VITALS: BP 88/48; PULSE 80; RESP 16; TEMP 36.1
[2023-08-03 10:02] VITALS: BP 108/59; PULSE 86; RESP 16; TEMP 36.1
[2023-08-03 11:30] VITALS: BP 105/50; PULSE 84; RESP 16; TEMP 36.2
== END 2023-08-03 07:57 | disposition home or self-care (01) ==
PROVIDERS: Referring Provider Internal Medicine Hematology & Oncology; Visit Provider Internal Medicine Hematology & Oncology
DX: D46.20 Refractory anemia with excess of blasts, unspecified (principal)
CPT/HCPCS: 36430; 86850; 86900; 86901; 86920; 86922; J7040; P9016; A4216

== ENCOUNTER 2023-08-17 15:09 | Emergency (ER) | payer OTHER, SELFPAY ==
[2023-08-17 15:10] VITALS: BP 89/53; PULSE 97; RESP 16; TEMP 36.5; O2SAT 100
--- NOTE | 2023-08-17 16:21 | EKG12_ITS ---
Test Reason : WEAKNESS Blood Pressure : / mmHG Vent. Rate : 089 BPM Atrial Rate : 089 BPM P-R Int : 156 ms QRS Dur : 112 ms QT Int : 382 ms P-R-T Axes : 082 -42 089 degrees QTc Int : 464 ms Sinus rhythm with marked sinus arrhythmia with occasional Premature ventricular complexes Left axis deviation Nonspecific T wave abnormality Prolonged QT Abnormal ECG Confirmed by VALERIE JUDD, DRAKE ([id number]), rewrite editor HEATHER BURDEN ([id number]) on 08/24/2023 6:53:58 AM Referred By: Zaire Jiménez Confirmed By:BRIAN PADILLA MD
--- NOTE | 2023-08-17 16:22 | EX.ED.DYSGE1 ---
HPI History of Present Illness Chief Complaint: Lower Extremity Injury Informant: patient and spouse/S.O. Narrative Narrative: And due to difficulty feeling pulse in his left foot for 2 or 3 weeks. They were evidently over at his oncologist office. They were able to feel a pulse but it was weak and so they referred him here. On review of systems I also find that this patient has had generalized weakness going on for 3 to 6 months. His energy is down. His weight is down. He is not eating and drinking as much. He has had endoscopies. He is seeing multiple physicians at the [facility]. He has follow-up. He has had some low sodium. states that has been running between 124 and 127. Triage note mentions chest pain. But he denies this. His denies it. He does complain of some discomfort above the umbilicus but evidently this is a chronic ongoing issue that has not changed. He has had a CT scan of his abdomen for this. I did review a CT scan with CT angiogram from May of this year. [facility] Medical History Atherosclerotic heart disease of [place] coronary artery without angina pectoris Chest pain Chest pain Chronic hyponatremia Chronic pain Colitis COVID-19 Diverticulitis Excision of the left atrial appendage Hiatal hernia Hyperlipidemia Kidney stones MDS (myelodysplastic syndrome) Old myocardial infarction Paroxysmal atrial fibrillation Premature ventricular contraction Upper gastrointestinal bleed Home Medications acetaminophen 500 mg tablet 500 mg PO DAILY PRN PRN BACK PAIN 05/24/19 [History Last Taken 05/23/19] cholecalciferol (vitamin D3) 25 mcg (1,000 unit) tablet 25 mcg PO DAILY vitamin 02/26/22 [History Last Taken 07/02/23] Handicap Placard #1 ea 08/22/22 [Rx Last Taken Unknown] isosorbide mononitrate 30 mg tablet,extended release 24 hr 30 mg PO DAILY HEART #90 tabs 09/09/22 [Rx Last Taken 07/03/23] nitroglycerin 0.4 mg sublingual tablet 0.4 mg sublingual Q5-15M PRN CHEST PAIN #25 tabs 11/12/22 [Rx Last Taken Unknown] metoprolol tartrate 25 mg tablet 12.5 mg (1/2 x 25 mg) PO BID BP #90 tabs 02/16/23 [Rx Last Taken 07/03/23] simvastatin 20 mg tablet 40 mg PO DAILY CHOLESTEROL 05/29/23 [History Last Taken 07/02/23] ascorbic acid (vitamin C) 500 mg tablet 500 mg PO BID #60 tabs 06/01/23 [Rx Last Taken 07/03/23] folic acid 1 mg tablet 1 mg PO DAILY #30 tabs 06/01/23 [Rx Last Taken 07/02/23] sennosides 8.6 mg-docusate sodium 50 mg tablet (Stool Softener-Stimulant Laxative) 2 tab PO BID PRN PRN Constipation #0 tabs 06/01/23 [Rx Last Taken Unknown] ranolazine 500 mg tablet,extended release,12 hr (Ranexa) 500 mg PO BID 06/19/23 [History Last Taken 07/03/23] clopidogrel 75 mg tablet (Plavix) 75 mg PO DAILY #30 tabs 07/04/23 [Rx Last Taken Unknown] darbepoetin renée in polysorbat 300 mcg/0.6 mL in polysorbate injection syringe (Aranesp) 300 mcg subcut Q2W 07/24/23 [History Last Taken Unknown] pantoprazole 40 mg tablet,delayed release 40 mg PO DAILY 08/03/23 [History Last Taken Unknown] Allergy/AdvReac Type Severity Reaction Status Date / Time ciprofloxacin [From Cipro] Allergy Unknown Rash Verified 08/17/23 16:34 EZEQUIEL Inhibitors Allergy cough Verified 08/17/23 16:34 benzonatate Allergy rash Verified 08/17/23 16:34 [From Tessalon Perles] ipodate [From Oragrafin] Allergy Rash Verified 08/17/23 16:34 Family History Father Prostate cancer Mother CVA (cerebral vascular accident) Brother Cancer Surgical History H/O maze procedure History of bilateral cataract extraction History of hernia repair Hx of appendectomy Postsurgical percutaneous transluminal coronary angioplasty (PTCA) status Presence of stent in coronary artery (~11/14/11) S/P CABG (coronary artery bypass graft) (~11/2005) S/P right inguinal hernia repair Social History Smoking Status: Never smoker alcohol intake: never substance use type: does not use caffeine: Yes Type: coffee Number of servings: 2 ROS ROS ED Constitutional Constitutional ED: Denies chills or fever(s) Eyes Eyes: Denies change in vision ENT ENT ED: Denies rhinorrhea or sore throat Cardiovascular Cardiovascular: Denies chest pain or palpitations Respiratory/Chest Respiratory/Chest: Denies cough or dyspnea Gastrointestinal Gastrointestinal: Reports abdominal pain; Denies diarrhea, melena, nausea or vomiting Genitourinary Genitourinary ED: Denies hematuria Musculoskeletal Musculoskeletal: Denies arthralgias or back pain Integumentary Denies rash Neurologic Neurologic: Denies paresthesias Endocrine Endocrinology: Denies polydipsia or polyuria Hematologic/Lymphatic Hematologic/Lymphatic: Denies lymphadenopathy Allergic/Immunologic Allergic/Immunologic ED: Denies urticaria EXAM Physical Exam Narrative Exam Narrative: CONSTITUTIONAL: Patient is nontoxic in appearance. The patient looks comfortable. Does look thin and somewhat chronically ill but does not look acutely sick or uncomfortable. HEENT: No notable trauma. Mucous membranes are dry.. No sinus tenderness. No indication of pain with swallowing. EYES: No conjunctival injection. No proptosis. CARDIOVASCULAR: Regular rate. Regular rhythm. No notable murmur. No JVD. RESPIRATORY: No respiratory distress. Breathing is unlabored. No wheezes. No rhonchi. No rales. No pain with a deep breath. Saturations are normal at 100% on room air showing no hypoxia. GASTROINTESTINAL: Not distended. Bowel sounds are normal. No tenderness. No guarding. No rebound. No palpable mass. No bruit. I can feel his aorta but his abdomen is very thin and the aorta does not feel a large, it is not tender, and there is no sign of aneurysm on his recent CT angiogram. Overall his exam is benign. GENITOURINARY: No tenderness over the bladder. No CVA tenderness. MUSCULOSKELETAL: Atraumatic. No peripheral edema. Patient does not have notable pallor. Extremities are still warm. I did Doppler pulses and he has strongly biphasic and almost triphasic dorsalis pedis and posterior tibial on both feet. They are more palpable on the right than the left by hand though. But they both have excellent flow with Doppler. NEUROLOGICAL: Patient is alert and appropriate. No focal deficit noted. SKIN: No noted rashes. No diaphoresis. PSYCHIATRIC: Patient is calm. Have a rather flat affect. Const Vital Signs: 08/17/23 15:10 08/17/23 16:43 Temperature 97.7 F L Temperature Source Temporal Pulse Rate 97 87 Respiratory Rate 16 16 Blood Pressure 89/53 L 95/59 L Blood Pressure Mean 65 71 Pulse Ox 100 95 Oxygen Delivery Method Room Air Room Air MDM MDM MDM Narrative Medical decision making narrative: Patient CBC shows anemia at 8.0 but he has known myelodysplastic syndrome drome and chronic anemia. Platelets and white count are normal. Patient's electrolytes show actually low sodium but very good for him. He is rarely above the 120s and he is 130 today. Mild elevation of BUN and creatinine ratio in but he is given IV fluids here. This should also help his sodium level. His glucose is minimally up at 118. Function test show no marked abnormalities. Lipase is normal. I talked with the patient and his . They want to go home. He has chronic weakness that is being worked up. Most of this is thought to be due to his age and myelodysplastic syndrome. I do not find a reason acutely for admission. Lab Data Attestation: I reviewed the patient's lab results. Labs: Laboratory Results - last 24 hr 08/17/23 16:30 WBC 4.8 RBC 2.65 L Hgb 8.0 L Hct 25.9 L MCV 97.7 H MCH 30.2 MCHC 30.9 L RDW Std Deviation 79.3 H RDW Coeff of Zachariah 22.6 H Plt Count 314 MPV 10.8 Immature Gran % (Auto) 0.800 Neut % (Auto) 39.3 L Lymph % (Auto) 16.1 L Dupage % (Auto) 43.8 H Eos % (Auto) 0.0 Baso % (Auto) 0.0 Absolute Neuts (auto) 1.9 L Absolute Lymphs (auto) 0.78 L Nucleated RBC % 0 Differential Comment SCANNED Sodium 130 L Potassium 3.9 Chloride 97 L Carbon Dioxide 27.0 Anion Gap 6 BUN 17 Creatinine 0.62 L Est GFR (MDRD) Af Amer 159 Est GFR (MDRD) Non-Af 131 BUN/Creatinine Ratio 27.6 H Glucose 118 H Calcium 7.9 L Total Bilirubin 0.90 AST 15 ALT 18 Alkaline Phosphatase 86 Troponin I High Sens 15 Total Protein 6.4 Albumin 2.3 L Globulin 4.1 Albumin/Globulin Ratio 0.6 L Lipase 21 Radiography Diagnostic Testing: Clinical Impression(s) from Imaging Studies Chest X-Ray 08/17/23 16:35 IMPRESSION: No acute cardiopulmonary pathology. Status post median sternotomy and CABG Electronically Signed: Ezequiel Serrano MD at 17:11 EST , EKG Initial EKG: Comments: My independent interpretation of the patient's EKG shows irregular rhythm that may be atrial fibrillation versus sinus arrhythmia. He does have a history of paroxysmal A-fib. Overall rate is controlled though at 89. No acute ST elevation or depression. There is an occasional PVC. SD interval QRS duration and QTc are within normal limits. Discharge Plan Triage Chief Complaint: Lower Extremity Injury ED Provider: Zaire Jiménez Dx/Rx/DC Orders Clinical Impression: Acute hyponatremia, Generalized weakness, Myelodysplastic syndrome, Pulse pressure decrease Instructions: ED Hyponatremia Prescriptions: No Action cholecalciferol (vitamin D3) 25 mcg (1,000 unit) tablet 25 mcg PO DAILY (DME) Handicap Cecilia See Rx Instructions .Route .MEDSUPPLY Qty: 1 0RF Rx Instructions: Good from 08/22/2022-08/22/2027 Aranesp (in polysorbate) 300 mcg/0.6 mL syringe 300 mcg subcut Q2W acetaminophen 500 MG tablet 500 mg PO DAILY PRN PRN (Reason: BACK PAIN) simvastatin 20 mg tablet 40 mg PO DAILY sennosides-docusate sodium [Stool Softener-Stimulant Laxat] 8.6-50 mg Tablet 2 tab PO BID PRN PRN (Reason: Constipation) Qty: 0 0RF ascorbic acid (vitamin C) 500 mg tablet 500 mg PO BID Qty: 60 2RF folic acid 1 mg tablet 1 mg PO DAILY Qty: 30 2RF ranolazine [Ranexa] 500 mg tablet extended release 12 hr 500 mg PO BID clopidogrel [Plavix] 75 mg tablet 75 mg PO DAILY Qty: 30 0RF pantoprazole 40 mg tablet,delayed release (DR/EC) 40 mg PO DAILY isosorbide mononitrate 30 mg tablet extended release 24 hr 30 mg PO DAILY Qty: 90 3RF Rx Instructions: TAKE 1 TABLET BY MOUTH ONCE DAILY nitroglycerin 0.4 mg tablet, sublingual 0.4 mg SUBLINGUAL Q5-15M PRN (Reason: CHEST PAIN) Qty: 25 6RF metoprolol tartrate 25 mg tablet 12.5 mg PO BID Qty: 90 3RF Hold Instructions: hold for low bp since [facility] [[facility] Provider] - Disposition Disposition: Home, Self Care
--- NOTE | 2023-08-17 16:35 | RAD_ITS ---
STUDY: X-RAY CHEST REASON FOR EXAM: Male, 88 years old. CP TECHNIQUE: AP portable COMPARISON: July 03, 2023 FINDINGS: Postop change status post median sternotomy and CABG The lungs are clear and expanded. Small calcified granuloma in left lower lobe There is no demonstrated pleural abnormality. Normal size heart. Normal mediastinum and izabel. Normal visualized pulmonary arteries. Normal visualized aortic arch and descending thoracic aorta. Dorsal spine and shoulders demonstrate degenerative changes of. Normal visualized ribs, clavicles, and shoulders. There is no demonstrated abnormality of the visualized soft tissue structures of the upper abdomen No significant change since prior study. RAD/Chest 1 View (Portable) IMPRESSION: No acute cardiopulmonary pathology. Status post median sternotomy and CABG Electronically Signed: Ezequiel Serrano MD at 17:11 EST ,
[2023-08-17 16:39] LABS: Absolute Lymphocyte Count 0.78 X10^3/uL (0.83-4.51); Absolute Neutrophil Count 1.9 X10^3/uL (2.0-7.7); Hematocrit 25.9 % (40-54); Lymphocyte # 0.78 X10^3/ul (0.83-4.51); Lymphocyte % 16.1 % (19-41); Mean Corp Hgb Conc 30.9 g/dL (32-36); Mean Corpuscular Hgb 30.2 pg (27.0-32.0); Mean Corpuscular Volume 97.7 fL (80-94); Mean Platelet Vol. 10.8 fl (6.2-12.0); Monocyte# 2.12 X10^3/uL; Monocyte% 43.8 % (0-10); NRBC Flagged by Analyzer 0 % (0-5); Neutrophil % 39.3 % (47-70); POSITIVE DIFFERENTIAL YES; POSITIVE MORPHOLOGY YES; Platelet Count 314 K/mm3 (150-450); RBC Distribution Width CV 22.6 % (11.6-14.6); RBC Distribution Width SD 79.3 fl (35.1-43.9); Red Blood Count 2.65 M/mm3 (4.6-6.2); White Blood Count 4.8 K/mm3 (4.4-11.0)
[2023-08-17 16:40] LABS: Differential Indicated SCAN CRITERIA MET
[2023-08-17] MEDS: 0.9% Normal Saline (1000mL) 1,000 ML 1000 ML IV (16:42)
[2023-08-17 16:43] VITALS: BP 95/59; PULSE 87; RESP 16; O2SAT 95
[2023-08-17 16:56] LABS: Differential Comment SCANNED
[2023-08-17 17:08] LABS: ALB/GLOB Ratio 0.6 RATIO (0.9-2.4); AST(SGOT) 15 U/L (15-37); Alanine Aminotransfer ALT/SGPT 18 U/L (16-61); Albumin, Serum 2.3 g/dL (3.2-5.0); Alkaline Phosphatase 86 U/L (45-117); Anion Gap 6 (5-15); BUN 17 mg/dL (7-18); BUN/Creat Ratio 27.6 RATIO (10-20); Calcium,Total 7.9 mg/dL (8.5-10.1); Chloride 97 mmol/L (98-107); Creatinine, Serum 0.62 mg/dL (0.70-1.30); EST Glomerular Filtration Rate 131 mL/min (>60); Est Glom Filt Rate - Afr Amer 159 mL/min (>60); Globulin 4.1 g/dL (2.2-4.2); Glucose 118 mg/dL (74-106); Lipase 21 U/L (13-75); Potassium 3.9 mmol/L (3.5-5.1); Protein, Total 6.4 g/dL (6.4-8.2); Sodium Level 130 mmol/L (136-145); Troponin-I HS 15 pg/mL (3.0-78.0)
[2023-08-17 17:50] VITALS: BP 102/59; PULSE 68; RESP 14; O2SAT 95
== END 2023-08-17 17:52 | disposition home or self-care (01) ==
PROVIDERS: Emergency Provider Emergency Medicine; Referring Provider Emergency Medicine; Visit Provider Emergency Medicine
DX: E87.1 Hypo-osmolality and hyponatremia (principal); D46.9 Myelodysplastic syndrome, unspecified; I25.10 Atherosclerotic heart disease of native coronary artery without angina pectoris; R53.1 Weakness; I25.2 Old myocardial infarction; Z86.16 Personal history of COVID-19
CPT/HCPCS: 71045; 80053; 83690; 84484; 85025; 93005; 96360; 99284; J7030; A4216

== ENCOUNTER 2023-08-28 07:51 | Outpatient (CLI) | payer OTHER, SELFPAY ==
[2023-08-28 08:06] VITALS: BP 90/56; PULSE 86; RESP 16; TEMP 36; BMI 18.1
[2023-08-28] MEDS: 0.9% NaCl Peripheral Flush Adult/Peds IV (08:25)
[2023-08-28] MEDS: 0.9% Normal Saline (500mL Bag) 500 ML 15 ML IV (08:25)
[2023-08-28 08:57] VITALS: BP 95/55; PULSE 79; RESP 16; TEMP 36.2
[2023-08-28 09:57] VITALS: BP 101/50; PULSE 76; RESP 16; TEMP 36.2
[2023-08-28 10:37] VITALS: BP 95/51; PULSE 80; RESP 16; TEMP 36.3
== END 2023-08-28 07:52 | disposition home or self-care (01) ==
LOC: MEDOUTP 07:51
PROVIDERS: Referring Provider Internal Medicine Hematology & Oncology; Visit Provider Internal Medicine Hematology & Oncology
DX: D46.4 Refractory anemia, unspecified (principal); D61.9 Aplastic anemia, unspecified
CPT/HCPCS: 36430; 86644; 86850; 86900; 86901; 86920; 86922; J7040; P9040; A4216

== ENCOUNTER → 2023-09-21 | Outpatient (CLI) | payer OTHER, SELFPAY ==
--- NOTE | 2023-09-21 13:41 | CT_ITS ---
STUDY: CT CHEST, ABDOMEN T PELVIS WITHOUT CONTRAST REASON FOR EXAM: Male, 88 years old. UNINTENTIONAL WT LOSS, SIADH, ABD PAIN RADIATION DOSAGE (If Supplied By Facility): CTDIvol = ( 5.85 ) mGy, DLP = ( 598.91 ) mGycm TECHNIQUE: Transaxial imaging was performed without the administration of intravenous contrast material. Individualized dose optimization techniques were used for this CT. COMPARISON: June 04, 2023 FINDINGS: CHEST There is a right upper lobe pleural-based nodular lesion measuring 2.2 x 1.4 cm requiring further evaluation . Malignancy cannot be excluded. Peripheral patchy interstitial thickening/fibrotic changes. Normal heart and pericardium. There are coronary arterial calcifications. Normal mediastinum. Normal hilar regions. Normal unenhanced pulmonary arteries. Slightly prominent ascending aorta measuring 4.1 cm. Normal osseous structures. ABDOMEN Normal liver. Normal gallbladder and extrahepatic biliary system. Normal spleen. Normal pancreas. Normal bilateral adrenal glands. Normal right kidney. Normal left kidney. Normal visualized stomach. Normal small intestine. Mild colonic diverticulosis of the colon. The appendix is visualized and appears normal. Calcified abdominal aorta. Normal inferior vena cava. Normal retroperitoneum. Normal abdominal wall. Degenerative vertebral changes and scoliosis. Moderate old compression of L1. PELVIS Small layering calculi in the urinary bladder. The prostate is 3.8 x 5.5 cm. There is no pelvic fluid. There is no pelvic lymphadenopathy or mass lesion. Normal visualized pelvic arteries. CT/CT Chest, Abd, Pelvis WO Cont IMPRESSION: Right upper lobe pleural-based masslike density requiring further evaluation. Peripheral patchy interstitial thickening/fibrotic changes. Possible layering calculi in the urinary bladder. Mild colonic diverticulosis. Electronically Signed: Edwardo Hughes DO at 17:37 EST ,
== END | disposition home or self-care (01) ==
LOC: CT 13:35
DX: R63.4 Abnormal weight loss (principal); R10.9 Unspecified abdominal pain
CPT/HCPCS: 71250; 74176

== ENCOUNTER → 2023-10-20 | Outpatient (CLI) | payer MEDICARE, OTHER, SELFPAY ==
--- NOTE | 2023-10-20 09:00 | PET_ITS ---
EXAMINATION: FDG PET/CT ? INDICATIONS: 88-year-old male with a history of pulmonary nodularity. ? COMPARISON EXAMINATION: None available. ? INDEX LESION SIZE SUV INTERPRETATION Right upper posterior lung field, right upper lobe 18.6 mm 4.2 Fulfills quantitative criteria for viable neoplasm, histopathologic analysis recommended ? Right thoracic perihilum ? 2.9 max Quantitative criteria for viable neoplasm are not fulfilled ? TECHNIQUE: Following the intravenous administration of 13.61 mCi of F-18 deoxyglucose via the right hand, multiplanar image acquisitions of the head, neck, chest, abdomen and pelvis to the level of the midthigh, obtained at one-hour post radiopharmaceutical administration contemporaneously interpreted with the current CT of the chest, abdomen and pelvis dated 10/20/2023 via coregistration reveal: ? SERUM GLUCOSE LEVEL:? 95 mg/dL? HEIGHT:?? 67 inches WEIGHT:?? 110 pounds ? FINDINGS: ? HEAD/NECK:? There is no evidence of abnormal increased glucose metabolism in the pharyngeal mucosal space, parapharyngeal space, oropharynx, bilateral-lateral and anterior neck, hypopharynx and distribution of the larynx. ? The visualized portion of the cerebral cortical-subcortical structures demonstrate symmetric and preserved glucose metabolism. ? CHEST:? Facilitated uptake is noted in the right upper posterior lung zone, right upper lobe. The calculated maximum standard uptake value is 4.2. The maximum axial diameter of the metabolic, morphologic abnormality is 18.6 mm. Facilitated uptake is noted in the right thoracic perihilum, generating a calculated standard uptake value of 2.9. ? CT of the chest demonstrates the following anatomic characteristics: There is evidence of prior median sternotomy. Atherosclerotic calcification is defined in the thoracic aorta without evidence of dilatation, aneurysm formation.? Coronary arterial calcification is observed. Interstitial changes defined in the bilateral posterior lung zones are ametabolic. ? ABDOMEN/PELVIS:? Normal physiologic distribution of the radiopharmaceutical is identified in the hepatic (2.3) and splenic parenchyma, both renal units, urinary bladder, and visualized intestinal tract. ? CT of the abdomen and pelvis is remarkable for the following: Atherosclerotic calcification is defined in the abdominal aorta without evidence of dilatation, aneurysm formation. Colonic diverticulosis demonstrates no evidence of diverticulitis. Multiple bilateral inguinal soft tissue densities are ametabolic. Calcified phlebolith formation is noted in the left hemipelvis. Calcification is noted in the bilateral posterior base of the prostate gland.? ? SKELETAL:? Degenerative changes defined in the thoracic and lumbar spine demonstrate no evidence of increased glucose metabolism. There are no sclerotic, mixed sclerotic-lytic, or primarily lytic changes defined in the axial skeletal structures with evidence of increased FDG uptake. A compression deformity without evidence of increased uptake is noted at the level of the twelfth thoracic vertebra. ? PET/PET/CT Tumor Base -Thigh Init IMPRESSION: 1. Facilitated uptake noted in the right upper lung field, right upper lobe, fulfills quantitative criteria for malignant transformation. Histopathologic analysis is recommended. 2. Enhanced FDG concentration noted in the right thoracic perihilum does not fulfill quantitative criteria for malignant transformation. Electronic Signature Maximus Wolf D.O. Accurate Quantification of SUVs for this report are calculated using the exclusive [employer]. ([place]. Patent No. [phone] [id number] [phone] B2 [phone] [place] patent [phone]). Standardization and correction of the FDG SUV metric via [employer] technology allow for vendor non-specific objective quantitative examination comparison and optimization of the sensitivity and specificity of the FDG PET-CT examination. . [email or web address] Electronically Signed: Maximus Wolf DO at 9:17 EST ,
== END | disposition home or self-care (01) ==
DX: R91.1 Solitary pulmonary nodule (principal); R63.4 Abnormal weight loss; Z77.090 Contact with and (suspected) exposure to asbestos
CPT/HCPCS: 78815; A9552

== ENCOUNTER → 2023-10-22 | Outpatient (CLI) | payer MEDICARE, OTHER, SELFPAY ==
[2023-10-22] VITALS (17 sets, daily range): BP systolic 93–122; BP diastolic 49–83; PULSE 62–68; RESP 14–21; TEMP 36; O2SAT 99–100; BMI 16.7
[2023-10-22 07:35] LABS: Platelet Count 234 K/mm3 (150-450)
[2023-10-22] MEDS: 0.9% Normal Saline (250mL Bag) 250 ML 15 ML IV (08:14)
[2023-10-22] MEDS: 0.9% Saline Lock 10 ML Syringe IV (08:15)
[2023-10-22 08:30] LABS: International Normalized Ratio 1.2; Prothrombin Time (Protime)PT. 15.1 SECONDS (11.7-14.9)
[2023-10-22 08:31] LABS: Partial Thromboplast Time 44.7 Seconds (24.1-36.2)
[2023-10-22] MEDS: Midazolam 2 MG/2 ML Syringe IV (09:26)
[2023-10-22] MEDS: fentaNYL 100 MCG/2 ML Ampul IV (09:27)
[2023-10-22] MEDS: Lidocaine 2% (20 ml mdv) 20 ML Vial INFILT (09:45)
--- NOTE | 2023-10-22 10:00 | RAD_ITS ---
STUDY: X-RAY CHEST REASON FOR EXAM: Male, 88 years old. Immediately post lung biopsy -- Immediately post lung biopsy TECHNIQUE: AP inspiration and expiration views. COMPARISON: Comparison is made with prior study dated August 17, 2023. FINDINGS: EKG electrodes are seen. The patient is status post right lung biopsy. There is no evidence of pneumothorax on the immediate post right lung biopsy radiographs. RAD/Chest Insp/Exp 2 View IMPRESSION: No evidence of pneumothorax on the immediate post right lung biopsy radiographs. Electronically Signed: Gómez Gaytan MD at 10:56 EST ,
--- NOTE | 2023-10-22 10:50 | PCM.OP.PRO ---
Procedure Report Date of Procedure: 10/22/23 Assessment & Plan Assessment/Plan (1) Neoplasm of uncertain behavior of trachea, bronchus and lung: PLAN: PROCEDURE: CT GUIDED CORE NEEDLE LUNG BIOPSY ORDERING PROVIDER: Dr. Erick Mota INDICATION: Male, 88 years old. Right upper lobe mass. PROVIDER: SONAL Alford CONSENT: Written informed consent was obtained having explained the risks, benefits and alternatives in detail with the patient who accepted the risks and agreed to proceed. Laboratory review and clinical assessment was performed. PRE-PROCEDURE SEDATION ASSESSMENT: Current history and physical dictated by referring physician and reviewed. No clinical changes since date of exam. Patient has an ASA Class of 2. PROCEDURAL SEDATION PROTOCOL: The Drugs used were: 1 mg Versed, IV, and 25 mcg Fentanyl, IV. The sedation time was: 30 minutes, starting at 9:26 AM and terminated at 9:56 AM. The procedural sedation protocol was independently monitored by the department nurse. RADIATION DOSAGE (If Supplied By Facility): CTDIvol = 12.96 mGy, DLP = 482.60 mGycm Individualized dose optimization techniques were used for this CT. TECHNIQUE: The patient was placed in a prone position. A noncontrast CT was performed to localize the lesion in the right upper lobe. The skin surface was prepped and draped in a sterile fashion. 2% lidocaine was used for local anesthesia. Using CT guidance, a 20-gauge coaxial biopsy device was advanced to the periphery of the lesion. A total of 6 core specimens were obtained. Specimens were microscopically reviewed by pathology in the CT suite and placed in formalin solution. BioSentry tract sealant system was deployed at the biopsy site, and the biopsy needle was removed. A sterile occlusive dressing was applied to the biopsy site. The patient tolerated the procedure well. An immediate chest xray was ordered, per protocol. A negative biopsy does not exclude malignancy. Further imaging or clinical followup based on patient condition and degree of clinical suspicion for malignancy. Suggest rebiopsy, if biopsy results do not match with clinical scenario. IMPRESSION: 1. CT directed core needle biopsy of right upper lobe mass using CT image guidance with image documentation as described. Pathology results are pending. 2. Procedural Sedation protocol utilized with independent monitoring by the department nurse. Procedures Radiology Radiology CT Procedures: 10808 Biopsy Lung
--- NOTE | 2023-10-22 11:57 | RAD_ITS ---
STUDY: X-RAY CHEST REASON FOR EXAM: Male, 88 years old. 2 hours post lung biopsy -- 2 hours post lung biopsy TECHNIQUE: AP inspiration and expiration views. COMPARISON: Comparison is made with prior chest radiograph done earlier today. FINDINGS: The patient status post right lung biopsy. No evidence of pneumothorax on the 2 hour delayed post right lung biopsy radiograph. Left shoulder calcific tendinitis. RAD/Chest Insp/Exp 2 View IMPRESSION: No evidence of pneumothorax on the 2 hour post right lung biopsy radiographs. Electronically Signed: Gómez Gaytan MD at 12:40 EST ,
== END | disposition home or self-care (01) ==
LOC: CT 07:18
PROVIDERS: Nurse Practitioner Acute Care
DX: Z01.818 Encounter for other preprocedural examination (principal); I48.0 Paroxysmal atrial fibrillation; J84.10 Pulmonary fibrosis, unspecified; D38.1 Neoplasm of uncertain behavior of trachea, bronchus and lung; R91.8 Other nonspecific abnormal finding of lung field
CPT/HCPCS: 32408; 36415; 71046; 77012; 85049; 85610; 85730; 88172; 88305; 88313; 99156; 99157; J7050; A4216; C2613

== ENCOUNTER → 2024-02-12 | Outpatient (CLI) | payer MEDICARE, SELFPAY ==
[2024-02-12 12:45] LABS: BNP,B-Type NATRIURETIC PEPTIDE 205.6 pg/mL (0-100)
== END | disposition home or self-care (01) ==
LOC: LAB 11:40
PROVIDERS: Referring Provider Nurse Practitioner Family; Visit Provider Nurse Practitioner Family
DX: R06.02 Shortness of breath (principal); I48.0 Paroxysmal atrial fibrillation
CPT/HCPCS: 36415; 83880

== ENCOUNTER 2024-04-23 17:23 | Emergency (ER) | payer OTHER, SELFPAY ==
[2024-04-23 17:24] VITALS: BP 118/73; PULSE 72; RESP 16; TEMP 36.3; O2SAT 100
--- NOTE | 2024-04-23 17:54 | EDS_ITS ---
HPI History of Present Illness HPI Narrative: 88-year-old male lost his balance and fell yesterday. Injured his left wrist. Complaining of pain to his left wrist and dorsum of his left hand. Denies other injuries. He is a minor abrasion to his elbow that his cleaned and put a bandage on. He did not hit his head. Complaining of left wrist discomfort. He is right-hand dominant. No prior history or surgery to the left hand or wrist. Chief Complaint: Upper Extremity Injury Informant: patient and spouse/S.O. Occured/Mechanism Mechanism/Context: Yes injury and Yes blunt trauma Onset/Context/Timing Onset: Yesterday Context: Sudden Onset Timing: Continuous Quality of Pain: Dull and Aching Current Severity: Mild Maximum Severity: Mild Associated Symptoms Associated Symptoms: Negative for Parasthesia, Weakness or Loss of Funtion Narrative Narrative: 88-year-old male lost his balance fell yesterday injuring his left hand and wrist. Patient is right-hand dominant. Did not hit his head. Prior similar symptoms: No Recent Illness/Hospitalization: No PFSH PFSH Medical History MDS (myelodysplastic syndrome) Chronic hyponatremia Chest pain Chronic pain Chest pain COVID-19 Old myocardial infarction Premature ventricular contraction Hyperlipidemia Excision of the left atrial appendage Atherosclerotic heart disease of [place] coronary artery without angina pectoris Paroxysmal atrial fibrillation Kidney stones Hiatal hernia Upper gastrointestinal bleed Diverticulitis Colitis Home Medications ?Medication ?Instructions ?Recorded ?Last Taken ?Type acetaminophen 500 mg tablet 500 mg PO DAILY PRN PRN BACK PAIN 05/24/19 05/23/19 History cholecalciferol (vitamin D3) 25 25 mcg PO DAILY vitamin 02/26/22 07/02/23 History mcg (1,000 unit) tablet Handicap Placard #1 ea 08/22/22 Unknown Rx nitroglycerin 0.4 mg sublingual 0.4 mg sublingual Q5-15M PRN CHEST 11/12/22 Unknown Rx tablet PAIN #25 tabs ascorbic acid (vitamin C) 500 mg 500 mg PO BID #60 tabs 06/01/23 07/03/23 Rx tablet folic acid 1 mg tablet 1 mg PO DAILY #30 tabs 06/01/23 07/02/23 Rx sennosides 8.6 mg-docusate sodium 2 tab PO BID PRN PRN Constipation 06/01/23 Unknown Rx 50 mg tablet (Stool #0 tabs Softener-Stimulant Laxative) darbepoetin renée in polysorbat 300 300 mcg subcut Q2W 07/24/23 Unknown History mcg/0.6 mL in polysorbate injection syringe (Aranesp) isosorbide mononitrate 30 mg 30 mg PO DAILY HEART #90 tabs 08/30/23 Unknown Rx tablet,extended release 24 hr clopidogrel 75 mg tablet (Plavix) 75 mg PO DAILY #90 tabs 10/12/23 Unknown Rx furosemide 40 mg tablet 40 mg PO .COMPLEX #90 tabs 02/16/24 Unknown Rx ranolazine 1,000 mg 1,000 mg PO BID #180 tabs 02/26/24 Unknown Rx tablet,extended release,12 hr simvastatin 20 mg tablet 20 mg PO DAILY CHOLESTEROL 04/21/24 Unknown History Allergy/AdvReac Type Severity Reaction Status Date / Time ciprofloxacin (From Cipro) Allergy Unknown Rash Verified 04/23/24 17:26 EZEQUIEL Inhibitors Allergy cough Verified 04/23/24 17:26 benzonatate (From Tessalon Allergy rash Verified 04/23/24 17:26 Perles) ipodate (From Oragrafin) Allergy Rash Verified 04/23/24 17:26 Family History Father Prostate cancer Mother CVA (cerebral vascular accident) Brother Cancer Surgical History History of bilateral cataract extraction S/P right inguinal hernia repair Postsurgical percutaneous transluminal coronary angioplasty (PTCA) status Presence of stent in coronary artery (~11/14/11) S/P CABG (coronary artery bypass graft) (~11/2005) H/O maze procedure History of hernia repair Hx of appendectomy Social History Smoking Status: Never smoker alcohol intake: never substance use type: does not use caffeine: Yes Type: coffee Number of servings: 2 ROS ROS ED ROS Narrative Denies recent illness. Constitutional Constitutional ED: Denies chills or fever(s) Eyes Eyes: Denies blurry vision ENT ENT ED: Denies ear pain Cardiovascular Cardiovascular: Denies chest pain or palpitations Respiratory/Chest Respiratory/Chest: Denies cough or dyspnea Gastrointestinal Gastrointestinal: Denies abdominal pain Genitourinary Genitourinary ED: Denies dysuria or hematuria Musculoskeletal Musculoskeletal: Denies back pain or myalgias Integumentary Denies abscess or Abrasions Neurologic Neurologic: Denies headache(s) Psychiatric Psychiatric: Denies anxiety or depression Endocrine Endocrinology: Denies cold intolerance or heat intolerance Hematologic/Lymphatic Hematologic/Lymphatic: Denies easy bleeding or easy bruising Allergic/Immunologic Allergic/Immunologic ED: Denies mouth swelling or tongue swelling EXAM Physical Exam Narrative Exam Narrative: 80-year-old male no acute distress. Sitting upright in bed. Family at bedside. Vital signs are stable and afebrile. HEENT exam unremarkable atraumatic. Hearing aids in. No signs of trauma to his face or scalp. Nontender. No hematoma or laceration. Neck nontender. Trachea midline. Back and spine nontender. Lungs clear. Heart regular rhythm rate about 70 no murmur. Chest wall ribs nontender. Abdomen soft nontender. Pelvic girdle intact. No shortening or rotation either hip. His right upper extremity is nontender with normal range of motion and tube bender strength. His legs are nontender with normal flexion extension. Normal dorsi and plantarflexion. His left shoulder and elbow are nontender. His left wrist is mildly swollen is primarily tender over the dorsum of his left hand over the metacarpals. There is no deformity. He has limited range of motion to flexion essential left wrist and opening closing his left hand. There are no lacerations. Patient is awake and alert. Answering questions and following commands. Const Vital Signs: 04/23/24 17:24 Temperature 97.4 F L Temperature Source Temporal Pulse Rate 72 Respiratory Rate 16 Blood Pressure 118/73 Blood Pressure Mean 88 Pulse Ox 100 Oxygen Delivery Method Room Air Positive well nourished and well developed; Negative for obese, cachectic, contractures or unkempt General Appearance ED: well developed and NAD; Negative for unkempt, cachectic, contractures, cyanotic or diaphoretic Nutritional Appearance: Negative for cachectic or obese HEENT Reports moist mucous membranes normocephalic and atraumatic; Negative for trauma or tenderness Eyes PERRL and EOMs intact bilaterally General Eye ED: Negative for other Neck full ROM and supple General: Negative for tenderness Lymph Lymphatic: Negative for other Chest Wall inspection of chest normal and palpation of chest normal Chest: Negative for other Resp normal respiratory effort and clear to auscultation bilaterally Effort and Inspection: Negative for pain with movement Auscultation: Negative for rales, rhonchi, wheezes or diminished lung sounds Cardio regular rate, regular rhythm, S1 normal heart sound, S2 normal heart sound and no murmurs Rate: Negative for bradycardia or tachycardic Rhythm: Negative for abnormal rhythm GI non-tender, non-distended and no masses Inspection: Negative for abdominal distention Palpation: soft; Negative for tender, guarding or rebound tenderness present Back/Spine no CVA tenderness General Back: Negative for CVA tenderness Cervical Spine: Negative for cervical spine tenderness Thoracic Spine / Upper Back: Negative for thoracic spinal tenderness Lumbar Spine / Lower Back: Negative for lumbar spinal tenderness Extremity normal to inspection and full ROM Extremity Narrative: Except tenderness dorsum left wrist. Tenderness dorsum left hand. Decreased flexion extension of both the left wrist and hand. Skin intact. Neurovascularly intact. General Extremety ED: Yes edema General Extremity: edema Neuro oriented x3, CN's II-XII intact bilaterally, moves all extremities, no focal motor deficits and no sensory deficits noted Sensorium / Orientation: alert, oriented to person and oriented to place Motor Exam: strength 5/5 throughout Psych mental status grossly normal Appearance: Negative for unkempt Attitude: No agitated Mood & Affect: Negative for depressed, anxious or tearful Skin General Skin Exam: Negative for petechiae Lesions: no lesions Rashes: no rashes MDM MDM MDM Narrative Medical decision making narrative: 88-year-old male lost balance fell yesterday injuring his left wrist and dorsal hand. And again at left wrist x-ray which should get this but not for the hand and wrist to see any possible fractures or dislocations. Repeat exam unchanged. I went over the x-rays with the patient and family. He will be placed in a Velcro wrist splint and discharged home. Ice and elevate. Follow-up with not improving to get repeat x-rays. At this time to be treated as a sprained wrist. History & Record Review Discussion w/independent historian: Patient Additional record(s) reviewed:: Prior inpatient record, Prior outpatient record, Prior ED visit and Prior labs Radiography Diagnostic Testing: Left wrist x-ray, 3 views, interpreted by myself shows chronic arthritic changes. No fracture. No dislocation. Discharge Plan Triage Chief Complaint: Upper Extremity Injury ED Provider: Charlie Medel Dx/Rx/DC Orders Clinical Impression: Fall, Left wrist sprain Instructions: ED Wrist Sprain Prescriptions: No Action cholecalciferol (vitamin D3) 25 mcg (1,000 unit) tablet 25 mcg PO DAILY (DME) Handicap Placard See Rx Instructions .Route .MEDSUPPLY Qty: 1 0RF Rx Instructions: Good from 08/22/2022-08/22/2027 Aranesp (in polysorbate) 300 mcg/0.6 mL syringe 300 mcg subcut Q2W acetaminophen 500 MG tablet 500 mg PO DAILY PRN PRN (Reason: BACK PAIN) sennosides-docusate sodium [Stool Softener-Stimulant Laxat] 8.6-50 mg Tablet 2 tab PO BID PRN PRN (Reason: Constipation) Qty: 0 0RF ascorbic acid (vitamin C) 500 mg tablet 500 mg PO BID Qty: 60 2RF folic acid 1 mg tablet 1 mg PO DAILY Qty: 30 2RF simvastatin 20 mg tablet 20 mg PO DAILY nitroglycerin 0.4 mg tablet, sublingual 0.4 mg SUBLINGUAL Q5-15M PRN (Reason: CHEST PAIN) Qty: 25 6RF isosorbide mononitrate 30 mg tablet extended release 24 hr 30 mg PO DAILY Qty: 90 3RF Rx Instructions: TAKE 1 TABLET BY MOUTH ONCE DAILY clopidogrel [Plavix] 75 mg tablet 75 mg PO DAILY Qty: 90 3RF furosemide 40 mg tablet 40 mg PO .COMPLEX Qty: 90 3RF Rx Instructions: every other day, may need to take additional tablets for swelling and shortness of breath; please dispense 90 tablets ranolazine 1,000 mg tablet extended release 12 hr 1,000 mg PO BID Qty: 180 3RF [facility]Primary [facility]] - 10-14 Days if not better Activity Restrictions/Additional Instructions: Ice and elevate your wrist to decrease pain and swelling. Tylenol for pain. Wrist brace for support and comfort. Follow-up if not improving that reevaluated. Print Language: Maltese Disposition Disposition: Home, Self Care
--- NOTE | 2024-04-23 18:00 | RAD_ITS ---
INDICATION: fall and pain EXAMINATION/TECHNIQUE: X-RAY - LEFT XR Wrist Min 3 Views 3 VIEWS COMPARISON: FINDINGS: SOFT TISSUES: Mild soft tissue swelling. No radiopaque foreign body. 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 BONES/JOINTS: No acute fracture or subluxation.. Normal alignment. Preservation of the joint space.. No sclerotic or destructive changes observed. RAD/Wrist min 3 Views IMPRESSION: No acute bony injury. Electronically Signed: Edwardo Hughes DO at 18:49 EDT ,
[2024-04-23 18:13] VITALS: BMI 18.3
== END 2024-04-23 19:26 | disposition home or self-care (01) ==
PROVIDERS: Emergency Provider Emergency Medicine; Visit Provider Emergency Medicine
DX: S63.92XA Sprain of unspecified part of left wrist and hand, initial encounter (principal); I48.0 Paroxysmal atrial fibrillation; E78.5 Hyperlipidemia, unspecified; I25.10 Atherosclerotic heart disease of native coronary artery without angina pectoris; W18.39XA Other fall on same level, initial encounter; I25.2 Old myocardial infarction; Z79.899 Other long term (current) drug therapy; Z79.02 Long term (current) use of antithrombotics/antiplatelets; Z98.41 Cataract extraction status, right eye; Z98.42 Cataract extraction status, left eye; Z95.5 Presence of coronary angioplasty implant and graft; Z90.49 Acquired absence of other specified parts of digestive tract
CPT/HCPCS: 73110; 99283

== ENCOUNTER 2024-05-12 17:01 | Emergency (ER) | payer OTHER, MEDICARE, SELFPAY ==
[2024-05-12 17:03] VITALS: BP 93/65; PULSE 79; RESP 18; TEMP 36.3; O2SAT 99
[2024-05-12 17:07] VITALS: BMI 18.1
[2024-05-12 17:46] VITALS: O2SAT 99
--- NOTE | 2024-05-12 17:46 | EKG12_ITS ---
Test Reason : CHEST PAIN Blood Pressure : / mmHG Vent. Rate : 073 BPM Atrial Rate : 072 BPM P-R Int : 168 ms QRS Dur : 110 ms QT Int : 398 ms P-R-T Axes : 000 -48 065 degrees QTc Int : 438 ms Normal sinus rhythm Left anterior fascicular block Abnormal ECG Confirmed by JUANCHO JUDD, INES ([id number]), editor dictionary PEGGY BRANDON ([id number]) on 05/16/2024 8:14:53 AM Referred By: Confirmed By:INES DAWKINS MD
--- NOTE | 2024-05-12 18:00 | RAD_ITS ---
STUDY: X-RAY CHEST REASON FOR EXAM: Male, 88 years old. chest pain TECHNIQUE: Single AP portable view of the chest. COMPARISON: Chest CT 09/21/2023, chest x-ray 10/22/2023 FINDINGS: Stable appearance of 1.7 cm right upper lobe nodule. No infiltrates. No effusions. Normal size heart. Previous CABG. Normal mediastinum and izabel. Normal visualized pulmonary arteries. Normal visualized aortic arch and descending thoracic aorta. Normal visualized thoracic spine. Normal visualized ribs, clavicles, and shoulders. There is no demonstrated abnormality of the visualized soft tissue structures of the upper abdomen. RAD/Chest 1 View (Portable) IMPRESSION: No acute abnormality or change. Stable nodule in the right upper lobe. Electronically Signed: Rufino Tay MD at 18:39 EDT ,
[2024-05-12 18:01] LABS: Absolute Lymphocyte Count 1.01 X10^3/uL (0.83-4.51); Absolute Neutrophil Count 0.9 X10^3/uL (2.0-7.7); Basophil# 0.01 X10^3/uL; Basophil% 0.2 % (0-1); Hematocrit 27.1 % (40-54); Hemoglobin 8.6 g/dL (13.0-16.5); Lymphocyte # 1.01 X10^3/ul (0.83-4.51); Mean Corp Hgb Conc 31.7 g/dL (32-36); Mean Corpuscular Hgb 32.6 pg (27.0-32.0); Mean Corpuscular Volume 102.7 fL (80-94); Mean Platelet Vol. 11.6 fl (6.2-12.0); Monocyte# 2.01 X10^3/uL; Monocyte% 49.8 % (0-10); NRBC Flagged by Analyzer 0 % (0-5); Neutrophil # 0.94 X10^3/uL (2.7-7.7); Neutrophil % 23.3 % (47-70); POSITIVE DIFFERENTIAL YES; POSITIVE MORPHOLOGY YES; Platelet Count 413 K/mm3 (150-450); RBC Distribution Width CV 18.8 % (11.6-14.6); RBC Distribution Width SD 69.7 fl (35.1-43.9); Red Blood Count 2.64 M/mm3 (4.6-6.2)
[2024-05-12 18:02] VITALS: BP 102/51; PULSE 70; RESP 15; O2SAT 99
[2024-05-12 18:11] LABS: Differential Indicated SCAN CRITERIA MET
--- NOTE | 2024-05-12 18:20 | EDS_ITS ---
HPI <EMERALD Evans - Last Filed: 05/12/24 20:48> History of Present Illness Chief Complaint: Chest Pain Narrative Narrative: Patient is an 88-year-old male with history of CAD, history of cardiac bypass, anemia who presents to the emergency department for chest pain. Per the who he lives with, he has chest pain recently over the last couple weeks at least once a day or once every other day. He does take nitro at home that usually stops his chest pain. Today, he had chest pain this morning, gave him a nitro and the pain went away. At 4 PM today patient had some chest pain while sitting in the recliner, 3 nitro given with no relief and they called the ambulance. Patient states he is feeling much better at this time. Patient states his chest pain is very slight almost did not even being there. He denies any shortness of breath. [facility] <EMERALD Evans - Last Filed: 05/12/24 20:48> [facility] Medical History MDS (myelodysplastic syndrome) Chronic hyponatremia Chest pain Chronic pain Chest pain COVID-19 Old myocardial infarction Premature ventricular contraction Hyperlipidemia Excision of the left atrial appendage Atherosclerotic heart disease of [place] coronary artery without angina pectoris Paroxysmal atrial fibrillation Kidney stones Hiatal hernia Upper gastrointestinal bleed Diverticulitis Colitis Home Medications ?Medication ?Instructions ?Recorded ?Last Taken ?Type acetaminophen 500 mg tablet 500 mg PO DAILY PRN PRN BACK PAIN 05/24/19 05/23/19 History cholecalciferol (vitamin D3) 25 25 mcg PO DAILY vitamin 02/26/22 07/02/23 History mcg (1,000 unit) tablet Handicap Placard #1 ea 08/22/22 Unknown Rx nitroglycerin 0.4 mg sublingual 0.4 mg sublingual Q5-15M PRN CHEST 11/12/22 Unknown Rx tablet PAIN #25 tabs ascorbic acid (vitamin C) 500 mg 500 mg PO BID #60 tabs 06/01/23 07/03/23 Rx tablet folic acid 1 mg tablet 1 mg PO DAILY #30 tabs 06/01/23 07/02/23 Rx sennosides 8.6 mg-docusate sodium 2 tab PO BID PRN PRN Constipation 09/25/23 Unknown Rx 50 mg tablet (Stool #0 tabs Softener-Stimulant Laxative) darbepoetin renée in polysorbat 300 300 mcg subcut Q2W 07/24/23 Unknown History mcg/0.6 mL in polysorbate injection syringe (Aranesp) isosorbide mononitrate 30 mg 30 mg PO DAILY HEART #90 tabs 08/30/23 Unknown Rx tablet,extended release 24 hr clopidogrel 75 mg tablet (Plavix) 75 mg PO DAILY #90 tabs 10/12/23 Unknown Rx ranolazine 1,000 mg 1,000 mg PO BID #180 tabs 02/26/24 Unknown Rx tablet,extended release,12 hr simvastatin 20 mg tablet 20 mg PO DAILY CHOLESTEROL 04/21/24 Unknown History Allergy/AdvReac Type Severity Reaction Status Date / Time ciprofloxacin (From Cipro) Allergy Unknown Rash Verified 05/12/24 17:03 EZEQUIEL Inhibitors Allergy cough Verified 05/12/24 17:03 benzonatate (From Tessalon Allergy rash Verified 05/12/24 17:03 Perles) ipodate (From Oragrafin) Allergy Rash Verified 05/12/24 17:03 Family History Father Prostate cancer Mother CVA (cerebral vascular accident) Brother Cancer Surgical History History of bilateral cataract extraction S/P right inguinal hernia repair Postsurgical percutaneous transluminal coronary angioplasty (PTCA) status Presence of stent in coronary artery (~11/14/11) S/P CABG (coronary artery bypass graft) (~11/2005) H/O maze procedure History of hernia repair Hx of appendectomy Social History Smoking Status: Never smoker alcohol intake: never substance use type: does not use caffeine: Yes Type: coffee Number of servings: 2 ROS <EMERALD Evans - Last Filed: 05/12/24 20:48> ROS ED ROS Narrative Constitutional: Negative for fever, chills, weight loss, weakness Eyes: Negative for vision loss, vision change, double vision ENT: Negative for any sore throat, ear pain, congestion Cardiovascular: Negative for any tightness, palpitations. Positive for chest pain Respiratory: Negative for any cough, sputum production, hemoptysis, dyspnea, dyspnea on exertion, orthopnea Gastrointestinal: Negative for any abdominal pain, nausea, vomiting, diarrhea, constipation, blood in stool, blood in vomit : Negative for any urinary frequency, dysuria, retention, blood in urine Muscle skeletal: Negative for any neck pain, back pain Neurological: Negative for any headache, syncope, dizziness Skin: Negative for any rashes, itching, abrasions, lacerations Psychiatric: Negative for any depression, anxiety, stress, suicidal ideation, homicidal ideation Hematologic: Negative for any excessive bruising, easy bleeding EXAM <EMERALD Evans - Last Filed: 05/12/24 20:48> Physical Exam Narrative Exam Narrative: Vital signs reviewed. HEET: Head normocephalic atraumatic, TMs clear bilaterally. Posterior pharynx is clear, moist mucous membranes. Nares clear bilaterally. Neck: Supple with no lymphadenopathy or tenderness. No signs of meningismus. Cardiac: Regular rate and rhythm no murmurs gallops or rubs, equal peripheral pulses bilaterally. Respiratory: Lungs clear to auscultation bilaterally. No chest tenderness. Abdomen: Soft, nontender, nondistended. No abdominal bruit or pulsatile masses. No hepatosplenomegaly Extremities: No peripheral edema, no signs of gross trauma or deformity. Active full range of motion of all extremities. Neuro: Cranial nerves II through XII intact, no focal neurological deficits. Skin: Clean dry and intact with no rash, purpura, petechiae, vesicles or pustules. Backs/flank: No CVA tenderness, no midline spinal tenderness, no deformity. Psych: Normal mood and affect. No SI, HI or acute psychosis. Const Vital Signs: 05/12/24 17:03 05/12/24 17:46 05/12/24 18:02 Temperature 97.4 F L Temperature Source Temporal Pulse Rate 79 70 Respiratory Rate 18 15 Respiratory Effort Blood Pressure 93/65 102/51 L Blood Pressure Mean 74 68 Pulse Ox 99 99 99 Oxygen Delivery Method Room Air Room Air Room Air 05/12/24 18:12 05/12/24 19:00 05/12/24 20:00 Temperature Temperature Source Pulse Rate 65 69 Respiratory Rate 23 H 13 Respiratory Effort Short of Breath Blood Pressure 106/53 L 114/50 L Blood Pressure Mean 70 71 Pulse Ox 100 100 Oxygen Delivery Method Room Air Room Air 05/12/24 20:58 Temperature 97.5 F L Temperature Source Pulse Rate 71 Respiratory Rate 16 Respiratory Effort Blood Pressure 107/52 L Blood Pressure Mean 70 Pulse Ox 99 Oxygen Delivery Method Positive well nourished, well developed and cachectic General Appearance ED: well developed and cachectic Nutritional Appearance: cachectic <Dr. Alejo Lima DO - Last Filed: 05/12/24 23:34> Physical Exam Const Vital Signs: 05/12/24 17:03 05/12/24 17:46 05/12/24 18:02 Temperature 97.4 F L Temperature Source Temporal Pulse Rate 79 70 Respiratory Rate 18 15 Respiratory Effort Blood Pressure 93/65 102/51 L Blood Pressure Mean 74 68 Pulse Ox 99 99 99 Oxygen Delivery Method Room Air Room Air Room Air 05/12/24 18:12 05/12/24 19:00 05/12/24 20:00 Temperature Temperature Source Pulse Rate 65 69 Respiratory Rate 23 H 13 Respiratory Effort Short of Breath Blood Pressure 106/53 L 114/50 L Blood Pressure Mean 70 71 Pulse Ox 100 100 Oxygen Delivery Method Room Air Room Air 05/12/24 20:58 Temperature 97.5 F L Temperature Source Pulse Rate 71 Respiratory Rate 16 Respiratory Effort Blood Pressure 107/52 L Blood Pressure Mean 70 Pulse Ox 99 Oxygen Delivery Method MDM <EMERALD Evans - Last Filed: 05/12/24 20:48> [facility] Lab Data Labs: Laboratory Results - last 24 hr 05/12/24 05/12/24 17:55 20:09 WBC 4.0 L RBC 2.64 L Hgb 8.6 L Hct 27.1 L MCV 102.7 H MCH 32.6 H MCHC 31.7 L RDW Std Deviation 69.7 H RDW Coeff of Zachariah 18.8 H Plt Count 413 MPV 11.6 Immature Gran % (Auto) 1.700 H Neut % (Auto) 23.3 L Lymph % (Auto) 25.0 Barry % (Auto) 49.8 H Eos % (Auto) 0.0 Baso % (Auto) 0.2 Absolute Neuts (auto) 0.9 L Absolute Lymphs (auto) 1.01 Nucleated RBC % 0 Differential Comment SCANNED Anisocytosis 1+ Sodium 127 L Potassium 3.9 Chloride 96 L Carbon Dioxide 26.0 Anion Gap 5 BUN 17 Creatinine 0.62 L Estim Creat Clear Calc 48.73 Est GFR (MDRD) Af Amer 158 Est GFR (MDRD) Non-Af 131 BUN/Creatinine Ratio 27.6 H Glucose 77 Calcium 8.6 Troponin I High Sens 10 11 Radiography Diagnostic Testing: Clinical Impression(s) from Imaging Studies Chest X-Ray 05/12/24 18:00 IMPRESSION: No acute abnormality or change. Stable nodule in the right upper lobe. Electronically Signed: Rufino Tay MD at 18:39 EDT , Treatment and Re-Evaluation :: Differential diagnosis includes however is not limited to: ACS, [place], PE, muscle strain, unstable angina Patient appears to be in no obvious respiratory distress vital signs are stable, patient is not toxic. Presenting to the emergency department with midsternal chest pain has been ongoing all day. Patient had a total of 4 nitros with little relief. Patient states that his pain is improved now. Patient's laboratory values show chronic anemia with a hemoglobin 8.6, white blood cell count 4.0. Patient's chemistries showed chronic hyponatremia with a sodium of 127, patient is usually around 1 25-1 30. Creatinine 0.6, patient's initial troponin was 10, repeat will be drawn. Chest x-ray two-view will be obtained. Patient appears to be in a position of comfort. is at bedside. All radiologic examinations were read, reviewed by the emergency department attending. From these reads, a plan of care will be put in place. Patient is troponin was 10, repeat was 11, this is negative. On reevaluation of the patient was sleeping, I did wake him up, patient states he feels generally better. Patient's chest x-ray shows no acute process. He does have a stable nodule to the right upper lobe. I did reach out to Dr. Tariq, we did discuss the patient recently coming off of metoprolol, and that the chest pain is been ongoing. He does believe the patient to be discharged however close follow-up is indicated. Patient will be started on 12.5 mg metoprolol twice a day. I spoke with the patient as well as the patient's , they are agreeable. They do understand the need to follow-up with cardiology this week or early next week. Instructed return for any worsening symptoms, all questions answered, stable for discharge. <Dr. Alejo Lima DO - Last Filed: 05/12/24 23:34> [facility] History & Record Review Discussion w/independent historian: Patient and Significant other Lab Data Attestation: I reviewed the patient's lab results. Labs: Laboratory Results - last 24 hr 05/12/24 05/12/24 17:55 20:09 WBC 4.0 L RBC 2.64 L Hgb 8.6 L Hct 27.1 L MCV 102.7 H MCH 32.6 H MCHC 31.7 L RDW Std Deviation 69.7 H RDW Coeff of Zachariah 18.8 H Plt Count 413 MPV 11.6 Immature Gran % (Auto) 1.700 H Neut % (Auto) 23.3 L Lymph % (Auto) 25.0 Barry % (Auto) 49.8 H Eos % (Auto) 0.0 Baso % (Auto) 0.2 Absolute Neuts (auto) 0.9 L Absolute Lymphs (auto) 1.01 Nucleated RBC % 0 Differential Comment SCANNED Anisocytosis 1+ Sodium 127 L Potassium 3.9 Chloride 96 L Carbon Dioxide 26.0 Anion Gap 5 BUN 17 Creatinine 0.62 L Estim Creat Clear Calc 48.73 Est GFR (MDRD) Af Amer 158 Est GFR (MDRD) Non-Af 131 BUN/Creatinine Ratio 27.6 H Glucose 77 Calcium 8.6 Troponin I High Sens 10 11 Radiography Diagnostic Testing: Clinical Impression(s) from Imaging Studies Chest X-Ray 05/12/24 18:00 IMPRESSION: No acute abnormality or change. Stable nodule in the right upper lobe. Electronically Signed: Rufino Tay MD at 18:39 EDT , Treatment and Re-Evaluation :: Differential diagnosis includes however is not limited to: ACS, [place], PE, muscle strain, unstable angina Patient appears to be in no obvious respiratory distress vital signs are stable, patient is not toxic. Presenting to the emergency department with midsternal chest pain has been ongoing all day. Patient had a total of 4 nitros with little relief. Patient states that his pain is improved now. Patient's laboratory values show chronic anemia with a hemoglobin 8.6, white blood cell count 4.0. Patient's chemistries showed chronic hyponatremia with a sodium of 127, patient is usually around 1 25-1 30. Creatinine 0.6, patient's initial troponin was 10, repeat will be drawn. Chest x-ray two-view will be obtained. Patient appears to be in a position of comfort. is at bedside. All radiologic examinations were read, reviewed by the emergency department attending. From these reads, a plan of care will be put in place. Patient is troponin was 10, repeat was 11, this is negative. On reevaluation of the patient was sleeping, I did wake him up, patient states he feels generally better. Patient's chest x-ray shows no acute process. He does have a stable nodule to the right upper lobe. I did reach out to Dr. Tairq, we did discuss the patient recently coming off of metoprolol, and that the chest pain is been ongoing. He does believe the patient to be discharged however close follow-up is indicated. Patient will be started on 12.5 mg metoprolol twice a day. I spoke with the patient as well as the patient's , they are agreeable. They do understand the need to follow-up with cardiology this week or early next week. Instructed return for any worsening symptoms, all questions answered, stable for discharge. I have personally performed a face to face assessment of the patient and have reviewed the NAKUL Note. I performed a substantive portion of the visit including all aspects of the following. My delaney findings include: History is 88-year-old male presenting to the emergency room with chest pain. Patient states he saw cardiology recently and due to low heart rate and blood pressures in the 90s they discontinued his metoprolol. States the day after his appointment he had an episode of chest pain that resolved with nitroglycerin. He had several more episodes since then. Today he had chest pain and got resolution with nitro and a second episode that did not resolve and brought him to emergency. Patient has a history of atrial fibrillation as well as prior CABG and then stents placed a few years later. He has not had a heart cath since around 2011. He had a cardiac stress test last year. Exam is nonfocal exam patient alert no acute distress. Heart regular without murmur Medical Decison Making EKG shows no ischemia. 2 sets of cardiac enzymes were normal. He is remained asymptomatic here we spoke with cardiology and we will restart his metoprolol but at 12.5 mg twice daily. Family is comfortable with this plan. They are to follow-up with cardiology Discharge Plan Triage Chief Complaint: Chest Pain ED Midlevel Provider: Vinicius Mora ED Provider: Alejo Lima Dx/Rx/DC Orders Clinical Impression: Chest pain Instructions: ED Chest Pain, Uncertain Cause Prescriptions: No Action cholecalciferol (vitamin D3) 25 mcg (1,000 unit) tablet 25 mcg PO DAILY (DME) Handicap Placard See Rx Instructions .Route .MEDSUPPLY Qty: 1 0RF Rx Instructions: Good from 08/22/2022-08/22/2027 Aranesp (in polysorbate) 300 mcg/0.6 mL syringe 300 mcg subcut Q2W acetaminophen 500 MG tablet 500 mg PO DAILY PRN PRN (Reason: BACK PAIN) sennosides-docusate sodium [Stool Softener-Stimulant Laxat] 8.6-50 mg Tablet 2 tab PO BID PRN PRN (Reason: Constipation) Qty: 0 0RF ascorbic acid (vitamin C) 500 mg tablet 500 mg PO BID Qty: 60 2RF folic acid 1 mg tablet 1 mg PO DAILY Qty: 30 2RF simvastatin 20 mg tablet 20 mg PO DAILY nitroglycerin 0.4 mg tablet, sublingual 0.4 mg SUBLINGUAL Q5-15M PRN (Reason: CHEST PAIN) Qty: 25 6RF isosorbide mononitrate 30 mg tablet extended release 24 hr 30 mg PO DAILY Qty: 90 3RF Rx Instructions: TAKE 1 TABLET BY MOUTH ONCE DAILY clopidogrel [Plavix] 75 mg tablet 75 mg PO DAILY Qty: 90 3RF ranolazine 1,000 mg tablet extended release 12 hr 1,000 mg PO BID Qty: 180 3RF [facility] [Primary Care Provider] - Activity Restrictions/Additional Instructions: You will restart your metoprolol 12.5 mg twice a day. You will follow-up with cardiology in the next couple days. Please return here for any worsening concerns, chest pains, nausea or vomiting. Print Language: Sammarinese Disposition Disposition: Home, Self Care Discharge Date/Time: 05/12/24 20:58
[2024-05-12 18:21] LABS: Anion Gap 5 (5-15); BUN 17 mg/dL (7-18); BUN/Creat Ratio 27.6 RATIO (10-20); Calcium,Total 8.6 mg/dL (8.5-10.1); Chloride 96 mmol/L (98-107); Creatinine, Serum 0.62 mg/dL (0.70-1.30); EST Glomerular Filtration Rate 131 mL/min (>60); Est Glom Filt Rate - Afr Amer 158 mL/min (>60); Estimated Creatinine Clearance 48.73 ml/min; Glucose 77 mg/dL (74-106); Potassium 3.9 mmol/L (3.5-5.1); Sodium Level 127 mmol/L (136-145); Troponin-I HS (w/2H Reflex) 10 pg/mL (3.0-78.0)
[2024-05-12 18:32] LABS: Anisocytosis 1+; Differential Comment SCANNED
[2024-05-12 19:00] VITALS: BP 106/53; PULSE 65; RESP 23; O2SAT 100
[2024-05-12 19:57] LABS: Reflex Troponin-HS? (from REC) Y
[2024-05-12 20:00] VITALS: BP 114/50; PULSE 69; RESP 13; O2SAT 100
[2024-05-12 20:33] LABS: Troponin-I HS 11 pg/mL (3.0-78.0)
[2024-05-12 20:58] VITALS: BP 107/52; PULSE 71; RESP 16; TEMP 36.4; O2SAT 99
== END 2024-05-12 20:58 | disposition home or self-care (01) ==
PROVIDERS: Emergency Provider Emergency Medicine; Visit Provider Emergency Medicine
DX: R07.9 Chest pain, unspecified (principal); E78.5 Hyperlipidemia, unspecified; I25.10 Atherosclerotic heart disease of native coronary artery without angina pectoris; I25.2 Old myocardial infarction; Z79.899 Other long term (current) drug therapy; Z79.01 Long term (current) use of anticoagulants; Z86.16 Personal history of COVID-19; Z95.1 Presence of aortocoronary bypass graft; Z95.5 Presence of coronary angioplasty implant and graft
CPT/HCPCS: 71045; 80048; 84484; 85025; 93005; 99284; A4216

== ENCOUNTER → 2024-05-19 | Outpatient (CLI) | payer MEDICARE, SELFPAY ==
--- NOTE | 2024-05-19 11:45 | RAD_ITS ---
STUDY: X-RAY - LEFT HAND REASON FOR EXAM: Male, 88 years old. Fall. Swelling. TECHNIQUE: 4 view(s) of the hand. COMPARISON: None. FINDINGS: Marked osteopenia. Mild arthrosis of the radiocarpal articulation. Mild arthrosis of the distal radioulnar joint. Moderate arthrosis of the radial carpal row of the wrist. Moderate to severe arthrosis of the first CMC joint. Moderate to marked arthrosis of the MCP and IP joints. Chondrocalcinosis. Diffuse soft tissue swelling. RAD/Hand Min 3 Views IMPRESSION: Osteopenia with osteoarthritic changes and chondrocalcinosis. Electronically Signed: Louis Glass MD at 10:18 EDT ,
--- NOTE | 2024-05-19 11:45 | RAD_ITS ---
STUDY: X-RAY - LEFT WRIST REASON FOR EXAM: Male, 88 years old. Fall. Swelling. TECHNIQUE: 3 view(s) of the wrist were obtained. COMPARISON: None. FINDINGS: Osteopenia. Mild arthrosis of the radiocarpal articulation. Mild arthrosis of the distal radioulnar articulation. Moderate arthrosis of the radiocarpal row of the wrist. Moderate arthrosis of the first CMC joint. Moderate arthrosis of the visualized MCP joints. Chondrocalcinosis with diffuse mild soft tissue swelling. RAD/Wrist min 3 Views IMPRESSION: Osteopenia with osteoarthritic changes as described. Chondrocalcinosis. Electronically Signed: Louis Glass MD at 10:19 EDT ,
[2024-05-19 13:37] LABS: Anion Gap 7 (5-15); BNP,B-Type NATRIURETIC PEPTIDE 157.1 pg/mL (0-100); BUN 14 mg/dL (7-18); BUN/Creat Ratio 22.2 RATIO (10-20); Calcium,Total 8.9 mg/dL (8.5-10.1); Chloride 96 mmol/L (98-107); Creatinine, Serum 0.63 mg/dL (0.70-1.30); EST Glomerular Filtration Rate 127 mL/min (>60); Est Glom Filt Rate - Afr Amer 154 mL/min (>60); Glucose 95 mg/dL (74-106); Sodium Level 129 mmol/L (136-145)
== END | disposition home or self-care (01) ==
LOC: RAD 11:45
PROVIDERS: Referring Provider Nurse Practitioner Gerontology; Visit Provider Nurse Practitioner Gerontology
DX: R06.09 Other forms of dyspnea (principal); M79.89 Other specified soft tissue disorders
CPT/HCPCS: 36415; 73110; 73130; 80048; 83880

== ENCOUNTER → 2024-06-22 | Outpatient (CLI) | payer MEDICARE, SELFPAY ==
--- NOTE | 2024-06-22 12:45 | RAD_ITS ---
STUDY: X-RAY CHEST REASON FOR EXAM: Male, 89 years old. SOB, Cough TECHNIQUE: Single frontal view of the chest. COMPARISON: May 12, 2024 chest x-ray and CT chest September 21, 2023 FINDINGS: Sternotomy wires. New mild interstitial infiltrate right mid lung field. There is no demonstrated pleural abnormality. Normal size heart. Normal mediastinum and izabel. Normal visualized pulmonary arteries. Normal visualized aortic arch and descending thoracic aorta. Multiple mild compression fractures unchanged. Mild scoliosis. Normal visualized ribs, clavicles, and shoulders. There is no demonstrated abnormality of the visualized soft tissue structures of the upper abdomen. RAD/Chest PA and Lateral IMPRESSION: Mild right middle infiltrate. Electronically Signed: Martin Daugherty MD at 20:06 EDT ,
== END | disposition home or self-care (01) ==
LOC: RAD 12:02
PROVIDERS: Referring Provider Nurse Practitioner Gerontology; Visit Provider Nurse Practitioner Gerontology
DX: R06.09 Other forms of dyspnea (principal)
CPT/HCPCS: 71046

== ENCOUNTER → 2024-06-27 | Outpatient (CLI) | payer MEDICARE, SELFPAY ==
[2024-06-27 14:10] LABS: Absolute Lymphocyte Count 0.77 X10^3/uL (0.83-4.51); Absolute Neutrophil Count 1.8 X10^3/uL (2.0-7.7); Hematocrit 28.5 % (40-54); Hemoglobin 8.9 g/dL (13.0-16.5); Lymphocyte # 0.77 X10^3/ul (0.83-4.51); Mean Corp Hgb Conc 31.2 g/dL (32-36); Mean Corpuscular Hgb 33.1 pg (27.0-32.0); Mean Corpuscular Volume 105.9 fL (80-94); Mean Platelet Vol. 12.3 fl (6.2-12.0); Monocyte% 48.8 % (0-10); NRBC Flagged by Analyzer 0 % (0-5); Neutrophil # 1.79 X10^3/uL (2.7-7.7); POSITIVE DIFFERENTIAL YES; POSITIVE MORPHOLOGY YES; Platelet Count 239 K/mm3 (150-450); RBC Distribution Width CV 20.8 % (11.6-14.6); RBC Distribution Width SD 79.1 fl (35.1-43.9); Red Blood Count 2.69 M/mm3 (4.6-6.2); White Blood Count 5.1 K/mm3 (4.4-11.0)
[2024-06-27 14:12] LABS: Differential Indicated SCAN CRITERIA MET
[2024-06-27 14:38] LABS: Anisocytosis 1+
[2024-06-27 14:42] LABS: Anion Gap 8 (5-15); BUN 13 mg/dL (7-18); BUN/Creat Ratio 22.6 RATIO (10-20); Calcium,Total 8.4 mg/dL (8.5-10.1); Chloride 96 mmol/L (98-107); Creatinine, Serum 0.58 mg/dL (0.70-1.30); EST Glomerular Filtration Rate 142 mL/min (>60); Est Glom Filt Rate - Afr Amer 171 mL/min (>60); Glucose 113 mg/dL (74-106); Potassium 3.3 mmol/L (3.5-5.1); Sodium Level 129 mmol/L (136-145)
[2024-06-27 14:44] LABS: BNP,B-Type NATRIURETIC PEPTIDE 199.9 pg/mL (0-100)
== END | disposition home or self-care (01) ==
PROVIDERS: Referring Provider Nurse Practitioner Gerontology; Visit Provider Nurse Practitioner Gerontology
DX: R06.09 Other forms of dyspnea (principal)
CPT/HCPCS: 36415; 80048; 83880; 85025

== ENCOUNTER → 2024-07-04 | Outpatient (CLI) | payer MEDICARE, SELFPAY ==
[2024-07-04 10:25] LABS: Absolute Lymphocyte Count 0.99 X10^3/uL (0.83-4.51); Hematocrit 30.6 % (40-54); Hemoglobin 9.7 g/dL (13.0-16.5); Lymphocyte # 0.99 X10^3/ul (0.83-4.51); Mean Corp Hgb Conc 31.7 g/dL (32-36); Mean Corpuscular Hgb 33.2 pg (27.0-32.0); Mean Corpuscular Volume 104.8 fL (80-94); Mean Platelet Vol. 12.6 fl (6.2-12.0); Monocyte# 1.42 X10^3/uL; Monocyte% 31.6 % (0-10); NRBC Flagged by Analyzer 0.4 % (0-5); Neutrophil # 2.01 X10^3/uL (2.7-7.7); Neutrophil % 44.8 % (47-70); POSITIVE MORPHOLOGY YES; Platelet Count 333 K/mm3 (150-450); RBC Distribution Width CV 20.9 % (11.6-14.6); Red Blood Count 2.92 M/mm3 (4.6-6.2); White Blood Count 4.5 K/mm3 (4.4-11.0)
[2024-07-04 10:48] LABS: Anion Gap 5 (5-15); BUN 12 mg/dL (7-18); BUN/Creat Ratio 21.1 RATIO (10-20); Calcium,Total 8.7 mg/dL (8.5-10.1); Chloride 99 mmol/L (98-107); Creatinine, Serum 0.57 mg/dL (0.70-1.30); EST Glomerular Filtration Rate 143 mL/min (>60); Est Glom Filt Rate - Afr Amer 173 mL/min (>60); Glucose 92 mg/dL (74-106); Potassium 3.8 mmol/L (3.5-5.1); Sodium Level 129 mmol/L (136-145)
[2024-07-04 11:01] LABS: Differential Indicated SCAN CRITERIA MET
[2024-07-04 11:29] LABS: Differential Comment SCANNED
[2024-07-04 11:30] LABS: Acanthocytes 1+; Anisocytosis 3+; Basophilic Stippling 1+; Bite Cell RARE; Macrocytosis 2+; Ovalocyte 1+; Platelet Estimate ADEQUATE (ADEQ); Platelet Morphology LARGE; Polychromasia 1+; Schistocytes 1+; Tear Drop Cell 1+
== END | disposition home or self-care (01) ==
LOC: LAB 09:28
PROVIDERS: Referring Provider Nurse Practitioner Gerontology; Visit Provider Nurse Practitioner Gerontology
DX: D64.9 Anemia, unspecified (principal); R06.09 Other forms of dyspnea
CPT/HCPCS: 36415; 80048; 85025

== ENCOUNTER 2024-09-01 11:18 | Emergency (ER) | payer OTHER, SELFPAY ==
[2024-09-01] VITALS (14 sets, daily range): BP systolic 67–106; BP diastolic 44–71; PULSE 56–74; RESP 15–29; TEMP 35.8–37; O2SAT 94–100; BMI 16.2
--- NOTE | 2024-09-01 11:31 | RAD_ITS ---
HISTORY: cough. TECHNIQUE: XR Chest 1 View. COMPARISON: 06/22/2024. FINDINGS: CARDIOMEDIASTINAL BORDERS: Cardiac silhouette within normal limits in size. Mediastinal contour unremarkable with midline sternotomy. LUNGS: 1.4 cm right upper lobe nodular opacity. Unchanged mild interstitial and linear opacities in the right mid and left lower lung. PLEURA: No pleural effusion or pneumothorax seen. OSSEOUS STRUCTURES: Degenerative change. RAD/Chest 1 View (Portable) IMPRESSION: 1.4 cm right upper lobe pulmonary nodule, possible neoplasm. Chronic opacities in the right mid and left lower lung from inflammation or scarring. Electronically Signed: Lupe Joseph MD at 13:11 EST ,
--- NOTE | 2024-09-01 11:31 | EKG12_ITS ---
Test Reason : Blood Pressure : */* mmHG Vent. Rate : 59 BPM Atrial Rate : 59 BPM P-R Int : 176 ms QRS Dur : 100 ms QT Int : 482 ms P-R-T Axes : 67 -55 76 degrees QTcB Int : 477 ms Sinus bradycardia Left anterior fascicular block Nonspecific ST and T wave abnormality Abnormal ECG Confirmed by JUANCHO JUDD, INES ([id number]), order editor PEGGY BRANDON ([id number]) on 09/02/2024 9:45:00 AM Referred By: APRIL Confirmed By: INES DAWKINS MD
--- NOTE | 2024-09-01 11:32 | EX.ED.DYSGE1 ---
HPI History of Present Illness Chief Complaint: Hypotension Narrative Narrative: Patient sent over from [facility] lab due to blood pressure systolic 70/40. Patient reports lightheaded symptoms. Per spouse patient's blood pressure runs around 100. He has coronary history of bypass in 06 few months ago had his Imdur increased to 30 minutes twice a day. He is on metoprolol 12.5 mg twice a day. Denies taking any extra doses. However further discussion he take nitroglycerin sublingual as needed for chest pain still. Yesterday had an event where he took a nitroglycerin. In the lab waiting room he had chest pain where he took nitroglycerin again. This was right before his blood pressure was checked. Denies dysuria however spouse states urine was pretty dark. No fever or chills. Chronic cough. No recent vomiting or diarrhea. Prior similar symptoms: Yes PFSH PFSH Medical History MDS (myelodysplastic syndrome) Chronic hyponatremia Chest pain Chronic pain Chest pain COVID-19 Old myocardial infarction Premature ventricular contraction Hyperlipidemia Excision of the left atrial appendage Atherosclerotic heart disease of [place] coronary artery without angina pectoris Paroxysmal atrial fibrillation Kidney stones Hiatal hernia Upper gastrointestinal bleed Diverticulitis Colitis Home Medications ?Medication ?Instructions ?Recorded ?Last Taken ?Type acetaminophen 500 mg tablet 500 mg PO DAILY PRN PRN BACK PAIN 05/24/19 05/23/19 History cholecalciferol (vitamin D3) 25 25 mcg PO DAILY vitamin 02/26/22 07/02/23 History mcg (1,000 unit) tablet Handicap Placard #1 ea 08/22/22 Unknown Rx nitroglycerin 0.4 mg sublingual 0.4 mg sublingual Q5-15M PRN CHEST 11/12/22 Unknown Rx tablet PAIN #25 tabs ascorbic acid (vitamin C) 500 mg 500 mg PO BID #60 tabs 06/01/23 07/03/23 Rx tablet folic acid 1 mg tablet 1 mg PO DAILY #30 tabs 06/01/23 07/02/23 Rx sennosides 8.6 mg-docusate sodium 2 tab PO BID PRN PRN Constipation 06/01/23 Unknown Rx 50 mg tablet (Stool #0 tabs Softener-Stimulant Laxative) darbepoetin renée in polysorbat 300 300 mcg subcut Q2W 07/24/23 Unknown History mcg/0.6 mL in polysorbate injection syringe (Aranesp) clopidogrel 75 mg tablet (Plavix) 75 mg PO DAILY #90 tabs 10/12/23 Unknown Rx ranolazine 1,000 mg 1,000 mg PO BID #180 tabs 02/26/24 Unknown Rx tablet,extended release,12 hr metoprolol tartrate 25 mg tablet 12.5 mg (1/2 x 25 mg) PO BID #90 05/20/24 Unknown Rx tabs famotidine 20 mg tablet (Pepcid) 20 mg PO QDAY #30 tabs 06/22/24 Unknown Rx furosemide 40 mg tablet (Lasix) 40 mg PO QAM #5 tabs 06/27/24 Unknown Rx simvastatin 20 mg tablet 20 mg PO DAILY CHOLESTEROL #90 tabs 07/20/24 Unknown Rx isosorbide mononitrate 30 mg 30 mg PO BID HEART #180 tabs 08/08/24 Unknown Rx tablet,extended release 24 hr Allergy/AdvReac Type Severity Reaction Status Date / Time ciprofloxacin (From Cipro) Allergy Unknown Rash Verified 09/01/24 11:18 EZEQUIEL Inhibitors Allergy cough Verified 09/01/24 11:18 benzonatate (From Tessalon Allergy rash Verified 09/01/24 11:18 Perles) ipodate (From Oragrafin) Allergy Rash Verified 09/01/24 11:18 Family History Father Prostate cancer Mother CVA (cerebral vascular accident) Brother Cancer Surgical History History of bilateral cataract extraction S/P right inguinal hernia repair Postsurgical percutaneous transluminal coronary angioplasty (PTCA) status Presence of stent in coronary artery (~11/14/11) S/P CABG (coronary artery bypass graft) (~11/2005) H/O maze procedure History of hernia repair Hx of appendectomy Social History (Updated 09/01/24 @ 12:08 by Glenys Alex) household members: spouse current occupational status: retired Smoking Status: Never smoker alcohol intake: never substance use type: does not use caffeine: Yes Type: coffee Number of servings: 2 ROS ROS ED Constitutional Constitutional ED: Denies chills, fever(s) or sweats ENT ENT ED: Denies sore throat Cardiovascular Cardiovascular: Reports other Details: Lightheaded ; Denies chest pain, leg edema, palpitations or racing heartbeat Respiratory/Chest Respiratory/Chest: Reports cough; Denies dyspnea or dyspnea on exertion Gastrointestinal Gastrointestinal: Denies abdominal pain, diarrhea, nausea or vomiting Genitourinary Genitourinary ED: Reports other Details: Dark urine ; Denies dysuria, hematuria or urinary frequency Musculoskeletal Musculoskeletal: Denies back pain, extremity pain or neck pain Integumentary Denies rash or wounds Neurologic Neurologic: Denies headache(s), paresthesias or weakness EXAM Physical Exam Const Vital Signs: 09/01/24 11:19 09/01/24 12:08 09/01/24 12:18 Temperature 96.5 F L Temperature Source Oral Pulse Rate 73 66 Pulse Rate [Lying] Pulse Rate [Sitting (for 1 minute prior to obtaining)] Pulse Rate [Standing (for 1 minute prior to obtaining)] Respiratory Rate 16 22 H Respiratory Effort Normal Non-Labored Respiratory Pattern Normal Blood Pressure 79/44 L 83/51 L Blood Pressure [Lying] Blood Pressure [Sitting (for 1 minute prior to obtaining)] Blood Pressure [Standing (for 1 minute prior to obtaining)] Blood Pressure Mean 55 61 Blood Pressure Mean [Lying] Blood Pressure Mean [Sitting (for 1 minute prior to obtaining)] Blood Pressure Mean [Standing (for 1 minute prior to obtaining)] Pulse Ox 100 100 Oxygen Delivery Method Room Air Room Air 09/01/24 12:45 09/01/24 13:00 09/01/24 14:00 Temperature Temperature Source Pulse Rate 62 57 L 56 L Pulse Rate [Lying] Pulse Rate [Sitting (for 1 minute prior to obtaining)] Pulse Rate [Standing (for 1 minute prior to obtaining)] Respiratory Rate 20 H 18 16 Respiratory Effort Respiratory Pattern Blood Pressure 94/49 L 90/48 L 84/48 L Blood Pressure [Lying] Blood Pressure [Sitting (for 1 minute prior to obtaining)] Blood Pressure [Standing (for 1 minute prior to obtaining)] Blood Pressure Mean 63 62 60 Blood Pressure Mean [Lying] Blood Pressure Mean [Sitting (for 1 minute prior to obtaining)] Blood Pressure Mean [Standing (for 1 minute prior to obtaining)] Pulse Ox 100 100 100 Oxygen Delivery Method 09/01/24 15:00 09/01/24 15:43 09/01/24 16:00 Temperature Temperature Source Pulse Rate 56 L 56 L Pulse Rate [Lying] 61 Pulse Rate [Sitting (for 1 minute prior to obtaining)] 70 Pulse Rate [Standing (for 1 minute prior to obtaining)] 74 Respiratory Rate 25 H 25 H Respiratory Effort Respiratory Pattern Blood Pressure 86/57 L 89/59 L Blood Pressure [Lying] 86/53 L Blood Pressure [Sitting (for 1 minute prior to obtaining)] 74/55 L Blood Pressure [Standing (for 1 minute prior to obtaining)] 67/52 L Blood Pressure Mean 68 69 Blood Pressure Mean [Lying] 64 Blood Pressure Mean [Sitting (for 1 minute prior to obtaining)] 61 Blood Pressure Mean [Standing (for 1 minute prior to obtaining)] 57 Pulse Ox 100 98 Oxygen Delivery Method 09/01/24 17:13 09/01/24 17:35 09/01/24 17:37 Temperature Temperature Source Pulse Rate 57 L 56 L 57 L Pulse Rate [Lying] Pulse Rate [Sitting (for 1 minute prior to obtaining)] Pulse Rate [Standing (for 1 minute prior to obtaining)] Respiratory Rate 29 H 26 H 15 Respiratory Effort Respiratory Pattern Blood Pressure 98/54 L 87/71 L 94/58 L Blood Pressure [Lying] Blood Pressure [Sitting (for 1 minute prior to obtaining)] Blood Pressure [Standing (for 1 minute prior to obtaining)] Blood Pressure Mean 68 76 70 Blood Pressure Mean [Lying] Blood Pressure Mean [Sitting (for 1 minute prior to obtaining)] Blood Pressure Mean [Standing (for 1 minute prior to obtaining)] Pulse Ox 97 97 100 Oxygen Delivery Method Room Air Room Air 09/01/24 17:56 09/01/24 18:00 09/01/24 18:26 Temperature 98.6 F Temperature Source Pulse Rate 56 L 61 56 L Pulse Rate [Lying] Pulse Rate [Sitting (for 1 minute prior to obtaining)] Pulse Rate [Standing (for 1 minute prior to obtaining)] Respiratory Rate 16 17 20 H Respiratory Effort Respiratory Pattern Blood Pressure 100/49 L 90/58 L 106/50 L Blood Pressure [Lying] Blood Pressure [Sitting (for 1 minute prior to obtaining)] Blood Pressure [Standing (for 1 minute prior to obtaining)] Blood Pressure Mean 66 68 68 Blood Pressure Mean [Lying] Blood Pressure Mean [Sitting (for 1 minute prior to obtaining)] Blood Pressure Mean [Standing (for 1 minute prior to obtaining)] Pulse Ox 94 99 98 Oxygen Delivery Method Room Air Positive well nourished and well developed Constitutional Narrative: Hard of hearing General Appearance ED: well developed and NAD HEENT Reports moist mucous membranes normocephalic and atraumatic Eyes General Eye ED: Yes normal appearance of both eyes Neck full ROM Chest Wall Chest: Negative for tenderness Resp normal respiratory effort and normal air movement Effort and Inspection: symmetric chest movement; Negative for respiratory distress Cardio regular rate, regular rhythm and no murmurs Peripheral Pulses: pulses 2+ throughout GI normal to inspection, nondistended, normoactive bowel sounds and non-tender Palpation: Negative for guarding or rebound tenderness present Extremity normal to inspection General Extremety ED: Negative for edema or tenderness General Extremity: Negative for edema Neuro oriented x3, CN's II-XII intact bilaterally and no sensory deficits noted Sensorium / Orientation: awake and alert Skin no rashes or lesions noted and no wounds MDM MDM MDM Narrative Medical decision making narrative: Interventions / MDM: Differential diagnosis: Orthostatic hypotension, near syncope, atypical chest pain. Diagnosis considered but do not suspect: ACS however EKG with no ischemic changes cardiac enzymes negative. My EKG interpretation: Sinus rate of 59, no ST or T wave changes QTc 477. Imaging independently reviewed and interpreted by myself: 1 view chest x-ray: Right upper lobe nodule 1.4 cm read by radiology. No infiltrates External documents reviewed: N/A Test considered but not ordered:N/A ED course: Blood pressure in triage was 79/44 however in the room 102 over 50s. From history likely sublingual nitroglycerin induced while over the lab. He has been having intermittent chest pain last time while at the lab facility. No current chest pains. Will check EKG lightheaded symptoms will check labs including cardiac enzymes. 1250: Nursing blood pressure systolic 80s on recheck. Will give 500 cc bolus. EKG sinus rhythm. Initial troponin 15. Awaiting delta troponin. Creatinine 0.76. Hemoglobin 8.8 stable from previous. History of myelodysplastic syndrome. 1345: Chest x-ray had noted 1.4 cm right upper lobe nodule. This was not seen from June. However discussed with spouse and patient this is known these had it biopsied outpatient is being followed by his oncologist. Blood pressure waxing and waning this time fluids are running. He had dark urine. Urine is pending. Chest x-ray with no pneumonia. 1545: Patient delta troponin is negative. Chest pain-free. Blood pressure 91 systolic in the room. Had them obtain orthostatics he was positive sitting and standing with lightheaded symptoms. Reevaluated patient he states he would like to try to go home. Therefore I will order additional liter of fluids. Will reevaluate. 1745: Given fluids blood pressure 94/58. More towards his baseline. He is ready go home. However at this time we will ambulate to make sure he is stable. Patient ambulated without any difficulties. Discussed to go back to his Imdur once a day. He will follow-up with his cardiology service. Return precautions. All questions were answered. Re-evaluation: stable Disposition discussed with patient/family/significant other: Patient and family Case discussed with consulting clinician: N/A This note was generated with [employer] dictation software. It may contain incorrect words, spelling, and punctuation that were not noted in checking the note before signing. Lab Data Attestation: I reviewed the patient's lab results. Labs: Laboratory Results - last 24 hr 09/01/24 09/01/24 09/01/24 12:13 12:15 14:31 WBC 3.1 L RBC 2.62 L Hgb 8.8 L Hct 27.9 L MCV 106.5 H MCH 33.6 H MCHC 31.5 L RDW Std Deviation 74.7 H RDW Coeff of Zacharia[place] 19.5 H Plt Count 185 MPV 13.1 H Immature Gran % (Auto) 3.300 H Neut % (Auto) 38.4 L Lymph % (Auto) 23.1 Smith % (Auto) 35.2 H Eos % (Auto) 0.0 Baso % (Auto) 0.0 Absolute Neuts (auto) 1.2 L Absolute Lymphs (auto) 0.71 L Nucleated RBC % 0 Anisocytosis 2+ Sodium 134 L Potassium 2.8 L Chloride 94 L Carbon Dioxide 37.0 H Anion Gap 3 L BUN 19 H Creatinine 0.76 Est GFR (MDRD) Af Amer 125 Est GFR (MDRD) Non-Af 103 BUN/Creatinine Ratio 25.1 H Glucose 100 Calcium 8.5 Magnesium 2.0 Troponin I High Sens 15 14 Urine Color Urine Clarity Urine pH Ur Specific [place] Urine Protein Urine Glucose (UA) Urine Ketones Urine Occult Blood Urine Nitrite Urine Bilirubin Urine Urobilinogen Ur Leukocyte Esterase Urine RBC Urine WBC Ur Squamous Epith Cells Urine Bacteria Urine Mucus 09/01/24 14:45 WBC RBC Hgb Hct MCV MCH MCHC RDW Std Deviation RDW Coeff of [place] Plt Count MPV Immature Gran % (Auto) Neut % (Auto) Lymph % (Auto) Smith % (Auto) Eos % (Auto) Baso % (Auto) Absolute Neuts (auto) Absolute Lymphs (auto) Nucleated RBC % Anisocytosis Sodium Potassium Chloride Carbon Dioxide Anion Gap BUN Creatinine Est GFR (MDRD) Af Amer Est GFR (MDRD) Non-Af BUN/Creatinine Ratio Glucose Calcium Magnesium Troponin I High Sens Urine Color Yellow Urine Clarity Clear Urine pH 7.0 Ur Specific [place] 1.010 Urine Protein 15 H Urine Glucose (UA) Normal Urine Ketones Negative Urine Occult Blood Negative Urine Nitrite Negative Urine Bilirubin 1 H Urine Urobilinogen 4 H Ur Leukocyte Esterase 25 H Urine RBC 0 SEEN Urine WBC 0-5 SEEN Ur Squamous Epith Cells 0 SEEN Urine Bacteria 0 SEEN Urine Mucus 0 SEEN Radiography Diagnostic Testing: Clinical Impression(s) from Imaging Studies Chest X-Ray 09/01/24 11:31 IMPRESSION: 1.4 cm right upper lobe pulmonary nodule, possible neoplasm. Chronic opacities in the right mid and left lower lung from inflammation or scarring. Electronically Signed: Lupe Joseph MD at 13:11 EST Reading Location ID and State: [facility] / [place] Tel , Service support , Discharge Plan Triage Chief Complaint: Hypotension ED Provider: Madi Sal Dx/Rx/DC Orders Clinical Impression: Orthostatic hypotension, MDS (myelodysplastic syndrome), Near syncope, Chest pain, Pulmonary nodule, right Instructions: ED Chest Pain, Uncertain Cause, ED Hypotension, Orthostatic Prescriptions: No Action cholecalciferol (vitamin D3) 25 mcg (1,000 unit) tablet 25 mcg PO DAILY (DME) Handicap Placard See Rx Instructions .Route .MEDSUPPLY Qty: 1 0RF Rx Instructions: Good from 08/22/2022-08/22/2027 Aranesp (in polysorbate) 300 mcg/0.6 mL syringe 300 mcg subcut Q2W famotidine [Pepcid] 20 mg tablet 20 mg PO QDAY Qty: 30 11RF acetaminophen 500 MG tablet 500 mg PO DAILY PRN PRN (Reason: BACK PAIN) sennosides-docusate sodium [Stool Softener-Stimulant Laxat] 8.6-50 mg Tablet 2 tab PO BID PRN PRN (Reason: Constipation) Qty: 0 0RF ascorbic acid (vitamin C) 500 mg tablet 500 mg PO BID Qty: 60 2RF folic acid 1 mg tablet 1 mg PO DAILY Qty: 30 2RF nitroglycerin 0.4 mg tablet, sublingual 0.4 mg SUBLINGUAL Q5-15M PRN (Reason: CHEST PAIN) Qty: 25 6RF clopidogrel [Plavix] 75 mg tablet 75 mg PO DAILY Qty: 90 3RF ranolazine 1,000 mg tablet extended release 12 hr 1,000 mg PO BID Qty: 180 3RF metoprolol tartrate 25 mg tablet 12.5 mg PO BID Qty: 90 3RF furosemide [Lasix] 40 mg tablet 40 mg PO QAM Qty: 5 0RF simvastatin 20 mg tablet 20 mg PO DAILY Qty: 90 3RF isosorbide mononitrate 30 mg tablet extended release 24 hr 30 mg PO BID Qty: 180 3RF Primary Care Provider: [place] Referrals: Tobias Sheth NP, [facility] [Med Staff - Adv Practice Prof] - 1 Week [facility],[place] [Primary Care Provider] - Activity Restrictions/Additional Instructions: Blood work stable cardiac workup negative. Blood pressure improved with fluids. Go back to isosorbide mononitrate once a day. Follow-up with your cardiology service. If you develop recurrent or worsening symptoms, return to ED for reevaluation. Print Language: [place] Disposition Disposition: Home, Self Care Discharge Date/Time: 09/01/24 18:37
[2024-09-01 12:24] LABS: Absolute Lymphocyte Count 0.71 X10^3/uL (0.83-4.51); Absolute Neutrophil Count 1.2 X10^3/uL (2.0-7.7); Hematocrit 27.9 % (40-54); Hemoglobin 8.8 g/dL (13.0-16.5); Lymphocyte # 0.71 X10^3/ul (0.83-4.51); Lymphocyte % 23.1 % (19-41); Mean Corp Hgb Conc 31.5 g/dL (32-36); Mean Corpuscular Hgb 33.6 pg (27.0-32.0); Mean Corpuscular Volume 106.5 fL (80-94); Mean Platelet Vol. 13.1 fl (6.2-12.0); Monocyte# 1.08 X10^3/uL; Monocyte% 35.2 % (0-10); NRBC Flagged by Analyzer 0 % (0-5); Neutrophil # 1.18 X10^3/uL (2.7-7.7); Neutrophil % 38.4 % (47-70); POSITIVE MORPHOLOGY YES; Platelet Count 185 K/mm3 (150-450); RBC Distribution Width CV 19.5 % (11.6-14.6); RBC Distribution Width SD 74.7 fl (35.1-43.9); Red Blood Count 2.62 M/mm3 (4.6-6.2); White Blood Count 3.1 K/mm3 (4.4-11.0)
[2024-09-01 12:39] LABS: Anion Gap 3 (5-15); BUN 19 mg/dL (7-18); BUN/Creat Ratio 25.1 RATIO (10-20); Calcium,Total 8.5 mg/dL (8.5-10.1); Chloride 94 mmol/L (98-107); Creatinine, Serum 0.76 mg/dL (0.70-1.30); EST Glomerular Filtration Rate 103 mL/min (>60); Est Glom Filt Rate - Afr Amer 125 mL/min (>60); Glucose 100 mg/dL (74-106); Potassium 2.8 mmol/L (3.5-5.1); Sodium Level 134 mmol/L (136-145); Troponin-I HS (w/2H Reflex) 15 pg/mL (3.0-78.0)
[2024-09-01 12:49] LABS: Differential Indicated SCAN CRITERIA MET
[2024-09-01 12:50] LABS: Anisocytosis 2+
[2024-09-01] MEDS: 0.9% Normal Saline (500mL Bag) 500 ML 999 ML IV (13:07)
[2024-09-01] MEDS: Potassium Chloride Oral Tablet 20 MEQ 40 MEQ PO (13:44)
[2024-09-01 14:18] LABS: Reflex Troponin-HS? (from REC) Y
[2024-09-01 14:58] LABS: Bacteria 0 SEEN /hpf (None Seen); Mucous, Urine 0 SEEN /hpf (<or=2+); Squamous Epithelial Cells - UA 0 SEEN /hpf (0-5)
[2024-09-01 15:03] LABS: Color, Urine Yellow (Yellow); Glucose, Dipstick Normal (Normal); Ketone-Dipstick Negative (Negative); Leukocyte Esterase-Dipstick 25 /ul (Negative); Nitrite-Dipstick Negative (Negative); Occult Blood-Urine Negative /ul (Negative); Protein-Dipstick 15 mg/dl (Negative); Urine Clarity Clear (Clear); Urine Urobilinogen 4 mg/dl (Normal)
[2024-09-01 15:06] LABS: Urine Bilirubin Dipstick 1 mg/dL (Negative)
[2024-09-01 15:08] LABS: Troponin-I HS 14 pg/mL (3.0-78.0)
[2024-09-01 15:11] LABS: Red Blood Cells-Urine 0 SEEN /hpf (0-5); White Blood Cells 0-5 SEEN /hpf (0-5)
[2024-09-01] MEDS: 0.9% Normal Saline (1000mL) 1,000 ML 999 ML IV (15:53)
== END 2024-09-01 18:37 | disposition home or self-care (01) ==
PROVIDERS: Emergency Provider Emergency Medicine; Visit Provider Emergency Medicine
DX: I95.1 Orthostatic hypotension (principal); D46.9 Myelodysplastic syndrome, unspecified; I48.0 Paroxysmal atrial fibrillation; R91.1 Solitary pulmonary nodule; E87.1 Hypo-osmolality and hyponatremia; R07.9 Chest pain, unspecified; I25.2 Old myocardial infarction; I25.10 Atherosclerotic heart disease of native coronary artery without angina pectoris; E78.5 Hyperlipidemia, unspecified; Z95.1 Presence of aortocoronary bypass graft; Z88.1 Allergy status to other antibiotic agents; Z79.02 Long term (current) use of antithrombotics/antiplatelets; Z87.19 Personal history of other diseases of the digestive system; Z79.899 Other long term (current) drug therapy
CPT/HCPCS: 71045; 80048; 81001; 83735; 84484; 85025; 93005; 96360; 96361; 99285; A4216

== ENCOUNTER → 2024-09-05 | Outpatient (CLI) | payer MEDICARE, SELFPAY ==
[2024-09-05 17:35] LABS: Anion Gap 7 (5-15); BUN 14 mg/dL (7-18); BUN/Creat Ratio 20.8 RATIO (10-20); Calcium,Total 8.1 mg/dL (8.5-10.1); Chloride 101 mmol/L (98-107); Creatinine, Serum 0.67 mg/dL (0.70-1.30); EST Glomerular Filtration Rate 118 mL/min (>60); Est Glom Filt Rate - Afr Amer 143 mL/min (>60); Glucose 101 mg/dL (74-106); Potassium 3.4 mmol/L (3.5-5.1); Sodium Level 135 mmol/L (136-145)
== END | disposition home or self-care (01) ==
LOC: LAB 16:21
PROVIDERS: Referring Provider Nurse Practitioner Family; Visit Provider Nurse Practitioner Family
DX: R06.09 Other forms of dyspnea (principal); I49.3 Ventricular premature depolarization; E78.5 Hyperlipidemia, unspecified; E87.6 Hypokalemia
CPT/HCPCS: 36415; 80048

== ENCOUNTER 2024-10-25 08:15 | Emergency (ER) | payer OTHER, SELFPAY ==
[2024-10-25 08:16] VITALS: BP 94/59; PULSE 78; RESP 16; TEMP 37.1; O2SAT 96
[2024-10-25 08:34] VITALS: BMI 15.5
--- NOTE | 2024-10-25 08:39 | ED.VIS.LOWEX ---
HPI History of Present Illness HPI Narrative: 89-year-old male history of myelodysplastic syndrome, CAD with a CABG. Complaining of atraumatic left hip pain since yesterday. Denies any type of fall injury or trauma. No fever or chills. No redness or warmth. No prior history of hip injury or surgery. More painful to walk on. Denies any redness or swelling. Chief Complaint: Lower Extremity Injury Informant: patient and spouse/S.O. Occured/Mechanism Mechanism/Context: No injury and No blunt trauma Onset/Context/Timing Onset: Today and Yesterday Context: Gradual Onset Timing: Continuous Current Severity: Moderate Maximum Severity: Moderate Associated Symptoms Associated Symptoms: Negative for Parasthesia, Weakness or Loss of Funtion Narrative Narrative: A 9-year-old male complaining of atraumatic left hip pain. Denies other complaints. Pain worse with walking. Prior similar symptoms: No Recent Illness/Hospitalization: No PFSH PFSH Medical History MDS (myelodysplastic syndrome) Chronic hyponatremia Chest pain Chronic pain Chest pain COVID-19 Old myocardial infarction Premature ventricular contraction Hyperlipidemia Excision of the left atrial appendage Atherosclerotic heart disease of [place] coronary artery without angina pectoris Paroxysmal atrial fibrillation Kidney stones Hiatal hernia Upper gastrointestinal bleed Diverticulitis Colitis Home Medications ?Medication ?Instructions ?Recorded ?Last Taken ?Type acetaminophen 500 mg tablet 500 mg PO DAILY PRN PRN BACK PAIN 05/24/19 05/23/19 History cholecalciferol (vitamin D3) 25 25 mcg PO DAILY vitamin 02/26/22 07/02/23 History mcg (1,000 unit) tablet Handicap Placard #1 ea 08/22/22 Unknown Rx nitroglycerin 0.4 mg sublingual 0.4 mg sublingual Q5-15M PRN CHEST 11/12/22 Unknown Rx tablet PAIN #25 tabs ascorbic acid (vitamin C) 500 mg 500 mg PO BID #60 tabs 06/01/23 07/03/23 Rx tablet folic acid 1 mg tablet 1 mg PO DAILY #30 tabs 06/01/23 07/02/23 Rx darbepoetin renée in polysorbat 300 300 mcg subcut Q2W 07/24/23 Unknown History mcg/0.6 mL in polysorbate injection syringe (Aranesp) ranolazine 1,000 mg 1,000 mg PO BID #180 tabs 02/26/24 Unknown Rx tablet,extended release,12 hr famotidine 20 mg tablet (Pepcid) 20 mg PO QDAY #30 tabs 06/22/24 Unknown Rx furosemide 40 mg tablet (Lasix) 40 mg PO QAM #5 tabs 06/27/24 Unknown Rx isosorbide mononitrate 30 mg 30 mg PO QDAY HEART #90 tabs 09/02/24 Unknown Rx tablet,extended release 24 hr docusate sodium 100 mg capsule 100 mg PO QDAY 09/05/24 Unknown History potassium chloride 20 mEq 20 meq PO DAILY PRN Take with 09/05/24 Unknown Rx tablet,extended release Lasix #30 tabs clopidogrel 75 mg tablet (Plavix) 75 mg PO DAILY #90 tabs 09/12/24 Unknown Rx simvastatin 20 mg tablet 20 mg PO QHS #90 tabs 10/21/24 Unknown Rx Allergy/AdvReac Type Severity Reaction Status Date / Time ciprofloxacin (From Cipro) Allergy Unknown Rash Verified 10/25/24 08:16 EZEQUIEL Inhibitors Allergy cough Verified 10/25/24 08:16 benzonatate (From Tessalon Allergy rash Verified 10/25/24 08:16 Perles) ipodate (From Oragrafin) Allergy Rash Verified 10/25/24 08:16 Family History Father Prostate cancer Mother CVA (cerebral vascular accident) Brother Cancer Surgical History History of bilateral cataract extraction S/P right inguinal hernia repair Postsurgical percutaneous transluminal coronary angioplasty (PTCA) status Presence of stent in coronary artery (~11/14/11) S/P CABG (coronary artery bypass graft) (~11/2005) H/O maze procedure History of hernia repair Hx of appendectomy Social History household members: spouse current occupational status: retired Smoking Status: Never smoker alcohol intake: never substance use type: does not use caffeine: Yes Type: coffee Number of servings: 2 ROS ROS ED ROS Narrative Denies recent illness. Denies fever or chills. Constitutional Constitutional ED: Denies chills or fever(s) Eyes Eyes: Denies blurry vision Cardiovascular Cardiovascular: Denies chest pain Respiratory/Chest Respiratory/Chest: Denies cough or dyspnea Gastrointestinal Gastrointestinal: Denies abdominal pain Genitourinary Genitourinary ED: Denies dysuria Musculoskeletal Musculoskeletal: Denies arthralgias Integumentary Denies abscess Neurologic Neurologic: Denies headache(s) Psychiatric Psychiatric: Denies anxiety Endocrine Endocrinology: Denies polydipsia Hematologic/Lymphatic Hematologic/Lymphatic: Denies easy bleeding Allergic/Immunologic Allergic/Immunologic ED: Denies mouth swelling EXAM Physical Exam Narrative Exam Narrative: 89-year-old male sitting upright in bed. Vital signs show initial blood pressure of 9459. He is in no distress. at bedside. H EENT exam pupils round react to light. Moist mucous membranes. Neck nontender. Lungs clear to auscultation bilaterally. Heart regular rhythm rate about 80 no murmur. Chest wall ribs nontender. Abdomen soft nontender. Moving all 4 extremities. Left hip is normal appearance. There is no redness or warmth. No swelling or bruising. No discoloration. He does not want to flex or extend the hip due to discomfort. He has no pain over the left SI joint. There is no shortening or rotation. No signs of trauma. No deformity. Left thigh and hamstring are nontender. Knee is nontender. Ankles nontender. Normal dorsi plantarflexion. He is a strong femoral pulse. Palpable DP pulse. He is able to wiggle his toes. Right lower extremity unremarkable. Back nontender. Neurologically he is awake and alert no focal motor deficits. Const Vital Signs: 10/25/24 08:16 Temperature 98.7 F Temperature Source Oral Pulse Rate 78 Respiratory Rate 16 Blood Pressure 94/59 L Blood Pressure Mean 70 Pulse Ox 96 Oxygen Delivery Method Room Air Positive well nourished and well developed; Negative for obese, cachectic, contractures or unkempt General Appearance ED: well developed and NAD; Negative for unkempt, cachectic or contractures Nutritional Appearance: Negative for cachectic or obese HEENT Reports moist mucous membranes normocephalic and atraumatic; Negative for trauma or tenderness Eyes PERRL Neck full ROM and supple Chest Wall inspection of chest normal and palpation of chest normal Resp normal respiratory effort, no retractions and clear to auscultation bilaterally Auscultation: Negative for rales, rhonchi, wheezes or diminished lung sounds Cardio regular rate, regular rhythm, S1 normal heart sound, S2 normal heart sound and no murmurs Rate: Negative for bradycardia or tachycardic Rhythm: Negative for abnormal rhythm Bruits: Negative for other GI non-tender, non-distended and no masses Inspection: Negative for abdominal distention Auscultation: normoactive bowel sounds Palpation: soft; Negative for tender or guarding Back/Spine no CVA tenderness General Back: Negative for CVA tenderness Cervical Spine: Negative for cervical spine tenderness Thoracic Spine / Upper Back: Negative for thoracic spinal tenderness Lumbar Spine / Lower Back: Negative for lumbar spinal tenderness Extremity normal to inspection and full ROM General Extremety ED: Negative for cyanosis or edema General Extremity: Negative for cyanosis or edema Neuro oriented x3, CN's II-XII intact bilaterally and moves all extremities Sensorium / Orientation: alert, oriented to person, oriented to place and oriented to time; Negative for orientation impaired, confused, lethargic or stuporous Motor Exam: strength 5/5 throughout Psych mental status grossly normal Appearance: Negative for unkempt Speech: No other Mood & Affect: Negative for anxious Skin no wounds Lesions: no lesions Rashes: no rashes Trauma: Negative for abrasion or laceration MDM MDM MDM Narrative Medical decision making narrative: 89-year-old male with atraumatic left hip pain. No fever or chills. On exam he has no signs of infection. There is no redness or warmth. No discoloration. This may be from arthritis. Clinically I do not think it is infection. There is no history of trauma. Will start with an x-ray. He does not have any significant pain while she is walking on it. History & Record Review Discussion w/independent historian: Patient and Family Lab Data Attestation: I reviewed the patient's lab results. Lab results narrative: CBC shows white count 9.2. H&H 10.2 and 32. Platelets 216. Sed rate was only 18. CRP was 51. Electrolytes show sodium 132. Gap 7. BUN of 26 creatinine is 0.6. Glucose 105. Labs: Laboratory Results - last 24 hr 10/25/24 08:40 WBC 9.2 RBC 3.02 L Hgb 10.2 L Hct 32.1 L MCV 106.3 H MCH 33.8 H MCHC 31.8 L RDW Std Deviation 77.3 H RDW Coeff of Zachariah 20.3 H Plt Count 216 MPV 12.7 H Immature Gran % (Auto) 1.100 H Neut % (Auto) 26.1 L Lymph % (Auto) 7.3 L Mccurtain % (Auto) 65.4 H Eos % (Auto) 0.0 Baso % (Auto) 0.1 Absolute Neuts (auto) 2.4 Absolute Lymphs (auto) 0.67 L Nucleated RBC % 0.2 Platelet Estimate A Polychromasia 1+ Anisocytosis 1+ Ovalocytes 1+ ESR 18 Sodium 132 L Potassium 3.6 Chloride 96 L Carbon Dioxide 30.0 Anion Gap 7 BUN 26 H Creatinine 0.64 L Estim Creat Clear Calc 40.99 Est GFR (MDRD) Af Amer 153 Est GFR (MDRD) Non-Af 126 BUN/Creatinine Ratio 40.9 H Glucose 105 Calcium 9.0 C-React Prot Ext Range 51.10 H Radiography Diagnostic Testing: Clinical Impression(s) from Imaging Studies Hip/Pelvis X-Ray 10/25/24 08:45 IMPRESSION: No evidence of fracture or dislocation. Large amount of fecal material is seen in the colon. Reading Location: [facility] 10/25/24 08:58 IMPRESSION: Mild degenerative changes of the left hip joint and left sacroiliac joint. No fracture or dislocation. Findings suggestive of bladder calculi. One or more dose reduction techniques were used (e.g., Automated exposure control, adjustment of the mA and/or kV according to patient size, use of iterative reconstruction technique). Reading Location: [facility] Left hip x-ray with pelvis, 4 views, interpreted by myself shows chronic arthritic changes. But no fracture or dislocation. Discharge Plan Triage Chief Complaint: Lower Extremity Injury ED Provider: Charlie Medel Dx/Rx/DC Orders Prescriptions: No Action cholecalciferol (vitamin D3) 25 mcg (1,000 unit) tablet 25 mcg PO DAILY (DME) Handicap Placard See Rx Instructions .Route .MEDSUPPLY Qty: 1 0RF Rx Instructions: Good from 08/22/2022-08/22/2027 Aranesp (in polysorbate) 300 mcg/0.6 mL syringe 300 mcg subcut Q2W famotidine [Pepcid] 20 mg tablet 20 mg PO QDAY Qty: 30 11RF docusate sodium 100 mg capsule 100 mg PO QDAY potassium chloride 20 mEq tablet extended release 20 meq PO DAILY PRN (Reason: Take with Lasix) Qty: 30 11RF acetaminophen 500 MG tablet 500 mg PO DAILY PRN PRN (Reason: BACK PAIN) ascorbic acid (vitamin C) 500 mg tablet 500 mg PO BID Qty: 60 2RF folic acid 1 mg tablet 1 mg PO DAILY Qty: 30 2RF nitroglycerin 0.4 mg tablet, sublingual 0.4 mg SUBLINGUAL Q5-15M PRN (Reason: CHEST PAIN) Qty: 25 6RF ranolazine 1,000 mg tablet extended release 12 hr 1,000 mg PO BID Qty: 180 3RF furosemide [Lasix] 40 mg tablet 40 mg PO QAM Qty: 5 0RF isosorbide mononitrate 30 mg tablet extended release 24 hr 30 mg PO QDAY Qty: 90 3RF clopidogrel [Plavix] 75 mg tablet 75 mg PO DAILY Qty: 90 3RF simvastatin 20 mg tablet 20 mg PO QHS Qty: 90 3RF Primary Care Provider: [facility] Referrals: [facility] [Primary Care Provider] - Print Language: Danish
--- NOTE | 2024-10-25 08:45 | RAD_ITS ---
EXAM: HIP, UNI W/ PELVIS 2-3 VIEWS CLINICAL HISTORY: Atraumatic left hip pain. COMPARISON: None. TECHNIQUE: Four views were obtained. FINDINGS: The joint space is well-maintained. No fracture or dislocation. Large amount of fecal material is seen in the colon. Degenerative changes of the lower lumbar spine. RAD/HIP, UNI W/ Pelvis 2-3 Views IMPRESSION: No evidence of fracture or dislocation. Large amount of fecal material is seen in the colon. Reading Location: [place] [id number]
--- NOTE | 2024-10-25 08:58 | CT_ITS ---
PROCEDURE: EXTREMITY LOWER WITHOUT CONTRA REASON FOR EXAM: Pain. No history of trauma. TECHNIQUE: CT without intravenous contrast. Multiple axial tomographic images were obtained. Coronal and sagittal reconstruction was obtained as well. COMPARISON: Comparison is made with prior radiograph done earlier in the day. FINDINGS: Bones: Small acetabular spur. Minimal joint space narrowing. No evidence of fracture or dislocation. Joints: Degenerative changes of the left sacroiliac joint. Soft Tissues: Distended urinary bladder. Increased density is seen at the bladder base. This may represent bladder calculi. CT/Extremity Lower without Contra IMPRESSION: Mild degenerative changes of the left hip joint and left sacroiliac joint. No fracture or dislocation. Findings suggestive of bladder calculi. One or more dose reduction techniques were used (e.g., Automated exposure contr ol, adjustment of the mA and/or kV according to patient size, use of iterative reconstruction technique). Reading Location: [place] [id number]
[2024-10-25] MEDS: Morphine 4 MG/ML Syringe IV (09:40)
[2024-10-25] MEDS: Ondansetron 4 MG/2 ML Vial IV (09:40)
[2024-10-25 09:54] LABS: Absolute Lymphocyte Count 0.67 X10^3/uL (0.83-4.51); Absolute Neutrophil Count 2.4 X10^3/uL (2.0-7.7); Basophil# 0.01 X10^3/uL; Basophil% 0.1 % (0-1); Hematocrit 32.1 % (40-54); Hemoglobin 10.2 g/dL (13.0-16.5); Lymphocyte # 0.67 X10^3/ul (0.83-4.51); Lymphocyte % 7.3 % (19-41); Mean Corp Hgb Conc 31.8 g/dL (32-36); Mean Corpuscular Hgb 33.8 pg (27.0-32.0); Mean Corpuscular Volume 106.3 fL (80-94); Mean Platelet Vol. 12.7 fl (6.2-12.0); Monocyte# 6.03 X10^3/uL; Monocyte% 65.4 % (0-10); NRBC Flagged by Analyzer 0.2 % (0-5); Neutrophil # 2.41 X10^3/uL (2.7-7.7); Neutrophil % 26.1 % (47-70); POSITIVE DIFFERENTIAL YES; POSITIVE MORPHOLOGY YES; Platelet Count 216 K/mm3 (150-450); RBC Distribution Width CV 20.3 % (11.6-14.6); RBC Distribution Width SD 77.3 fl (35.1-43.9); Red Blood Count 3.02 M/mm3 (4.6-6.2); White Blood Count 9.2 K/mm3 (4.4-11.0)
[2024-10-25 10:06] LABS: Erythrocyte Sedimentation Rate 18 mm/hr (0-20)
[2024-10-25] MEDS: 0.9% Normal Saline (500mL Bag) 500 ML 999 ML IV (10:06)
[2024-10-25 10:24] LABS: Anion Gap 7 (5-15); BUN 26 mg/dL (7-18); BUN/Creat Ratio 40.9 RATIO (10-20); Chloride 96 mmol/L (98-107); Creatinine, Serum 0.64 mg/dL (0.70-1.30); EST Glomerular Filtration Rate 126 mL/min (>60); Est Glom Filt Rate - Afr Amer 153 mL/min (>60); Estimated Creatinine Clearance 40.99 ml/min; Glucose 105 mg/dL (74-106); Potassium 3.6 mmol/L (3.5-5.1); Sodium Level 132 mmol/L (136-145)
[2024-10-25 10:30] LABS: Differential Indicated SCAN CRITERIA MET
[2024-10-25 10:31] LABS: Anisocytosis 1+; Ovalocyte 1+; Platelet Estimate A (ADEQ); Polychromasia 1+
[2024-10-25] MEDS: predniSONE 20 MG Tablet 60 MG PO (12:02)
[2024-10-25 12:04] VITALS: BP 136/64; PULSE 78; RESP 16; TEMP 36.9; O2SAT 99
== END 2024-10-25 12:05 | disposition home or self-care (01) ==
PROVIDERS: Emergency Provider Emergency Medicine; Visit Provider Emergency Medicine
DX: M25.552 Pain in left hip (principal); D46.9 Myelodysplastic syndrome, unspecified; M16.12 Unilateral primary osteoarthritis, left hip; E78.5 Hyperlipidemia, unspecified; I25.2 Old myocardial infarction; I25.10 Atherosclerotic heart disease of native coronary artery without angina pectoris; Z95.1 Presence of aortocoronary bypass graft; Z88.1 Allergy status to other antibiotic agents; Z79.02 Long term (current) use of antithrombotics/antiplatelets; Z79.899 Other long term (current) drug therapy
CPT/HCPCS: 73502; 73700; 80048; 85025; 85652; 86140; 96361; 96374; 96375; 99283; A4216; J2405

== ENCOUNTER 2024-12-08 10:57 | Inpatient (IN) | payer OTHER, SELFPAY ==
[2024-12-08] VITALS (31 sets, daily range): BP systolic 71–114; BP diastolic 38–61; PULSE 69–121; RESP 12–26; TEMP 36.1–36.8; O2SAT 92–100; BMI 32.8; BMI 15.0
--- NOTE | 2024-12-08 11:21 | EKG12_ITS ---
Test Reason : HYPOTENSION Blood Pressure : */* mmHG Vent. Rate : 87 BPM Atrial Rate : 87 BPM P-R Int : 162 ms QRS Dur : 108 ms QT Int : 380 ms P-R-T Axes : 77 -64 -63 degrees QTcB Int : 457 ms Sinus rhythm with marked sinus arrhythmia with occasional Premature ventricular complexes Left axis deviation Incomplete left bundle branch block ST & T wave abnormality, consider anterolateral ischemia Abnormal ECG Confirmed by INES DAWKINS MD ([id number]), editorial assistant HEATHER BURDEN ([id number]) on 12/09/2024 9:33:44 AM Referred By: Confirmed By: INES DAWKINS MD
--- NOTE | 2024-12-08 11:23 | EX.ED.DYSGE1 ---
HPI History of Present Illness Chief Complaint: Weakness Informant: patient Narrative Narrative: Patient brought in by private vehicle spouse currently not present in the room. In triage hypotensive 74/42. From nursing notes from spouse states he is not eating much for the past few days. Patient denies cough denies vomiting or diarrhea. States mild discomfort when he urinates. He does not know clearly why he is here. 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 Paperwork labs from today had a white count of 30.4 hemoglobin 9.1 platelets of 415. [facility] Medical History MDS (myelodysplastic syndrome) Chronic hyponatremia Chest pain Chronic pain Chest pain COVID-19 Old myocardial infarction Premature ventricular contraction Hyperlipidemia Excision of the left atrial appendage Atherosclerotic heart disease of [place] coronary artery without angina pectoris Paroxysmal atrial fibrillation Kidney stones Hiatal hernia Upper gastrointestinal bleed Diverticulitis Colitis Home Medications ?Medication ?Instructions ?Recorded ?Last Taken ?Type acetaminophen 500 mg tablet 500 mg PO DAILY PRN PRN BACK PAIN 05/24/19 05/23/19 History cholecalciferol (vitamin D3) 25 25 mcg PO DAILY vitamin 02/26/22 12/07/24 History mcg (1,000 unit) tablet Handicap Placard #1 ea 08/22/22 Unknown Rx nitroglycerin 0.4 mg sublingual 0.4 mg sublingual Q5-15M PRN CHEST 11/12/22 Unknown Rx tablet PAIN #25 tabs ascorbic acid (vitamin C) 500 mg 500 mg PO BID #60 tabs 06/01/23 12/08/24 Rx tablet folic acid 1 mg tablet 1 mg PO DAILY #30 tabs 06/01/23 12/07/24 Rx darbepoetin renée in polysorbat 300 300 mcg subcut Q2W 07/24/23 12/08/24 History mcg/0.6 mL in polysorbate injection syringe (Aranesp) ranolazine 1,000 mg 1,000 mg PO BID #180 tabs 02/26/24 12/08/24 Rx tablet,extended release,12 hr famotidine 20 mg tablet (Pepcid) 20 mg PO QDAY #30 tabs 06/22/24 12/07/24 Rx furosemide 40 mg tablet (Lasix) 40 mg PO QAM #5 tabs 06/27/24 12/07/24 Rx isosorbide mononitrate 30 mg 30 mg PO QDAY HEART #90 tabs 09/02/24 12/08/24 Rx tablet,extended release 24 hr docusate sodium 100 mg capsule 100 mg PO QDAY 09/05/24 12/08/24 History potassium chloride 20 mEq 20 meq PO DAILY PRN Take with 09/05/24 12/07/24 Rx tablet,extended release Lasix #30 tabs clopidogrel 75 mg tablet (Plavix) 75 mg PO DAILY #90 tabs 09/12/24 12/08/24 Rx simvastatin 20 mg tablet 20 mg PO QHS #90 tabs 10/21/24 12/07/24 Rx Allergy/AdvReac Type Severity Reaction Status Date / Time ciprofloxacin (From Cipro) Allergy Unknown Rash Verified 12/08/24 10:57 EZEQUIEL Inhibitors Allergy cough Verified 12/08/24 10:57 benzonatate (From Tessalon Allergy rash Verified 12/08/24 10:57 Perles) ipodate (From Oragrafin) Allergy Rash Verified 12/08/24 10:57 Family History Father Prostate cancer Mother CVA (cerebral vascular accident) Brother Cancer Surgical History History of bilateral cataract extraction S/P right inguinal hernia repair Postsurgical percutaneous transluminal coronary angioplasty (PTCA) status Presence of stent in coronary artery (~11/14/11) S/P CABG (coronary artery bypass graft) (~11/2005) H/O maze procedure History of hernia repair Hx of appendectomy Social History household members: spouse current occupational status: retired Smoking Status: Never smoker alcohol intake: never substance use type: does not use caffeine: Yes Type: coffee Number of servings: 2 ROS ROS ED Constitutional Constitutional ED: Denies chills, fever(s) or sweats ENT ENT ED: Denies sore throat Cardiovascular Cardiovascular: Denies chest pain Respiratory/Chest Respiratory/Chest: Denies cough or dyspnea Gastrointestinal Gastrointestinal: Denies abdominal pain, diarrhea, nausea or vomiting Genitourinary Genitourinary ED: Reports dysuria; Denies hematuria or urinary frequency Musculoskeletal Musculoskeletal: Denies back pain, extremity pain or neck pain Integumentary Denies rash or wounds Neurologic Neurologic: Denies headache(s), paresthesias or weakness EXAM Physical Exam Const Vital Signs: 12/08/24 10:58 12/08/24 11:12 12/08/24 11:14 Temperature 96.9 F L Temperature Source Temporal Pulse Rate 87 91 Respiratory Rate 18 19 H Respiratory Effort Normal Non-Labored Respiratory Pattern Normal Blood Pressure 74/42 L 72/48 L Blood Pressure Mean 52 56 Pulse Ox 98 100 Oxygen Delivery Method Room Air Room Air 12/08/24 11:15 12/08/24 11:47 12/08/24 11:52 Temperature Temperature Source Pulse Rate 121 H Respiratory Rate 26 H Respiratory Effort Respiratory Pattern Blood Pressure 78/48 L 77/47 L Blood Pressure Mean 58 57 Pulse Ox 92 Oxygen Delivery Method Room Air Room Air 12/08/24 12:00 12/08/24 12:47 12/08/24 13:00 Temperature Temperature Source Pulse Rate 77 69 72 Respiratory Rate 21 H 14 16 Respiratory Effort Respiratory Pattern Blood Pressure 80/48 L 71/51 L 80/60 L Blood Pressure Mean 58 57 66 Pulse Ox 100 100 100 Oxygen Delivery Method Room Air Room Air 12/08/24 13:01 Temperature 97.8 F Temperature Source Oral Pulse Rate 76 Respiratory Rate 21 H Respiratory Effort Respiratory Pattern Blood Pressure 80/60 L Blood Pressure Mean 66 Pulse Ox 100 Oxygen Delivery Method Room Air Positive well nourished and well developed General Appearance ED: well developed and NAD HEENT Reports dry mucous membranes normocephalic and atraumatic Mouth ED: Yes dry mucous membranes Mouth: dry mucous membranes Eyes General Eye ED: Yes normal appearance of both eyes Neck full ROM Chest Wall Chest: Negative for tenderness Resp normal respiratory effort and normal air movement Effort and Inspection: symmetric chest movement; Negative for respiratory distress Cardio regular rate, regular rhythm and no murmurs Peripheral Pulses: pulses 2+ throughout GI normal to inspection, nondistended, normoactive bowel sounds and non-tender Palpation: Negative for guarding or rebound tenderness present Extremity normal to inspection General Extremety ED: Negative for edema or tenderness General Extremity: Negative for edema Neuro no sensory deficits noted Neuro Narrative: Alert to person and place, cannot tell me the year. Moving all 4 extremities. Sensorium / Orientation: awake and alert Skin no rashes or lesions noted and no wounds Sepsis Attestation Sepsis Alert: Yes Sepsis Attestation: Agree w/Sepsis Date exam was performed: 12/08/24 Time exam was performed: 11:00 Possible Source of Sepsis: Genitourinary Sepsis Organ Dysfunction Criteria Present: SBP < 90 mmHg or MAP < 65 mmHg and Lactic Acid > 2 mmol/L Fluid Resuscitation Fluid resuscitation indicated?: Yes Fluid Resuscitation ordered: 30 ml/kg fluid bolus ordered Amount of fluid ordered: 2,950 Sepsis Note Date exam was performed: 12/08/24 Time exam was performed: 15:12 Sepsis Attestation: Sepsis re-evaluation was performed Response to fluids: Fluid responsive hypotension MDM MDM MDM Narrative Medical decision making narrative: Interventions / MDM: Differential diagnosis: Hypotension, sepsis, UTI, kidney injury Diagnosis considered but do not suspect: N/A My EKG interpretation: Sinus rate of 87, no ST changes T wave inversions lateral leads. PVC noted. New inversions V3 V4 V5 compared to August 2024. Imaging independently reviewed and interpreted by myself: CT brain: No acute process and discussion with radiologist. 1 view chest x-ray: No acute process. External documents reviewed: EF 60% from echo 2018. Test considered but not ordered:N/A ED course: Patient alert to person place, and reports dysuria blood pressure 78/48. Afebrile. Sepsis protocol was ordered. Confusion will add CT brain chest x-ray. Will give fluid bolus 30 cc/kg for hypotension. Records note there was a prescription of prednisone for 7 days, will clarify this with his family. Leukocytosis white count of 30 today outpatient. He had comparison white count November 24, 2024 white count 9.37. 1240: Spouse in the room. Patient diagnosed with mild dysplastic syndrome this past June he had his subcutaneous injection today. Increasing weakness he has had recent clear cough and darker urine. No fevers at home. She reports blood work was done in the office with a leukocytosis blood pressure in the 70s, typical blood pressure 90s 200s. He is acting his normal self and typically is off on the year as he does not keep track of this. After liter of fluids blood pressure systolic 80s fluids are still continuing. Procalcitonin returned at 8.14. Creatinine 1.46 up from 0.6 previously. Had a white count of 30 but was new. Unclear source at this time. Will cover with broad antibiotics of Zosyn and vancomycin. 1510: I did speak with hospitalist Dr. Giang for admission to ICU. Current pressure 90/54 with a MAP of 66. White count returned at 26 hemoglobin 9.8 stable from previous. Lactic acid 3.9. Re-evaluation: stable Disposition discussed with patient/family/significant other: Patient and family Case discussed with consulting clinician: Hospitalist This note was generated with [employer] dictation software. It may contain incorrect words, spelling, and punctuation that were not noted in checking the note before signing. Lab Data Attestation: I reviewed the patient's lab results. Labs: Laboratory Results - last 24 hr 12/08/24 12/08/24 11:40 13:10 WBC 26.1 H RBC 2.92 L Hgb 9.8 L Hct 30.3 L MCV 103.8 H MCH 33.6 H MCHC 32.3 RDW Std Deviation 72.8 H RDW Coeff of Zachariah 20.0 H Plt Count 364 MPV 13.3 H Immature Gran % (Auto) 2.800 H Neut % (Auto) 76.4 H Lymph % (Auto) 3.2 L Sargent % (Auto) 17.5 H Eos % (Auto) 0.0 Baso % (Auto) 0.1 Absolute Neuts (auto) 20.0 H Absolute Lymphs (auto) 0.83 Nucleated RBC % 0.1 PT 15.6 H INR 1.2 APTT 38.3 H Sodium 133 Potassium 4.2 Chloride 95 L Carbon Dioxide 21.4 Anion Gap 17 H BUN 35 H Creatinine 1.46 H Estim Creat Clear Calc 38.95 L Est GFR (MDRD) Non-Af 46 L BUN/Creatinine Ratio 24.2 H Glucose 111 H Lactic Acid 3.9 H* Calcium 9.4 Total Bilirubin 1.21 AST 26 ALT 10 Alkaline Phosphatase 93 Total Protein 7.4 Albumin 3.9 Globulin 3.5 Albumin/Globulin Ratio 1.1 Procalcitonin 8.14 H Urine Color Yellow Urine Clarity Sl. Cloudy Urine pH 6.5 Ur Specific [place] 1.015 Urine Protein 30 H Urine Glucose (UA) Normal Urine Ketones Negative Urine Occult Blood 150 H Urine Nitrite Positive H Urine Bilirubin Negative Urine Urobilinogen 1 H Ur Leukocyte Esterase 500 H Urine RBC 5-10 SEEN Urine WBC >100 SEEN Ur Squamous Epith Cells 0 SEEN Urine Bacteria 0 SEEN Urine Mucus 0 SEEN Radiography Diagnostic Testing: Clinical Impression(s) from Imaging Studies Brain CT 12/08/24 12:10 IMPRESSION: CHRONIC CHANGES. NO ACUTE FINDINGS. Red Alert: Chronic changes The critical information above was relayed directly by me by telephone to Madi Sal on 12/08/2024 at 12:27 pm with readback verification. Reading Location: [facility] Chest X-Ray 12/08/24 12:11 IMPRESSION: No Acute Findings. 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
--- NOTE | 2024-12-08 11:23 | EDS_ITS ---
HPI History of Present Illness Chief Complaint: Weakness Informant: patient Narrative Narrative: Patient brought in by private vehicle spouse currently not present in the room. In triage hypotensive 74/42. From nursing notes from spouse states he is not eating much for the past few days. Patient denies cough denies vomiting or diarrhea. States mild discomfort when he urinates. He does not know clearly why he is here. 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 Paperwork labs from today had a white count of 30.4 hemoglobin 9.1 platelets of 415. [facility] Medical History MDS (myelodysplastic syndrome) Chronic hyponatremia Chest pain Chronic pain Chest pain COVID-19 Old myocardial infarction Premature ventricular contraction Hyperlipidemia Excision of the left atrial appendage Atherosclerotic heart disease of [place] coronary artery without angina pectoris Paroxysmal atrial fibrillation Kidney stones Hiatal hernia Upper gastrointestinal bleed Diverticulitis Colitis Home Medications ?Medication ?Instructions ?Recorded ?Last Taken ?Type acetaminophen 500 mg tablet 500 mg PO DAILY PRN PRN BA CK PAIN 05/24/19 05/23/19 History cholecalciferol (vitamin D3) 25 25 mcg PO DAILY vitami n 02/26/22 07/02/23 History mcg (1,000 unit) tablet Handicap Placard #1 ea 08/22/22 Unknown Rx nitroglycerin 0.4 mg sublingual 0.4 mg sublingual Q5-1 5M PRN CHEST 11/12/22 Unknown Rx tablet PAIN #25 tabs ascorbic acid (vitamin C) 500 mg 500 mg PO BID #60 tab s 06/01/23 07/03/23 Rx tablet folic acid 1 mg tablet 1 mg PO DAILY #30 tabs 06/0107/02/23 Rx darbepoetin renée in polysorbat 300 300 mcg subcut Q2W 07/24/23 Unknown History mcg/0.6 mL in polysorbate injection syringe (Aranesp) ranolazine 1,000 mg 1,000 mg PO BID #180 tabs Unknown Rx tablet,extended release,12 hr famotidine 20 mg tablet (Pepcid) 20 mg PO QDAY #30 tab s 06/22/24 Unknown Rx furosemide 40 mg tablet (Lasix) 40 mg PO QAM #5 tabs 1 Unknown Rx isosorbide mononitrate 30 mg 30 mg PO QDAY HEART #90 t abs 09/02/24 Unknown Rx tablet,extended release 24 hr docusate sodium 100 mg capsule 100 mg PO QDAY 09/05/24 Unknown History potassium chloride 20 mEq 20 meq PO DAILY PRN Take wit h 09/05/24 Unknown Rx tablet,extended release Lasix #30 tabs clopidogrel 75 mg tablet (Plavix) 75 mg PO DAILY #90 t abs 09/12/24 Unknown Rx simvastatin 20 mg tablet 20 mg PO QHS #90 tabs Unknown Rx prednisone 20 mg tablet 40 mg (2 x 20 mg) PO DAILY 7 days 10/25/24 Unknown Rx #14 tabs Allergy/AdvReac Type Severity Reaction Status Date / Time ciprofloxacin (From Cipro) Allergy Unknown Rash Verified 12/08/24 10:57 EZEQUIEL Inhibitors Allergy cough Verified 12/08/24 10:57 benzonatate (From Tessalon Allergy rash Verified 12/08/24 10:57 Perles) ipodate (From Oragrafin) Allergy Rash Verified 12/08/24 10:57 Family History Father Prostate cancer Mother CVA (cerebral vascular accident) Brother Cancer Surgical History History of bilateral cataract extraction S/P right inguinal hernia repair Postsurgical percutaneous transluminal coronary angioplasty (PTCA) status Presence of stent in coronary artery (~11/14/11) S/P CABG (coronary artery bypass graft) (~11/2005) H/O maze procedure History of hernia repair Hx of appendectomy Social History household members: spouse current occupational status: retired Smoking Status: Never smoker alcohol intake: never substance use type: does not use caffeine: Yes Type: coffee Number of servings: 2 ROS ROS ED Constitutional Constitutional ED: Denies chills, fever(s) or sweats ENT ENT ED: Denies sore throat Cardiovascular Cardiovascular: Denies chest pain Respiratory/Chest Respiratory/Chest: Denies cough or dyspnea Gastrointestinal Gastrointestinal: Denies abdominal pain, diarrhea, nausea or vomiting Genitourinary Genitourinary ED: Reports dysuria; Denies hematuria or urinary frequency Musculoskeletal Musculoskeletal: Denies back pain, extremity pain or neck pain Integumentary Denies rash or wounds Neurologic Neurologic: Denies headache(s), paresthesias or weakness EXAM Physical Exam Const Vital Signs: 12/08/24 10:58 12/08/24 11:12 12/08/24 11:14 Temperature 96.9 F L Temperature Source Temporal Pulse Rate 87 91 Respiratory Rate 18 19 H Respiratory Effort Normal Non-Labored Respiratory Pattern Normal Blood Pressure 74/42 L 72/48 L Blood Pressure Mean 52 56 Pulse Ox 98 100 Oxygen Delivery Method Room Air Room Air 12/08/24 11:15 Temperature Temperature Source Pulse Rate Respiratory Rate Respiratory Effort Respiratory Pattern Blood Pressure 78/48 L Blood Pressure Mean 58 Pulse Ox Oxygen Delivery Method Positive well nourished and well developed General Appearance ED: well developed and NAD HEENT Reports dry mucous membranes normocephalic and atraumatic Mouth ED: Yes dry mucous membranes Mouth: dry mucous membranes Eyes General Eye ED: Yes normal appearance of both eyes Neck full ROM Chest Wall Chest: Negative for tenderness Resp normal respiratory effort and normal air movement Effort and Inspection: symmetric chest movement; Negative for respiratory distress Cardio regular rate, regular rhythm and no murmurs Peripheral Pulses: pulses 2+ throughout GI normal to inspection, nondistended, normoactive bowel sounds and non-tender Palpation: Negative for guarding or rebound tenderness present Extremity normal to inspection General Extremety ED: Negative for edema or tenderness General Extremity: Negative for edema Neuro no sensory deficits noted Neuro Narrative: Alert to person and place, cannot tell me the year. Moving all 4 extremities. Sensorium / Orientation: awake and alert Skin no rashes or lesions noted and no wounds MDM MDM MDM Narrative Medical decision making narrative: Interventions / MDM: Differential diagnosis: Hypotension, sepsis, UTI Diagnosis considered but do not suspect: N/A My EKG interpretation: Sinus rate of 87, no ST changes T wave inversions lateral leads. PVC noted. New inversions V3 V4 V5 compared to August 2024. Imaging independently reviewed and interpreted by myself: N/A External documents reviewed: EF 60% from echo 2018. Test considered but not ordered:N/A ED course: Patient alert to person place, and reports dysuria blood pressure 78/48. Afebrile. Sepsis protocol was ordered. Confusion will add CT brain chest x-ray. Will give fluid bolus 30 cc/kg for hypotension. Records note there was a prescription of prednisone for 7 days, will clarify this with his family. Leukocytosis white count of 30 today outpatient. He had comparison white count November 24, 2024 white count 9.37. Re-evaluation: stable Disposition discussed with patient/family/significant other: Case discussed with consulting clinician: N/A This note was generated with [employer] dictation software. It may contain incorrect words, spelling, and punctuation that were not noted in checking the note before signing. Discharge Plan Triage Chief Complaint: Weakness ED Provider: Madi Sal Dx/Rx/DC Orders Prescriptions: No Action cholecalciferol (vitamin D3) 25 mcg (1,000 unit) tablet 25 mcg PO DAILY (DME) Handicap Placard See Rx Instructions .Route .MEDSUPPLY Qty: 1 0RF Rx Instructions: Good from 08/22/2022-08/22/2027 Aranesp (in polysorbate) 300 mcg/0.6 mL syringe 300 mcg subcut Q2W famotidine [Pepcid] 20 mg tablet 20 mg PO QDAY Qty: 30 11RF docusate sodium 100 mg capsule 100 mg PO QDAY potassium chloride 20 mEq tablet extended release 20 meq PO DAILY PRN (Reason: Take with Lasix) Qty: 30 11RF acetaminophen 500 MG tablet 500 mg PO DAILY PRN PRN (Reason: BACK PAIN) ascorbic acid (vitamin C) 500 mg tablet 500 mg PO BID Qty: 60 2RF folic acid 1 mg tablet 1 mg PO DAILY Qty: 30 2RF prednisone 20 mg tablet 40 mg PO DAILY 7 Days Qty: 14 0RF nitroglycerin 0.4 mg tablet, sublingual 0.4 mg SUBLINGUAL Q5-15M PRN (Reason: CHEST PAIN) Qty: 25 6RF ranolazine 1,000 mg tablet extended release 12 hr 1,000 mg PO BID Qty: 180 3RF furosemide [Lasix] 40 mg tablet 40 mg PO QAM Qty: 5 0RF isosorbide mononitrate 30 mg tablet extended release 24 hr 30 mg PO QDAY Qty: 90 3RF clopidogrel [Plavix] 75 mg tablet 75 mg PO DAILY Qty: 90 3RF simvastatin 20 mg tablet 20 mg PO QHS Qty: 90 3RF [facility] [Primary Care Provider] - Print Language: Arabic
[2024-12-08] MEDS: NORMAL SALINE 999 ML IV (11:46)
[2024-12-08 11:56] LABS: Absolute Lymphocyte Count 0.83 X10^3/uL (0.83-4.51); Basophil# 0.03 X10^3/uL; Basophil% 0.1 % (0-1); Hematocrit 30.3 % (40-54); Hemoglobin 9.8 g/dL (13.0-16.5); Lymphocyte # 0.83 X10^3/ul (0.83-4.51); Lymphocyte % 3.2 % (19-41); Mean Corp Hgb Conc 32.3 g/dL (32-36); Mean Corpuscular Hgb 33.6 pg (27.0-32.0); Mean Corpuscular Volume 103.8 fL (80-94); Mean Platelet Vol. 13.3 fl (6.2-12.0); Monocyte# 4.58 X10^3/uL; Monocyte% 17.5 % (0-10); NRBC Flagged by Analyzer 0.1 % (0-5); Neutrophil # 19.95 X10^3/uL (2.7-7.7); Neutrophil % 76.4 % (47-70); POSITIVE DIFFERENTIAL YES; POSITIVE MORPHOLOGY YES; Platelet Count 364 K/mm3 (150-450); RBC Distribution Width SD 72.8 fl (35.1-43.9); Red Blood Count 2.92 M/mm3 (4.6-6.2); White Blood Count 26.1 K/mm3 (4.4-11.0)
[2024-12-08 12:09] LABS: International Normalized Ratio 1.2; Partial Thromboplast Time 38.3 Seconds (24.1-36.2); Prothrombin Time (Protime)PT. 15.6 SECONDS (11.7-14.9)
--- NOTE | 2024-12-08 12:10 | CT_ITS ---
PROCEDURE: STROKE BRAIN/HEAD WITHOUT CONT 12/08/2024 REASON FOR EXAM: CONFUSION Hypotension. TECHNIQUE: Head CT without intravenous contrast. Coronal and Sagittal reconstruction series were provided. One or more dose reduction techniques were used (e.g., Automated exposure control, adjustment of the mA and/or kV according to patient size, use of iterative reconstruction technique. RADIATION DOSE SUMMARY: CTDlvol: 47.06 mGy DLP: 1013.85 mGycm COMPARISON: None FINDINGS: Brain: Low density in the periventricular white matter suggests mild chronic small vessel ischemic changes. Moderate cerebral atrophy. CSF Spaces: Moderate generalized cerebral atrophy Sinuses/Mastoids: Clear at visualized levels Bones: Unremarkable CT/STROKE Brain/Head without Cont IMPRESSION: CHRONIC CHANGES. NO ACUTE FINDINGS. Red Alert: Chronic changes The critical information above was relayed directly by me by telephone to Jonna Sal on 12/08/2024 at 12:27 pm with readback verification. Reading Location: [place] [id number]
--- NOTE | 2024-12-08 12:11 | RAD_ITS ---
PROCEDURE: CHEST 1 VIEW (PORTABLE) 12/08/2024 REASON FOR EXAM: HYPOTENSION TECHNIQUE: Frontal view of the chest. COMPARISON: None FINDINGS: Hardware: EKG electrodes are seen. Heart: Status post midline sternotomy. Heart size is normal. Lungs: The lungs are clear. Bones: Degenerative changes are identified within the thoracic spine. Other: RAD/Chest 1 View (Portable) IMPRESSION: No Acute Findings. Reading Location: [facility]
[2024-12-08 12:29] LABS: Procalcitonin 8.14 ng/mL (<=0.10)
[2024-12-08 12:30] LABS: ALB/GLOB Ratio 1.1 RATIO (0.9-2.4); AST(SGOT) 26 U/L (<=37); Alanine Aminotransfer ALT/SGPT 10 U/L (<=46); Albumin, Serum 3.9 g/dL (3.4-4.8); Alkaline Phosphatase 93 U/L (40-129); Anion Gap 17 (5-15); BUN 35 mg/dL (4-19); BUN/Creat Ratio 24.2 RATIO (10-20); Calcium,Total 9.4 mg/dL (7.6-11.0); Carbon Dioxide 21.4 mmol/L (21.0-32.0); Chloride 95 mmol/L (98-108); Creatinine, Serum 1.46 mg/dL (0.70-1.20); EST Glomerular Filtration Rate 46 (>60); Estimated Creatinine Clearance 38.95 ml/min (50-250); Globulin 3.5 g/dL (2.2-4.2); Glucose 111 mg/dL (70-99); Potassium 4.2 mmol/L (3.3-5.1); Protein, Total 7.4 g/dL (5.9-8.4); Sodium Level 133 mmol/L (133-145); Total Bilirubin 1.21 mg/dL (0.00-1.30)
[2024-12-08 13:01] LABS: Differential Indicated SCAN CRITERIA MET
[2024-12-08 13:13] LABS: Bacteria 0 SEEN /hpf (None Seen); Mucous, Urine 0 SEEN /hpf (<or=2+); Squamous Epithelial Cells - UA 0 SEEN /hpf (0-5)
[2024-12-08 13:16] LABS: Color, Urine Yellow (Yellow); Glucose, Dipstick Normal (Normal); Ketone-Dipstick Negative (Negative); Leukocyte Esterase-Dipstick 500 /ul (Negative); Nitrite-Dipstick Positive (Negative); Occult Blood-Urine 150 /ul (Negative); Protein-Dipstick 30 mg/dl (Negative); Specific Gravity, Urine 1.015 (1.002-1.030); Urine Bilirubin Dipstick Negative (Negative); Urine Clarity Sl. Cloudy (Clear); Urine Urobilinogen 1 mg/dl (Normal); Urine pH 6.5 (5.0 - 8.0)
[2024-12-08] MEDS: Piperacil/Tazobactam 4.5 GM in 0.9% Normal Saline (100mL MB+) 100 ML IV (13:16)
[2024-12-08 13:22] LABS: Red Blood Cells-Urine 5-10 SEEN /hpf (0-5); White Blood Cells >100 SEEN /hpf (0-5)
[2024-12-08 13:34] LABS: Lactic Acid 3.9 mmol/L (0.0-2.0)
--- NOTE | 2024-12-08 13:44 | HP.PCM.HOS_ITS ---
HPI - General General Date of Admission: 12/08/24 Date of Service: 12/08/24 Chief Complaint: weakness HPI Narrative BRI BOSS, is a 89 M with a PMH as outlined who was admitted via the ED on 12/08/2024 with a complaint of weakness. HE had apparently not been eating or drinking well at home. He could not give much of a history but denied any fever, chills, cough, chest pain, palpitations, dizziness, nausea, vomiting or diarrhea. He did admit to discomfort with urination. He was diagnosed with myelodisplastic syndrome in June 2024 and went to see the oncologist today for immunotherapy. Labs there showed wbc of 30 so he came in to the ED. Vitals in the ED were BP of 80/60, [place] of 76, RR of 21 and temp of 97.8F as well as oxygen sats of 100% on room air. CBC showed wbc of 26.1, hb of 9.8 and platelets of 364. INR is 1.2. Chemistry showed sodium of 133 with potassium of 4.2 and bicarb of 21.4. Anion gap is 17. Creatinine is 1.46. BUN over creatinine ratio was 24.2 and lactic acid was 3.9. Procalcitonin was markedly elevated at 8.14. Urinalysis showed cloudy urine with elevated nitrites and leukocyte esterase but negative bacteria. CT of the brain showed no acute intracranial pathology. He has been admitted to be managed for severe sepsis due to probable UTI. [facility] Medical History MDS (myelodysplastic syndrome) Chronic hyponatremia Chest pain Chronic pain Chest pain COVID-19 Old myocardial infarction Premature ventricular contraction Hyperlipidemia Excision of the left atrial appendage Atherosclerotic heart disease of [place] coronary artery without angina pectoris Paroxysmal atrial fibrillation Kidney stones Hiatal hernia Upper gastrointestinal bleed Diverticulitis Colitis Home Medications ?Medication ?Instructions ?Recorded ?Last Taken ?Type acetaminophen 500 mg tablet 500 mg PO DAILY PRN PRN BA CK PAIN 05/24/19 05/23/19 History cholecalciferol (vitamin D3) 25 25 mcg PO DAILY vitami n 02/26/22 12/07/24 History mcg (1,000 unit) tablet Handicap Placard #1 ea 08/22/22 Unknown Rx nitroglycerin 0.4 mg sublingual 0.4 mg sublingual Q5-1 5M PRN CHEST 11/12/22 Unknown Rx tablet PAIN #25 tabs ascorbic acid (vitamin C) 500 mg 500 mg PO BID #60 tab s 06/01/23 12/08/24 Rx tablet folic acid 1 mg tablet 1 mg PO DAILY #30 tabs 06/0112/07/24 Rx darbepoetin renée in polysorbat 300 300 mcg subcut Q2W 07/24/23 12/08/24 History mcg/0.6 mL in polysorbate injection syringe (Aranesp) ranolazine 1,000 mg 1,000 mg PO BID #180 tabs 12/08/24 Rx tablet,extended release,12 hr famotidine 20 mg tablet (Pepcid) 20 mg PO QDAY #30 tab s 06/22/24 12/07/24 Rx furosemide 40 mg tablet (Lasix) 40 mg PO QAM #5 tabs 1 12/07/24 Rx isosorbide mononitrate 30 mg 30 mg PO QDAY HEART #90 t abs 09/02/24 12/08/24 Rx tablet,extended release 24 hr docusate sodium 100 mg capsule 100 mg PO QDAY 09/05/24 12/08/24 History potassium chloride 20 mEq 20 meq PO DAILY PRN Take wit h 09/05/24 12/07/24 Rx tablet,extended release Lasix #30 tabs clopidogrel 75 mg tablet (Plavix) 75 mg PO DAILY #90 t abs 09/12/24 12/08/24 Rx simvastatin 20 mg tablet 20 mg PO QHS #90 tabs 12/07/24 Rx Allergy/AdvReac Type Severity Reaction Status Date / Time ciprofloxacin (From Cipro) Allergy Unknown Rash Verified 12/08/24 10:57 EZEQUIEL Inhibitors Allergy cough Verified 12/08/24 10:57 benzonatate (From Tessalon Allergy rash Verified 12/08/24 10:57 Perles) ipodate (From Oragrafin) Allergy Rash Verified 12/08/24 10:57 Family History Father Prostate cancer Mother CVA (cerebral vascular accident) Brother Cancer Surgical History History of bilateral cataract extraction S/P right inguinal hernia repair Postsurgical percutaneous transluminal coronary angioplasty (PTCA) status Presence of stent in coronary artery (~11/14/11) S/P CABG (coronary artery bypass graft) (~11/2005) H/O maze procedure History of hernia repair Hx of appendectomy Social History household members: spouse current occupational status: retired Smoking Status: Never smoker alcohol intake: never substance use type: does not use caffeine: Yes Type: coffee Number of servings: 2 ROS Constitutional Constitutional: Reports chills, fatigue, malaise and weakness; Denies anorexia or fever(s) Eyes Eyes: Denies change in vision ENT HEENT: Denies dysphagia or headache(s) Cardiovascular Cardiovascular: Denies chest pain, dyspnea on exertion, edema, lightheadedness, orthopnea, palpitations, paroxysmal nocturnal dyspnea, rapid heart rate or syncope Respiratory/Chest Respiratory/Chest: Denies cough, dyspnea, shortness of breath at rest or shortness of breath with exertion Gastrointestinal Gastrointestinal: Denies abdominal pain, diarrhea, nausea or vomiting Musculoskeletal Musculoskeletal: Denies arthralgias Neurologic Neurologic: Denies confusion, dizziness or seizures Psychiatric Psychiatric: Denies anxiety or depression Endocrine Endocrinology: Denies change in body appearance Hematologic/Lymphatic Hematologic/Lymphatic: Denies anemia Vital Signs Vital Signs Vital Signs: 12/08/24 10:58 12/08/24 11:12 12/08/24 11:14 Temperature 96.9 F L Temperature Source Temporal Pulse Rate 87 91 Respiratory Rate 18 19 H Respiratory Effort Normal Non-Labored Respiratory Pattern Normal Blood Pressure 74/42 L 72/48 L Blood Pressure Mean 52 56 Pulse Ox 98 100 Oxygen Delivery Method Room Air Room Air 12/08/24 11:15 12/08/24 11:47 12/08/24 11:52 Temperature Temperature Source Pulse Rate 121 H Respiratory Rate 26 H Respiratory Effort Respiratory Pattern Blood Pressure 78/48 L 77/47 L Blood Pressure Mean 58 57 Pulse Ox 92 Oxygen Delivery Method Room Air Room Air 12/08/24 12:00 12/08/24 12:47 12/08/24 13:00 Temperature Temperature Source Pulse Rate 77 69 72 Respiratory Rate 21 H 14 16 Respiratory Effort Respiratory Pattern Blood Pressure 80/48 L 71/51 L 80/60 L Blood Pressure Mean 58 57 66 Pulse Ox 100 100 100 Oxygen Delivery Method Room Air Room Air 12/08/24 13:01 Temperature 97.8 F Temperature Source Oral Pulse Rate 76 Respiratory Rate 21 H Respiratory Effort Respiratory Pattern Blood Pressure 80/60 L Blood Pressure Mean 66 Pulse Ox 100 Oxygen Delivery Method Room Air Weight Weight: 216 lb 4.375 oz Body Mass Index (BMI) 32.8 Physical Exam Narrative very cachectic Const alert and no apparent distress Constitutional Narrative: alert and oriented x 2, flat affect General Appearance: cooperative HEENT normocephalic, head/scalp atraumatic, moist oral mucous membranes and oropharynx normal Mouth: oral and palatal mucosa normal Eyes PERRL, EOMs intact bilaterally and conjunctivae normal Neck no lymphadenopathy and supple Resp normal respiratory effort, no retractions, no use of accessory muscles and clear to auscultation bilaterally Cardio regular rate, regular rhythm, S1 normal heart sound, S2 normal heart sound and no murmurs GI normal to inspection, nondistended, normoactive bowel sounds, soft to palpation and non-tender Extremity normal to inspection, full ROM and no clubbing, cyanosis or edema Neuro CN's II-XII intact bilaterally and moves all extremities Neuro Narrative: AO x 2, which is the baseline Sensorium / Orientation: awake Motor Exam: strength 5/5 throughout Psych Psych Narrative: flat affect Results Lab / Micro Data 12/08/24 11:40 12/08/24 11:40 Labs: Laboratory Results - last 24 hr 12/08/24 11:40: WBC 26.1 H, RBC 2.92 L, Hgb 9.8 L, Hct 30.3 L, MCV 103.8 H, MCH 33.6 H, MCHC 32.3, RDW Std Deviation 72.8 H, RDW Coeff of Zachariah 20.0 H, Plt Count 364, MPV 13.3 H, Immature Gran % (Auto) 2.800 H, Neut % (Auto) 76.4 H, Lymph % (Auto) 3.2 L, [place] % (Auto) 17.5 H, Eos % (Auto) 0.0, Baso % (Auto) 0.1, A bsolute Neuts (auto) 20.0 H, Absolute Lymphs (auto) 0.83, Nucleated RBC % 0.1, P T 15.6 H, INR 1.2, APTT 38.3 H, Sodium 133, Potassium 4.2, Chloride 95 L, Carbon Dioxide 21.4, Anion Gap 17 H, BUN 35 H, Creatinine 1.46 H, Estim Creat Clear Calc 38.95 L, Est GFR (MDRD) Non-Af 46 L, BUN/Creatinine Ratio 24.2 H, Glucose 111 H, Lactic Acid 3.9 H*, Calcium 9.4, Total Bilirubin 1.21, AST 26, ALT 10, Alkaline Phosphatase 93, Total Protein 7.4, Albumin 3.9, Globulin 3.5, Albumin/Globulin Ratio 1.1, Procalcitonin 8.14 H 12/08/24 13:10: Urine Color Yellow, Urine Clarity Sl. Cloudy, Urine pH 6.5, Ur Specific [place] 1.015, Urine Protein 30 H, Urine Glucose (UA) Normal, Urine Ketones Negative, Urine Occult Blood 150 H, Urine Nitrite Positive H, Urine Bilirubin Negative, Urine Urobilinogen 1 H, Ur Leukocyte Esterase 500 H, Urine RBC 5-10 SEEN, Urine WBC >100 SEEN, Ur Squamous Epith Cells 0 SEEN, Urine Bacteria 0 SEEN, Urine Mucus 0 SEEN Imaging Radiology Impression Brain CT 12/08/24 12:10 IMPRESSION: CHRONIC CHANGES. NO ACUTE FINDINGS. Red Alert: Chronic changes The critical information above was relayed directly by me by telephone to Madi Sal on 12/08/2024 at 12:27 pm with readback verification. Reading Location: [facility]--1 Chest X-Ray 12/08/24 12:11 IMPRESSION: No Acute Findings. Reading Location: [facility]-IR-1 Assessment & Plan Assessment/Plan (1) Severe sepsis: (2) UTI (urinary tract infection): PLAN: Plan #Septic shock due to UTI * Patient admitted with complaint of weakness. Went to see his oncologist today to commence treatment for myelodysplastic syndrome labs done showed elevated WBC of 13. He is not on any chronic steroids. * Urinalysis shows evidence of UTI with elevated leukocyte esterase and nitrates though bacteria is negative. * Blood pressure running low in the 70s and 80s systolic. Been hydrated with fluids per sepsis protocol. * WBC is 26.1 per labs done in the ED. Procalcitonin also markedly elevated at 8. * Get blood and urine cultures. Admit to ICU. * If he does not respond to hydration per sepsis protocol will start on vasopressors * Started on IV vancomycin and Zosyn. Consult critical care. * on admission to the ICU, BP initially responded to fluids, but dropped to 80s systolic with MAP of 54. Patient now in septic shock. * PICC line therefore ordered to start levophed. #Myelodysplastic syndrome: follows with oncology on outpatient basis. #MI: * Creatinine is 1.46 with a baseline creatinine of around 0.64. Likely due to the septic shock. * Hydrate with IV fluids and trend creatinine. If it does not improve we will do further workup with renal ultrasound and urine electrolytes as well as Fe urea * #Lactic acidosis: * Lactic acid is 3.9. * Likely due to severe sepsis with impending septic shock. * Should improve as your blood pressure improves. #History of A-fib: * Not on any rate limiting medications. * Also not on any blood thinners. * He is s/p maze procedure. * Not on any blood thinners likely due to history of anemia. # History of CAD: S/p CABG in 2005. On Plavix and high intensity statin. Also on Imdur and ranolazine #Hyperlipidemia: On statin DVT prophylaxis: lovenox COde status: * Patient and counseled extensively about different types of CODE STATUS including full code, DNR CCA and DNR CCA. * Patient elects to be full code. * Total inpf-ni-qutp time : 18 minutes. * Total critical care time spent: 75 mins # Charges/Coding Visit Charges Inpatient E&M: 00067 Init Hosp L3 Procedures Hospitalists Procedures: 85984 Critical Care 1st Hr (advanced care planning 30 mins: [id number])
[2024-12-08] MEDS: Vancomycin HCl 2,000 MG in 0.9% Normal Saline (500mL Bag) 500 ML 250 MG IV (14:05)
[2024-12-08 15:49] LABS: Reflex Lactate? Y
--- NOTE | 2024-12-08 16:07 | PCM.RX.CS ---
Consult Antibiotic Management Pharmacy has been consulted to manage selected antibiotic: Vancomycin Type of Intervention Type of Consult: New start Suspected Infection Suspected Infection: Sepsis Prior Doses of Antibiotics Prior Doses of Antibiotics Received/Current Regimen: 2000 mg once @ 1405 12/08/2024 Labs Labs: Sodium 133 mmol/L (133-145) 12/08/24 11:40 Potassium 4.2 mmol/L (3.3-5.1) 12/08/24 11:40 Chloride 95 mmol/L (98-108) L 12/08/24 11:40 Carbon Dioxide 21.4 mmol/L (21.0-32.0) 12/08/24 11:40 Anion Gap 17 (5-15) H 12/08/24 11:40 BUN 35 mg/dL (4-19) H 12/08/24 11:40 Creatinine 1.46 mg/dL (0.70-1.20) H 12/08/24 11:40 Est GFR (MDRD) Non-Af 46 (>60) L 12/08/24 11:40 BUN/Creatinine Ratio 24.2 RATIO (10-20) H 12/08/24 11:40 Glucose 111 mg/dL (70-99) H 12/08/24 11:40 Dosing Weight Weight used for dosin.1 kg Goal Trough Goal Trough: 15-20 mcg/mL Pharmacy Plan for Drug Dosing Pharmacy Plan for Drug Dosing: NEW START IV VANCOMYCIN Consulting Physician: Rahat Indication: Sepsis Goal Trough: 15-20 SrCr: 1.46 mg/dL CrCl: 38.95 mL/Min Comments: Vancomycin Dose: 1500 mg q24h Pending Level: 12/10/2024 @ 1330 Pharmacy Service will continue to monitor and adjust dosing as required. Follow-Up Labs Follow-Up Labs: Trough: Vancomycin Date/Time Labs Ordered Labs to be done on [date and time ordered]: 12/10/2024 1330
[2024-12-08] MEDS: 0.9% Normal Saline (1000mL) 1,000 ML 125 ML IV (17:18)
[2024-12-08] MEDS: Famotidine 20 MG Tablet PO (17:18)
[2024-12-08 18:25] LABS: Lactic Acid < 1.0 mmol/L (0.0-2.0)
[2024-12-08] MEDS: 0.9% Normal Saline (500mL Bag) 500 ML 999 ML IV (19:15)
[2024-12-08] MEDS: Norepinephrine 8 MG in 0.9% Normal Saline (250mL Bag) 242 ML 9.4 MG CONT INF (21:00)
[2024-12-08] MEDS: Piperacil/Tazobactam 3.375 GM in 0.9% Normal Saline (50mL MB+) 50 ML IV (21:04)
[2024-12-08] MEDS: Atorvastatin Calcium 10 MG Tablet PO (21:13)
[2024-12-08] MEDS: Ranolazine 500 MG Tablet 1000 MG PO (21:13)
[2024-12-08] MEDS: Ascorbic Acid 500 MG Tablet PO (21:13)
[2024-12-09] VITALS (42 sets, daily range): BP systolic 87–114; BP diastolic 48–77; PULSE 68–89; RESP 15–27; TEMP 36.1–36.6; O2SAT 94–100; BMI 15.8
[2024-12-09] MEDS: 0.9% Normal Saline (1000mL) 1,000 ML 125 ML IV (03:00)
[2024-12-09 05:27] LABS: Pathologist Review May foll
[2024-12-09] MEDS: Piperacil/Tazobactam 3.375 GM in 0.9% Normal Saline (50mL MB+) 50 ML IV ×3 (06:13→21:40)
[2024-12-09] MEDS: 0.9% Saline Lock 10 ML Syringe IV (06:13)
[2024-12-09 06:25] LABS: Absolute Lymphocyte Count 0.94 X10^3/uL (0.83-4.51); Absolute Neutrophil Count 4.5 X10^3/uL (2.0-7.7); Hematocrit 21.7 % (40-54); Hemoglobin 6.8 g/dL (13.0-16.5); Lymphocyte # 0.94 X10^3/ul (0.83-4.51); Lymphocyte % 13.4 % (19-41); Mean Corp Hgb Conc 31.3 g/dL (32-36); Mean Corpuscular Hgb 33.3 pg (27.0-32.0); Mean Corpuscular Volume 106.4 fL (80-94); Mean Platelet Vol. 12.7 fl (6.2-12.0); Monocyte# 1.52 X10^3/uL; Monocyte% 21.6 % (0-10); NRBC Flagged by Analyzer 0 % (0-5); Neutrophil # 4.47 X10^3/uL (2.7-7.7); Neutrophil % 63.6 % (47-70); POSITIVE DIFFERENTIAL YES; POSITIVE MORPHOLOGY YES; Platelet Count 317 K/mm3 (150-450); RBC Distribution Width CV 19.5 % (11.6-14.6); RBC Distribution Width SD 71.8 fl (35.1-43.9); Red Blood Count 2.04 M/mm3 (4.6-6.2)
[2024-12-09 06:59] LABS: Anion Gap 10 (5-15); BUN 26 mg/dL (4-19); BUN/Creat Ratio 33.4 RATIO (10-20); Calcium,Total 7.8 mg/dL (7.6-11.0); Carbon Dioxide 18.4 mmol/L (21.0-32.0); Chloride 109 mmol/L (98-108); Creatinine, Serum 0.78 mg/dL (0.70-1.20); EST Glomerular Filtration Rate 85 (>60); Estimated Creatinine Clearance 41.97 ml/min (50-250); Glucose 91 mg/dL (70-99); Potassium 3.4 mmol/L (3.3-5.1); Sodium Level 137 mmol/L (133-145)
[2024-12-09 07:06] LABS: Differential Indicated SCAN CRITERIA MET
--- NOTE | 2024-12-09 07:36 | CON.PCM.CC_ITS ---
Assessment & Plan Assessment/Plan (1) Sepsis: PLAN: Plan RECOMMENDATIONS: 1. Continue empiric broad-spectrum antimicrobials. 2. Send type and cross, with plans to transfuse blood products as ordered. 3. PPI therapy twice daily. 4. Continue to wean Levophed to maintain a mean arterial pressure at or above 65 mmHg. 5. Potassium repletion as ordered. IMPRESSIONS: 1. Multifactorial shock I suspect that the patient's presentation was likely secondary to a combination of hypovolemic and septic etiologies. He remains on low-dose vasopressor support to maintain hemodynamic stability. I do suspect an underlying urinary tract source of infection with evidence of end-organ dysfunction, as evidenced by fluid refractory hypotension and lactic acidemia. The patient appears to be improving from a clinical perspective. Will continue to wean Levophed as tolerated. The patient will remain on empiric broad-spectrum antimicrobials, pending finalized culture results. 2. Acute kidney injury Prerenal in etiology with normalization in renal function, following volume expansion. Continue to monitor urine output. No current indication for renal replacement therapy. 3. Anemia complicated by history of myelodysplastic syndrome The patient had a 2 g drop in his hemoglobin this morning to 6.8 g/dL. Accordingly, we will plan to transfuse blood products as ordered. The patient will be maintained on PPI therapy as ordered. Recommend checking H&H posttransfusion. There are no current signs or symptoms concerning for overt GI blood loss. 4. History of atrial fibrillation/coronary artery disease status post CABG/hyperlipidemia/history of MDS Complicates care, management, recovery and prognosis. Continue to hold home diuretics and Imdur for now. Remainder of supportive care as noted above. TIME: 35 minutes of critical care time, independent of procedures, was spent addressing the patient's multifactorial shock, acute kidney injury, anemia, review of all data and collaboration with the care team. HPI Consult Data Date of Consult: 12/09/24 HPI Narrative Reason for Consultation: Septic shock HPI Narrative: The patient is an 89-year-old male, with a history as outlined below, who presented to the emergency department on December 08 with generalized weakness, decreased p.o. intake and a history of frequent falls. The patient does have a known history of myelodysplastic syndrome along with paroxysmal atrial fibrillation, GERD and hyperlipidemia. On presentation to the emergency department, the patient was initially documented to be afebrile but was notably hypotensive. He was maintaining appropriate oxygen saturations on room air. Laboratory evaluation was notable for a white blood cell count of 26,000. Hemoglobin was noted to be 9.8 g/dL with a platelet count of 364,000. Chemistry profile was notable for an anion gap of 17, BUN of 35 and creatinine of 1.46. Lactate was elevated at 3.9. Procalcitonin was elevated at 8.1. Urine analysis was positive for nitrites and leukocyte esterase. Blood and urine cultures were collected. CT head revealed no acute intracranial findings. Chest x-ray demonstrated no acute cardiopulmonary process. The patient ultimately received IV fluid resuscitation. Unfortunately, the patient developed fluid refractory hypotension, which ultimately required vasopressor support. He was transferred to the medical intensive care unit for further management, after being started on antimicrobial therapy. Overnight, the patient has remained clinically stable on Levophed at 5 mcg/min. He has no specific complaints this morning. White blood cell count has improved this morning. However, his hemoglobin has dropped to 6.8 g/dL. His creatinine has normalized at 0.78. The patient currently denies any abdominal pain, melena or hematochezia. [facility] Medical History MDS (myelodysplastic syndrome) Chronic hyponatremia Chest pain Chronic pain Chest pain COVID-19 Old myocardial infarction Premature ventricular contraction Hyperlipidemia Excision of the left atrial appendage Atherosclerotic heart disease of [place] coronary artery without angina pectoris Paroxysmal atrial fibrillation Kidney stones Hiatal hernia Upper gastrointestinal bleed Diverticulitis Colitis Home Medications ?Medication ?Instructions ?Recorded ?Last Taken ?Type acetaminophen 500 mg tablet 500 mg PO DAILY PRN PRN BA CK PAIN 05/24/19 05/23/19 History cholecalciferol (vitamin D3) 25 25 mcg PO DAILY vitami n 02/26/22 12/07/24 History mcg (1,000 unit) tablet Handicap Placard #1 ea 08/22/22 Unknown Rx nitroglycerin 0.4 mg sublingual 0.4 mg sublingual Q5-1 5M PRN CHEST 11/12/22 Unknown Rx tablet PAIN #25 tabs ascorbic acid (vitamin C) 500 mg 500 mg PO BID #60 tab s 06/01/23 12/08/24 Rx tablet folic acid 1 mg tablet 1 mg PO DAILY #30 tabs 06/0112/07/24 Rx darbepoetin renée in polysorbat 300 300 mcg subcut Q2W 07/24/23 12/08/24 History mcg/0.6 mL in polysorbate injection syringe (Aranesp) ranolazine 1,000 mg 1,000 mg PO BID #180 tabs 12/08/24 Rx tablet,extended release,12 hr famotidine 20 mg tablet (Pepcid) 20 mg PO QDAY #30 tab s 06/22/24 12/07/24 Rx furosemide 40 mg tablet (Lasix) 40 mg PO QAM #5 tabs 1 12/07/24 Rx isosorbide mononitrate 30 mg 30 mg PO QDAY HEART #90 t abs 09/02/24 12/08/24 Rx tablet,extended release 24 hr docusate sodium 100 mg capsule 100 mg PO QDAY 09/05/24 12/08/24 History potassium chloride 20 mEq 20 meq PO DAILY PRN Take wit h 09/05/24 12/07/24 Rx tablet,extended release Lasix #30 tabs clopidogrel 75 mg tablet (Plavix) 75 mg PO DAILY #90 t abs 09/12/24 12/08/24 Rx simvastatin 20 mg tablet 20 mg PO QHS #90 tabs 12/07/24 Rx Allergy/AdvReac Type Severity Reaction Status Date / Time ciprofloxacin (From Cipro) Allergy Unknown Rash Verified 12/08/24 10:57 EZEQUIEL Inhibitors Allergy cough Verified 12/08/24 10:57 benzonatate (From Tessalon Allergy rash Verified 12/08/24 10:57 Perles) ipodate (From Oragrafin) Allergy Rash Verified 12/08/24 10:57 Family History Father Prostate cancer Mother CVA (cerebral vascular accident) Brother Cancer Surgical History History of bilateral cataract extraction S/P right inguinal hernia repair Postsurgical percutaneous transluminal coronary angioplasty (PTCA) status Presence of stent in coronary artery (~11/14/11) S/P CABG (coronary artery bypass graft) (~11/2005) H/O maze procedure History of hernia repair Hx of appendectomy Social History household members: spouse current occupational status: retired Smoking Status: Never smoker alcohol intake: never substance use type: does not use caffeine: Yes Type: coffee Number of servings: 2 ROS ROS Narrative 10 systems were reviewed with pertinent positives as noted in the HPI above. Physical Exam Const alert and no apparent distress Constitutional Narrative: Frail and cachectic elderly male. General Appearance: cooperative HEENT normocephalic and head/scalp atraumatic HEENT Narrative: Dry mucous membranes Eyes PERRL, EOMs intact bilaterally and conjunctivae normal Neck supple General: trachea midline Chest inspection of chest normal Resp normal respiratory effort Auscultation: Negative for rales, rhonchi or wheezes Cardio regular rate and regular rhythm GI normal to inspection, nondistended, normoactive bowel sounds Extremity General Extremity: edema; Negative for clubbing Skin no rashes or lesions noted Neuro CN's II-XII intact bilaterally, moves all extremities and no focal motor deficits Psych cooperative and affect normal Lab / Micro Data 12/09/24 06:15 12/09/24 06:15 Labs: Laboratory Results - last 24 hr 12/08/24 11:40: WBC 26.1 H, RBC 2.92 L, Hgb 9.8 L, Hct 30.3 L, MCV 103.8 H, MCH 33.6 H, MCHC 32.3, RDW Std Deviation 72.8 H, RDW Coeff of Zacharia[place] 20.0 H, Plt Count 364, MPV 13.3 H, Immature Gran % (Auto) 2.800 H, Neut % (Auto) 76.4 H, Lymph % (Auto) 3.2 L, [place] % (Auto) 17.5 H, Eos % (Auto) 0.0, Baso % (Auto) 0.1, A bsolute Neuts (auto) 20.0 H, Absolute Lymphs (auto) 0.83, Nucleated RBC % 0.1, Diff Path Review January, PT 15.6 H, INR 1.2, APTT 38.3 H, Sodium 133, Potassium 4.2, Chloride 95 L, Carbon Dioxide 21.4, Anion Gap 17 H, BUN 35 H, C reatinine 1.46 H, Estim Creat Clear Calc 38.95 L, Est GFR (MDRD) Non-Af 46 L, B UN/Creatinine Ratio 24.2 H, Glucose 111 H, Lactic Acid 3.9 H*, Calcium 9.4, Total Bilirubin 1.21, AST 26, ALT 10, Alkaline Phosphatase 93, Total Protein 7.4, Albumin 3.9, Globulin 3.5, Albumin/Globulin Ratio 1.1, Procalcitonin 8.14 H 12/08/24 13:10: Urine Color Yellow, Urine Clarity Sl. Cloudy, Urine pH 6.5, Ur Specific [place] 1.015, Urine Protein 30 H, Urine Glucose (UA) Normal, Urine Ketones Negative, Urine Occult Blood 150 H, Urine Nitrite Positive H, Urine Bilirubin Negative, Urine Urobilinogen 1 H, Ur Leukocyte Esterase 500 H, Urine RBC 5-10 SEEN, Urine WBC >100 SEEN, Ur Squamous Epith Cells 0 SEEN, Urine Bacteria 0 SEEN, Urine Mucus 0 SEEN 12/08/24 17:01: Lactic Acid < 1.0 12/09/24 06:15: WBC 7.0, RBC 2.04 L, Hgb 6.8 L, Hct 21.7 L, MCV 106.4 H, MCH 33.3 H, MCHC 31.3 L, RDW Std Deviation 71.8 H, RDW Coeff of Zachariah 19.5 H, Plt Count 317, MPV 12.7 H, Immature Gran % (Auto) 1.400 H, Neut % (Auto) 63.6, Lymph % (Auto) 13.4 L, [place] % (Auto) 21.6 H, Eos % (Auto) 0.0, Baso % (Auto) 0.0, Absolute Neuts (auto) 4.5, Absolute Lymphs (auto) 0.94, Nucleated RBC % 0, Sodium 137, Potassium 3.4, Chloride 109 H, Carbon Dioxide 18.4 L, Anion Gap 10, BUN 26 H, Creatinine 0.78, Estim Creat Clear Calc 41.97 L, Est GFR (MDRD) Non-Af 85, BUN/Creatinine Ratio 33.4 H, Glucose 91, Calcium 7.8 Imaging Radiology Impression Brain CT 12/08/24 12:10 IMPRESSION: CHRONIC CHANGES. NO ACUTE FINDINGS. Red Alert: Chronic changes The critical information above was relayed directly by me by telephone to Madi Sal on 12/08/2024 at 12:27 pm with readback verification. [facility] Chest X-Ray 12/08/24 12:11 IMPRESSION: No Acute Findings. Reading Location: [facility] Charges/Coding Procedures Hospitalists Procedures: 58882 Critical Care 1st Hr
[2024-12-09 07:47] LABS: Acanthocytes 1+; Anisocytosis 1+; Ovalocyte 1+; Platelet Estimate A (ADEQ); Polychromasia 1+; Tear Drop Cell 1+
--- NOTE | 2024-12-09 07:49 | PN.HOSP_ITS ---
Reason for Visit Reason for Visit: Diagnoses Sepsis, unspecified organism (12/08/24) Urinary tract infection, site not specified (12/08/24) Severe sepsis without septic shock (12/08/24) Objective Data Objective Data Vital Signs: Vital Signs Temp Pulse Resp BP Pulse Ox O2 Del Method 97.8 F 89 22 H 110/61 94 Room Air 12/09/24 00:00 12/09/24 07:00 12/09/24 07:00 12/09/24 07:00 12/09/24 07:00 12/09/24 07:00 Oxygen Delivery Method Room Air Weight: 104 lb 7.986 oz Body Mass Index (BMI) 15.8 Intake & Output: Intake and Output for Last 24 Hours 12/07/24 12/08/24 12/09/24 23:59 23:59 23:59 Intake Total 4316.94 / 4331.04 1186.30 / 1186.30 Output Total 500 / 700 450 / 450 Balance 3816.94 / 3631.04 736.30 / 736.30 Lab / Micro Data 12/09/24 06:15 12/09/24 06:15 Labs: Laboratory Results - last 24 hr 12/08/24 11:40: WBC 26.1 H, RBC 2.92 L, Hgb 9.8 L, Hct 30.3 L, MCV 103.8 H, MCH 33.6 H, MCHC 32.3, RDW Std Deviation 72.8 H, RDW Coeff of Zachariah 20.0 H, Plt Count 364, MPV 13.3 H, Immature Gran % (Auto) 2.800 H, Neut % (Auto) 76.4 H, Lymph % (Auto) 3.2 L, [place] % (Auto) 17.5 H, Eos % (Auto) 0.0, Baso % (Auto) 0.1, A bsolute Neuts (auto) 20.0 H, Absolute Lymphs (auto) 0.83, Nucleated RBC % 0.1, Diff Path Review January, PT 15.6 H, INR 1.2, APTT 38.3 H, Sodium 133, Potassium 4.2, Chloride 95 L, Carbon Dioxide 21.4, Anion Gap 17 H, BUN 35 H, C reatinine 1.46 H, Estim Creat Clear Calc 38.95 L, Est GFR (MDRD) Non-Af 46 L, B UN/Creatinine Ratio 24.2 H, Glucose 111 H, Lactic Acid 3.9 H*, Calcium 9.4, Total Bilirubin 1.21, AST 26, ALT 10, Alkaline Phosphatase 93, Total Protein 7.4, Albumin 3.9, Globulin 3.5, Albumin/Globulin Ratio 1.1, Procalcitonin 8.14 H 12/08/24 13:10: Urine Color Yellow, Urine Clarity Sl. Cloudy, Urine pH 6.5, Ur Specific [place] 1.015, Urine Protein 30 H, Urine Glucose (UA) Normal, Urine Ketones Negative, Urine Occult Blood 150 H, Urine Nitrite Positive H, Urine Bilirubin Negative, Urine Urobilinogen 1 H, Ur Leukocyte Esterase 500 H, Urine RBC 5-10 SEEN, Urine WBC >100 SEEN, Ur Squamous Epith Cells 0 SEEN, Urine Bacteria 0 SEEN, Urine Mucus 0 SEEN 12/08/24 17:01: Lactic Acid < 1.0 12/09/24 06:15: WBC 7.0, RBC 2.04 L, Hgb 6.8 L, Hct 21.7 L, MCV 106.4 H, MCH 33.3 H, MCHC 31.3 L, RDW Std Deviation 71.8 H, RDW Coeff of Zachariah 19.5 H, Plt Count 317, MPV 12.7 H, Immature Gran % (Auto) 1.400 H, Neut % (Auto) 63.6, Lymph % (Auto) 13.4 L, [place] % (Auto) 21.6 H, Eos % (Auto) 0.0, Baso % (Auto) 0.0, Absolute Neuts (auto) 4.5, Absolute Lymphs (auto) 0.94, Nucleated RBC % 0, Platelet Estimate A, Polychromasia 1+, Anisocytosis 1+, Tear Drop Cells 1+, Ovalocytes 1+, Acanthocytes (Spur) 1+, Sodium 137, Potassium 3.4, Chloride 109 H , Carbon Dioxide 18.4 L, Anion Gap 10, BUN 26 H, Creatinine 0.78, Estim Creat Clear Calc 41.97 L, Est GFR (MDRD) Non-Af 85, BUN/Creatinine Ratio 33.4 H, Glucose 91, Calcium 7.8 Radiography Diagnostic Testing: Radiology Impression Brain CT 12/08/24 12:10 IMPRESSION: CHRONIC CHANGES. NO ACUTE FINDINGS. Red Alert: Chronic changes The critical information above was relayed directly by me by telephone to Madi Sal on 12/08/2024 at 12:27 pm with readback verification. Reading Location: [facility] Chest X-Ray 12/08/24 12:11 IMPRESSION: No Acute Findings. Reading Location: [facility]- Physical Exam Narrative Seen and examined. Patient is hard of hearing. Denies fever or chills at home. Denies burning micturition. Has Calvo catheter in ED. Denies nausea, vomiting or abdominal pain or cough or chest pain. Physical exam General: Awake, oriented to place and person. Does not know the month and his age HEENT: Bilateral hearing aids. Atraumatic, PERRLA, EOMI, Normocephalic Oral: No Gingival or Mucosal Lesions/ Ulcerations Neck: Supple, No JVD, Negative Carotid Bruits Chest wall/Lungs: Air entry diminished in bilateral lung bases. No crepitation/rhonchi Cardiovascular: Regular rate, Regular Rhythm, Normal S1, Normal S2, No M/G/R Abdomen: Bowel Sounds Present, Soft, Non Tender, Non-Distended : No dysuria. No renal angle tenderness. No suprapubic tenderness. Extremities: No edema, Capillary Refill Less than 3 Seconds Skin: No rashes, No breakdown Musculoskeletal: No Tenderness to Palpation of Joints or Extremities Neurological: Cranial nerves II-XII grossly intact, DTR 2+/4. Disoriented or amnesia Psych/Mental Status: Flat affect Assessment & Plan Assessment/Plan (1) Severe sepsis: (2) UTI (urinary tract infection): PLAN: Plan Patient was admitted for low BP, not eating, Generalized weakness,altered mental status/drowsy and sleepy. Denied fever chills cough, chest pain, dizziness, nausea vomiting or diarrhea. 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 Went to see his oncologist today to commence treatment for myelodysplastic syndrome labs done showed elevated WBC of 13. He is not on any chronic steroids. #Septic shock due to UTI: The patient presented with sepsis with clinical indicators of tachypnea, leukocytosis, tachycardia due to possible UTI with acute sepsis-related organ dysfunction as evidenced by hypotension unresponsive to IV fluid requiring vasopressor and lactic acid. Blood pressure was running in low 70s and 80s. Has a right arm PICC line on Levophed Started on IV vancomycin and Zosyn. Wedding Planner consult. Lactic acid was 3.9 and improved with the fluid to normal less than 1.0 #Myelodysplastic syndrome: follows with oncology on outpatient basis. #MI: * Creatinine is 1.46 with a baseline creatinine of around 0.64. Likely due to the septic shock. * Was hydrated with IV fluid. Creatinine improved to 0.78 #History of A-fib: * Not on any rate limiting medications. * Also not on any blood thinners. * He is s/p maze procedure. * Not on any blood thinners likely due to history of anemia. # History of CAD: S/p CABG in 2005. On Plavix and high intensity statin. Also on Imdur and ranolazine #Hyperlipidemia: On statin DVT prophylaxis: lovenox COde status: * Patient and counseled extensively about different types of CODE STATUS including full code, DNR CCA and DNR CCA. * Patient elects to be full code. * Total [id number] time : 18 minutes. * Acute encephalopathy possible due to sepsis or amnesia Charges/Coding Visit Charges Inpatient E&M: 37667 [facility] L3
[2024-12-09] MEDS: Docusate Sodium 100 MG Capsule PO (08:51)
[2024-12-09] MEDS: Folic Acid 1 MG Tablet PO (08:51)
[2024-12-09] MEDS: Clopidogrel Bisulfate 75 MG Tablet PO (08:52)
[2024-12-09] MEDS: Ranolazine 500 MG Tablet 1000 MG PO ×2 (08:52→21:40)
[2024-12-09] MEDS: Ascorbic Acid 500 MG Tablet PO ×2 (08:52→21:41)
[2024-12-09] MEDS: Cholecalciferol (VIT D3) 25 MCG TABLET (1,000 UNITS) PO (08:52)
[2024-12-09] MEDS: Potassium Chloride 10mEq/100mL 10 MEQ/100 ML IV.SOLN. 100 MEQ IV BOLUS ×4 (09:09→12:13)
--- NOTE | 2024-12-09 09:30 | CASEMGMT ---
RN CM Face to Face with patient for initial transition planning/care coordination assessment. RN CM introduced self and role at [facility]. Patient lying in bed, alert and oriented, at bedside. Patient and willing to participate in assessment and is able to answer all questions appropriately. Care providers, pharmacy, and demographics verified. Strata: 2 PCP: TANJA Gutierrez Specialists: Esme, chipper machine operator; River, hr systems analyst Preferred Pharmacy: [facility] [place]: [place], [employer] Prescription Benefit: yes Living Will/HPOA: yes, Guerda Bhardwaj LNOK: Living Arrangements: Patient lives with in a single story home with 4 steps and grab bars to enter the home. assists patient with all ADLs. Transportation: DME/HHC: Patient has shower chair, raised toilet, grab bars, walker, wheelchair, and pulse ox at home. No previous SNF. Patient has had [facility]HC in the past through [place]. wishes for patient to discharge home, denies need for HHC at this time. 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 states she has no further needs or concerns at this time. CM to follow for discharge planning needs that may arise. Disposition Plan: Patient to discharge home with family support and follow-up plans in place. Eliana NAYAK, RN, CM
[2024-12-09] MEDS: Pantoprazole Sodium 40 MG in 0.9% Normal Saline (100mL MB+) 100 ML 330 MG IV ×2 (10:44→21:40)
--- NOTE | 2024-12-09 11:38 | CHAPLAIN ---
Type of Pastoral Visit _x__ Initial Visit ___ Follow-up Visit ___ On-call Visit ___ General Patient Visit ___ Spiritual Assessment ___ Family Conference ___ Bereavement ___ Rapid Response ___ Code Blue ___ Other (describe below) Pastoral Care Referral From ___ Patient _x__ Family ___ Nurse ___ Physician ___ Feather Drying Machine Operator ___ International Representative ___ Other (describe below) Sacrament/Intervention _x__ Active listening ___ Anointing ___ Zoroastrian ___ Bereavement ___ Communion _x__ Staci exploration ___ _x__ Life review _x__ Prayer ___ Reconciliation ___ Sacrament of Sick _x__ Supportive presence ___ Wedding ___ Other (describe below) Pastoral Comments the patient initially was sleeping but his was at the bedside and welcoming of spiritual care visit and support; spouse gives information on the situation and the improvement that is evident today for the patient; spouse was a former RN and has understanding of his health needs and is the main caregiver; spouse reports that their staci in God is most helpful and that they also have three adult children that can be called upon at various times although they all work; patient woke up during the visit and also interacted with this telecom coordinator; pt is thankful for the support and reports improvement also; prayer and presence given
[2024-12-09] MEDS: Norepinephrine 8 MG in 0.9% Normal Saline (250mL Bag) 242 ML 9.4 MG CONT INF (12:22)
[2024-12-09 14:30] LABS: Hematocrit 25.6 % (40-54); Hemoglobin 8.2 g/dL (13.0-16.5)
[2024-12-09 15:49] LABS: Vancomycin, Random Level 8.8 ug/mL (0.0-15.0)
--- NOTE | 2024-12-09 16:01 | PCM.RX.CS ---
Consult Antibiotic Management Pharmacy has been consulted to manage selected antibiotic: Vancomycin Type of Intervention Type of Consult: Follow-up Suspected Infection Suspected Infection: Sepsis Prior Doses of Antibiotics Prior Doses of Antibiotics Received/Current Regimen: Vancomycin 2000 mg IV x 1 given 12/08 @ 1405 Labs Labs: Sodium 137 mmol/L (133-145) 12/09/24 06:15 Potassium 3.4 mmol/L (3.3-5.1) 12/09/24 06:15 Chloride 109 mmol/L (98-108) H 12/09/24 06:15 Carbon Dioxide 18.4 mmol/L (21.0-32.0) L 12/09/24 06:15 Anion Gap 10 (5-15) 12/09/24 06:15 BUN 26 mg/dL (4-19) H 12/09/24 06:15 Creatinine 0.78 mg/dL (0.70-1.20) 12/09/24 06:15 Est GFR (MDRD) Non-Af 85 (>60) 12/09/24 06:15 BUN/Creatinine Ratio 33.4 RATIO (10-20) H 12/09/24 06:15 Glucose 91 mg/dL (70-99) 12/09/24 06:15 Random Vancomycin 8.8 ug/mL (0.0-15.0) 12/09/24 14:20 Microbiology Microbiology: Microbiology 12/08/24 13:10 Urine, Random Urine Culture - Preliminary Gram Positive Cocci Dosing Weight Weight used for dosin.4 kg Estimated Creatinine Clearance Estimated Creatinine Clearance: ~ 42 Goal Trough Goal Trough: 15-20 mcg/mL Pharmacy Plan for Drug Dosing Pharmacy Plan for Drug Dosing: Vancomycin random level = 8.8, with new weight will begin 1000 mg Q24H Pharmacy Service will continue to monitor and adjust dosing as required. Follow-Up Labs Follow-Up Labs: Trough: Vancomycin Date/Time Labs Ordered Labs to be done on [date and time ordered]: 12/11 @ 0337
[2024-12-09] MEDS: Vancomycin IV 1,000 MG/200 ML BAG 200 MG IV (16:20)
[2024-12-09] MEDS: Atorvastatin Calcium 10 MG Tablet PO (21:40)
[2024-12-10] VITALS (49 sets, daily range): BP systolic 86–124; BP diastolic 50–74; PULSE 63–98; RESP 17–28; TEMP 36.4–36.7; O2SAT 97–100; BMI 16.6
[2024-12-10] MEDS: Piperacil/Tazobactam 3.375 GM in 0.9% Normal Saline (50mL MB+) 50 ML IV ×3 (05:48→20:48)
--- NOTE | 2024-12-10 08:16 | PN.HOSP_ITS ---
Reason for Visit Reason for Visit: Diagnoses Sepsis, unspecified organism (12/08/24) Urinary tract infection, site not specified (12/08/24) Severe sepsis without septic shock (12/08/24) Objective Data Objective Data Vital Signs: Vital Signs Temp Pulse Resp BP Pulse Ox O2 Del Method 97.9 F 78 22 H 100/59 L 99 Room Air 12/10/24 00:00 12/10/24 07:00 12/10/24 07:00 12/10/24 07:00 12/10/24 07:00 12/10/24 07:00 Oxygen Delivery Method Room Air Weight: 109 lb 5.588 oz Body Mass Index (BMI) 16.6 Intake & Output: Intake and Output for Last 24 Hours 12/08/24 12/09/24 12/10/24 23:59 23:59 23:59 Intake Total 4316.94 / 4331.04 4580.58 / 4586.18 87.60 / 87.60 Output Total 500 / 700 1450 / 1450 400 / 400 Balance 3816.94 / 3631.04 3130.58 / 3136.18 -312.40 / -312.40 Medical Nutrition Assessment Dietitian: Malnutrition Criteria Met Start: 12/09/24 09:42 Freq: Status: Active Protocol: Document 12/09/24 09:56 SLA (Rec: 12/09/24 09:56 SLA [id number]) Nutrition Malnutrition Evidence of Yes Malnutrition Exists Malnutrition (severe Chronic ): Evidenced By Suboptimal Energy Intake (Severe),Weight Loss (Severe), Physical Changes (Severe) Clinical Problem Chronic Disease or Condition Related Malnutrition Etiology related to inadequate energy intake Signs/Symptoms as evidenced by 25.5% unintended wt loss x ~18 mo [employer], 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 Rec consider appetite stimulant to help encourage improved po intake. Lab / Micro Data 12/09/24 14:20 12/10/24 07:45 Labs: Laboratory Results - last 24 hr 12/09/24 07:45: Blood Type O NEGATIVE, Antibody Screen NEGATIVE, Crossmatch See Detail 12/09/24 14:20: Hgb 8.2 L, Hct 25.6 L, Random Vancomycin 8.8 Micro: Microbiology 12/08/24 13:10 Urine, Random Urine Culture - Preliminary Gram Positive Cocci Physical Exam Narrative Seen and examined. Patient is hard of hearing. tube cutter operator shows sinus rhythm, PAC. Patient to have few drops of blood, epistaxis probably from dry ear. Had small epistaxis during previous admission. Denies fever or chills at home. As per the patient's , patient told morning medication to 1 of RN. Currently has Calvo catheter. Denies nausea, vomiting or abdominal pain or cough or chest pain. Physical exam General: Awake, oriented to place and person. Does not know the month and his age HEENT: Bilateral hearing aids. Atraumatic, PERRLA, EOMI, Normocephalic Oral: No Gingival or Mucosal Lesions/ Ulcerations Neck: Supple, No JVD, Negative Carotid Bruits Chest wall/Lungs: Air entry diminished in bilateral lung bases. No crepitation/rhonchi Cardiovascular: Regular rate, Regular Rhythm, Normal S1, Normal S2, No M/G/R Abdomen: Bowel Sounds Present, Soft, Non Tender, Non-Distended : Clear yellow urine in Calvo catheter. No renal angle tenderness. No suprapubic tenderness. Extremities: No edema, Capillary Refill Less than 3 Seconds Skin: No rashes, No breakdown Musculoskeletal: No Tenderness to Palpation of Joints or Extremities Neurological: Cranial nerves II-XII grossly intact, DTR 2+/4. Disoriented or amnesia Psych/Mental Status: Flat affect Assessment & Plan Assessment/Plan (1) Severe sepsis: (2) UTI (urinary tract infection): PLAN: Plan Patient was admitted for low BP, not eating, Generalized weakness,altered mental status/drowsy and sleepy. Denied fever chills cough, chest pain, dizziness, nausea vomiting or diarrhea. 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 Went to see his oncologist today to commence treatment for myelodysplastic syndrome labs done showed elevated WBC of 13. He is not on any chronic steroids. #Septic shock due to UTI: The patient presented with sepsis with clinical indicators of tachypnea, leukocytosis, tachycardia due to possible UTI with acute sepsis-related organ dysfunction as evidenced by hypotension unresponsive to IV fluid requiring vasopressor and lactic acid. Blood pressure was running in low 70s and 80s. Has a right arm PICC line on Levophed Started on IV vancomycin and Zosyn. Certified Nurse Aide consult. Lactic acid was 3.9 and improved with the fluid to normal less than 1.0 12/10: Urine culture growing GPC 50,000?50,000 colonies, not in pathology range. For now continue broad-spectrum antibiotic. Wean down Levophed. Since patient has orthostatic/postural hypotension. Started on midodrine 10 mg 3 times daily. 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 Mild epistaxis. Posttransfusion H&H 8.2/25%. Mild epistaxis INR 1.3. #MI: * Creatinine is 1.46 with a baseline creatinine of around 0.64. Likely due to the septic shock. * Was hydrated with IV fluid. Creatinine improved to 0.78 12/10: Creatinine 0.55 normal. MI resolved. Mild hypokalemia, hypophosphatemia, magnesium low normal at 1.7. Electrolytes replacement ordered #History of A-fib: * Not on any rate limiting medications. * Also not on any blood thinners. * He is s/p maze procedure. * Not on any blood thinners likely due to history of anemia. # History of CAD: S/p CABG in 2005. On Plavix and high intensity statin. Also on Imdur and ranolazine #Hyperlipidemia: On statin DVT prophylaxis: lovenox COde status: * Patient and counseled extensively about different types of CODE STATUS including full code, DNR CCA and DNR CCA. * Patient elects to be full code. * Total [id number] time : 18 minutes. * Acute encephalopathy possible due to sepsis or amnesia Microbiology Past 72 Hours 12/08/24 13:10 Urine, Random Urine Culture - Preliminary Gram Positive Cocci Laboratory Results 12/09/24 07:45: Blood Type O NEGATIVE, Antibody Screen NEGATIVE, Crossmatch See Detail 12/09/24 14:20: Hgb 8.2 L, Hct 25.6 L, Random Vancomycin 8.8 12/10/24 07:45: WBC Pending, RBC Pending, Hgb Pending, Hct Pending, MCV Pending, MCH Pending, MCHC Pending, RDW Std Deviation Pending, RDW Coeff of Zachariah Pending, Plt Count Pending, Neut % (Auto) Pending, Absolute Neuts (auto) Pending, PT Pending, INR Pending, APTT Pending, Sodium 134, Potassium 3.2 L, Chloride 107, C arbon Dioxide 19.9 L, Anion Gap 8, BUN 14, Creatinine 0.55 L, Estim Creat Clear Calc 43.92 L, Est GFR (MDRD) Non-Af 95, BUN/Creatinine Ratio 25.5 H, Glucose 86, Calcium 7.6, Phosphorus 2.0 L, Magnesium 1.7 Charges/Coding Visit Charges Inpatient E&M: 59346 [facility] L3
[2024-12-10] MEDS: Folic Acid 1 MG Tablet PO (08:35)
[2024-12-10] MEDS: Docusate Sodium 100 MG Capsule PO (08:36)
[2024-12-10] MEDS: Clopidogrel Bisulfate 75 MG Tablet PO (08:36)
[2024-12-10] MEDS: Ranolazine 500 MG Tablet 1000 MG PO ×2 (08:37→20:50)
[2024-12-10] MEDS: Cholecalciferol (VIT D3) 25 MCG TABLET (1,000 UNITS) PO (08:38)
[2024-12-10] MEDS: Ascorbic Acid 500 MG Tablet PO ×2 (08:38→20:50)
[2024-12-10] MEDS: 0.9% Saline Lock 10 ML Syringe IV (08:39)
[2024-12-10 08:41] LABS: Anion Gap 8 (5-15); BUN 14 mg/dL (4-19); BUN/Creat Ratio 25.5 RATIO (10-20); Calcium,Total 7.6 mg/dL (7.6-11.0); Carbon Dioxide 19.9 mmol/L (21.0-32.0); Chloride 107 mmol/L (98-108); Creatinine, Serum 0.55 mg/dL (0.70-1.20); EST Glomerular Filtration Rate 95 (>60); Estimated Creatinine Clearance 43.92 ml/min (50-250); Glucose 86 mg/dL (70-99); Magnesium 1.7 mg/dL (1.5-2.2); Potassium 3.2 mmol/L (3.3-5.1); Sodium Level 134 mmol/L (133-145)
[2024-12-10 08:44] LABS: Absolute Lymphocyte Count 0.84 X10^3/uL (0.83-4.51); Absolute Neutrophil Count 2.3 X10^3/uL (2.0-7.7); Hematocrit 28.6 % (40-54); Hemoglobin 9.3 g/dL (13.0-16.5); Lymphocyte # 0.84 X10^3/ul (0.83-4.51); Lymphocyte % 18.5 % (19-41); Mean Corp Hgb Conc 32.5 g/dL (32-36); Mean Corpuscular Hgb 31.7 pg (27.0-32.0); Mean Corpuscular Volume 97.6 fL (80-94); Mean Platelet Vol. 13.4 fl (6.2-12.0); Monocyte# 1.37 X10^3/uL; Monocyte% 30.2 % (0-10); NRBC Flagged by Analyzer 0 % (0-5); Neutrophil # 2.25 X10^3/uL (2.7-7.7); Neutrophil % 49.8 % (47-70); POSITIVE MORPHOLOGY YES; Platelet Count 261 K/mm3 (150-450); RBC Distribution Width CV 23.8 % (11.6-14.6); RBC Distribution Width SD 81.7 fl (35.1-43.9); Red Blood Count 2.93 M/mm3 (4.6-6.2); White Blood Count 4.5 K/mm3 (4.4-11.0)
[2024-12-10 09:07] LABS: International Normalized Ratio 1.3; Prothrombin Time (Protime)PT. 16.8 SECONDS (11.7-14.9)
[2024-12-10 09:08] LABS: Partial Thromboplast Time 49.5 Seconds (24.1-36.2)
--- NOTE | 2024-12-10 09:30 | PN.CC_ITS ---
Objective Data Objective Data Vital Signs: Vital Signs Last response 3 Temperature 36.6 C 12/10/24 00:00 Temperature Source Temporal 12/10/24 00:00 Pulse Rate 76 12/10/24 07:00 Respiratory Rate 22 H 12/10/24 07:00 Respiratory Effort Normal, Non-Labored 12/10/24 04:00 Respiratory Depth Normal 12/10/24 04:00 Respiratory Pattern Normal 12/10/24 04:00 Blood Pressure 100/59 L 12/10/24 07:00 Blood Pressure Mean 72 12/10/24 07:00 Blood Pressure Source Monitor 12/10/24 07:00 Blood Pressure Position Semi-Fowlers 12/10/24 07:00 Blood Pressure Location Left Arm 12/10/24 07:00 Pulse Ox 99 12/10/24 07:00 Oxygen Delivery Method Room Air 12/10/24 07:00 I&O: I&O Last 24 Hours 3 12/09/24 12/09/24 12/10/24 11:59 23:59 11:59 Intake Total 3071.40 / 4586.18 1509.18 / 4586.18 687.60 / 687.60 Output Total 900 / 1450 550 / 1450 400 / 400 Balance 2171.40 / 3136.18 959.18 / 3136.18 287.60 / 287.60 I&O: Total Stay 3 12/08/24 10:57 thru 12/10/24 09:27 Intake Total 9585.12 Output Total 2350 Balance 7235.12 Current Meds Ordered / Administered: Current meds ordered / Administered 3 Generic Name Dose Route Start Last Admin Trade Name Pawanq PRN Reason Stop Dose Admin Acetaminophen 650 mg 12/08/24 15:38 Acetaminophen 325 Mg Tablet PO Q6H PRN PRN Pain 1-10 Or Fever >100.7 Ascorbic Acid 500 mg 12/08/24 22:00 12/10/24 08:38 Ascorbic Acid 500 Mg Tablet PO 500 mg BID CHRIS Administration Atorvastatin Calcium 10 mg 12/08/24 22:00 12/09/24 21:40 Atorvastatin Calcium 10 Mg Tablet PO 10 mg QHS CHRIS Administration Cholecalciferol 25 mcg 12/09/24 10:00 12/10/24 08:38 Cholecalciferol (Vit D3) 25 Mcg Tablet (1,000 Units) PO 25 mcg DAILY CHRIS Administration Clopidogrel Bisulfate 75 mg 12/09/24 10:00 12/10/24 08:36 Clopidogrel Bisulfate 75 Mg Tablet PO 75 mg DAILY CHRIS Administration Folic Acid 1 mg 12/09/24 08:00 12/10/24 08:35 Folic Acid 1 Mg Tablet PO 1 mg BREAKFAST CHRIS Administration Vancomycin IV-PHARMACY TO DOSE 500 mls @ 250 mls/hr 12/08/24 15:38 1 each/ Sodium Chloride IV X1 PRN Rx to Dose Protocol Piperacillin Sod/Tazobactam 50 mls @ 12.5 mls/hr 12/08/24 22:00 12/10/24 05:48 Sod 3.375 gm/ Sodium Chloride IV 12.5 mls/hr Q8 CHRIS Administration Sodium Chloride 100 mls @ 15 mls/hr 12/08/24 15:45 IV .Q6H40M PRN Saline Flush Sodium Chloride 100 mls @ 15 mls/hr 12/08/24 15:45 IV .Q6H40M PRN Additional IVPB Infusion Norepinephrine Bitartrate 8 mg 250 mls @ 9.375 mls/hr 12/08/24 18:25 12/10/24 07:00 / Sodium Chloride CONT INF 2 mcg/min .[id number] CHRIS 3.8 mls/hr Titration Protocol 5 MCG/MIN Pantoprazole Sodium 40 mg/ 110 mls @ 330 mls/hr 12/09/24 10:00 12/09/24 22:00 Sodium Chloride IV Infused Q12 CHRIS Infusion Vancomycin HCl 1,000 mg in 200 mls @ 200 mls/hr 12/09/24 16:00 12/09/24 17:28 Vancomycin IV Infused Q24H CHRIS Infusion Potassium Phosphate 21 mm/ 257 mls @ 84 mls/hr 12/10/24 09:30 Sodium Chloride IV 12/10/24 12:33 X1 ONE Magnesium Sulfate 2 gm/ 104 mls @ 52 mls/hr 12/10/24 09:30 Dextrose IV 12/10/24 11:29 X1 ONE Midodrine 10 mg 12/10/24 09:15 Midodrine Hcl 5 Mg Tablet PO TIDCM CHRIS Nitroglycerin 0.4 mg 12/08/24 15:38 Nitroglycerin (Inpatient Use) 0.4 Mg Tab.Subl SL Q5M PRN CARDIAC/CHEST PAIN Ondansetron HCl 4 mg 12/08/24 15:38 Ondansetron 4 Mg/2 Ml Vial IV Q8H PRN PRN NAUSEA/VOMITING Oxycodone HCl 5 mg 12/08/24 15:38 Oxycodone 5 Mg Tablet PO Q4H PRN PRN Pain Score 4-10 Oxymetazoline HCl 1 spray 12/10/24 10:00 Oxymetazoline 0.05% 1 [place].Btl NASAL BID CHRIS Polyethylene Glycol 17 gm 12/10/24 10:00 Polyethylene Glycol 3350 17 Gm Packet PO DAILY CHRIS Ranolazine 1,000 mg 12/08/24 22:00 12/10/24 08:37 Ranolazine 500 Mg Tablet PO 1,000 mg BID CHRIS Administration Senna/Docusate Sodium 2 tablet 12/10/24 10:00 Senna/Docusate Sodium 1 Tablet PO BID [facility] Sodium Chloride 10 - 40 ml 12/08/24 15:45 12/10/24 08:39 0.9% Saline Lock 10 Ml Syringe IV 10 ml UD PRN Administration SALINE FLUSH Sodium Chloride 2 spray 12/10/24 09:20 Sodium Chloride 0.65% 1 [place].Btl NASAL TID [facility] Vancomycin Protocol 1 lab 12/11/24 14:30 Vancomycin Trough/Random Due MC 12/11/24 16:30 DAILY [facility] Medical Records Data Medical Nutrition Assessment Dietitian: Malnutrition Criteria Met Start: 12/09/24 09:42 Freq: Status: Active Protocol: Document 12/09/24 09:56 SLA (Rec: 12/09/24 09:56 SLA [id number]) Nutrition Malnutrition Evidence of Yes Malnutrition Exists Malnutrition (severe Chronic ): Evidenced By Suboptimal Energy Intake (Severe),Weight Loss (Severe), Physical Changes (Severe) Clinical Problem Chronic Disease or Condition Related Malnutrition Etiology related to inadequate energy intake Signs/Symptoms 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 Rec consider appetite stimulant to help encourage improved po intake. Lab / Micro Data 12/10/24 07:45 12/10/24 07:45 Labs: Laboratory Results - last 24 hr 12/09/24 07:45: Blood Type O NEGATIVE, Antibody Screen NEGATIVE, Crossmatch See Detail 12/09/24 14:20: Hgb 8.2 L, Hct 25.6 L, Random Vancomycin 8.8 12/10/24 07:45: WBC 4.5, RBC 2.93 L, Hgb 9.3 L, Hct 28.6 L, MCV 97.6 H D, MCH 31.7, MCHC 32.5, RDW Std Deviation 81.7 H, RDW Coeff of Zachariah 23.8 H, Plt Count 261, MPV 13.4 H, Immature Gran % (Auto) 1.500 H, Neut % (Auto) 49.8, Lymph % (Auto) 18.5 L, [place] % (Auto) 30.2 H, Eos % (Auto) 0.0, Baso % (Auto) 0.0, Absolute Neuts (auto) 2.3, Absolute Lymphs (auto) 0.84, Nucleated RBC % 0, PT 16.8 H, INR 1.3, APTT 49.5 H, Sodium 134, Potassium 3.2 L, Chloride 107, Carbon Dioxide 19.9 L, Anion Gap 8, BUN 14, Creatinine 0.55 L, Estim Creat Clear Calc 43.92 L, Est GFR (MDRD) Non-Af 95, BUN/Creatinine Ratio 25.5 H, Glucose 86, Calcium 7.6, Phosphorus 2.0 L, Magnesium 1.7 Micro: Microbiology 12/08/24 13:10 Urine, Random Urine Culture - Preliminary Gram Positive Cocci Assessment and Plan . Assessment and plan: Subjective: No acute events o/n. Pt still drowsy, on low dose levophed. Per at bedside he overall appears improved and more arousable/conversant than prior Physical Exam: Gen - NAD, elderly, cachectic HEENT - MM dry. Sclera anicteric Resp - CTAB. Breathing nonlabored CV - RRR. No m/g/r Abd - Soft, NT, ND Ext - No c/c. ++LE edema Skin - No rashes? Neuro - Grossly nonfocal. Drowsy but arousable. Answers questions appropriately, falls back asleep quickly I have reviewed the pertinent vital sign, laboratory, and imaging data. ASSESSMENT: # Septic shock # UTI # MI # Acute encephalopathy - CT head without acute pathology # Myelodysplastic syndrome # Acute on chronic anemia # CAD s/p CABG # A fib # HLD PLAN: -Levophed down to 2 mcg, try weaning off. Midodrine added overnight as well. s/p IVF and pRBC transfusion -Empiric vanc/zosyn. f/u Cx results -Obtain renal sono to assess for abscess/pyelo, hydro. May need CT imaging if not improving further -Follow CBC, monitor for bleeding -On lasix at home, worsening LE edema. Can resume gentle diuresis once hemodynamics improved further -Monitor Cr, UOP, improving -Replete electrolytes PRN FEN/GI: PO diet as tolerated Proph DVT/GI: SCDs, PPI Code status: DNR/DNI Updated at bedside Critical Care Time: 50 mins The entirety of this encounter was done via telemedicine using both audio and video. Consent was obtained.
[2024-12-10] MEDS: Midodrine HCl 5 MG Tablet 10 MG PO ×3 (10:25→16:36)
[2024-12-10] MEDS: Magnesium Sulfate 2 GM in Dextrose 5%-Water (100mL Bag) 100 ML IV (10:27)
[2024-12-10] MEDS: Potassium Phosphate 21 MM in 0.9% Normal Saline (250mL Bag) 250 ML 84 MM IV (10:27)
[2024-12-10 12:55] LABS: Anisocytosis 2+; Ovalocyte 1+; Platelet Estimate A (ADEQ); Polychromasia 1+
[2024-12-10 12:56] LABS: Acanthocytes 1+
[2024-12-10] MEDS: Sodium Chloride 0.65% 1 SPRAY SPRAY.BTL 2 SPRAY NASAL ×2 (13:03→16:35)
[2024-12-10] MEDS: Oxymetazoline 0.05% 1 SPRAY SPRAY.BTL NASAL (13:04)
[2024-12-10] MEDS: Polyethylene Glycol 3350 17 GM PACKET PO (13:05)
[2024-12-10] MEDS: Senna/Docusate Sodium 1 Tablet 2 TABLET PO ×2 (13:06→20:49)
[2024-12-10] MEDS: Pantoprazole Sodium 40 MG Tablet PO ×2 (16:35→20:50)
[2024-12-10] MEDS: Vancomycin IV 1,000 MG/200 ML BAG 200 MG IV (17:38)
[2024-12-10] MEDS: Atorvastatin Calcium 10 MG Tablet PO (20:50)
[2024-12-11] VITALS (50 sets, daily range): BP systolic 83–118; BP diastolic 46–81; PULSE 60–94; RESP 18–30; TEMP 36.2–36.7; O2SAT 95–100; BMI 17.4
[2024-12-11] MEDS: 0.9% Saline Lock 10 ML Syringe IV (05:44)
[2024-12-11] MEDS: Piperacil/Tazobactam 3.375 GM in 0.9% Normal Saline (50mL MB+) 50 ML IV ×3 (05:44→21:42)
[2024-12-11 05:52] LABS: Absolute Lymphocyte Count 0.94 X10^3/uL (0.83-4.51); Basophil# 0.01 X10^3/uL; Basophil% 0.2 % (0-1); Hematocrit 30.7 % (40-54); Hemoglobin 10.1 g/dL (13.0-16.5); Lymphocyte # 0.94 X10^3/ul (0.83-4.51); Mean Corp Hgb Conc 32.9 g/dL (32-36); Mean Corpuscular Hgb 31.8 pg (27.0-32.0); Mean Corpuscular Volume 96.5 fL (80-94); Mean Platelet Vol. 12.8 fl (6.2-12.0); Monocyte# 2.22 X10^3/uL; Monocyte% 42.5 % (0-10); NRBC Flagged by Analyzer 0 % (0-5); Neutrophil # 1.95 X10^3/uL (2.7-7.7); Neutrophil % 37.4 % (47-70); POSITIVE DIFFERENTIAL YES; POSITIVE MORPHOLOGY YES; Platelet Count 280 K/mm3 (150-450); RBC Distribution Width CV 23.4 % (11.6-14.6); RBC Distribution Width SD 79.7 fl (35.1-43.9); Red Blood Count 3.18 M/mm3 (4.6-6.2); White Blood Count 5.2 K/mm3 (4.4-11.0)
[2024-12-11 06:17] LABS: Anion Gap 7 (5-15); BUN 11 mg/dL (4-19); BUN/Creat Ratio 22.4 RATIO (10-20); Calcium,Total 7.6 mg/dL (7.6-11.0); Carbon Dioxide 21.7 mmol/L (21.0-32.0); Chloride 105 mmol/L (98-108); EST Glomerular Filtration Rate 98 (>60); Estimated Creatinine Clearance 46.04 ml/min (50-250); Glucose 94 mg/dL (70-99); Magnesium 1.9 mg/dL (1.5-2.2); Potassium 3.7 mmol/L (3.3-5.1); Sodium Level 134 mmol/L (133-145)
[2024-12-11 06:20] LABS: Differential Indicated SCAN CRITERIA MET
[2024-12-11 06:26] LABS: Differential Comment SCANNED
[2024-12-11 06:27] LABS: Acanthocytes 1+; Anisocytosis 2+; Macrocytosis 1+; Ovalocyte 2+; Platelet Estimate ADEQUATE (ADEQ); Platelet Morphology LARGE; Polychromasia 1+
[2024-12-11 06:28] LABS: Tear Drop Cell RARE
[2024-12-11 06:57] LABS: Phosphorus 2.2 mg/dL (2.7-4.5)
[2024-12-11] MEDS: Folic Acid 1 MG Tablet PO (08:12)
[2024-12-11] MEDS: Midodrine HCl 5 MG Tablet 10 MG PO ×3 (08:12→16:42)
--- NOTE | 2024-12-11 09:15 | PN.CC_ITS ---
Objective Data Objective Data Vital Signs: Vital Signs Last response 3 Temperature 36.3 C L 12/11/24 06:00 Temperature Source Temporal 12/11/24 06:00 Pulse Rate 61 12/11/24 07:43 Respiratory Rate 20 H 12/11/24 07:00 Respiratory Effort Normal, Non-Labored 12/11/24 04:00 Respiratory Depth Normal 12/11/24 04:00 Respiratory Pattern Normal 12/11/24 04:00 Blood Pressure 104/58 L 12/11/24 07:00 Blood Pressure Mean 73 12/11/24 07:00 Blood Pressure Source Monitor 12/11/24 07:00 Blood Pressure Position Semi-Fowlers 12/10/24 19:00 Blood Pressure Location Left Arm 12/10/24 19:00 Pulse Ox 95 12/11/24 07:00 Oxygen Delivery Method Room Air 12/11/24 07:00 I&O: I&O Last 24 Hours 3 12/10/24 12/10/24 12/11/24 11:59 23:59 11:59 Intake Total 750.45 / 1778.35 1027.42 / 1778.35 77.08 / 77.08 Output Total 400 / 1400 1000 / 1400 800 / 800 Balance 350.45 / 378.35 27.42 / 378.35 -722.92 / -722.92 I&O: Total Stay 3 12/08/24 10:57 thru 12/11/24 07:00 Intake Total 41878.47 Output Total 4150 Balance 6602.47 Current Meds Ordered / Administered: Current meds ordered / Administered 3 Generic Name Dose Route Start Last Admin Trade Name Jono PRN Reason Stop Dose Admin Acetaminophen 650 mg 12/08/24 15:38 Acetaminophen 325 Mg Tablet PO Q6H PRN PRN Pain 1-10 Or Fever >100.7 Ascorbic Acid 500 mg 12/08/24 22:00 12/10/24 20:50 Ascorbic Acid 500 Mg Tablet PO 500 mg BID CHRIS Administration Atorvastatin Calcium 10 mg 12/08/24 22:00 12/10/24 20:50 Atorvastatin Calcium 10 Mg Tablet PO 10 mg QHS CHRIS Administration Cholecalciferol 25 mcg 12/09/24 10:00 12/10/24 08:38 Cholecalciferol (Vit D3) 25 Mcg Tablet (1,000 Units) PO 25 mcg DAILY CHRIS Administration Clopidogrel Bisulfate 75 mg 12/09/24 10:00 12/10/24 08:36 Clopidogrel Bisulfate 75 Mg Tablet PO 75 mg DAILY CHRIS Administration Folic Acid 1 mg 12/09/24 08:00 12/11/24 08:12 Folic Acid 1 Mg Tablet PO 1 mg BREAKFAST CHRIS Administration Vancomycin IV-PHARMACY TO DOSE 500 mls @ 250 mls/hr 12/08/24 15:38 1 each/ Sodium Chloride IV X1 PRN Rx to Dose Protocol Piperacillin Sod/Tazobactam 50 mls @ 12.5 mls/hr 12/08/24 22:00 12/11/24 05:44 Sod 3.375 gm/ Sodium Chloride IV 12.5 mls/hr Q8 CHRIS Administration Sodium Chloride 100 mls @ 15 mls/hr 12/08/24 15:45 IV .Q6H40M PRN Saline Flush Sodium Chloride 100 mls @ 15 mls/hr 12/08/24 15:45 IV .Q6H40M PRN Additional IVPB Infusion Norepinephrine Bitartrate 8 mg 250 mls @ 9.375 mls/hr 12/08/24 18:25 12/11/24 07:00 / Sodium Chloride CONT INF 2 mcg/min .[id number] CHRIS 3.8 mls/hr Titration Protocol 5 MCG/MIN Vancomycin HCl 1,000 mg in 200 mls @ 200 mls/hr 12/09/24 16:00 12/10/24 19:06 Vancomycin IV Infused Q24H CHRIS Infusion Midodrine 10 mg 12/10/24 09:15 12/11/24 08:12 Midodrine Hcl 5 Mg Tablet PO 10 mg TIDCM CHRIS Administration Nitroglycerin 0.4 mg 12/08/24 15:38 Nitroglycerin (Inpatient Use) 0.4 Mg Tab.Subl SL Q5M PRN CARDIAC/CHEST PAIN Ondansetron HCl 4 mg 12/08/24 15:38 Ondansetron 4 Mg/2 Ml Vial IV Q8H PRN PRN NAUSEA/VOMITING Oxycodone HCl 5 mg 12/08/24 15:38 Oxycodone 5 Mg Tablet PO Q4H PRN PRN Pain Score 4-10 Oxymetazoline HCl 1 spray 12/10/24 10:00 12/10/24 20:57 Oxymetazoline 0.05% 1 [place].Btl NASAL Not Given BID [facility] Pantoprazole Sodium 40 mg 12/10/24 13:01 12/10/24 20:50 Pantoprazole Sodium 40 Mg Tablet PO 40 mg BID CHRIS Administration Polyethylene Glycol 17 gm 12/10/24 10:00 12/10/24 13:05 Polyethylene Glycol 3350 17 Gm Packet PO 17 gm DAILY CHRIS Administration Ranolazine 1,000 mg 12/08/24 22:00 12/10/24 20:50 Ranolazine 500 Mg Tablet PO 1,000 mg BID CHRIS Administration Senna/Docusate Sodium 2 tablet 12/10/24 10:00 12/10/24 20:49 Senna/Docusate Sodium 1 Tablet PO 2 tablet BID CHRIS Administration Sodium Chloride 10 - 40 ml 12/08/24 15:45 12/11/24 05:44 0.9% Saline Lock 10 Ml Syringe IV 20 ml UD PRN Administration SALINE FLUSH Sodium Chloride 2 spray 12/10/24 09:20 12/11/24 05:49 Sodium Chloride 0.65% 1 [place].Btl NASAL Not Given TID [facility] Vancomycin Protocol 1 lab 12/11/24 14:30 Vancomycin Trough/Random Due MC 12/11/24 16:30 DAILY [facility] Medical Records Data Medical Nutrition Assessment Dietitian: Malnutrition Criteria Met Start: 12/09/24 09:42 Freq: Status: Active Protocol: Document 12/09/24 09:56 SLA (Rec: 12/09/24 09:56 SLA [id number]) Nutrition Malnutrition Evidence of Yes Malnutrition Exists Malnutrition (severe Chronic ): Evidenced By Suboptimal Energy Intake (Severe),Weight Loss (Severe), Physical Changes (Severe) Clinical Problem Chronic Disease or Condition Related Malnutrition Etiology related to inadequate energy intake Signs/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 Rec consider appetite stimulant to help encourage improved po intake. Lab / Micro Data 12/11/24 05:40 12/11/24 05:40 Labs: Laboratory Results - last 24 hr 12/10/24 07:45: WBC 4.5, RBC 2.93 L, Hgb 9.3 L, Hct 28.6 L, MCV 97.6 H D, MCH 31.7, MCHC 32.5, RDW Std Deviation 81.7 H, RDW Coeff of Zachariah 23.8 H, Plt Count 261, MPV 13.4 H, Immature Gran % (Auto) 1.500 H, Neut % (Auto) 49.8, Lymph % (Auto) 18.5 L, Terry % (Auto) 30.2 H, Eos % (Auto) 0.0, Baso % (Auto) 0.0, Absolute Neuts (auto) 2.3, Absolute Lymphs (auto) 0.84, Nucleated RBC % 0, Platelet Estimate A, Polychromasia 1+, Anisocytosis 2+, Ovalocytes 1+, Acanthocytes (Spur) 1+, PT 16.8 H, INR 1.3, APTT 49.5 H 12/11/24 05:40: WBC 5.2, RBC 3.18 L, Hgb 10.1 L, Hct 30.7 L, MCV 96.5 H, MCH 31.8, MCHC 32.9, RDW Std Deviation 79.7 H, RDW Coeff of Zachariah 23.4 H, Plt Count 280, MPV 12.8 H, Immature Gran % (Auto) 1.900 H, Neut % (Auto) 37.4 L, Lymph % (Auto) 18.0 L, Terry % (Auto) 42.5 H, Eos % (Auto) 0.0, Baso % (Auto) 0.2, Absolute Neuts (auto) 2.0, Absolute Lymphs (auto) 0.94, Nucleated RBC % 0, Differential Comment SCANNED, Diff Path Review May foll, Platelet Estimate ADEQUATE, Plt Morphology Comment LARGE, Polychromasia 1+, Anisocytosis 2+, Macrocytosis 1+, Tear Drop Cells RARE, Ovalocytes 2+, Acanthocytes (Spur) 1+, Sodium 134, Potassium 3.7, Chloride 105, Carbon Dioxide 21.7, Anion Gap 7, BUN 11, Creatinine 0.50 L, Estim Creat Clear Calc 46.04 L, Est GFR (MDRD) Non-Af 98, BUN/Creatinine Ratio 22.4 H, Glucose 94, Calcium 7.6, Phosphorus 2.2 L, Magnesium 1.9 Micro: Microbiology 12/08/24 13:00 Blood Culture (Wb) - Anticubital Right Blood Culture - Preliminary No growth in 48 hours. 12/08/24 11:40 Blood Culture (Wb) - Left Forearm Blood Culture - Preliminary No growth in 48 hours. 12/08/24 13:10 Urine, Random Urine Culture - Final Staphylococcus epidermidis Assessment and Plan . Assessment and plan: Subjective: No acute events o/n. Pt feeling well this AM, no major complaints. Still on low dose levophed 1-2 mcg Physical Exam: Gen - NAD, elderly, cachectic HEENT - MM dry. Sclera anicteric Resp - CTAB. Breathing nonlabored CV - RRR. No m/g/r Abd - Soft, NT, ND Ext - No c/c. ++LE edema Skin - No rashes? Neuro - Grossly nonfocal. Awake, answers questions appropriately I have reviewed the pertinent vital sign, laboratory, and imaging data. ASSESSMENT: # Septic shock # UTI - Cx with staph epi # MI # Acute encephalopathy - CT head without acute pathology # Myelodysplastic syndrome # Acute on chronic anemia # CAD s/p CABG # A fib # HLD PLAN: -Levophed down to 1-2 mcg, try weaning off. Lactate wnl. Will reduce MAP goal to 60 to help with weaning, per his SBP typically runs 90-100s and sometimes goes in high 80s at home -Cont midodrine. s/p IVF and pRBC transfusion previously as well -Check random and AM cortisol -Obtain echo -Empiric vanc/zosyn. f/u final Cx results, can likely de-escalate soon -Obtain renal sono to assess for abscess/pyelo, hydro. May need CT imaging if not improving further -Follow CBC, monitor for bleeding -Holding home lasix for now, can likely resume soon with further improvement in hemodynamics -Monitor Cr, UOP, improving -Replete electrolytes PRN FEN/GI: PO diet as tolerated Proph DVT/GI: SCDs, PPI Code status: DNR/DNI Updated at bedside Critical Care Time: 50 mins The entirety of this encounter was done via telemedicine using both audio and video. Consent was obtained.
[2024-12-11] MEDS: Polyethylene Glycol 3350 17 GM PACKET PO (09:55)
[2024-12-11] MEDS: Oxymetazoline 0.05% 1 SPRAY SPRAY.BTL NASAL (09:55)
[2024-12-11] MEDS: Senna/Docusate Sodium 1 Tablet 2 TABLET PO (09:56)
[2024-12-11] MEDS: Cholecalciferol (VIT D3) 25 MCG TABLET (1,000 UNITS) PO (09:56)
[2024-12-11] MEDS: Pantoprazole Sodium 40 MG Tablet PO ×2 (09:56→21:50)
[2024-12-11] MEDS: Ranolazine 500 MG Tablet 1000 MG PO ×2 (09:56→21:42)
[2024-12-11] MEDS: Ascorbic Acid 500 MG Tablet PO ×2 (09:56→21:42)
[2024-12-11] MEDS: Clopidogrel Bisulfate 75 MG Tablet PO (09:57)
--- NOTE | 2024-12-11 10:10 | ECHOD_ITS ---
Reason For Study Reason For Study: SEPSIS, EDEMA Procedure This was a 2D Doppler, Color Flow transthoracic echocardiogram. Exam performed portable in ICU/CCU. Left Ventricle Normal LV size. The left ventricular ejection fraction is 45 %. Mild to moderate segmental systolic dysfunction (see wall motion). Mid-Posterior: Severely Hypokinetic. Posterior-Basal: Severely hypokinetic. Infero-Basal: Hypokinetic. Right Ventricle Normal RV size. Normal systolic function. Atria Normal left atrium. Normal right atrium. catheter in RA. Mitral Valve Bileaflet diffuse mitral valve thickening. The mitral papillary muscle appears thickened and/or calcified. Mild (1+) eccentric mitral valve insufficiency. Tricuspid Valve Normal tricuspid valve. Mild to moderate (1-2+) tricuspid valve insufficiency. Pulmonary artery systolic pressure is 38 mmHg. Aortic Valve Trisinus/trileaflet aortic valve. Mild focal aortic valve calcification. Mild (1+) eccentric aortic valve insufficiency. Great Vessels Normal aortic root. The pulmonary artery is normal size. Inferior vena cava collapse with sniff. Pericardium/Pleural No pericardial effusion. MMode/2D Measurements & Calculations LVIDd: 5.1 cm IVSd: 1.2 cm Ao root diam: 3.2 cm LVIDs: 3.9 cm LVPWd: 1.1 cm RVDd: 3.5 cm FS: 24.0 % LAV(MOD-bp): 38.7 ml LVAd ap4: 30.0 cm2 SV(MOD-sp4): 42.7 ml LAV(MOD-bp) Indexed: 24.2 ml/m2 LVLd ap4: 7.6 cm SI(MOD-sp4): 26.7 ml/m2 LAV(MOD-sp2): 35.7 ml EDV(MOD-sp4): 97.2 ml LAV(MOD-sp4): 41.0 ml EDV(sp4-el): 100.2 ml LVAs ap4: 21.2 cm2 LVLs ap4: 7.0 cm ESV(MOD-sp4): 54.5 ml ESV(sp4-el): 54.3 ml EF(MOD-sp4): 43.9 % EF(sp4-el): 45.8 % SV(sp4-el): 45.9 ml LA dimension(2D): 3.3 cm LA A4 area: 15.9 cm2 RA A4 area: 16.1 cm2 TAPSE: 1.4 cm Time Measurements MV dec time: 0.18 sec Doppler Measurements & Calculations MV E max connor: 69.6 cm/sec Lat Peak E' Connor: 9.4 cm/sec Med Peak E' Connor: 7.7 cm/sec MV A max connor: 70.1 cm/sec E/E' lat: 7.4 E/E' med: 9.0 MV E/A: 0.99 Ao V2 max: 86.7 cm/sec LV V1 max: 86.6 cm/sec PA V2 max: 77.1 cm/sec Ao max P.0 mmHg LV V1 max P.0 mmHg TR max connor: 303.9 cm/sec TR max P.0 mmHg ECHO/Echo Complete Interpretation Summary The left ventricular ejection fraction is 45 %. Normal LV size. Mild to moderate segmental systolic dysfunction (see wall motion). Mild (1+) eccentric mitral valve insufficiency. Pulmonary artery systolic pressure is 38 mmHg. Ordering Physician: John Crawley Referring Physician: [facility] Performed By: Ally Scott RDCS
[2024-12-11] MEDS: Na Biphos/Potassium Phosphate PACKET 1 PACKET PO (11:04)
--- NOTE | 2024-12-11 11:54 | PN.HOSP_ITS ---
Reason for Visit Reason for Visit: Diagnoses Sepsis, unspecified organism (12/08/24) Urinary tract infection, site not specified (12/08/24) Severe sepsis without septic shock (12/08/24) Objective Data Objective Data Vital Signs: Vital Signs Temp Pulse Resp BP Pulse Ox O2 Del Method 97.1 F L 81 22 H 91/67 100 Room Air 12/11/24 08:00 12/11/24 10:00 12/11/24 10:00 12/11/24 10:45 12/11/24 10:00 12/11/24 10:00 Oxygen Delivery Method Room Air Weight: 114 lb 10.246 oz Body Mass Index (BMI) 17.4 Intake & Output: Intake and Output for Last 24 Hours 12/09/24 12/10/24 12/11/24 23:59 23:59 23:59 Intake Total 4580.58 / 4586.18 1777.87 / 1778.35 780.39 / 780.39 Output Total 1450 / 1450 1400 / 1400 1350 / 1350 Balance 3130.58 / 3136.18 377.87 / 378.35 -569.61 / -569.61 Medical Nutrition Assessment Dietitian: Malnutrition Criteria Met Start: 12/09/24 09:42 Freq: Status: Active Protocol: Document 12/09/24 09:56 SILVANA (Rec: 12/09/24 09:56 SLA [id number]) Nutrition Malnutrition Evidence of Yes Malnutrition Exists Malnutrition (severe Chronic ): Evidenced By Suboptimal Energy Intake (Severe),Weight Loss (Severe), Physical Changes (Severe) Clinical Problem Chronic Disease or Condition Related Malnutrition Etiology related to inadequate energy intake Signs/Symptoms as 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 Rec consider appetite stimulant to help encourage improved po intake. Lab / Micro Data 12/11/24 05:40 12/11/24 05:40 Labs: Laboratory Results - last 24 hr 12/10/24 07:45: Platelet Estimate A, Polychromasia 1+, Anisocytosis 2+, Ovalocytes 1+, Acanthocytes (Spur) 1+ 12/11/24 05:40: WBC 5.2, RBC 3.18 L, Hgb 10.1 L, Hct 30.7 L, MCV 96.5 H, MCH 31.8, MCHC 32.9, RDW Std Deviation 79.7 H, RDW Coeff of Zachariah 23.4 H, Plt Count 280, MPV 12.8 H, Immature Gran % (Auto) 1.900 H, Neut % (Auto) 37.4 L, Lymph % (Auto) 18.0 L, [place] % (Auto) 42.5 H, Eos % (Auto) 0.0, Baso % (Auto) 0.2, Absolute Neuts (auto) 2.0, Absolute Lymphs (auto) 0.94, Nucleated RBC % 0, Differential Comment SCANNED, Diff Path Review May foll, Platelet Estimate ADEQUATE, Plt Morphology Comment LARGE, Polychromasia 1+, Anisocytosis 2+, Macrocytosis 1+, Tear Drop Cells RARE, Ovalocytes 2+, Acanthocytes (Spur) 1+, Sodium 134, Potassium 3.7, Chloride 105, Carbon Dioxide 21.7, Anion Gap 7, BUN 11, Creatinine 0.50 L, Estim Creat Clear Calc 46.04 L, Est GFR (MDRD) Non-Af 98, BUN/Creatinine Ratio 22.4 H, Glucose 94, Calcium 7.6, Phosphorus 2.2 L, Magnesium 1.9, TSH 1.880, Cortisol AM Sample 10.60 Micro: Microbiology 12/08/24 13:00 Blood Culture (Wb) - Anticubital Right Blood Culture - Preliminary No growth in 48 hours. 12/08/24 11:40 Blood Culture (Wb) - Left Forearm Blood Culture - Preliminary No growth in 48 hours. 12/08/24 13:10 Urine, Random Urine Culture - Final Staphylococcus epidermidis Physical Exam Narrative Seen and examined. No further epistaxis. cardiac monitor technician shows PAC. Patient feels on baseline. No increased shortness of breath. Patient is hard of hearin Currently has Calvo catheter. Denies nausea, vomiting or abdominal pain or cough or chest pain. Physical exam General: Awake, oriented to place and person. Does not know the month and his age HEENT: Bilateral hearing aids. Atraumatic, PERRLA, EOMI, Normocephalic Oral: No Gingival or Mucosal Lesions/ Ulcerations Neck: Supple, No JVD, Negative Carotid Bruits Chest wall/Lungs: Air entry is equal in bilateral lung bases. No crepitation/rhonchi Cardiovascular: Regular rate, Regular Rhythm, Normal S1, Normal S2, No M/G/R Abdomen: Bowel Sounds Present, Soft, Non Tender, Non-Distended : Clear yellow urine in Calvo catheter. No renal angle tenderness. No suprapubic tenderness. Extremities: No edema, Capillary Refill Less than 3 Seconds Skin: No rashes, No breakdown Musculoskeletal: No Tenderness to Palpation of Joints or Extremities Neurological: Cranial nerves II-XII grossly intact, DTR 2+/4. Disoriented or amnesia Psych/Mental Status: Flat affect Assessment & Plan Assessment/Plan (1) Severe sepsis: (2) UTI (urinary tract infection): PLAN: Plan Patient was admitted for low BP, not eating, Generalized weakness,altered mental status/drowsy and sleepy. Denied fever chills cough, chest pain, dizziness, nausea vomiting or diarrhea. 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 Went to see his oncologist today to commence treatment for myelodysplastic syndrome labs done showed elevated WBC of 13. He is not on any chronic steroids. #Septic shock due to UTI: The patient presented with sepsis with clinical indicators of tachypnea, leukocytosis, tachycardia due to possible UTI with acute sepsis-related organ dysfunction as evidenced by hypotension unresponsive to IV fluid requiring vasopressor and lactic acid. Blood pressure was running in low 70s and 80s. Has a right arm PICC line on Levophed Started on IV vancomycin and Zosyn. Caser consult. Lactic acid was 3.9 and improved with the fluid to normal less than 1.0 12/10: Urine culture growing GPC 50,000?50,000 colonies, not in pathology range. For now continue broad-spectrum antibiotic. Wean down Levophed. Since patient has orthostatic/postural hypotension. Started on midodrine 10 mg 3 times daily. 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 12/11: Patient is still on low-dose epinephrine. Patient also on midodrine. Urine culture report from 12/08 is growing MSSE, not in pathology range. Unclear about the source of infection but most likely UTI. ID consulted for further opinion. DC Calvo catheter #Myelodysplastic syndrome: follows with oncology on outpatient basis. Mild epistaxis. Posttransfusion H&H 8.2/25%. Mild epistaxis INR 1.3. 12/11: Epistaxis resolved. #MI: * Creatinine is 1.46 with a baseline creatinine of around 0.64. Likely due to the septic shock. * Was hydrated with IV fluid. Creatinine improved to 0.78 12/10: Creatinine 0.55 normal. MI resolved. Mild hypokalemia, hypophosphatemia, magnesium low normal at 1.7. Electrolytes replacement ordered #History of A-fib: * Not on any rate limiting medications. * Also not on any blood thinners. * He is s/p maze procedure. * Not on any blood thinners likely due to history of anemia. # History of CAD: S/p CABG in 2005. On Plavix and high intensity statin. Also on Imdur and ranolazine #Hyperlipidemia: On statin DVT prophylaxis: lovenox COde status: * Patient and counseled extensively about different types of CODE STATUS including full code, DNR CCA and DNR CCA. * Patient elects to be full code. * Total asbp-no-ndix time : 18 minutes. * Acute encephalopathy possible due to sepsis or amnesia Microbiology Past 72 Hours 12/08/24 13:10 Urine, Random Urine Culture - Preliminary Gram Positive Cocci Laboratory Results 12/09/24 07:45: Blood Type O NEGATIVE, Antibody Screen NEGATIVE, Crossmatch See Detail 12/09/24 14:20: Hgb 8.2 L, Hct 25.6 L, Random Vancomycin 8.8 12/10/24 07:45: WBC Pending, RBC Pending, Hgb Pending, Hct Pending, MCV Pending, MCH Pending, MCHC Pending, RDW Std Deviation Pending, RDW Coeff of Zachariah Pending, Plt Count Pending, Neut % (Auto) Pending, Absolute Neuts (auto) Pending, PT Pending, INR Pending, APTT Pending, Sodium 134, Potassium 3.2 L, Chloride 107, C arbon Dioxide 19.9 L, Anion Gap 8, BUN 14, Creatinine 0.55 L, Estim Creat Clear Calc 43.92 L, Est GFR (MDRD) Non-Af 95, BUN/Creatinine Ratio 25.5 H, Glucose 86, Calcium 7.6, Phosphorus 2.0 L, Magnesium 1.7 Charges/Coding Visit Charges Inpatient E&M: 72468 Subs Hosp L3
[2024-12-11] MEDS: Sodium Chloride 0.65% 1 SPRAY SPRAY.BTL 2 SPRAY NASAL (13:04)
[2024-12-11 16:47] LABS: Vancomycin, Trough Level 9.5 ug/mL (5.0-15.0)
--- NOTE | 2024-12-11 17:08 | PCM.RX.CS ---
Consult Antibiotic Management Pharmacy has been consulted to manage selected antibiotic: Vancomycin Type of Intervention Type of Consult: Follow-up Prior Doses of Antibiotics Prior Doses of Antibiotics Received/Current Regimen: current dose is vanc 1000mg IV q24h Labs Labs: Sodium 134 mmol/L (133-145) 12/11/24 05:40 Potassium 3.7 mmol/L (3.3-5.1) 12/11/24 05:40 Chloride 105 mmol/L (98-108) 12/11/24 05:40 Carbon Dioxide 21.7 mmol/L (21.0-32.0) 12/11/24 05:40 Anion Gap 7 (5-15) 12/11/24 05:40 BUN 11 mg/dL (4-19) 12/11/24 05:40 Creatinine 0.50 mg/dL (0.70-1.20) L 12/11/24 05:40 Est GFR (MDRD) Non-Af 98 (>60) 12/11/24 05:40 BUN/Creatinine Ratio 22.4 RATIO (10-20) H 12/11/24 05:40 Glucose 94 mg/dL (70-99) 12/11/24 05:40 Vancomycin Trough 9.5 ug/mL (5.0-15.0) 12/11/24 15:40 Random Vancomycin 8.8 ug/mL (0.0-15.0) 12/09/24 14:20 Microbiology Microbiology: Microbiology 12/08/24 13:00 Blood Culture (Wb) - Anticubital Right Blood Culture - Preliminary No growth in 48 hours. 12/08/24 11:40 Blood Culture (Wb) - Left Forearm Blood Culture - Preliminary No growth in 48 hours. 12/08/24 13:10 Urine, Random Urine Culture - Final Staphylococcus epidermidis Dosing Weight Weight used for dosin kg Estimated Creatinine Clearance Estimated Creatinine Clearance: 46 ml/min Goal Trough Goal Trough: 15-20 mcg/mL Pharmacy Plan for Drug Dosing Pharmacy Plan for Drug Dosing: The vanc trough drawn at 15:40 today (approx 22 hours after the previous dose) was 9.5 mcg/ml. This is below goal range so will increase dose to 750mg IV q12h. Will order another trough before the 4th dose. Pharmacy Service will continue to monitor and adjust dosing as required. Follow-Up Labs Follow-Up Labs: Trough: Vancomycin Date/Time Labs Ordered Labs to be done on [date and time ordered]: 12/13/24 05:30
[2024-12-11] MEDS: Vancomycin HCl 750 MG in 0.9% Normal Saline (250mL Bag) 250 ML 250 MG IV (17:34)
[2024-12-11] MEDS: Atorvastatin Calcium 10 MG Tablet PO (21:42)
[2024-12-12] VITALS (59 sets, daily range): BP systolic 83–105; BP diastolic 41–81; PULSE 67–99; RESP 17–26; TEMP 36.5–37; O2SAT 95–100; BMI 17.0
[2024-12-12] MEDS: Norepinephrine 8 MG in 0.9% Normal Saline (250mL Bag) 242 ML 11.3 MG CONT INF (01:30)
[2024-12-12] MEDS: oxyCODONE 5 MG Tablet PO (02:48)
[2024-12-12] MEDS: Acetaminophen 325 MG Tablet 650 MG PO (02:48)
[2024-12-12] MEDS: Vancomycin HCl 750 MG in 0.9% Normal Saline (250mL Bag) 250 ML 250 MG IV (05:15)
[2024-12-12] MEDS: 0.9% Saline Lock 10 ML Syringe IV (05:15)
[2024-12-12 05:43] LABS: Absolute Lymphocyte Count 0.94 X10^3/uL (0.83-4.51); Absolute Neutrophil Count 4.8 X10^3/uL (2.0-7.7); Basophil# 0.01 X10^3/uL; Basophil% 0.1 % (0-1); Hemoglobin 10.1 g/dL (13.0-16.5); Lymphocyte # 0.94 X10^3/ul (0.83-4.51); Lymphocyte % 8.6 % (19-41); Mean Corp Hgb Conc 32.6 g/dL (32-36); Mean Corpuscular Hgb 31.8 pg (27.0-32.0); Mean Corpuscular Volume 97.5 fL (80-94); Monocyte# 5.15 X10^3/uL; Monocyte% 46.9 % (0-10); NRBC Flagged by Analyzer 0 % (0-5); Neutrophil # 4.78 X10^3/uL (2.7-7.7); Neutrophil % 43.5 % (47-70); POSITIVE DIFFERENTIAL YES; POSITIVE MORPHOLOGY YES; Platelet Count 290 K/mm3 (150-450); RBC Distribution Width CV 22.5 % (11.6-14.6); RBC Distribution Width SD 77.5 fl (35.1-43.9); Red Blood Count 3.18 M/mm3 (4.6-6.2)
[2024-12-12 06:02] LABS: Anion Gap 7 (5-15); BUN 14 mg/dL (4-19); BUN/Creat Ratio 27.3 RATIO (10-20); Calcium,Total 7.7 mg/dL (7.6-11.0); Carbon Dioxide 22.4 mmol/L (21.0-32.0); Chloride 102 mmol/L (98-108); EST Glomerular Filtration Rate 97 (>60); Estimated Creatinine Clearance 45.07 ml/min (50-250); Glucose 106 mg/dL (70-99); Potassium 3.9 mmol/L (3.3-5.1); Sodium Level 132 mmol/L (133-145)
[2024-12-12] MEDS: Piperacil/Tazobactam 3.375 GM in 0.9% Normal Saline (50mL MB+) 50 ML IV (06:30)
--- NOTE | 2024-12-12 07:00 | US_ITS ---
PROCEDURE: KIDNEY AND BLADDER ([facility]KI), 12/12/2024 REASON FOR EXAM: UTI, SEPTIC SHOCK. ASSESS FOR RENAL ABSCESS, STONE TECHNIQUE: Grayscale and color/spectral doppler ultrasound of the kidneys and bladder was performed. COMPARISON: None FINDINGS: Right kidney: 9.3 cm in length. No visualized mass, definite calculus, or hydronephrosis. Left kidney: 10.6 cm in length. No visualized mass, definite calculus, or hydronephrosis. Bladder: Visualization is limited by reported presence of bandaging. Estimated volume 234 mL. Wall thickness 3 mm. Wall trabeculation. Question mild intraluminal debris versus artifact. Difficult to exclude small bladder calculi. Other: None. US/Kidney and Bladder IMPRESSION: 1. No hydronephrosis. No visualized abscess or definite renal calculi. 2. Appearance of the bladder suggesting chronic bladder outlet obstruction. Lo w-level intraluminal debris versus artifact, possibly reflecting cystitis. Difficult to exclude small bladder calculi. 3. Additional description as above. Reading Location: [id number]
--- NOTE | 2024-12-12 07:31 | PN.HOSP_ITS ---
Reason for Visit Reason for Visit: Diagnoses Sepsis, unspecified organism (12/08/24) Urinary tract infection, site not specified (12/08/24) Severe sepsis without septic shock (12/08/24) Subjective Subjective Feeling well. Objective Data Objective Data Vital Signs: Vital Signs Temp Pulse Resp BP Pulse Ox O2 Del Method 37.0 C 79 19 H 96/55 L 98 Room Air 12/12/24 04:00 12/12/24 07:00 12/12/24 07:00 12/12/24 07:00 12/12/24 07:00 12/12/24 07:00 Oxygen Delivery Method Room Air Weight: 50.9 kg Body Mass Index (BMI) 17.0 Intake & Output: Intake and Output for Last 24 Hours 12/10/24 12/11/24 12/12/24 23:59 23:59 23:59 Intake Total 1777.87 / 1778.35 1605.37 / 1609.17 393.60 / 393.60 Output Total 1400 / 1400 1450 / 1450 Balance 377.87 / 378.35 155.37 / 159.17 393.60 / 393.60 Medical Nutrition Assessment Dietitian: Malnutrition Criteria Met Start: 12/09/24 09:42 Freq: Status: Active Protocol: Document 12/09/24 09:56 SLA (Rec: 12/09/24 09:56 SLA [id number]) Nutrition Malnutrition Evidence of Yes Malnutrition Exists Malnutrition (severe Chronic ): Evidenced By Suboptimal Energy Intake (Severe),Weight Loss (Severe), Physical Changes (Severe) Clinical Problem Chronic Disease or Condition Related Malnutrition Etiology related to inadequate energy intake Signs/Symptoms as 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 Rec consider appetite stimulant to help encourage improved po intake. Lab / Micro Data 12/12/24 05:15 12/12/24 05:15 Labs: Laboratory Results - last 24 hr 12/11/24 05:40: Diff Path Review N/A, TSH 1.880, Cortisol AM Sample 10.60 12/11/24 15:40: Vancomycin Trough 9.5 12/12/24 05:15: Sodium 132 L, Potassium 3.9, Chloride 102, Carbon Dioxide 22.4, Anion Gap 7, BUN 14, Creatinine 0.50 L, Estim Creat Clear Calc 45.07 L, Est GFR (MDRD) Non-Af 97, BUN/Creatinine Ratio 27.3 H, Glucose 106 H, Calcium 7.7, Cortisol AM Sample 10.20 Micro: Microbiology 12/08/24 13:00 Blood Culture (Wb) - Anticubital Right Blood Culture - Preliminary No growth in 48 hours. 12/08/24 11:40 Blood Culture (Wb) - Left Forearm Blood Culture - Preliminary No growth in 48 hours. 12/08/24 13:10 Urine, Random Urine Culture - Final Staphylococcus epidermidis Physical Exam Const alert and no apparent distress HEENT head/scalp atraumatic and moist oral mucous membranes Resp normal respiratory effort, no retractions, no use of accessory muscles and clear to auscultation bilaterally Cardio regular rate, regular rhythm, S1 normal heart sound and S2 normal heart sound GI normal to inspection, nondistended, normoactive bowel sounds, soft to palpation, non-tender and non-distended Neuro Sensorium / Orientation: awake and alert Psych affect normal Assessment & Plan Assessment/Plan (1) Septic shock: PLAN: POA. See admission data for SIRS/qSOFA criteria on norepi gtt. Midodrine 15 TID. abx with pip/tazo and vanc. ID consult. ACTH test ordered. (2) UTI (urinary tract infection): PLAN: 50-80k Staph epi. abx as above. PLAN: Plan MI: POA, since resolved chronic conditions: * afib: s/p maze procedure. * CAD: clopidogrel and simvastatin. VTE prophylaxis: [facility]. Charges/Coding Visit Charges Inpatient E&M: 05165 Subs Hosp L2
--- NOTE | 2024-12-12 07:35 | PN.CC_ITS ---
Assessment & Plan Assessment/Plan (1) Sepsis: PLAN: Plan RECOMMENDATIONS: 1. Continue antimicrobials. 2. Continue to wean Levophed. Goal to maintain a systolic blood pressure greater than 90 mmHg. 3. Continue scheduled midodrine. 4. Perform cosyntropin stimulation test tomorrow morning. 5. Encourage incentive spirometer use and mobilize patient as tolerated. IMPRESSIONS: 1. Multifactorial shock I suspect that the patient's presentation was likely secondary to a combination of hypovolemic and septic etiologies. He remains on low-dose vasopressor support to maintain hemodynamic stability. I do suspect an underlying urinary tract source of infection with evidence of end-organ dysfunction, as evidenced by fluid refractory hypotension and lactic acidemia. The patient appears to be improving from a clinical perspective. Will continue to wean Levophed as tolerated. The patient will be continued on antimicrobials. Given that the patient's reported a longstanding history of hypotension, will perform cosyntropin stimulation test tomorrow morning. 2. Acute kidney injury Prerenal in etiology with normalization in renal function, following volume expansion. Continue to monitor urine output. No current indication for renal replacement therapy. 3. Anemia complicated by history of myelodysplastic syndrome Continue to monitor blood counts and transfuse if hemoglobin drops below 7 g/dL. 4. History of atrial fibrillation/coronary artery disease status post CABG/hyperlipidemia/history of MDS Complicates care, management, recovery and prognosis. Continue to hold home diuretics and Imdur for now. Remainder of supportive care as noted above. TIME: 33 minutes of critical care time, independent of procedures, was spent addressing the patient's multifactorial shock, acute kidney injury, anemia, review of all data and collaboration with the care team. Subjective Subjective The patient was seen and examined at the bedside this morning. Events from the last 24 hours have been reviewed. The patient remains on low-dose Levophed to maintain hemodynamic stability. He is currently documented to be overall net +7.8 L for the hospitalization. White blood cell count is normal. Hemoglobin and platelet count are stable. Creatinine is within normal limits. Objective Data Objective Data The patient's most recent lab work, culture data and imaging studies have all been personally reviewed. Vital Signs: Vital Signs Temp Pulse Resp BP Pulse Ox O2 Del Method 98.6 F 79 19 H 96/55 L 98 Room Air 12/12/24 04:00 12/12/24 07:00 12/12/24 07:00 12/12/24 07:00 12/12/24 07:00 12/12/24 07:00 Oxygen Delivery Method Room Air Weight: 112 lb 3.445 oz Body Mass Index (BMI) 17.0 Intake & Output: Intake and Output for Last 24 Hours 12/10/24 12/11/24 12/12/24 23:59 23:59 23:59 Intake Total 1777.87 / 1778.35 1605.37 / 1609.17 393.60 / 393.60 Output Total 1400 / 1400 1450 / 1450 Balance 377.87 / 378.35 155.37 / 159.17 393.60 / 393.60 Medical Nutrition Assessment Dietitian: Malnutrition Criteria Met Start: 12/09/24 09:42 Freq: Status: Active Protocol: Document 12/09/24 09:56 SLA (Rec: 12/09/24 09:56 SLA [id number]) Nutrition Malnutrition Evidence of Yes Malnutrition Exists Malnutrition (severe Chronic ): Evidenced By Suboptimal Energy Intake (Severe),Weight Loss (Severe), Physical Changes (Severe) Clinical Problem Chronic Disease or Condition Related Malnutrition Etiology related to inadequate energy intake Signs/Symptoms as evidenced 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 Rec consider appetite stimulant to help encourage improved po intake. Lab / Micro Data Attestation: I reviewed the patient's lab results. 12/12/24 05:15 12/12/24 05:15 Labs: Laboratory Results - last 24 hr 12/11/24 05:40: Diff Path Review N/A, TSH 1.880, Cortisol AM Sample 10.60 12/11/24 15:40: Vancomycin Trough 9.5 12/12/24 05:15: Sodium 132 L, Potassium 3.9, Chloride 102, Carbon Dioxide 22.4, Anion Gap 7, BUN 14, Creatinine 0.50 L, Estim Creat Clear Calc 45.07 L, Est GFR (MDRD) Non-Af 97, BUN/Creatinine Ratio 27.3 H, Glucose 106 H, Calcium 7.7, Cortisol AM Sample 10.20 Micro: Microbiology 12/08/24 13:00 Blood Culture (Wb) - Anticubital Right Blood Culture - Preliminary No growth in 48 hours. 12/08/24 11:40 Blood Culture (Wb) - Left Forearm Blood Culture - Preliminary No growth in 48 hours. 12/08/24 13:10 Urine, Random Urine Culture - Final Staphylococcus epidermidis Physical Exam Const alert and no apparent distress Constitutional Narrative: Frail and cachectic elderly male. General Appearance: cooperative HEENT normocephalic, head/scalp atraumatic and moist oral mucous membranes General Ear: hearing grossly impaired Eyes PERRL, EOMs intact bilaterally and conjunctivae normal Neck supple General: trachea midline Chest inspection of chest normal Resp normal respiratory effort Auscultation: Negative for rales, rhonchi or wheezes Cardio regular rate and regular rhythm GI normal to inspection, nondistended, normoactive bowel sounds Extremity General Extremity: edema; Negative for clubbing Skin no rashes or lesions noted Neuro CN's II-XII intact bilaterally, moves all extremities and no focal motor deficits Psych cooperative and affect normal Charges/Coding Procedures Hospitalists Procedures: [id number] Critical Care 1st Hr
[2024-12-12 07:39] LABS: Differential Indicated SCAN CRITERIA MET
[2024-12-12] MEDS: Folic Acid 1 MG Tablet PO (07:56)
[2024-12-12] MEDS: Midodrine HCl 5 MG Tablet 10 MG PO (07:56)
[2024-12-12] MEDS: Clopidogrel Bisulfate 75 MG Tablet PO (09:54)
[2024-12-12] MEDS: Polyethylene Glycol 3350 17 GM PACKET PO (09:54)
[2024-12-12] MEDS: Senna/Docusate Sodium 1 Tablet 2 TABLET PO (09:54)
[2024-12-12] MEDS: Ranolazine 500 MG Tablet 1000 MG PO ×2 (09:54→20:54)
[2024-12-12] MEDS: Cholecalciferol (VIT D3) 25 MCG TABLET (1,000 UNITS) PO (09:55)
[2024-12-12] MEDS: Ascorbic Acid 500 MG Tablet PO ×2 (09:55→20:55)
[2024-12-12] MEDS: Oxymetazoline 0.05% 1 SPRAY SPRAY.BTL NASAL (09:56)
[2024-12-12] MEDS: Pantoprazole Sodium 40 MG Tablet PO ×2 (09:59→20:55)
[2024-12-12] MEDS: Midodrine HCl 5 MG Tablet 15 MG PO ×2 (11:38→16:43)
--- NOTE | 2024-12-12 14:42 | PCM.CONS.GEN ---
Assessment & Plan Assessment/Plan (1) Septic shock: PLAN: Ucx with MSSE. Now off pressors, wbc much improved, MI resolved. Will narrow vanc/zosyn to ceftriaxone. Will follow, thank you (2) MI (acute kidney injury): (3) Acute UTI: HPI Consult Data Date of Consult: 12/12/24 HPI Narrative Reason for Consultation: sepsis HPI Narrative: BRI BOSS, is a 89 M with MDS, presented 4/3 to ED with acute onset weakness, lethargy, not feeling well. No port in place, no recent illnesses. Some dry cough. Gets immunotherapy and aranesp injections. No abd pain but did have dysuria. Admitted on vanc/zosyn, feeling better, family at bedside provided additional history. Full ROS performed and neg except as noted above. [facility] Medical History MDS (myelodysplastic syndrome) Chronic hyponatremia Chest pain Chronic pain Chest pain COVID-19 Old myocardial infarction Premature ventricular contraction Hyperlipidemia Excision of the left atrial appendage Atherosclerotic heart disease of [place] coronary artery without angina pectoris Paroxysmal atrial fibrillation Kidney stones Hiatal hernia Upper gastrointestinal bleed Diverticulitis Colitis Home Medications ?Medication ?Instructions ?Recorded ?Last Taken ?Type acetaminophen 500 mg tablet 500 mg PO DAILY PRN PRN BACK PAIN 05/24/19 05/23/19 History cholecalciferol (vitamin D3) 25 25 mcg PO DAILY vitamin 02/26/22 12/07/24 History mcg (1,000 unit) tablet Handicap Placard #1 ea 08/22/22 Unknown Rx nitroglycerin 0.4 mg sublingual 0.4 mg sublingual Q5-15M PRN CHEST 11/12/22 Unknown Rx tablet PAIN #25 tabs ascorbic acid (vitamin C) 500 mg 500 mg PO BID #60 tabs 06/01/23 12/08/24 Rx tablet folic acid 1 mg tablet 1 mg PO DAILY #30 tabs 06/01/23 12/07/24 Rx darbepoetin renée in polysorbat 300 300 mcg subcut Q2W 07/24/23 12/08/24 History mcg/0.6 mL in polysorbate injection syringe (Aranesp) ranolazine 1,000 mg 1,000 mg PO BID #180 tabs 02/26/24 12/08/24 Rx tablet,extended release,12 hr famotidine 20 mg tablet (Pepcid) 20 mg PO QDAY #30 tabs 06/22/24 12/07/24 Rx furosemide 40 mg tablet (Lasix) 40 mg PO QAM #5 tabs 06/27/24 12/07/24 Rx isosorbide mononitrate 30 mg 30 mg PO QDAY HEART #90 tabs 09/02/24 12/08/24 Rx tablet,extended release 24 hr docusate sodium 100 mg capsule 100 mg PO QDAY 09/05/24 12/08/24 History potassium chloride 20 mEq 20 meq PO DAILY PRN Take with 09/05/24 12/07/24 Rx tablet,extended release Lasix #30 tabs clopidogrel 75 mg tablet (Plavix) 75 mg PO DAILY #90 tabs 09/12/24 12/08/24 Rx simvastatin 20 mg tablet 20 mg PO QHS #90 tabs 10/21/24 12/07/24 Rx Allergy/AdvReac Type Severity Reaction Status Date / Time ciprofloxacin (From Cipro) Allergy Unknown Rash Verified 12/08/24 10:57 EZEQUIEL Inhibitors Allergy cough Verified 12/08/24 10:57 benzonatate (From Tessalon Allergy rash Verified 12/08/24 10:57 Perles) ipodate (From Oragrafin) Allergy Rash Verified 12/08/24 10:57 Family History Father Prostate cancer Mother CVA (cerebral vascular accident) Brother Cancer Surgical History History of bilateral cataract extraction S/P right inguinal hernia repair Postsurgical percutaneous transluminal coronary angioplasty (PTCA) status Presence of stent in coronary artery (~11/14/11) S/P CABG (coronary artery bypass graft) (~11/2005) H/O maze procedure History of hernia repair Hx of appendectomy Social History household members: spouse current occupational status: retired Smoking Status: Never smoker alcohol intake: never substance use type: does not use caffeine: Yes Type: coffee Number of servings: 2 Physical Exam Const alert and no apparent distress General Appearance: lethargic HEENT normocephalic and head/scalp atraumatic Eyes PERRL and EOMs intact bilaterally Neck supple and No nodes Resp clear to auscultation bilaterally Auscultation: diminished lung sounds Cardio regular rate and regular rhythm GI soft to palpation, non-tender and non-distended Extremity General Extremity: Negative for edema Skin no rashes or lesions noted Neuro CN's II-XII intact bilaterally Medical Records Data Medical Nutrition Assessment Dietitian: Malnutrition Criteria Met Start: 12/09/24 09:42 Freq: Status: Active Protocol: Document 12/09/24 09:56 [facility] (Rec: 12/09/24 09:56 SLA [id number]) Nutrition Malnutrition Evidence of Yes Malnutrition Exists Malnutrition (severe Chronic ): Evidenced By Suboptimal Energy Intake (Severe),Weight Loss (Severe), Physical Changes (Severe) Clinical Problem Chronic Disease or Condition Related Malnutrition Etiology related to inadequate energy intake Signs/Symptoms as evidenced 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 Rec consider appetite stimulant to help encourage improved po intake. Lab / Micro Data Attestation: I reviewed the patient's lab results. 12/12/24 05:15 12/12/24 05:15 Labs: Laboratory Results - last 24 hr 12/11/24 05:40: Diff Path Review N/A 12/11/24 15:40: Vancomycin Trough 9.5 12/12/24 05:15: WBC 11.0, RBC 3.18 L, Hgb 10.1 L, Hct 31.0 L, MCV 97.5 H, MCH 31.8, MCHC 32.6, RDW Std Deviation 77.5 H, RDW Coeff of Zachariah 22.5 H, Plt Count 290, MPV 13.0 H, Immature Gran % (Auto) 0.900, Neut % (Auto) 43.5 L, Lymph % (Auto) 8.6 L, [place] % (Auto) 46.9 H, Eos % (Auto) 0.0, Baso % (Auto) 0.1, Absolute Neuts (auto) 4.8, Absolute Lymphs (auto) 0.94, Nucleated RBC % 0, Differential Comment , Sodium 132 L, Potassium 3.9, Chloride 102, Carbon Dioxide 22.4, Anion Gap 7, BUN 14, Creatinine 0.50 L, Estim Creat Clear Calc 45.07 L, Est GFR (MDRD) Non-Af 97, BUN/Creatinine Ratio 27.3 H, Glucose 106 H, Calcium 7.7, Cortisol AM Sample 10.20 Micro: Microbiology 12/10/24 16:30 Urine Catheter - Calvo Urine Culture - Final Culture exhibits no growth. Imaging Radiology Impression Echocardiogram 12/11/24 10:10 Interpretation Summary The left ventricular ejection fraction is 45 %. Normal LV size. Mild to moderate segmental systolic dysfunction (see wall motion). Mild (1+) eccentric mitral valve insufficiency. Pulmonary artery systolic pressure is 38 mmHg. Ordering Physician: John Crawley Referring Physician: [facility] Performed By: Ally Scott RDCS Renal Ultrasound 12/12/24 07:00 IMPRESSION: 1. No hydronephrosis. No visualized abscess or definite renal calculi. 2. Appearance of the bladder suggesting chronic bladder outlet obstruction. Low-level intraluminal debris versus artifact, possibly reflecting cystitis. Difficult to exclude small bladder calculi. 3. Additional description as above. Reading Location: [id number]
[2024-12-12] MEDS: Ceftriaxone 2 GM in 0.9% Normal Saline (50mL MB+) 50 ML IV (14:51)
[2024-12-12] MEDS: Sodium Chloride 0.65% 1 SPRAY SPRAY.BTL 2 SPRAY NASAL (14:52)
[2024-12-12] MEDS: Atorvastatin Calcium 10 MG Tablet PO (20:55)
[2024-12-13] VITALS (56 sets, daily range): BP systolic 78–118; BP diastolic 42–92; PULSE 69–97; RESP 19–30; TEMP 36.6–36.8; O2SAT 91–100; BMI 16.9
[2024-12-13] MEDS: 0.9% Saline Lock 10 ML Syringe IV ×2 (05:20→21:41)
[2024-12-13] MEDS: Cosyntropin 0.25 MG in 0.9% Normal Saline (Pres. free 4 ML 150 MG IV (05:21)
--- NOTE | 2024-12-13 07:05 | PCM.PN.HOSP ---
Reason for Visit Reason for Visit: Diagnoses Sepsis, unspecified organism (12/08/24) Acute kidney failure, unspecified (12/08/24) Urinary tract infection, site not specified (12/08/24) Severe sepsis without septic shock (12/08/24) Severe sepsis with septic shock (12/08/24) Subjective Subjective Feeling well. No new issues. Objective Data Objective Data Vital Signs: Vital Signs Temp Pulse Resp BP Pulse Ox O2 Del Method O2 Flow Rate 36.8 C 88 24 H 102/55 L 97 Room Air 2 12/13/24 05:00 12/13/24 07:00 12/13/24 07:00 12/13/24 07:00 12/13/24 07:00 12/13/24 07:00 12/13/24 01:00 Oxygen Flow Rate (L/min) 2 Oxygen Delivery Method Room Air Weight: 50.8 kg Body Mass Index (BMI) 16.9 Intake & Output: Intake and Output for Last 24 Hours 12/11/24 12/12/24 12/13/24 23:59 23:59 23:59 Intake Total 1605.37 / 1609.17 566.84 / 570.64 66.31 / 66.31 Output Total 1450 / 1450 500 / 500 250 / 250 Balance 155.37 / 159.17 66.84 / 70.64 -183.69 / -183.69 Medical Nutrition Assessment Dietitian: Malnutrition Criteria Met Start: 12/09/24 09:42 Freq: Status: Active Protocol: Document 12/09/24 09:56 [facility] (Rec: 12/09/24 09:56 SLA [id number]) Nutrition Malnutrition Evidence of Yes Malnutrition Exists Malnutrition (severe Chronic ): Evidenced By Suboptimal Energy Intake (Severe),Weight Loss (Severe), Physical Changes (Severe) Clinical Problem Chronic Disease or Condition Related Malnutrition Etiology related to inadequate energy intake Signs/Symptoms as evidenced by 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 Rec consider appetite stimulant to help encourage improved po intake. Lab / Micro Data 12/13/24 08:00 12/13/24 08:00 Labs: Laboratory Results - last 24 hr 12/12/24 05:15: WBC 11.0, RBC 3.18 L, Hgb 10.1 L, Hct 31.0 L, MCV 97.5 H, MCH 31.8, MCHC 32.6, RDW Std Deviation 77.5 H, RDW Coeff of Zachariah 22.5 H, Plt Count 290, MPV 13.0 H, Immature Gran % (Auto) 0.900, Neut % (Auto) 43.5 L, Lymph % (Auto) 8.6 L, [place] % (Auto) 46.9 H, Eos % (Auto) 0.0, Baso % (Auto) 0.1, Absolute Neuts (auto) 4.8, Absolute Lymphs (auto) 0.94, Nucleated RBC % 0, Differential Comment 12/13/24 05:20: Cortisol AM Sample 12.70 12/13/24 06:04: Cortisol AM Sample 22.40 H Micro: Microbiology 12/10/24 16:30 Urine Catheter - Calvo Urine Culture - Final Culture exhibits no growth. 12/08/24 13:00 Blood Culture (Wb) - Anticubital Right Blood Culture - Preliminary No growth in 48 hours. 12/08/24 11:40 Blood Culture (Wb) - Left Forearm Blood Culture - Preliminary No growth in 48 hours. 12/08/24 13:10 Urine, Random Urine Culture - Final Staphylococcus epidermidis Radiography Diagnostic Testing: Radiology Impression Echocardiogram 12/11/24 10:10 Interpretation Summary The left ventricular ejection fraction is 45 %. Normal LV size. Mild to moderate segmental systolic dysfunction (see wall motion). Mild (1+) eccentric mitral valve insufficiency. Pulmonary artery systolic pressure is 38 mmHg. Ordering Physician: John Crawley Referring Physician: [facility] Performed By: Ally Scott RDCS Renal Ultrasound 12/12/24 07:00 IMPRESSION: 1. No hydronephrosis. No visualized abscess or definite renal calculi. 2. Appearance of the bladder suggesting chronic bladder outlet obstruction. Low-level intraluminal debris versus artifact, possibly reflecting cystitis. Difficult to exclude small bladder calculi. 3. Additional description as above. Reading Location: [facility] Physical Exam Const Constitutional Narrative: Up in chair. Cachectic. Afebrile. HEENT head/scalp atraumatic and moist oral mucous membranes Resp normal respiratory effort, no retractions, no use of accessory muscles and clear to auscultation bilaterally Cardio regular rate, regular rhythm, S1 normal heart sound and S2 normal heart sound GI normal to inspection, nondistended, normoactive bowel sounds, soft to palpation and non-tender Extremity normal to inspection Neuro Sensorium / Orientation: awake and alert Assessment & Plan Assessment/Plan (1) Septic shock: PLAN: suspect 2/2 UTI POA. See admission data for SIRS/qSOFA criteria on norepi gtt. Midodrine 15 TID. abx with pip/tazo and vanc. ID consult. ACTH test ordered pre 12.7, post 22.4 Started on stress-dose steroids with hydrocortisone 100 IV Q8h (2) UTI (urinary tract infection): PLAN: 50-80k Staph epi. abx as above. PLAN: Plan MI: POA, since resolved chronic conditions: afib: s/p maze procedure. CAD: clopidogrel and simvastatin. VTE prophylaxis: LW. DW patient's at bedside. Charges/Coding Visit Charges Inpatient E&M: 22051 Subs Hosp L2
--- NOTE | 2024-12-13 07:46 | PCM.PN.INT ---
Assessment & Plan Assessment/Plan (1) Sepsis: PLAN: Plan RECOMMENDATIONS: 1. Continue antimicrobials per ID recommendations. 2. Continue to wean Levophed. Goal to maintain a systolic blood pressure greater than 90 mmHg. 3. Although the patient technically had an adequate cosyntropin stimulation response, I am going to start him on stress dose steroids given his ongoing hemodynamic instability. 4. Continue scheduled midodrine. 5. Encourage incentive spirometer use and mobilize patient as tolerated. IMPRESSIONS: 1. Multifactorial shock I suspect that the patient's presentation was likely secondary to a combination of hypovolemic and septic etiologies. He remains on low-dose vasopressor support to maintain hemodynamic stability. I do suspect an underlying urinary tract source of infection with evidence of end-organ dysfunction, as evidenced by fluid refractory hypotension and lactic acidemia. The patient appears to be improving from a clinical perspective. Will continue to wean Levophed as tolerated. The patient will be continued on antimicrobials per ID recommendations. Given that the patient's reported a longstanding history of hypotension, cosyntropin stimulation test was ultimately performed and appeared adequate in response. However, given his ongoing need for low-dose vasopressor support, we will start scheduled hydrocortisone. 2. Acute kidney injury Resolved. Prerenal in etiology with normalization in renal function, following volume expansion. Continue to monitor urine output. No current indication for renal replacement therapy. 3. Anemia complicated by history of myelodysplastic syndrome Continue to monitor blood counts and transfuse if hemoglobin drops below 7 g/dL. Continue PPI therapy. 4. History of atrial fibrillation/coronary artery disease status post CABG/hyperlipidemia/history of MDS Complicates care, management, recovery and prognosis. Continue to hold home diuretics and Imdur for now. Remainder of supportive care as noted above. TIME: 32 minutes of critical care time, independent of procedures, was spent addressing the patient's multifactorial shock, acute kidney injury, anemia, review of all data and collaboration with the care team. Subjective Subjective The patient was seen and examined at the bedside this morning. Events from the last 24 hours have been reviewed. Unfortunately, the patient remains on low-dose Levophed to maintain hemodynamic stability. The patient's blood pressures tend to trend down overnight when he is sleeping, requiring an escalation in Levophed infusion rate. The patient is documented to be overall net +7.3 L for the hospitalization. White blood cell count is normal. Hemoglobin and platelet count are stable. Creatinine is within normal limits. Objective Data Objective Data The patient's most recent lab work, culture data and imaging studies have all been personally reviewed. Vital Signs: Vital Signs Temp Pulse Resp BP Pulse Ox O2 Del Method O2 Flow Rate 98.3 F 88 24 H 102/55 L 97 Room Air 2 12/13/24 05:00 12/13/24 07:00 12/13/24 07:00 12/13/24 07:00 12/13/24 07:00 12/13/24 07:00 12/13/24 01:00 Oxygen Flow Rate (L/min) 2 Oxygen Delivery Method Room Air Weight: 111 lb 15.917 oz Body Mass Index (BMI) 16.9 Intake & Output: Intake and Output for Last 24 Hours 12/11/24 12/12/24 12/13/24 23:59 23:59 23:59 Intake Total 1605.37 / 1609.17 566.84 / 570.64 66.31 / 66.31 Output Total 1450 / 1450 500 / 500 250 / 250 Balance 155.37 / 159.17 66.84 / 70.64 -183.69 / -183.69 Medical Nutrition Assessment Dietitian: Malnutrition Criteria Met Start: 12/09/24 09:42 Freq: Status: Active Protocol: Document 12/09/24 09:56 [facility] (Rec: 12/09/24 09:56 SLA [id number]) Nutrition Malnutrition Evidence of Yes Malnutrition Exists Malnutrition (severe Chronic ): Evidenced By Suboptimal Energy Intake (Severe),Weight Loss (Severe), Physical Changes (Severe) Clinical Problem Chronic Disease or Condition Related Malnutrition Etiology related to inadequate energy intake Signs/Symptoms as evidenced 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 Rec consider appetite stimulant to help encourage improved po intake. Lab / Micro Data Attestation: I reviewed the patient's lab results. 12/13/24 08:00 12/13/24 08:00 Labs: Laboratory Results - last 24 hr 12/12/24 05:15: Differential Comment 12/13/24 05:20: Cortisol AM Sample 12.70 12/13/24 06:04: Cortisol AM Sample 22.40 H Micro: Microbiology 12/10/24 16:30 Urine Catheter - Calvo Urine Culture - Final Culture exhibits no growth. 12/08/24 13:00 Blood Culture (Wb) - Anticubital Right Blood Culture - Preliminary No growth in 48 hours. 12/08/24 11:40 Blood Culture (Wb) - Left Forearm Blood Culture - Preliminary No growth in 48 hours. 12/08/24 13:10 Urine, Random Urine Culture - Final Staphylococcus epidermidis Radiography Diagnostic Testing: Radiology Impression Echocardiogram 12/11/24 10:10 Interpretation Summary The left ventricular ejection fraction is 45 %. Normal LV size. Mild to moderate segmental systolic dysfunction (see wall motion). Mild (1+) eccentric mitral valve insufficiency. Pulmonary artery systolic pressure is 38 mmHg. Ordering Physician: John Crawley Referring Physician: [facility] Performed By: Ally Scott RDCS Renal Ultrasound 12/12/24 07:00 IMPRESSION: 1. No hydronephrosis. No visualized abscess or definite renal calculi. 2. Appearance of the bladder suggesting chronic bladder outlet obstruction. Low-level intraluminal debris versus artifact, possibly reflecting cystitis. Difficult to exclude small bladder calculi. 3. Additional description as above. Reading Location: [facility] Physical Exam Const alert and no apparent distress Constitutional Narrative: Frail and cachectic elderly male. General Appearance: cooperative HEENT normocephalic, head/scalp atraumatic and moist oral mucous membranes General Ear: hearing grossly impaired Eyes PERRL, EOMs intact bilaterally and conjunctivae normal Neck supple General: trachea midline Chest inspection of chest normal Resp normal respiratory effort Auscultation: Negative for rales, rhonchi or wheezes Cardio regular rate and regular rhythm GI normal to inspection, nondistended, normoactive bowel sounds Extremity General Extremity: edema; Negative for clubbing Skin no rashes or lesions noted Neuro CN's II-XII intact bilaterally, moves all extremities and no focal motor deficits Psych cooperative and affect normal Charges/Coding Procedures Hospitalists Procedures: 26068 Critical Care 1st Hr
[2024-12-13] MEDS: Midodrine HCl 5 MG Tablet 15 MG PO ×3 (08:09→17:44)
[2024-12-13] MEDS: Folic Acid 1 MG Tablet PO (08:09)
[2024-12-13] MEDS: 0.9% Normal Saline (1000mL) 1,000 ML 999 ML IV (08:20)
[2024-12-13 08:31] LABS: Absolute Lymphocyte Count 0.58 X10^3/uL (0.83-4.51); Absolute Neutrophil Count 5.4 X10^3/uL (2.0-7.7); Basophil# 0.01 X10^3/uL; Basophil% 0.1 % (0-1); Hematocrit 29.7 % (40-54); Hemoglobin 9.7 g/dL (13.0-16.5); Lymphocyte # 0.58 X10^3/ul (0.83-4.51); Lymphocyte % 5.9 % (19-41); Mean Corp Hgb Conc 32.7 g/dL (32-36); Mean Corpuscular Hgb 31.8 pg (27.0-32.0); Mean Corpuscular Volume 97.4 fL (80-94); Mean Platelet Vol. 13.1 fl (6.2-12.0); Monocyte# 3.71 X10^3/uL; Monocyte% 37.7 % (0-10); NRBC Flagged by Analyzer 0 % (0-5); Neutrophil # 5.42 X10^3/uL (2.7-7.7); Neutrophil % 55.2 % (47-70); POSITIVE DIFFERENTIAL YES; POSITIVE MORPHOLOGY YES; Platelet Count 237 K/mm3 (150-450); RBC Distribution Width CV 22.4 % (11.6-14.6); RBC Distribution Width SD 75.8 fl (35.1-43.9); Red Blood Count 3.05 M/mm3 (4.6-6.2); White Blood Count 9.8 K/mm3 (4.4-11.0)
[2024-12-13 08:32] LABS: Differential Indicated SCAN CRITERIA MET
[2024-12-13 08:50] LABS: Anion Gap 8 (5-15); BUN 14 mg/dL (4-19); Calcium,Total 7.9 mg/dL (7.6-11.0); Carbon Dioxide 22.4 mmol/L (21.0-32.0); Chloride 102 mmol/L (98-108); Creatinine, Serum 0.49 mg/dL (0.70-1.20); EST Glomerular Filtration Rate 98 (>60); Estimated Creatinine Clearance 44.98 ml/min (50-250); Glucose 83 mg/dL (70-99); Potassium 3.9 mmol/L (3.3-5.1); Sodium Level 132 mmol/L (133-145)
[2024-12-13 08:54] LABS: Anisocytosis 2+; Differential Comment SCANNED
[2024-12-13] MEDS: Hydrocortisone Sod Succinate 100 MG/2 ML Vial IV ×3 (08:56→21:41)
--- NOTE | 2024-12-13 09:55 | PCM.PN.ID ---
Physical Exam Narrative Feeling much better, no abd pain, some dry cough, no fever Const alert and no apparent distress Resp normal air movement and clear to auscultation bilaterally Cardio regular rate and regular rhythm GI soft to palpation, non-tender and non-distended Skin no rashes or lesions noted ID ID: Route of nutrition/ use of supplements: [] Nutritional Intake: [] IV Site: [] Calvo Catheter: [] Assessment & Plan Assessment/Plan (1) Septic shock: PLAN: Ucx with MSSE. On pressor, wbc much improved, MI resolved. Will cont ceftriaxone. Will follow (2) MI (acute kidney injury): (3) Acute UTI:
[2024-12-13] MEDS: Ascorbic Acid 500 MG Tablet PO ×2 (11:23→21:41)
[2024-12-13] MEDS: Clopidogrel Bisulfate 75 MG Tablet PO (11:23)
[2024-12-13] MEDS: Pantoprazole Sodium 40 MG Tablet PO (11:23)
[2024-12-13] MEDS: Oxymetazoline 0.05% 1 SPRAY SPRAY.BTL NASAL (11:23)
[2024-12-13] MEDS: Cholecalciferol (VIT D3) 25 MCG TABLET (1,000 UNITS) PO (11:23)
[2024-12-13] MEDS: Ranolazine 500 MG Tablet 1000 MG PO ×2 (11:23→21:40)
[2024-12-13] MEDS: Ceftriaxone 2 GM in 0.9% Normal Saline (50mL MB+) 50 ML IV (11:29)
--- NOTE | 2024-12-13 12:15 | CASEMGMT ---
MARI CM to pt room to discuss DC planning. Pt at bedside. Pt and pt still state that they prefer to go home once medically ready and deny any acute HHC or OP Therapy. Pt states that they will look [facility] feel it's appropriate as he has had this in the past. Pt states that he does not prefer or like home care but might be willing to try it again in the future. At this time, the pt states that he feels safe returning home with his once he is medically ready for DC. 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 Pt and pt deny further questions or concerns at this time.
[2024-12-13] MEDS: 0.9% Normal Saline (100mL Bag) 100 ML 15 ML IV (13:22)
[2024-12-13] MEDS: Atorvastatin Calcium 10 MG Tablet PO (21:41)
[2024-12-14] VITALS (13 sets, daily range): BP systolic 86–106; BP diastolic 46–61; PULSE 66–79; RESP 16–24; TEMP 36.4–36.8; O2SAT 93–100; BMI 17.3
[2024-12-14 04:07] LABS: Absolute Lymphocyte Count 0.49 X10^3/uL (0.83-4.51); Absolute Neutrophil Count 3.4 X10^3/uL (2.0-7.7); Basophil# 0.01 X10^3/uL; Basophil% 0.2 % (0-1); Hematocrit 25.5 % (40-54); Hemoglobin 8.3 g/dL (13.0-16.5); Lymphocyte # 0.49 X10^3/ul (0.83-4.51); Lymphocyte % 7.9 % (19-41); Mean Corp Hgb Conc 32.5 g/dL (32-36); Mean Corpuscular Hgb 31.4 pg (27.0-32.0); Mean Corpuscular Volume 96.6 fL (80-94); Mean Platelet Vol. 12.9 fl (6.2-12.0); Monocyte# 2.27 X10^3/uL; Monocyte% 36.6 % (0-10); NRBC Flagged by Analyzer 0.5 % (0-5); Neutrophil # 3.38 X10^3/uL (2.7-7.7); Neutrophil % 54.5 % (47-70); POSITIVE DIFFERENTIAL YES; POSITIVE MORPHOLOGY YES; Platelet Count 196 K/mm3 (150-450); RBC Distribution Width CV 21.9 % (11.6-14.6); RBC Distribution Width SD 74.7 fl (35.1-43.9); Red Blood Count 2.64 M/mm3 (4.6-6.2); White Blood Count 6.2 K/mm3 (4.4-11.0)
[2024-12-14 04:11] LABS: Differential Indicated SCAN CRITERIA MET
[2024-12-14 04:48] LABS: Anion Gap 8 (5-15); BUN 18 mg/dL (4-19); BUN/Creat Ratio 37.5 RATIO (10-20); Calcium,Total 7.8 mg/dL (7.6-11.0); Carbon Dioxide 21.9 mmol/L (21.0-32.0); Chloride 101 mmol/L (98-108); Creatinine, Serum 0.48 mg/dL (0.70-1.20); EST Glomerular Filtration Rate 99 (>60); Estimated Creatinine Clearance 45.95 ml/min (50-250); Glucose 133 mg/dL (70-99); Potassium 3.8 mmol/L (3.3-5.1); Sodium Level 130 mmol/L (133-145)
[2024-12-14] MEDS: 0.9% Saline Lock 10 ML Syringe IV (06:02)
[2024-12-14] MEDS: Hydrocortisone Sod Succinate 100 MG/2 ML Vial IV ×3 (06:03→21:03)
[2024-12-14 06:30] LABS: Differential Comment SCANNED
[2024-12-14 06:31] LABS: Acanthocytes 1+; Anisocytosis 3+; Macrocytosis 1+; Microcytosis 1+; Ovalocyte 1+; Platelet Estimate ADEQUATE (ADEQ); Platelet Morphology LARGE; Schistocytes 1+; Target Cells RARE; Tear Drop Cell 1+
--- NOTE | 2024-12-14 06:49 | PCM.PN.HOSP ---
Reason for Visit Reason for Visit: Diagnoses Sepsis, unspecified organism (12/08/24) Acute kidney failure, unspecified (12/08/24) Urinary tract infection, site not specified (12/08/24) Severe sepsis without septic shock (12/08/24) Severe sepsis with septic shock (12/08/24) Subjective Subjective Feeling well. No new complaints. Objective Data Objective Data Vital Signs: Vital Signs Temp Pulse Resp BP Pulse Ox O2 Del Method O2 Flow Rate 36.4 C L 77 24 H 90/46 L 97 Room Air 2 12/14/24 05:00 12/14/24 06:00 12/14/24 06:00 12/14/24 06:00 12/14/24 06:00 12/14/24 06:00 12/13/24 01:00 Oxygen Flow Rate (L/min) 2 Oxygen Delivery Method Room Air Weight: 51.9 kg Body Mass Index (BMI) 17.3 Intake & Output: Intake and Output for Last 24 Hours 12/12/24 12/13/24 12/14/24 23:59 23:59 23:59 Intake Total 566.84 / 570.64 1254.09 / 1254.09 Output Total 500 / 500 700 / 925 400 / 400 Balance 66.84 / 70.64 554.09 / 329.09 -400 / -400 Medical Nutrition Assessment Dietitian: Malnutrition Criteria Met Start: 12/09/24 09:42 Freq: Status: Active Protocol: Document 12/09/24 09:56 SLA (Rec: 12/09/24 09:56 SLA [id number]) Nutrition Malnutrition Evidence of Yes Malnutrition Exists Malnutrition (severe Chronic ): Evidenced By Suboptimal Energy Intake (Severe),Weight Loss (Severe), Physical Changes (Severe) Clinical Problem Chronic Disease or Condition Related Malnutrition Etiology related to inadequate energy intake Signs/Symptoms as 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 Rec consider appetite stimulant to help encourage improved po intake. Lab / Micro Data 12/14/24 04:01 12/14/24 04:01 Labs: Laboratory Results - last 24 hr 12/13/24 08:00: WBC 9.8, RBC 3.05 L, Hgb 9.7 L, Hct 29.7 L, MCV 97.4 H, MCH 31.8, MCHC 32.7, RDW Std Deviation 75.8 H, RDW Coeff of Zachariah 22.4 H, Plt Count 237, MPV 13.1 H, Immature Gran % (Auto) 1.100 H, Neut % (Auto) 55.2, Lymph % (Auto) 5.9 L, [place] % (Auto) 37.7 H, Eos % (Auto) 0.0, Baso % (Auto) 0.1, Absolute Neuts (auto) 5.4, Absolute Lymphs (auto) 0.58 L, Nucleated RBC % 0, Differential Comment SCANNED, Anisocytosis 2+, Sodium 132 L, Potassium 3.9, Chloride 102, Carbon Dioxide 22.4, Anion Gap 8, BUN 14, Creatinine 0.49 L, Estim Creat Clear Calc 44.98 L, Est GFR (MDRD) Non-Af 98, BUN/Creatinine Ratio 28.0 H, Glucose 83, Calcium 7.9 12/14/24 04:01: WBC 6.2, RBC 2.64 L, Hgb 8.3 L, Hct 25.5 L, MCV 96.6 H, MCH 31.4, MCHC 32.5, RDW Std Deviation 74.7 H, RDW Coeff of Zachariah 21.9 H, Plt Count 196, MPV 12.9 H, Immature Gran % (Auto) 0.800, Neut % (Auto) 54.5, Lymph % (Auto) 7.[address] L, [place] % (Auto) 36.6 H, Eos % (Auto) 0.0, Baso % (Auto) 0.2, Absolute Neuts (auto) 3.4, Absolute Lymphs (auto) 0.49 L, Nucleated RBC % 0.5, Differential Comment SCANNED, Diff Path Review January, Platelet Estimate ADEQUATE, Plt Morphology Comment LARGE, Anisocytosis 3+, Microcytosis 1+, Macrocytosis 1+, Target Cells RARE, Tear Drop Cells 1+, Ovalocytes 1+, Acanthocytes (Spur) 1+, Schistocytes 1+, Sodium 130 L, Potassium 3.8, Chloride 101, Carbon Dioxide 21.9, Anion Gap 8, BUN 18, Creatinine 0.48 L, Estim Creat Clear Calc 45.95 L, Est GFR (MDRD) Non-Af 99, BUN/Creatinine Ratio 37.5 H, Glucose 133 H, Calcium 7.8 Micro: Microbiology 12/08/24 13:00 Blood Culture (Wb) - Anticubital Right Blood Culture - Final No growth in 5 days. 12/08/24 11:40 Blood Culture (Wb) - Left Forearm Blood Culture - Final No growth in 5 days. 12/10/24 16:30 Urine Catheter - Calvo Urine Culture - Final Culture exhibits no growth. 12/08/24 13:10 Urine, Random Urine Culture - Final Staphylococcus epidermidis Physical Exam Const alert and no apparent distress HEENT head/scalp atraumatic and moist oral mucous membranes Resp normal respiratory effort, no retractions, no use of accessory muscles and clear to auscultation bilaterally Cardio regular rate, regular rhythm, S1 normal heart sound and S2 normal heart sound GI normal to inspection, nondistended, normoactive bowel sounds, soft to palpation, non-tender and non-distended Extremity normal to inspection and full ROM Neuro Sensorium / Orientation: awake and alert Assessment & Plan Assessment/Plan (1) Septic shock: PLAN: suspect 2/2 UTI cecoplicated by possible adrenal insufficiency. POA. See admission data for SIRS/qSOFA criteria norepi gtt weaned off. Midodrine 15 TID. abx with CTX ID consult. ACTH test ordered pre 12.7, post 22.4 Started on stress-dose steroids with hydrocortisone 100 IV Q8h. Continue as is for now. (2) UTI (urinary tract infection): PLAN: 50-80k Staph epi. abx as above. PLAN: Plan MI: POA, since resolved chronic conditions: afib: s/p maze procedure. CAD: clopidogrel and simvastatin. VTE prophylaxis: LW. DW patient's at bedside. Charges/Coding Visit Charges Inpatient E&M: 95554 Subs Hosp L2
--- NOTE | 2024-12-14 08:12 | PCM.PN.INT ---
Assessment & Plan Assessment/Plan (1) Sepsis: PLAN: Plan RECOMMENDATIONS: 1. Continue antimicrobials per ID recommendations. 2. Continue stress dose steroids as ordered. 3. Continue scheduled midodrine. 4. Encourage incentive spirometer use and mobilize patient as tolerated. IMPRESSIONS: 1. Multifactorial shock I suspect that the patient's presentation was likely secondary to a combination of hypovolemic and septic etiologies. There was inherent difficulty in weaning the patient from vasopressor support. Although a cosyntropin stimulation test was completed and demonstrated an adequate response, given his ongoing Levophed requirement, he was started on stress dose steroids on December 13. The patient has since been weaned from Levophed. He will remain on scheduled midodrine as ordered. Antimicrobials will be continued per ID recommendations. 2. Acute kidney injury Resolved. Prerenal in etiology with normalization in renal function, following volume expansion. Continue to monitor urine output. No current indication for renal replacement therapy. 3. Anemia complicated by history of myelodysplastic syndrome Continue to monitor blood counts and transfuse if hemoglobin drops below 7 g/dL. Continue PPI therapy. 4. History of atrial fibrillation/coronary artery disease status post CABG/hyperlipidemia/history of MDS Complicates care, management, recovery and prognosis. Continue supportive care as noted above. This note was generated with Dr [employer] dictation software. It may contain incorrect words, spelling, and punctuation that were not noted in checking the note before signing. Subjective Subjective The patient was seen and examined at the bedside this morning. Events from the last 24 hours have been reviewed. The patient is currently afebrile, hemodynamically stable and maintaining appropriate oxygen saturations on room air. The patient was weaned off of Levophed completely yesterday afternoon. No overnight events were noted by the nursing staff. White blood cell count is normal. Hemoglobin and platelet count are stable. Objective Data Objective Data The patient's most recent lab work, culture data and imaging studies have all been personally reviewed. Vital Signs: Vital Signs Temp Pulse Resp BP Pulse Ox O2 Del Method O2 Flow Rate 97.5 F L 72 24 H 95/48 L 98 Room Air 2 12/14/24 05:00 12/14/24 07:00 12/14/24 07:00 12/14/24 07:00 12/14/24 07:00 12/14/24 07:00 12/13/24 01:00 Oxygen Flow Rate (L/min) 2 Oxygen Delivery Method Room Air Weight: 114 lb 6.719 oz Body Mass Index (BMI) 17.3 Intake & Output: Intake and Output for Last 24 Hours 12/12/24 12/13/24 12/14/24 23:59 23:59 23:59 Intake Total 566.84 / 570.64 1254.09 / 1254.09 Output Total 500 / 500 700 / 925 400 / 400 Balance 66.84 / 70.64 554.09 / 329.09 -400 / -400 Medical Nutrition Assessment Dietitian: Malnutrition Criteria Met Start: 12/09/24 09:42 Freq: Status: Active Protocol: Document 12/09/24 09:56 SLA (Rec: 12/09/24 09:56 SLA [id number]) Nutrition Malnutrition Evidence of Yes Malnutrition Exists Malnutrition (severe Chronic ): Evidenced By Suboptimal Energy Intake (Severe),Weight Loss (Severe), Physical Changes (Severe) Clinical Problem Chronic Disease or Condition Related Malnutrition Etiology related to inadequate energy intake Signs/Symptoms 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 Rec consider appetite stimulant to help encourage improved po intake. Lab / Micro Data Attestation: I reviewed the patient's lab results. 12/14/24 04:01 12/14/24 04:01 Labs: Laboratory Results - last 24 hr 12/13/24 08:00: WBC 9.8, RBC 3.05 L, Hgb 9.7 L, Hct 29.7 L, MCV 97.4 H, MCH 31.8, MCHC 32.7, RDW Std Deviation 75.8 H, RDW Coeff of Zachariah 22.4 H, Plt Count 237, MPV 13.1 H, Immature Gran % (Auto) 1.100 H, Neut % (Auto) 55.2, Lymph % (Auto) 5.9 L, Harrison % (Auto) 37.7 H, Eos % (Auto) 0.0, Baso % (Auto) 0.1, Absolute Neuts (auto) 5.4, Absolute Lymphs (auto) 0.58 L, Nucleated RBC % 0, Differential Comment SCANNED, Anisocytosis 2+, Sodium 132 L, Potassium 3.9, Chloride 102, Carbon Dioxide 22.4, Anion Gap 8, BUN 14, Creatinine 0.49 L, Estim Creat Clear Calc 44.98 L, Est GFR (MDRD) Non-Af 98, BUN/Creatinine Ratio 28.0 H, Glucose 83, Calcium 7.9 12/14/24 04:01: WBC 6.2, RBC 2.64 L, Hgb 8.3 L, Hct 25.5 L, MCV 96.6 H, MCH 31.4, MCHC 32.5, RDW Std Deviation 74.7 H, RDW Coeff of Zachariah 21.9 H, Plt Count 196, MPV 12.9 H, Immature Gran % (Auto) 0.800, Neut % (Auto) 54.5, Lymph % (Auto) 7.9 L, Harrison % (Auto) 36.6 H, Eos % (Auto) 0.0, Baso % (Auto) 0.2, Absolute Neuts (auto) 3.4, Absolute Lymphs (auto) 0.49 L, Nucleated RBC % 0.5, Differential Comment SCANNED, Diff Path Review May foll, Platelet Estimate ADEQUATE, Plt Morphology Comment LARGE, Anisocytosis 3+, Microcytosis 1+, Macrocytosis 1+, Target Cells RARE, Tear Drop Cells 1+, Ovalocytes 1+, Acanthocytes (Spur) 1+, Schistocytes 1+, Sodium 130 L, Potassium 3.8, Chloride 101, Carbon Dioxide 21.9, Anion Gap 8, BUN 18, Creatinine 0.48 L, Estim Creat Clear Calc 45.95 L, Est GFR (MDRD) Non-Af 99, BUN/Creatinine Ratio 37.5 H, Glucose 133 H, Calcium 7.8 Micro: Microbiology 12/08/24 13:00 Blood Culture (Wb) - Anticubital Right Blood Culture - Final No growth in 5 days. 12/08/24 11:40 Blood Culture (Wb) - Left Forearm Blood Culture - Final No growth in 5 days. 12/10/24 16:30 Urine Catheter - Calvo Urine Culture - Final Culture exhibits no growth. 12/08/24 13:10 Urine, Random Urine Culture - Final Staphylococcus epidermidis Radiography Diagnostic Testing: Radiology Impression Echocardiogram 04/06/25 10:10 Interpretation Summary The left ventricular ejection fraction is 45 %. Normal LV size. Mild to moderate segmental systolic dysfunction (see wall motion). Mild (1+) eccentric mitral valve insufficiency. Pulmonary artery systolic pressure is 38 mmHg. Ordering Physician: John Crawley Referring Physician: [facility] Performed By: Ally Scott RDCS Renal Ultrasound 12/12/24 07:00 IMPRESSION: 1. No hydronephrosis. No visualized abscess or definite renal calculi. 2. Appearance of the bladder suggesting chronic bladder outlet obstruction. Low-level intraluminal debris versus artifact, possibly reflecting cystitis. Difficult to exclude small bladder calculi. 3. Additional description as above. Reading Location: [facility] Physical Exam Const alert and no apparent distress Constitutional Narrative: Frail and cachectic elderly male. General Appearance: cooperative HEENT normocephalic, head/scalp atraumatic and moist oral mucous membranes General Ear: hearing grossly impaired Eyes PERRL, EOMs intact bilaterally and conjunctivae normal Neck supple General: trachea midline Chest inspection of chest normal Resp normal respiratory effort Auscultation: Negative for rales, rhonchi or wheezes Cardio regular rate and regular rhythm GI normal to inspection, nondistended, normoactive bowel sounds Extremity General Extremity: edema; Negative for clubbing Skin no rashes or lesions noted Neuro CN's II-XII intact bilaterally, moves all extremities and no focal motor deficits Psych cooperative and affect normal Charges/Coding Visit Charges Inpatient E&M: 65557 Subs Hosp L3
[2024-12-14] MEDS: Midodrine HCl 5 MG Tablet 15 MG PO ×3 (08:17→16:44)
[2024-12-14] MEDS: Pantoprazole Sodium 40 MG Tablet PO (08:18)
[2024-12-14] MEDS: Clopidogrel Bisulfate 75 MG Tablet PO (08:18)
[2024-12-14] MEDS: Folic Acid 1 MG Tablet PO (08:18)
[2024-12-14] MEDS: Ascorbic Acid 500 MG Tablet PO ×2 (08:19→21:04)
[2024-12-14] MEDS: Ranolazine 500 MG Tablet 1000 MG PO ×2 (08:19→21:02)
[2024-12-14] MEDS: Cholecalciferol (VIT D3) 25 MCG TABLET (1,000 UNITS) PO (08:19)
[2024-12-14] MEDS: Oxymetazoline 0.05% 1 SPRAY SPRAY.BTL NASAL (08:19)
[2024-12-14] MEDS: Ceftriaxone 2 GM in 0.9% Normal Saline (50mL MB+) 50 ML IV (08:56)
[2024-12-14] MEDS: Enoxaparin 40 MG/0.4 ML Syringe SC (11:16)
--- NOTE | 2024-12-14 13:17 | PCM.PN.ID ---
Physical Exam Narrative Feeling better, off pressor, no fever. No n/v/d. No abd pain. Const alert and no apparent distress General Appearance: cooperative Resp normal air movement and clear to auscultation bilaterally Cardio regular rate and regular rhythm GI soft to palpation, non-tender and non-distended Skin no rashes or lesions noted ID ID: Route of nutrition/ use of supplements: [] Nutritional Intake: [] IV Site: [] Calvo Catheter: [] Assessment & Plan Assessment/Plan (1) Septic shock: PLAN: Ucx with MSSE. Off pressor, wbc much improved, MI resolved. Will cont ceftriaxone, plan on finishing course tomorrow. Will follow (2) MI (acute kidney injury): (3) Acute UTI:
[2024-12-14] MEDS: Senna/Docusate Sodium 1 Tablet 2 TABLET PO (21:03)
[2024-12-14] MEDS: Atorvastatin Calcium 10 MG Tablet PO (21:04)
[2024-12-15] VITALS (10 sets, daily range): BP systolic 85–118; BP diastolic 49–67; PULSE 71–96; RESP 15–22; TEMP 36.1–36.9; O2SAT 93–99; BMI 17.9
[2024-12-15 04:25] LABS: Absolute Lymphocyte Count 0.59 X10^3/uL (0.83-4.51); Absolute Neutrophil Count 2.1 X10^3/uL (2.0-7.7); Hematocrit 23.6 % (40-54); Hemoglobin 7.8 g/dL (13.0-16.5); Lymphocyte # 0.59 X10^3/ul (0.83-4.51); Lymphocyte % 11.7 % (19-41); Mean Corp Hgb Conc 33.1 g/dL (32-36); Mean Corpuscular Hgb 31.8 pg (27.0-32.0); Mean Corpuscular Volume 96.3 fL (80-94); Mean Platelet Vol. 13.2 fl (6.2-12.0); Monocyte# 2.33 X10^3/uL; NRBC Flagged by Analyzer 1.2 % (0-5); Neutrophil % 41.5 % (47-70); POSITIVE DIFFERENTIAL YES; POSITIVE MORPHOLOGY YES; Platelet Count 226 K/mm3 (150-450); RBC Distribution Width CV 22.1 % (11.6-14.6); RBC Distribution Width SD 75.8 fl (35.1-43.9); Red Blood Count 2.45 M/mm3 (4.6-6.2); White Blood Count 5.1 K/mm3 (4.4-11.0)
[2024-12-15] MEDS: Hydrocortisone Sod Succinate 100 MG/2 ML Vial IV (05:06)
[2024-12-15 05:12] LABS: Anion Gap 7 (5-15); BUN 19 mg/dL (4-19); Calcium,Total 7.9 mg/dL (7.6-11.0); Carbon Dioxide 22.2 mmol/L (21.0-32.0); Chloride 103 mmol/L (98-108); Creatinine, Serum 0.57 mg/dL (0.70-1.20); EST Glomerular Filtration Rate 94 (>60); Estimated Creatinine Clearance 47.37 ml/min (50-250); Glucose 110 mg/dL (70-99); Potassium 3.8 mmol/L (3.3-5.1); Sodium Level 132 mmol/L (133-145)
[2024-12-15 05:56] LABS: Differential Indicated SCAN CRITERIA MET
[2024-12-15 05:57] LABS: Anisocytosis 3+
[2024-12-15 05:58] LABS: Microcytosis 2+; Ovalocyte 1+; Polychromasia RARE
[2024-12-15 05:59] LABS: Burr Cells 1+
--- NOTE | 2024-12-15 07:28 | PCM.PN.HOSP ---
Reason for Visit Reason for Visit: Diagnoses Sepsis, unspecified organism (12/08/24) Acute kidney failure, unspecified (12/08/24) Urinary tract infection, site not specified (12/08/24) Severe sepsis without septic shock (12/08/24) Severe sepsis with septic shock (12/08/24) Subjective Subjective Feeling good. Objective Data Objective Data Vital Signs: Vital Signs Temp Pulse Resp BP Pulse Ox O2 Del Method O2 Flow Rate 36.9 C 71 15 97/55 L 94 Room Air 2 12/15/24 04:00 12/15/24 06:52 12/15/24 04:00 12/15/24 04:00 12/15/24 04:00 12/15/24 04:00 12/13/24 01:00 Oxygen Flow Rate (L/min) 2 Oxygen Delivery Method Room Air Weight: 53.5 kg Body Mass Index (BMI) 17.9 Intake & Output: Intake and Output for Last 24 Hours 12/13/24 12/14/24 12/15/24 23:59 23:59 23:59 Intake Total 1254.09 / 1254.09 890 / 890 120 / 120 Output Total 700 / 925 650 / 650 350 / 350 Balance 554.09 / 329.09 240 / 240 -230 / -230 Medical Nutrition Assessment Dietitian: Malnutrition Criteria Met Start: 12/09/24 09:42 Freq: Status: Active Protocol: Document 12/09/24 09:56 SLA (Rec: 12/09/24 09:56 SLA [id number]) Nutrition Malnutrition Evidence of Yes Malnutrition Exists Malnutrition (severe Chronic ): Evidenced By Suboptimal Energy Intake (Severe),Weight Loss (Severe), Physical Changes (Severe) Clinical Problem Chronic Disease or Condition Related Malnutrition Etiology related to inadequate energy intake Signs/Symptoms as 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 Rec consider appetite stimulant to help encourage improved po intake. Lab / Micro Data 12/15/24 04:08 12/15/24 04:08 Labs: Laboratory Results - last 24 hr 12/14/24 04:01: Diff Path Review N/A 12/15/24 04:08: WBC 5.1, RBC 2.45 L, Hgb 7.8 L, Hct 23.6 L, MCV 96.3 H, MCH 31.8, MCHC 33.1, RDW Std Deviation 75.8 H, RDW Coeff of Zachariah 22.1 H, Plt Count 226, MPV 13.2 H, Immature Gran % (Auto) 0.800, Neut % (Auto) 41.5 L, Lymph % (Auto) 11.7 L, Harrison % (Auto) 46.0 H, Eos % (Auto) 0.0, Baso % (Auto) 0.0, Absolute Neuts (auto) 2.1, Absolute Lymphs (auto) 0.59 L, Nucleated RBC % 1.2, Diff Path Review Not Reportable, Polychromasia RARE, Anisocytosis 3+, Microcytosis 2+, Ovalocytes 1+, Suresh Cells 1+, Sodium 132 L, Potassium 3.8, Chloride 103, Carbon Dioxide 22.2, Anion Gap 7, BUN 19, Creatinine 0.57 L, Estim Creat Clear Calc 47.37 L, Est GFR (MDRD) Non-Af 94, BUN/Creatinine Ratio 34.0 H, Glucose 110 H, Calcium 7.9 Micro: Microbiology 12/08/24 13:00 Blood Culture (Wb) - Anticubital Right Blood Culture - Final No growth in 5 days. 12/08/24 11:40 Blood Culture (Wb) - Left Forearm Blood Culture - Final No growth in 5 days. 12/10/24 16:30 Urine Catheter - Calvo Urine Culture - Final Culture exhibits no growth. 12/08/24 13:10 Urine, Random Urine Culture - Final Staphylococcus epidermidis Physical Exam Const alert and no apparent distress HEENT head/scalp atraumatic and moist oral mucous membranes Resp normal respiratory effort, no retractions, no use of accessory muscles and clear to auscultation bilaterally Cardio regular rate, regular rhythm, S1 normal heart sound and S2 normal heart sound GI normal to inspection, nondistended, normoactive bowel sounds, soft to palpation, non-tender and non-distended Extremity normal to inspection Neuro Sensorium / Orientation: awake and alert Assessment & Plan Assessment/Plan (1) Septic shock: PLAN: suspect 2/2 UTI complicated by possible adrenal insufficiency. POA. See admission data for SIRS/qSOFA criteria norepi gtt weaned off. Midodrine 15 TID. abx with CTX ID consult. ACTH test ordered pre 12.7, post 22.4 Started on stress-dose steroids with hydrocortisone 100 IV Q8h. Will wean down to 50 IV TID today. (2) UTI (urinary tract infection): PLAN: 50-80k Staph epi. CTX through today. PLAN: Plan MI: POA, since resolved chronic conditions: afib: s/p maze procedure. CAD: clopidogrel and simvastatin. Anemia: Hg down from admission. At least partially attributable to dilution, but also has known MDS. He did receive 1 unit PRBCs while he was here. MDS: complicating anemia issues. He has been transfused periodically. Continue to monitor his Hg. Transfuse if Hg drops below 7. VTE prophylaxis: SCDs given the anemia Patient anxious to go home, but advised against it at this time until his BP stabilizes after being weaned off IV steroids Charges/Coding Visit Charges Inpatient E&M: 75064 Subs Hosp L2
[2024-12-15] MEDS: Senna/Docusate Sodium 1 Tablet 2 TABLET PO ×2 (07:29→20:41)
[2024-12-15] MEDS: Enoxaparin 40 MG/0.4 ML Syringe SC (07:29)
[2024-12-15] MEDS: Pantoprazole Sodium 40 MG Tablet PO (07:29)
[2024-12-15] MEDS: Ceftriaxone 2 GM in 0.9% Normal Saline (50mL MB+) 50 ML IV (07:29)
[2024-12-15] MEDS: Polyethylene Glycol 3350 17 GM PACKET PO (07:29)
[2024-12-15] MEDS: Folic Acid 1 MG Tablet PO (07:30)
[2024-12-15] MEDS: Ranolazine 500 MG Tablet 1000 MG PO ×2 (07:30→20:41)
[2024-12-15] MEDS: Midodrine HCl 5 MG Tablet 15 MG PO ×3 (07:30→17:00)
[2024-12-15] MEDS: Clopidogrel Bisulfate 75 MG Tablet PO (07:30)
[2024-12-15] MEDS: Ascorbic Acid 500 MG Tablet PO ×2 (07:30→20:41)
[2024-12-15] MEDS: Cholecalciferol (VIT D3) 25 MCG TABLET (1,000 UNITS) PO (07:30)
--- NOTE | 2024-12-15 10:24 | PN.CC_ITS ---
Assessment & Plan Assessment/Plan (1) Sepsis: PLAN: Plan RECOMMENDATIONS: 1. Continue antimicrobials per ID recommendations. 2. Continue to wean stress dose steroids as tolerated. 3. Continue scheduled midodrine. 4. Encourage incentive spirometer use and mobilize patient as tolerated. IMPRESSIONS: 1. Multifactorial shock I suspect that the patient's presentation was likely secondary to a combination of hypovolemic and septic etiologies. There was inherent difficulty in weaning the patient from vasopressor support. Although a cosyntropin stimulation test was completed and demonstrated an adequate response, given his persistent Levophed requirement, he was started on stress dose steroids on December 13. The patient has since been weaned from Levophed. He will remain on scheduled midodrine as ordered. Antimicrobials will be continued per ID recommendations. 2. Acute kidney injury Resolved. Prerenal in etiology with normalization in renal function, following volume expansion. Continue to monitor urine output. No current indication for renal replacement therapy. 3. Anemia complicated by history of myelodysplastic syndrome Continue to monitor blood counts and transfuse if hemoglobin drops below 7 g/dL. Continue PPI therapy. 4. History of atrial fibrillation/coronary artery disease status post CABG/hyperlipidemia/history of MDS Complicates care, management, recovery and prognosis. Continue supportive care as noted above. This note was generated with EasyLink dictation software. It may contain incorrect words, spelling, and punctuation that were not noted in checking the note before signing. Subjective Subjective The patient was seen and examined at the bedside this morning. Events from the last 24 hours have been reviewed. The patient is currently afebrile, hemodynamically stable and maintaining appropriate oxygen saturations on room air. The patient is documented to be overall net positive a liter for the hospitalization. Hemoglobin has trended down to 7.8 g/dL. Creatinine is within normal limits. The patient remains on scheduled midodrine and stress dose steroids. Objective Data Objective Data The patient's most recent lab work, culture data and imaging studies have all been personally reviewed. Vital Signs: Vital Signs Temp Pulse Resp BP Pulse Ox O2 Del Method O2 Flow Rate 96.9 F L 81 20 H 85/53 L 97 Room Air 2 12/15/24 08:00 12/15/24 08:00 12/15/24 08:00 12/15/24 08:00 12/15/24 08:00 12/15/24 08:00 12/13/24 01:00 Oxygen Flow Rate (L/min) 2 Oxygen Delivery Method Room Air Weight: 117 lb 15.157 oz Body Mass Index (BMI) 17.9 Intake & Output: Intake and Output for Last 24 Hours 12/13/24 12/14/24 12/15/24 23:59 23:59 23:59 Intake Total 1254.09 / 1254.09 890 / 890 170 / 170 Output Total 700 / 925 650 / 650 350 / 350 Balance 554.09 / 329.09 240 / 240 -180 / -180 Medical Nutrition Assessment Dietitian: Malnutrition Criteria Met Start: 12/09/24 09:42 Freq: Status: Active Protocol: Document 12/09/24 09:56 SLA (Rec: 12/09/24 09:56 SLA [id number]) Nutrition Malnutrition Evidence of Yes Malnutrition Exists Malnutrition (severe Chronic ): Evidenced By Suboptimal Energy Intake (Severe),Weight Loss (Severe), Physical Changes (Severe) Clinical Problem Chronic Disease or Condition Related Malnutrition Etiology related to inadequate energy intake Signs/Symptoms as 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 Rec consider appetite stimulant to help encourage improved po intake. Lab / Micro Data Attestation: I reviewed the patient's lab results. 12/15/24 04:08 12/15/24 04:08 Labs: Laboratory Results - last 24 hr 12/14/24 04:01: Diff Path Review N/A 12/15/24 04:08: WBC 5.1, RBC 2.45 L, Hgb 7.8 L, Hct 23.6 L, MCV 96.3 H, MCH 31.8, MCHC 33.1, RDW Std Deviation 75.8 H, RDW Coeff of Zachariah 22.1 H, Plt Count 226, MPV 13.2 H, Immature Gran % (Auto) 0.800, Neut % (Auto) 41.5 L, Lymph % (Auto) 11.7 L, [place] % (Auto) 46.0 H, Eos % (Auto) 0.0, Baso % (Auto) 0.0, Absolute Neuts (auto) 2.1, Absolute Lymphs (auto) 0.59 L, Nucleated RBC % 1.2, Diff Path Review Not Reportable, Polychromasia RARE, Anisocytosis 3+, Microcytosis 2+, Ovalocytes 1+, [place] Cells 1+, Sodium 132 L, Potassium 3.8, Chloride 103, Carbon Dioxide 22.2, Anion Gap 7, BUN 19, Creatinine 0.57 L, Estim Creat Clear Calc 47.37 L, Est GFR (MDRD) Non-Af 94, BUN/Creatinine Ratio 34.0 H, Glucose 110 H, Calcium 7.9 Micro: Microbiology 12/08/24 13:00 Blood Culture (Wb) - Anticubital Right Blood Culture - Final No growth in 5 days. 12/08/24 11:40 Blood Culture (Wb) - Left Forearm Blood Culture - Final No growth in 5 days. 12/10/24 16:30 Urine Catheter - Calvo Urine Culture - Final Culture exhibits no growth. 12/08/24 13:10 Urine, Random Urine Culture - Final Staphylococcus epidermidis Radiography Diagnostic Testing: Radiology Impression Echocardiogram 12/11/24 10:10 Interpretation Summary The left ventricular ejection fraction is 45 %. Normal LV size. Mild to moderate segmental systolic dysfunction (see wall motion). Mild (1+) eccentric mitral valve insufficiency. Pulmonary artery systolic pressure is 38 mmHg. Ordering Physician: John Crawley Referring Physician: [facility] Performed By: Ally Scott RDCS Renal Ultrasound 12/12/24 07:00 IMPRESSION: 1. No hydronephrosis. No visualized abscess or definite renal calculi. 2. Appearance of the bladder suggesting chronic bladder outlet obstruction. Low-level intraluminal debris versus artifact, possibly reflecting cystitis. Difficult to exclude small bladder calculi. 3. Additional description as above. Reading Location: [facility] Physical Exam Const alert and no apparent distress Constitutional Narrative: Frail and cachectic elderly male. General Appearance: cooperative HEENT normocephalic, head/scalp atraumatic and moist oral mucous membranes General Ear: hearing grossly impaired Eyes PERRL, EOMs intact bilaterally and conjunctivae normal Neck supple General: trachea midline Chest inspection of chest normal Resp normal respiratory effort Auscultation: Negative for rales, rhonchi or wheezes Cardio regular rate and regular rhythm GI normal to inspection, nondistended, normoactive bowel sounds Extremity General Extremity: edema; Negative for clubbing Skin no rashes or lesions noted Neuro CN's II-XII intact bilaterally, moves all extremities and no focal motor deficits Psych cooperative and affect normal Charges/Coding Visit Charges Inpatient E&M: 85403 Subs Hosp L2
[2024-12-15] MEDS: Hydrocortisone Sod Succinate 100 MG/2 ML Vial 50 MG IV ×2 (12:53→20:42)
[2024-12-15] MEDS: Atorvastatin Calcium 10 MG Tablet PO (20:40)
[2024-12-16 02:00] VITALS: BP 112/64; PULSE 90; RESP 20; TEMP 36.4; O2SAT 97
[2024-12-16 03:39] VITALS: PULSE 75
[2024-12-16] MEDS: Hydrocortisone Sod Succinate 100 MG/2 ML Vial 50 MG IV (05:44)
[2024-12-16] MEDS: 0.9% Saline Lock 10 ML Syringe IV (05:45)
[2024-12-16 06:00] VITALS: BMI 17.9
[2024-12-16 06:16] LABS: Absolute Lymphocyte Count 0.61 X10^3/uL (0.83-4.51); Absolute Neutrophil Count 1.2 X10^3/uL (2.0-7.7); Hematocrit 26.3 % (40-54); Hemoglobin 8.5 g/dL (13.0-16.5); Lymphocyte # 0.61 X10^3/ul (0.83-4.51); Lymphocyte % 18.8 % (19-41); Mean Corp Hgb Conc 32.3 g/dL (32-36); Mean Corpuscular Hgb 31.4 pg (27.0-32.0); Mean Platelet Vol. 13.3 fl (6.2-12.0); Monocyte# 1.36 X10^3/uL; NRBC Flagged by Analyzer 1.2 % (0-5); Neutrophil # 1.22 X10^3/uL (2.7-7.7); Neutrophil % 37.7 % (47-70); POSITIVE MORPHOLOGY YES; Platelet Count 236 K/mm3 (150-450); RBC Distribution Width CV 22.2 % (11.6-14.6); Red Blood Count 2.71 M/mm3 (4.6-6.2); White Blood Count 3.2 K/mm3 (4.4-11.0)
[2024-12-16 06:30] LABS: Differential Indicated SCAN CRITERIA MET
[2024-12-16 06:36] LABS: Anion Gap 7 (5-15); BUN 15 mg/dL (4-19); BUN/Creat Ratio 32.4 RATIO (10-20); Calcium,Total 7.9 mg/dL (7.6-11.0); Carbon Dioxide 23.3 mmol/L (21.0-32.0); Chloride 103 mmol/L (98-108); Creatinine, Serum 0.47 mg/dL (0.70-1.20); EST Glomerular Filtration Rate 99 (>60); Estimated Creatinine Clearance 47.28 ml/min (50-250); Glucose 96 mg/dL (70-99); Potassium 3.6 mmol/L (3.3-5.1); Sodium Level 134 mmol/L (133-145)
--- NOTE | 2024-12-16 07:05 | PN.HOSP_ITS ---
Reason for Visit Reason for Visit: Diagnoses Sepsis, unspecified organism (12/08/24) Acute kidney failure, unspecified (12/08/24) Urinary tract infection, site not specified (12/08/24) Severe sepsis without septic shock (12/08/24) Severe sepsis with septic shock (12/08/24) Subjective Subjective Feels well. No new complaints. Objective Data Objective Data Vital Signs: Vital Signs Temp Pulse Resp BP Pulse Ox O2 Del Method O2 Flow Rate 36.4 C L 75 20 H 112/64 97 Room Air 2 12/16/24 02:00 12/16/24 03:39 12/16/24 02:00 12/16/24 02:00 12/16/24 02:00 12/16/24 02:00 12/13/24 01:00 Oxygen Flow Rate (L/min) 2 Oxygen Delivery Method Room Air Weight: 53.4 kg Body Mass Index (BMI) 17.9 Intake & Output: Intake and Output for Last 24 Hours 12/14/24 12/15/24 12/16/24 23:59 23:59 23:59 Intake Total 890 / 890 790 / 790 50 / 50 Output Total 650 / 650 1600 / 1600 350 / 350 Balance 240 / 240 -810 / -810 -300 / -300 Medical Nutrition Assessment Dietitian: Malnutrition Criteria Met Start: 12/09/24 09:42 Freq: Status: Active Protocol: Document 12/09/24 09:56 SILVANA (Rec: 12/09/24 09:56 SLA [id number]) Nutrition Malnutrition Evidence of Yes Malnutrition Exists Malnutrition (severe Chronic ): Evidenced By Suboptimal Energy Intake (Severe),Weight Loss (Severe), Physical Changes (Severe) Clinical Problem Chronic Disease or Condition Related Malnutrition Etiology related to inadequate energy intake Signs/Symptoms as evidenced 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 Rec consider appetite stimulant to help encourage improved po intake. Lab / Micro Data 12/16/24 05:50 12/16/24 05:50 Labs: Laboratory Results - last 24 hr 12/16/24 05:50: WBC 3.2 L, RBC 2.71 L, Hgb 8.5 L, Hct 26.3 L, MCV 97.0 H, MCH 31.4, MCHC 32.3, RDW Std Deviation 75.0 H, RDW Coeff of Zachariah 22.2 H, Plt Count 236, MPV 13.3 H, Immature Gran % (Auto) 1.500 H, Neut % (Auto) 37.7 L, Lymph % (Auto) 18.8 L, [place] % (Auto) 42.0 H, Eos % (Auto) 0.0, Baso % (Auto) 0.0, A bsolute Neuts (auto) 1.2 L, Absolute Lymphs (auto) 0.61 L, Nucleated RBC % 1.2, Sodium 134, Potassium 3.6, Chloride 103, Carbon Dioxide 23.3, Anion Gap 7, BUN 15, Creatinine 0.47 L, Estim Creat Clear Calc 47.28 L, Est GFR (MDRD) Non-Af 99, BUN/Creatinine Ratio 32.4 H, Glucose 96, Calcium 7.9 Micro: Microbiology 12/08/24 13:00 Blood Culture (Wb) - Anticubital Right Blood Culture - Final No growth in 5 days. 12/08/24 11:40 Blood Culture (Wb) - Left Forearm Blood Culture - Final No growth in 5 days. 12/10/24 16:30 Urine Catheter - Calvo Urine Culture - Final Culture exhibits no growth. 12/08/24 13:10 Urine, Random Urine Culture - Final Staphylococcus epidermidis Physical Exam Const alert and no apparent distress Constitutional Narrative: cachectic HEENT head/scalp atraumatic and moist oral mucous membranes Neuro Sensorium / Orientation: awake and alert Assessment & Plan Assessment/Plan (1) Septic shock: PLAN: resolved suspect 2/2 UTI complicated by chronically low blood pressure (reviewed previous records and has been low chronically). Unlikely adrenal insufficiency but will continue steroid taper with hydrocortisone. POA. See admission data for SIRS/qSOFA criteria norepi gtt weaned off. Midodrine 15 TID. abx with CTX ID consult. ACTH test ordered pre 12.7, post 22.4 Started on stress-dose steroids with hydrocortisone 100 IV Q8h. Will wean down to 50 IV TID 12/15. Reviewing prior data, his BP has been low in the past. Will continue midodrine. Wean hydrocortisone to PO. (2) UTI (urinary tract infection): PLAN: 50-80k Staph epi. Ceftriaxone completed. PLAN: Plan MI: POA, since resolved chronic conditions: * afib: s/p maze procedure. * CAD: clopidogrel and simvastatin. * Anemia: Hg down from admission. At least partially attributable to dilution, but also has known MDS. He did receive 1 unit PRBCs while he was here. * MDS: complicating anemia issues. He has been transfused periodically. Continue to monitor his Hg. Transfuse if Hg drops below 7. VTE prophylaxis: SCDs given the anemia
[2024-12-16 07:15] LABS: Anisocytosis 2+
[2024-12-16 08:00] VITALS: BP 118/64; PULSE 69; PULSE 79; RESP 18; TEMP 36.2; O2SAT 98
[2024-12-16] MEDS: Midodrine HCl 5 MG Tablet 15 MG PO ×2 (08:16→12:06)
[2024-12-16] MEDS: Folic Acid 1 MG Tablet PO (08:16)
[2024-12-16] MEDS: Senna/Docusate Sodium 1 Tablet 2 TABLET PO (08:17)
[2024-12-16] MEDS: Clopidogrel Bisulfate 75 MG Tablet PO (08:17)
[2024-12-16] MEDS: Pantoprazole Sodium 40 MG Tablet PO (08:17)
[2024-12-16] MEDS: Ranolazine 500 MG Tablet 1000 MG PO (08:18)
[2024-12-16] MEDS: Polyethylene Glycol 3350 17 GM PACKET PO (08:19)
[2024-12-16] MEDS: Cholecalciferol (VIT D3) 25 MCG TABLET (1,000 UNITS) PO (08:19)
[2024-12-16] MEDS: Ascorbic Acid 500 MG Tablet PO (08:19)
[2024-12-16] MEDS: Hydrocortisone 10 MG Tablet 20 MG PO (08:35)
--- NOTE | 2024-12-16 10:14 | PCM.DC.SUM ---
Providers Date of Admission: 12/08/24 Primary Care Physician: [facility] Consultations 12/08/24 15:38 Consult: Export Sales Assistant / Pulmonary Medicine Routine Consulting Provider: Intensivists/Pulmonary Med Reason for Consult: severe sepsis due to UTI EMERGENT Consult: No Notified: Yes Date Notified: 12/08/24 Time Notified: 14:59 Method of Notification: Text 12/10/24 15:08 Consult: Infectious Disease Routine Consulting Provider: Ryan Hodgson Reason for Consult: MRSE in urine, not pathologic range, septic shock EMERGENT Consult: No Notified: Yes Date Notified: 12/10/24 Time Notified: 15:08 Method of Notification: Text Reason For Visit: SEVERE SEPSIS Diagnosis Discharge Diagnosis (1) Septic shock: Status: Acute Code(s): A41.9 - Sepsis, unspecified organism; R65.21 - Severe sepsis with septic shock Plan: resolved suspect 2/2 UTI complicated by chronically low blood pressure (reviewed previous records and has been low chronically). Unlikely adrenal insufficiency but will continue steroid taper with hydrocortisone. POA. See admission data for SIRS/qSOFA criteria norepi gtt weaned off. Midodrine 15 TID. abx with CTX ID consult. ACTH test ordered pre 12.7, post 22.4 Started on stress-dose steroids with hydrocortisone 100 IV Q8h. Will wean down to 50 IV TID 12/15. Reviewing prior data, his BP has been low in the past. Will continue midodrine. Wean hydrocortisone to PO. (2) UTI (urinary tract infection): Status: Acute Code(s): N39.0 - Urinary tract infection, site not specified Plan: 50-80k Staph epi. Ceftriaxone completed. Plan MI: POA, since resolved chronic conditions: afib: s/p maze procedure. CAD: clopidogrel and simvastatin. Anemia: Hg down from admission. At least partially attributable to dilution, but also has known MDS. He did receive 1 unit PRBCs while he was here. MDS: complicating anemia issues. He has been transfused periodically. Continue to monitor his Hg. Transfuse if Hg drops below 7. VTE prophylaxis: SCDs given the anemia Medications at Discharge Home Medications acetaminophen 500 mg tablet 500 mg PO DAILY PRN PRN BACK PAIN 05/24/19 cholecalciferol (vitamin D3) 25 mcg (1,000 unit) tablet 25 mcg PO DAILY vitamin 02/26/22 Handicap Placard #1 ea 08/22/22 nitroglycerin 0.4 mg sublingual tablet 0.4 mg sublingual Q5-15M PRN CHEST PAIN #25 tabs 11/12/22 ascorbic acid (vitamin C) 500 mg tablet 500 mg PO BID #60 tabs 06/01/23 folic acid 1 mg tablet 1 mg PO DAILY #30 tabs 06/01/23 darbepoetin renée in polysorbat 300 mcg/0.6 mL in polysorbate injection syringe (Aranesp) 300 mcg subcut Q2W 07/24/23 ranolazine 1,000 mg tablet,extended release,12 hr 1,000 mg PO BID #180 tabs 02/26/24 famotidine 20 mg tablet (Pepcid) 20 mg PO QDAY #30 tabs 06/22/24 isosorbide mononitrate 30 mg tablet,extended release 24 hr 30 mg PO QDAY HEART #90 tabs 09/02/24 docusate sodium 100 mg capsule 100 mg PO QDAY 09/05/24 clopidogrel 75 mg tablet (Plavix) 75 mg PO DAILY #90 tabs 09/12/24 simvastatin 20 mg tablet 20 mg PO QHS #90 tabs 10/21/24 hydrocortisone 10 mg tablet 10 mg PO DAILY #12 tabs 12/16/24 midodrine 5 mg tablet 15 mg (3 x 5 mg) PO TIDCM #90 tabs 12/16/24 Hospital Course Operations None Procedures None Summary of Care Provided Minutes Spent on Discharge: 32 Hospital Course: Patient presents with septic shock secondary to urinary tract infection. Patient was on norepinephrine but that was also weaned off and patient was started on stress dose steroids. Patient did have an ACTH stim test that was performed and did show improvement with the Quadracin but was not terribly high but was started on steroids nonetheless. Patient overall has felt well and doing better. He has completed antibiotics. He has been started on midodrine. It appears, that he has chronically low blood pressure and not adrenal insufficiency but will continue with hydrocortisone taper and will continue with the midodrine moving forward. 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 Rec consider appetite stimulant to help encourage improved po intake. Weight / BMI Weight Weight: 53.4 kg Body Mass Index (BMI) 17.9 ABG / Lab / Microbiology Data 12/16/24 05:50 12/16/24 05:50 Laboratory: Laboratory Results - last 24 hr 12/16/24 05:50: WBC 3.2 L, RBC 2.71 L, Hgb 8.5 L, Hct 26.3 L, MCV 97.0 H, MCH 31.4, MCHC 32.3, RDW Std Deviation 75.0 H, RDW Coeff of Zachariah 22.2 H, Plt Count 236, MPV 13.3 H, Immature Gran % (Auto) 1.500 H, Neut % (Auto) 37.7 L, Lymph % (Auto) 18.8 L, [place] % (Auto) 42.0 H, Eos % (Auto) 0.0, Baso % (Auto) 0.0, Absolute Neuts (auto) 1.2 L, Absolute Lymphs (auto) 0.61 L, Nucleated RBC % 1.2, Anisocytosis 2+, Sodium 134, Potassium 3.6, Chloride 103, Carbon Dioxide 23.3, Anion Gap 7, BUN 15, Creatinine 0.47 L, Estim Creat Clear Calc 47.28 L, Est GFR (MDRD) Non-Af 99, BUN/Creatinine Ratio 32.4 H, Glucose 96, Calcium 7.9 Microbiology: Microbiology 12/08/24 13:00 Blood Culture (Wb) - Anticubital Right Blood Culture - Final No growth in 5 days. 12/08/24 11:40 Blood Culture (Wb) - Left Forearm Blood Culture - Final No growth in 5 days. 12/10/24 16:30 Urine Catheter - Calvo Urine Culture - Final Culture exhibits no growth. 12/08/24 13:10 Urine, Random Urine Culture - Final Staphylococcus epidermidis D/C Instructions Discharge Diet: No restrictions DC O2, CPAP, BIPAP Needs Home O2 Discharge instructions: No Meaningful Use Info Meaningful Use Meaningful Use Diagnoses (Choose all that apply): None applicable Ischemic Stroke Statin Dosing Therapy Reference: STATIN DOSE THERAPY REFERENCE: * Patients > 75 years receive moderate or high dose statin therapy. * Patients 75 years or YOUNGER should receive HIGH intensity statin dose unless contraindicated. You will be required to document reason for non-treatment if statin daily dose does not meet guidelines. HIGH DOSE STATIN THERAPY DAILY Atorvastatin > than or = to 40 mg Rosuvastatin > than or = to 20 mg Amlodipine + Atorvastatin > than or = to 2.5/40 mg Ezetimibe + Simvastatin 10/80 mg Simvastatin 80mg Discharge Plan Admission Admit Date/Time: 12/08/24 14:04 Primary Reason for Your Visit: Septic shock. Urinary tract infection. Attending Provider: Vijay Masters Primary Care Provider: [facility] Consulting Providers: Jeanie Giang; Devendra Acosta; Ryan Hodgson; Latrell Landeros; Tejinder Vasques; Waldo Garcia; Raj Albrecht; Nghia Garland; Teofilo Hoyt; Yuniel Teague; Deyanira Bobby; Taqueria Thornton; Mateo Perea; Pierce Le; Albania Gonzalez; Ana Laurent; Ginny Sood; Kapil Lee; Mitchell Kessler; Ha White; Brian Hdz; Mauricio Crane; Lui Hardy; Vinayak Meyer; John Crawley; Bernardo oPol Discharge Orders/Prescriptions Prescriptions: New midodrine 5 mg Tablet 15 mg PO TIDCM Qty: 90 0RF hydrocortisone 10 mg tablet 10 mg PO DAILY Qty: 12 0RF Rx Instructions: 2 tabs twice daily for 2 days, then 1 tablet twice daily for 2 days, then 1 tablet daily for 2 days. Continued cholecalciferol (vitamin D3) 25 mcg (1,000 unit) tablet 25 mcg PO DAILY (DME) Handicap Cecilia See Rx Instructions .Route .MEDSUPPLY Qty: 1 0RF Rx Instructions: Good from 08/22/2022-08/22/2027 Aranesp (in polysorbate) 300 mcg/0.6 mL syringe 300 mcg subcut Q2W famotidine [Pepcid] 20 mg tablet 20 mg PO QDAY Qty: 30 11RF docusate sodium 100 mg capsule 100 mg PO QDAY acetaminophen 500 MG tablet 500 mg PO DAILY PRN PRN (Reason: BACK PAIN) ascorbic acid (vitamin C) 500 mg tablet 500 mg PO BID Qty: 60 2RF folic acid 1 mg tablet 1 mg PO DAILY Qty: 30 2RF nitroglycerin 0.4 mg tablet, sublingual 0.4 mg SUBLINGUAL Q5-15M PRN (Reason: CHEST PAIN) Qty: 25 6RF ranolazine 1,000 mg tablet extended release 12 hr 1,000 mg PO BID Qty: 180 3RF isosorbide mononitrate 30 mg tablet extended release 24 hr 30 mg PO QDAY Qty: 90 3RF clopidogrel [Plavix] 75 mg tablet 75 mg PO DAILY Qty: 90 3RF simvastatin 20 mg tablet 20 mg PO QHS Qty: 90 3RF Discontinued potassium chloride 20 mEq tablet extended release 20 meq PO DAILY PRN (Reason: Take with Lasix) Qty: 30 11RF furosemide [Lasix] 40 mg tablet 40 mg PO QAM Qty: 5 0RF Referrals / Follow [facility] [Primary [facility] - Within 2 Weeks Disposition Disposition (needs filled in before D/C Order can be placed): Home, Self Care Charges/Coding Visit Charges Inpatient E&M: 62982 Disch Hosp >30min
--- NOTE | 2024-12-16 10:37 | CASEMGMT ---
This RN JOY participated in ICU rounds on 12/14, 12/15, & 12/16 with the pt and pt who have stated the plan @ DC is to return home with no additional needs. See this RN JOY note from 12/13. Pt now has an order for DC placed. MARI CM to pt room at this time. Pt at bedside. Pt and pt continue to state that they feel safe returning home today and deny HH, OP Tx, or any other DC needs. 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 Pt RN notified.
[2024-12-16 12:00] VITALS: BP 100/65; PULSE 86; RESP 16; TEMP 36.1; O2SAT 98
== END 2024-12-16 14:44 | disposition home or self-care (01) | DRG 871 ==
LOC: ED 13:57 → ICU 14:56
PROVIDERS: Internal Medicine; Internal Medicine Critical Care Medicine; Internal Medicine Pulmonary Disease; Admitting Provider Student in an Organized Health Care Education/Training Program; Emergency Provider Emergency Medicine
DX: A41.1 Sepsis due to other specified staphylococcus (principal); R65.21 Severe sepsis with septic shock; E43 Unspecified severe protein-calorie malnutrition; G93.49 Other encephalopathy; N17.9 Acute kidney failure, unspecified; N39.0 Urinary tract infection, site not specified; Z68.1 Body mass index [BMI] 19.9 or less, adult; E83.39 Other disorders of phosphorus metabolism; D46.9 Myelodysplastic syndrome, unspecified; E86.1 Hypovolemia; Z66 Do not resuscitate; I48.0 Paroxysmal atrial fibrillation; K21.9 Gastro-esophageal reflux disease without esophagitis; I95.1 Orthostatic hypotension; E78.5 Hyperlipidemia, unspecified; I25.2 Old myocardial infarction; I25.10 Atherosclerotic heart disease of native coronary artery without angina pectoris; E87.6 Hypokalemia; T50.3X5A Adverse effect of electrolytic, caloric and water-balance agents, initial encounter; I49.3 Ventricular premature depolarization; I49.1 Atrial premature depolarization; R04.0 Epistaxis; R60.0 Localized edema; Z87.19 Personal history of other diseases of the digestive system; Z95.1 Presence of aortocoronary bypass graft; Z79.02 Long term (current) use of antithrombotics/antiplatelets; Z79.899 Other long term (current) drug therapy; Z90.49 Acquired absence of other specified parts of digestive tract
CPT/HCPCS: 36415; 36569; 70450; 71045; 76770; 80048; 80053; 80202; 81001; 82533; 83605; 83735; 84100; 84145; 84443; 85014; 85018; 85025; 85610; 85730; 86850; 86900; 86901; 87040; 87077; 87086; 87088; 87186; 93005; 93306; 94762; 97116; 97162; 97166; 97530; 97535; 97802; 97803; 99284; P9016; A4216; J0696; J0834

== ENCOUNTER 2025-03-02 11:08 | Emergency (ER) | payer OTHER, SELFPAY ==
[2025-03-02 11:08] VITALS: BP 101/51; PULSE 79; RESP 16; TEMP 36.3; O2SAT 100
[2025-03-02 11:18] VITALS: BMI 16.0
--- NOTE | 2025-03-02 11:34 | CT_ITS ---
PROCEDURE: SPINE CERVICAL WITHOUT CONTRAS 03/02/2025 REASON FOR EXAM: FALL TECHNIQUE: SPINE CERVICAL WITHOUT CONTRAS Coronal and Sagittal reconstruction series were provided. CONTRAST: None One or more dose reduction techniques were used (e.g., Automated exposure control, adjustment of the mA and/or kV according to patient size, use of iterative reconstruction technique. RADIATION DOSE SUMMARY: CTDlvol: 12.47 mGy DLP: 265.48 mGycm COMPARISON: None FINDINGS: Alignment: Normal cervical lordosis. Vertebrae: Multilevel spondylosis. Soft Tissues: Calcification of the carotid bifurcations bilaterally. Other: C1-2: Degenerative changes of the atlantoaxial joint. C2-3: Facet joint osteoarthritis and hypertrophy worse on the left side. No significant stenosis seen. C3-4: Marked degree of disc space narrowing. Facet joint osteoarthritis. Uncovertebral arthrosis. Bilateral neural foraminal stenosis worse on the right side. C4-5: Marked degree of disc space narrowing and degeneration. Uncovertebral arthrosis. Mild bilateral neural foraminal stenosis. C5-6: Marked degree of disc space narrowing. Spondylosis. Uncovertebral arthrosis. Moderate degree of bilateral neural foraminal stenosis worse on the left side. Facet joint osteoarthritis. C6-7: Moderate degree of disc space narrowing. Facet joint osteoarthritis and hypertrophy. Bilateral neural foraminal stenosis. C7-T1: Unremarkable CT/Spine Cervical without Contras IMPRESSION: NO ACUTE CERVICAL FRACTURE. Multiple level degenerative changes with the neural foraminal stenosis. Reading Location: [id number]
--- NOTE | 2025-03-02 11:34 | CT_ITS ---
PROCEDURE: SPINE LUMBAR WITHOUT CONTRAST 03/02/2025 REASON FOR EXAM: INJURY TECHNIQUE: SPINE LUMBAR WITHOUT CONTRAST Coronal and Sagittal reconstruction series were provided. One or more dose reduction techniques were used (e.g., Automated exposure control, adjustment of the mA and/or kV according to patient size, use of iterative reconstruction technique COMPARISON: November 04, 2021 MRI RADIATION DOSE SUMMARY: DLP: 1483.38 mGycm FINDINGS: There is a 50% compression deformity at L1, similar to the prior. There is a 25% compression deformity at L2 with fracture of the anterior superior endplate, and adjacent visible soft tissue edema, likely acute. There is grade 1 spondylolisthesis at L3-4, 0.3 cm. There is degenerative disc disease with vacuum disc phenomena L4- 5 and L5-S1. There is no bony spinal stenosis. There is [id number] neural foraminal narrowing from L4-S1. There are multiple right renal stones with the largest in the midpole measuring 0.35 cm. A 0.2 cm nonobstructing stone is visible in the midpole of the left kidney. Atherosclerotic calcifications are noted. CT/Spine Lumbar without Contrast IMPRESSION: There is a 50% compression deformity at L1, similar to the prior. There is a 25% compression deformity at L2 with fracture of the anterior superi or endplate, and adjacent visible soft tissue edema, likely acute. There is grade 1 spondylolisthesis at L3-4, 0.3 cm. There is degenerative disc disease with vacuum disc phenomena L4-5 and L5-S1. T here is no bony spinal stenosis. There is [id number] neural foraminal narrowing from L4-S1. Bilateral nephrolithiasis. Critical results were discussed with Dr. Sal by Dr. Gutierrez at the time of di ctation. Reading Location: [facility]
--- NOTE | 2025-03-02 11:34 | CT_ITS ---
PROCEDURE: BRAIN/HEAD WITHOUT CONTRAST 03/02/2025 REASON FOR EXAM: HEAD INJURY TECHNIQUE: BRAIN/HEAD WITHOUT CONTRAST Coronal and Sagittal reconstruction series were provided. One or more dose reduction techniques were used (e.g., Automated exposure control, adjustment of the mA and/or kV according to patient size, use of iterative reconstruction technique. RADIATION DOSE SUMMARY: CTDlvol: 44.99 mGy DLP: 812.98 mGycm COMPARISON: Prior study dated December 08, 2024. FINDINGS: Brain: Low density in the periventricular white matter suggests mild chronic small vessel ischemic changes. Atherosclerotic plaque formation of the cavernous portions of the internal carotid arteries bilaterally. CSF Spaces: Moderate generalized cerebral atrophy Sinuses/Mastoids: Clear at visualized levels Bones: Unremarkable CT/Brain/Head without Contrast IMPRESSION: Stable examination. Reading Location: [id number]
--- NOTE | 2025-03-02 12:15 | ED.VIS.FALL ---
HPI HPI - Fall History of Present Illness Chief Complaint: Fall Informant: patient and spouse/S.O. Narrative Narrative: History of myelodysplastic syndrome brought here by spouse mechanical fall 2 evenings ago. He ambulates with a cane at baseline. Spouse report they were walking together she turned away he fell right on his bottom. Reports low back pain. States he did bump his head did not lose consciousness. He does take Plavix. He had a follow-up with his oncology team today with lab work hemoglobin of 9.5. Spouse reports after office visit she decided to take him here as he did not want to come to the hospital 2 days ago. Denies any pain down his legs. He is hard of hearing. Slight headache no neck pain. No extremity pain. PFSH PFSH Medical History Pancytopenia Anemia History of coronary artery disease History of atrial fibrillation Compression fracture of L1 vertebra MDS (myelodysplastic syndrome) Chronic hyponatremia Chest pain Chronic pain Chest pain COVID-19 Old myocardial infarction Premature ventricular contraction Hyperlipidemia Excision of the left atrial appendage Atherosclerotic heart disease of [place] coronary artery without angina pectoris Paroxysmal atrial fibrillation Kidney stones Hiatal hernia Upper gastrointestinal bleed Diverticulitis Colitis Home Medications ?Medication ?Instructions ?Recorded ?Last Taken ?Type acetaminophen 500 mg tablet 1,000 mg PO DAILY PRN BACK PAIN 05/24/19 03/02/25 History cholecalciferol (vitamin D3) 25 25 mcg PO QHS vitamin 02/26/22 03/01/25 History mcg (1,000 unit) tablet Handicap Placard #1 ea 08/22/22 Unknown Rx nitroglycerin 0.4 mg sublingual 0.4 mg sublingual Q5-15M PRN CHEST 11/12/22 Unknown Rx tablet PAIN #25 tabs ascorbic acid (vitamin C) 500 mg 500 mg PO BID #60 tabs 06/01/23 03/02/25 Rx tablet darbepoetin renée in polysorbat 300 300 mcg subcut Q2W 07/24/23 03/02/25 History mcg/0.6 mL in polysorbate injection syringe (Aranesp) docusate sodium 100 mg capsule 100 mg PO DAILY PRN STOOL SOFTENER 09/05/24 12/08/24 History clopidogrel 75 mg tablet (Plavix) 75 mg PO DAILY #90 tabs 09/12/24 03/02/25 Rx simvastatin 20 mg tablet 20 mg PO QHS #90 tabs 10/21/24 03/01/25 Rx midodrine 5 mg tablet 15 mg (3 x 5 mg) PO TIDCM #90 tabs 12/23/24 03/02/25 Rx ranolazine 1,000 mg 1,000 mg PO BID #180 tabs 02/06/25 03/02/25 Rx tablet,extended release,12 hr famotidine 20 mg tablet (Pepcid) 20 mg PO DAILY 03/02/25 03/02/25 History folic acid 800 mcg tablet 800 mcg PO QHS 03/02/25 03/01/25 History oxycodone-acetaminophen 5 mg-325 1 tab PO Q6H PRN PRN Pain 3 days 03/02/25 Unknown Rx mg tablet #12 TABLETS Allergy/AdvReac Type Severity Reaction Status Date / Time ciprofloxacin (From Cipro) Allergy Unknown Rash Verified 03/02/25 11:10 EZEQUIEL Inhibitors Allergy cough Verified 03/02/25 11:10 benzonatate (From Tessalon Allergy rash Verified 03/02/25 11:10 Perles) ipodate (From Oragrafin) Allergy Rash Verified 03/02/25 11:10 Family History Father Prostate cancer Mother CVA (cerebral vascular accident) Brother Cancer Surgical History History of bilateral cataract extraction S/P right inguinal hernia repair Postsurgical percutaneous transluminal coronary angioplasty (PTCA) status Presence of stent in coronary artery (~11/14/11) S/P CABG (coronary artery bypass graft) (~11/2005) H/O maze procedure History of hernia repair Hx of appendectomy Social History household members: spouse current occupational status: retired Smoking Status: Never smoker alcohol intake: never substance use type: does not use caffeine: Yes Type: coffee Number of servings: 2 ROS ROS ED Constitutional Constitutional ED: Denies fever(s) Cardiovascular Cardiovascular: Denies chest pain Respiratory/Chest Respiratory/Chest: Denies cough Gastrointestinal Gastrointestinal: Denies diarrhea or vomiting Musculoskeletal Musculoskeletal: Reports back pain; Denies none or neck pain Integumentary Denies rash or wounds Neurologic Neurologic: Reports headache(s); Denies weakness EXAM Physical Exam Const Vital Signs: 03/02/25 11:08 03/02/25 11:17 03/02/25 13:52 Temperature 97.4 F L Temperature Source Temporal Pulse Rate 79 82 Respiratory Rate 16 16 Respiratory Effort Normal Respiratory Depth Normal Respiratory Pattern Normal Blood Pressure 101/51 L 93/55 L Blood Pressure Mean 67 67 Pulse Ox 100 98 Oxygen Delivery Method Room Air 03/02/25 14:42 Temperature 98 F Temperature Source Pulse Rate 66 Respiratory Rate 16 Respiratory Effort Respiratory Depth Respiratory Pattern Blood Pressure 136/86 H Blood Pressure Mean 102 Pulse Ox 98 Oxygen Delivery Method Positive cachectic Constitutional Narrative: Hard of hearing General Appearance ED: cachectic and NAD Nutritional Appearance: cachectic HEENT Reports moist mucous membranes normocephalic and atraumatic Eyes General Eye ED: Yes normal appearance of both eyes Neck full ROM Chest Wall palpation of chest normal Chest: Negative for tenderness Resp normal respiratory effort and normal air movement Effort and Inspection: symmetric chest movement; Negative for respiratory distress Cardio regular rate, regular rhythm and no murmurs Peripheral Pulses: pulses 2+ throughout GI normal to inspection, nondistended, normoactive bowel sounds and non-tender Palpation: Negative for guarding or rebound tenderness present Back/Spine Back/Spine Narrative: No thoracic tenderness mid lumbar tenderness upper lumbar L2 region. No step-offs. Extremity normal to inspection General Extremety ED: Negative for edema or tenderness General Extremity: Negative for edema Neuro oriented x3, CN's II-XII intact bilaterally and no sensory deficits noted Sensorium / Orientation: awake and alert Skin no rashes or lesions noted and no wounds MDM MDM MDM Narrative Medical decision making narrative: Interventions / MDM: Differential diagnosis: Fall, vertebral compression fracture Diagnosis considered but do not suspect: Intracranial hemorrhage however CT negative. My EKG interpretation: N/A Imaging independently reviewed and interpreted by myself: CT head/cervical spine: No fracture degenerative changes of the cervical spine. CT lumbar discussion with radiologist old L1 fracture 50%. There is new L2 fracture concerns of 25%. External documents reviewed: N/A Test considered but not ordered:N/A ED course: Mechanical fall 2 days ago is on Plavix. Head injury. With lower lumbar pain. Trauma scans head neck and lumbar scans ordered. 1240: Scans positive for new L2 fracture. No radicular symptoms. Further discussion with spouse apparently decreased mobilization at home since the fall superimposed on wheelchair he does have a walker. This is not reported to me initially especially coming oncology office. Will retreat with oxycodone in the ED will reevaluate and ambulate. Clinically feeling better on reevaluation is able to ambulate. Short prescription for oxycodone for pain control he is currently on stool softeners at home discussed continue this to avoid constipation. He is given follow-up with pain management for evaluation and treatment options if needed. All questions were answered. Re-evaluation: stable Disposition discussed with patient/family/significant other: Patient and spouse Case discussed with consulting clinician: N/A This note was generated with [employer] software. It may contain incorrect words, spelling, and punctuation that were not noted in checking the note before signing. Radiography Diagnostic Testing: Clinical Impression(s) from Imaging Studies Brain CT 03/02/25 11:34 IMPRESSION: Stable examination. Reading Location: [id number] Cervical Spine CT 03/02/25 11:34 IMPRESSION: NO ACUTE CERVICAL FRACTURE. Multiple level degenerative changes with the neural foraminal stenosis. Reading Location: [id number] Lumbar Spine CT 03/02/25 11:34 IMPRESSION: There is a 50% compression deformity at L1, similar to the prior. There is a 25% compression deformity at L2 with fracture of the anterior superior endplate, and adjacent visible soft tissue edema, likely acute. There is grade 1 spondylolisthesis at L3-4, 0.3 cm. There is degenerative disc disease with vacuum disc phenomena L4-5 and L5-S1. There is no bony spinal stenosis. There is [id number] neural foraminal narrowing from L4-S1. Bilateral nephrolithiasis. Critical results were discussed with Dr. Sal by Dr. Gutierrez at the time of dictation. Reading Location: [facility] Discharge Plan Triage Chief Complaint: Fall ED Provider: Madi Sal Dx/Rx/DC Orders Clinical Impression: Compression fx, lumbar spine, Fall, Closed head injury Instructions: ED Fracture, Vertebral Compression Prescriptions: New oxycodone-acetaminophen 5-325 mg tablet 1 tab PO Q6H PRN PRN (Reason: Pain) 3 Days Qty: 12 0RF No Action cholecalciferol (vitamin D3) 25 mcg (1,000 unit) tablet 25 mcg PO QHS (DME) Handicap Placard See Rx Instructions .Route .MEDSUPPLY Qty: 1 0RF Rx Instructions: Good from 08/22/2022-08/22/2027 Aranesp (in polysorbate) 300 mcg/0.6 mL syringe 300 mcg subcut Q2W docusate sodium 100 mg capsule 100 mg PO DAILY PRN (Reason: STOOL SOFTENER) acetaminophen 500 MG tablet 1,000 mg PO DAILY PRN (Reason: BACK PAIN) ascorbic acid (vitamin C) 500 mg tablet 500 mg PO BID Qty: 60 2RF folic acid 800 mcg tablet 800 mcg PO QHS famotidine [Pepcid] 20 mg tablet 20 mg PO DAILY nitroglycerin 0.4 mg tablet, sublingual 0.4 mg SUBLINGUAL Q5-15M PRN (Reason: CHEST PAIN) Qty: 25 6RF clopidogrel [Plavix] 75 mg tablet 75 mg PO DAILY Qty: 90 3RF simvastatin 20 mg tablet 20 mg PO QHS Qty: 90 3RF midodrine 5 mg tablet 15 mg PO TIDCM Qty: 90 11RF ranolazine 1,000 mg tablet extended release 12 hr 1,000 mg PO BID Qty: 180 3RF Primary Care Provider: [facility] Referrals: Atul Hernandez MD [Med Staff - Active Staff] - [facility] [Primary Care Provider] - Activity Restrictions/Additional Instructions: CT head and neck negative. Lumbar spine CT a new L2 compression fracture of 25%. Take pain medicine as prescribed. Continue your stool softener at home to prevent constipation. Follow-up with Dr. Hernandez for evaluation and treatment options. Print Language: Chinese Disposition Disposition: Home, Self Care Discharge Date/Time: 03/02/25 14:43
[2025-03-02] MEDS: oxyCODONE 5 MG Tablet PO (12:49)
[2025-03-02 13:52] VITALS: BP 93/55; PULSE 82; RESP 16; O2SAT 98
[2025-03-02 14:42] VITALS: BP 136/86; PULSE 66; RESP 16; TEMP 36.6; O2SAT 98
== END 2025-03-02 14:43 | disposition home or self-care (01) ==
PROVIDERS: Emergency Provider Emergency Medicine; Referring Provider Emergency Medicine; Visit Provider Emergency Medicine
DX: S32.029A Unspecified fracture of second lumbar vertebra, initial encounter for closed fracture (principal); D46.9 Myelodysplastic syndrome, unspecified; I48.0 Paroxysmal atrial fibrillation; S09.90XA Unspecified injury of head, initial encounter; W19.XXXA Unspecified fall, initial encounter; R64 Cachexia; I25.2 Old myocardial infarction; E78.5 Hyperlipidemia, unspecified; I25.10 Atherosclerotic heart disease of native coronary artery without angina pectoris; Z95.1 Presence of aortocoronary bypass graft; Z79.02 Long term (current) use of antithrombotics/antiplatelets; Z79.899 Other long term (current) drug therapy
CPT/HCPCS: 70450; 72125; 72131; 99282